=== PATIENT | male | born 1960 | race American Indian/Alaskan Native ===

== ENCOUNTER → 2016-05-17 | Outpatient (CLI) | payer MEDICARE, MEDICAID ==
[~2016-05-17] MED LIST: ACET1TAB43 PO; ACHD5005 PO; ACTOS15 MG PO; ALBU0.632 IH; ALBU1.25 IH; ALBU8.5H2 IH; AMLO10TA82 PO; ARFO15VI3 IH; ASP325TEC PO; ASP81TEC PO; ATEN100T88 PO; ATOR40TA PO; ATOR40TA70 PO; ATOR80TA PO; AZIT250T5 PO; AZTH250C PO; BUDE0.5A IH; BUDE10.2 IH; BUDE6HFA IH; BUSP10TA95 PO; CETI10TA17 PO; CETI10TA20 PO; CINA30TA2 PO; CLOP75TA28 PO; CLPD75T; CLPD75T PO; DILT240C; DOXY100C2 PO; ENOX150D; EZET10TA5; FAMO10TA43 PO; FAMO20TA5 PO; FENO145T2 PO; FENO145T20 PO; FESO4TAB PO; FLT11013 IH; FLUT16SP22 NSEACH; FLUT1AER IH; FRSM20T PO; FRSM40T PO; FURO-124 PO; FURO40TA4 PO; GABA-486 PO; GLIM2TAB PO; GLMP2T PO; IPRA3AMP IH; ISM30TCR; ISOS30TA3 PO; KCL20TCR; LEVO500T2 PO; LISI10TA2 PO; LRT10T; METO-274 PO; METO100T2 PO; METO100T5 PO; METR500T PO; MONT10TA21 PO; MONT10TA24 PO; MTP100TCR; MTP50T PO; NIA500ERT; NTR.4SL SL; OMEP-10 PO; ONDAN4ODT PO; OXYC-199 PO; PANT40SU PO; PANT40TA PO; PANT40TA3 PO; POTA10TA10 PO; POTA20TA7 PO; PRD20T PO; PRED10TA22 PO; RANO500T3 PO; RIVA15TA PO; RNT150T; RT-ALBUINH IH; SCR1T PO; SIMV40TA2; SIMV80TA3 PO; SMV20T PO; SULF1TAB38 PO; TAMO20TA2 PO; TAMS0.4C2 PO; TIZA2TAB3 PO; TRAM-21 PO; TRM50T PO; WRF10T PO; WRF5T PO; [UNRECOGNIZED DRUG - OTHER]
--- OUTSIDE RECORDS SUMMARY | 2016-05-17 08:34 | XMS REPORT | Continuity of Care Document ---
Author Author [facility] Organization [facility] Address Unknown Phone Unavailable Care Team Providers Care Coat Joiner Lockstitch Name Role Phone KIMANI GALINDO MD PCP Insurance Providers Payer Name Policy Number Subscriber Name Relationship [employer] [id number] Jagruti Garcia 18 Self / Same As Patient [facility] [id number] Jagruti Garcia Sr 18 Self / Same As Patient Advance Directives Directive Response Recorded Date/Time Advance Directives No 09/18/15 12:00pm Health Care Power of Manager Of Production No 09/18/15 12:00pm Organ Donor Yes 09/18/15 12:00pm Resuscitation Status Full Code 09/18/15 12:00pm Chief Complaint and Reason for Visit Chief Complaint Cardiac/General Problems Reason for Visit Hypertension Problems Active Problems Medical Problem Onset Date Status CAD (coronary artery disease) Unknown Acute CKD (chronic kidney disease) Unknown Acute Hypertension Unknown Acute Medications Current Home Medications Medication Dose Units Route Directions Days/Qty Instructions Start Date Nitroglycerin 0.4 Mg 0.4 Mg Sublingual As Directed as needed for Chest Pain TAKE 1 TABLET EVERY 5 MINUTES X 3 DOSES NEEDED FOR CHEST PAIN 03/16 Rivaroxaban 15 Mg 15 Mg Oral Bedtime 06/06/13 Fluticasone/Vilanterol 1 Each 1 Puff Inhalation Daily 06/29/15 Ipratropium/Albuterol Sulfate (Duoneb) 3 Ml 3 Ml Inhalation Every 4HRS as needed for Shortness Of Breath 06/29/15 Albuterol Sulfate 18 Gm 180 Mcg Inhalation Four Times Daily as needed for Shortness Of Breath 06/29/15 Metoprolol Tartrate 100 Mg 50 Mg Oral Twice A Day 06/29/15 Budesonide/Formoterol Fumarate 10.2 Gm 2 Puff Inhalation Twice A Day 06/30/15 Montelukast Sodium 10 Mg 10 Mg Oral Bedtime 06/30/15 Tamoxifen Citrate 20 Mg 20 Mg Oral Every Evening 06/30/15 Gabapentin 100 Mg 100 Mg Oral Three Times A Day 06/30/15 Pantoprazole Sodium 40 Mg 40 Mg Oral Twice A Day 06/30/15 Clopidogrel Bisulfate 75 Mg 75 Mg Oral Bedtime 06/30/15 Fenofibrate Nanocrystallized 145 Mg 145 Mg Oral Bedtime 06/30/15 Atorvastatin Calcium 40 Mg 40 Mg Oral Bedtime 06/30/15 Furosemide 40 Mg 40 Mg Oral Every Other Day 06/30/15 Isosorbide Mononitrate (Imdur) 30 Mg 30 Mg Oral Daily 90 07/03/15 Past Home Medications Medication Directions Ordered Status Clopidogrel Bisulfate 75 Mg Tablet, 12/30/06 Discontinued Furosemide 20 Mg Tablet, 40 Mg Oral Daily 12/30/06 Discontinued Potassium Chloride 20 Meq Tabsr, 12/30/06 Discontinued Ezetimibe 10 Mg Tablet, 12/30/06 Discontinued Simvastatin 40 Mg Tablet, 12/30/06 Discontinued Loratadine 10 Mg Box, 12/30/06 Discontinued Ranitidine Hcl 150 Mg Tablet, 12/30/06 Discontinued Isosorbide Mononitrate 30 Mg Tablet, 12/30/06 Discontinued [Niastan] , 12/30/06 Discontinued Metoprolol Succinate 100 Mg Tab.sr.24h, 03/13/08 Discontinued Simvastatin 40 Mg Tablet, 03/13/08 Discontinued Niacin 500 Mg Tablet.sa, 03/13/08 Discontinued Omeprazole 20 Mg Capsule.dr, 20 Mg Oral Twice A Day 03/13/08 Discontinued Tramadol Hcl 50 Mg Tablet, 50 Mg Oral Q4-6HRS Prn 10/20/08 Discontinued Trimethoprim/Sulfamethoxazole 1 Ea Tablet, 1 Ea Oral Twice A Day 10/20/08 Discontinued Warfarin Sodium 5 Mg Tablet, 5 Mg Oral Daily 05/25/09 Discontinued Diltiazem Hcl 240 Mg Cap.sr.24h, 05/25/09 Discontinued Enoxaparin Sodium 150 Mg/Ml Disp.syrin, 05/25/09 Discontinued Codeine Phos/Acetaminophen 1 Tab Tablet, 1 Tab Oral Q6h Prn 11/23/09 Discontinued Amlodipine Besylate (Norvasc 10 Mg) 10 Mg Tablet, 10 Mg Oral Daily 03/16/10 Discontinued Aspirin 81 Mg Tabec, 81 Mg Oral Daily 03/16/10 Discontinued Atenolol 100 Mg Tablet, 100 Mg Oral Daily 03/16/10 Discontinued Potassium Chloride 20 Meq Tab.prt.sr, 20 Meq Oral Daily 03/16/10 Discontinued Simvastatin 20 Mg Tab, 80 Mg Oral Bedtime 03/16/10 Discontinued Furosemide 40 Mg Tab, 40 Mg Oral Daily 03/17/10 Discontinued Sucralfate 1 Gm/10 Ml Susp, 2 Tsp Oral Before Meals And At Bedtime 03/31/10 Discontinued Acetaminophen/Hydrocodone Bitart 1 Each Tablet, 1 - 2 Each Oral Every 6 Hours as needed 06/22/10 Discontinued Azithromycin 250 Mg Tablet, 1 Tab Oral Daily 06/22/10 Discontinued Fenofibrate 145 Mg Tablet, 145 Mg Oral Bedtime 07/25/10 Discontinued Metoprolol Succinate (Toprol Xl) 100 Mg Tab.sr.24h, 50 Mg Oral Bedtime Discontinued Simvastatin 80 Mg Tablet, 80 Mg Oral Bedtime 07/26/10 Discontinued Aspirin 325 Mg Tabec, 325 Mg Oral Daily 08/26/10 Discontinued Clopidogrel Bisulfate 75 Mg Tablet, 75 Mg Oral Bedtime 08/26/10 Discontinued Famotidine (Pepcid) 20 Mg Tablet, 1 Each Oral Daily 08/26/10 Discontinued Ondansetron Hcl 4 Mg Tab, 4 Mg Oral Every 4HRS 09/14/10 Discontinued Atorvastatin Calcium 80 Mg Tablet, 80 Mg Oral Bedtime 02/11/11 Discontinued Tramadol Hcl 50 Mg Tab, 50 Mg Oral Every 8 Hours as needed 02/11/11 Discontinued Pioglitazone Hcl 15 Mg Tablet, 15 Mg Oral Daily 02/11/11 Discontinued Albuterol 8.5 Gm Hfa.aer.ad, 2 Puff Inhalation Every 6 Hours as needed Discontinued Pantoprazole Sodium 40 Mg Suspdr.pkt, 40 Mg Oral Daily 02/11/11 Discontinued Warfarin Sodium 10 Mg Tab, 10 Mg Oral Daily@1800 02/14/11 Discontinued Warfarin Sodium 5 Mg Tablet, 4 Mg Oral Daily 02/16/11 Discontinued Metoprolol Tartrate (Lopressor) 50 Mg Tablet, 50 Mg Oral Bedtime 07/20/11 Discontinued Famotidine (Pepcid) 20 Mg Tablet, 20 Mg Oral Daily 07/20/11 Discontinued Fluticasone Propionate 12 Gm Aer.w.adap, 1 Puff Inhalation As Needed Discontinued Atorvastatin Calcium 40 Mg Tablet, 40 Mg Oral Bedtime 06/06/13 Discontinued Tamoxifen Citrate 20 Mg Tablet, 20 Mg Oral Bedtime 06/06/13 Discontinued Famotidine 10 Mg Tablet, 10 Mg Oral 06/06/13 Discontinued Budesonide/Formoterol Fumarate 10.2 Gm Hfa.aer.ad, 2 Puff Inhalation Twice A Day as needed for Shortness Of Breath 06/06/13 Discontinued Montelukast Sodium 10 Mg Tablet, 10 Mg Oral Bedtime 06/06/13 Discontinued Albuterol Sulfate (Proventil Nebs) 0.63 Mg/3 Ml Vial.neb, 0.63 Mg Inhalation Q4hr Prn as needed for Wheezing 07/05/13 Discontinued Famotidine (Pepcid) 20 Mg Tablet, 20 Mg Oral Twice A Day 07/05/13 Discontinued Metoprolol Succinate 100 Mg Tab.sr.24h, 100 Mg Oral Bedtime 07/05/13 Discontinued Tizanidine Hcl 2 Mg Tablet, 2 Mg Oral Three Times A Day as needed for Muscle Spasms 07/05/13 Discontinued Oxycodone Hcl/Acetaminophen 1 Tab Tablet, 1-2 Tab Oral Every 4HRS for Pain Discontinued Doxycycline Hyclate (Vibramycin) 100 Mg Capsule, 1 Each Oral Twice A Day Discontinued Pantoprazole Sodium 40 Mg Tablet.dr, 40 Mg Oral Twice A Day 06/24/14 Discontinued Gabapentin 100 Mg Capsule, 100 Mg Oral Three Times A Day 06/24/14 Discontinued Lisinopril 10 Mg Tablet, 10 Mg Oral Daily 06/24/14 Discontinued Furosemide 40 Mg Tablet, 40 Mg Oral Every Other Day 06/29/15 Discontinued Fesoterodine Fumarate 4 Mg Tab.sr.24h, 4 Mg Oral Daily 06/29/15 Discontinued Famotidine 20 Mg Tablet, 20 Mg Oral Twice A Day 06/30/15 Discontinued Social History Social History Problem Response Recorded Date/Time Alcohol Use Denies Use 09/18/2015 12:00pm Recreational Drug Use No 09/18/2015 12:00pm Recent Foreign Travel No 09/18/2015 11:57am Recent Infectious Disease Exposure No 09/18/2015 11:57am Sexually Transmitted Disease No 09/18/2015 12:00pm Smoking Status Current Everyday Smoker 09/18/2015 12:00pm Do you dip or chew tobacco? No 09/18/2015 12:00pm Query Response Start Date Stop Date Smoking Status Current Everyday Smoker Hospital Discharge Instructions No hospital discharge instructions. Plan of Care Discharge Date 09/18/15 1:35pm Disposition 01 HOME, SELF-CARE Condition at Discharge Improved Instructions/Education Provided Associated Pulmonary Arterial Hypertension (DC ) Prescriptions See Medication Section Referrals CHELSEA MCNULTY MD FACP FAC CCDS - KIMANI GALINDO MD - Primary Care Physician KIMANI GALINDO MD - Primary Care Physician Additional Instructions/Education 1. You need to increase your Toprol XL dose to 100 mg daily. Follow-up with Dr. Mcnulty next week to further increase this if needed 2. Return to ER for any concerns All discharge instructions reviewed with patient and/or family. Voiced understanding. Functional Status No functional status results. Allergies, Adverse Reactions, Alerts Allergen Type Severity Reaction Status Last Updated Iodinated Contrast Media - IV Dye Allergy Mild Active 10/20/08 Penicillins ([id number]) Allergy Mild Active 10/20/08 Shellfish Allergy Unknown Active 02/18/06 iodine ([id number]) Allergy Unknown Active 08/21/05 amlodipine ([id number]) Allergy Unknown Active 11/29/06 Penicillin g Allergy Unknown Active 08/21/05 Immunizations Name Given Type Date of Pneumonia Vaccine 05/13/14 Historical Date of Influenza Vaccine 05/13/14 Historical Hepatitis A No Historical Hepatitis B No Historical Tetanus Booster (TDap) More than 5yrs Historical Vital Signs Acute Vital Signs Vital Response Date/Time Temperature (Fahrenheit) 98.0 degrees F (97.6 - 99.5) 09/18/2015 11:57am Temperature (Calculated Celsius) 36.30826 degrees C (36.4 - 37.5) 09/18/2015 11:57am Temperature Source Temporal 09/18/2015 11:57am Pulse Rate (adult) 96 bpm (60 - 90) 09/18/2015 11:57am Respiratory Rate 18 bpm (12 - 24) 09/18/2015 11:57am O2 Sat by Pulse Oximetry 95 % (88 - 100) 09/18/2015 11:57am Blood Pressure 175/109 mm Hg 09/18/2015 11:57am Blood Pressure Mean 131 mm Hg 09/18/2015 11:57am Pain Pain Intensity 3 09/18/2015 11:57am Height (Feet) 5 feet 09/18/2015 11:57am Height (Inches) 10 inches 09/18/2015 11:57am Height (Calculated Centimeters) 177.549789 cm 09/18/2015 11:57am Weight (Pounds) 252 pounds 09/18/2015 11:57am Weight (Calculated Kilograms) 114.907590 kilograms 09/18/2015 11:57am Height 5 ft 10 in Weight 252 lb Body Mass Index 36.2 kg/m^2 Results Laboratory Results Test Name Result Units Flags Reference Collection Date/Time Result Date/ Time Comments White Blood Count 7.7 10^3/uL 4.3-11.0 09/18/2015 12:00pm 09/18/2015 12 :12pm Red Blood Count 5.41 10^6/uL 4.35-5.85 09/18/2015 12:00pm 09/18/2015 12 :12pm Hemoglobin 15.3 G/DL 13.3-17.7 09/18/2015 12:00pm 09/18/2015 12:12pm Hematocrit 47 % 40-54 09/18/2015 12:00pm 09/18/2015 12:12pm Mean Corpuscular Volume 87 FL 80-99 09/18/2015 12:00pm 09/18/2015 12: 12pm Mean Corpuscular Hemoglobin 28 PG 25-34 09/18/2015 12:00pm 09/18/2015 12:12pm Mean Corpuscular Hemoglobin Concent 33 G/DL 32-36 09/18/2015 12:00pm 12:12pm Red Cell Distribution Width 15.5 % H 10.0-14.5 09/18/2015 12:00pm 2015 12:12pm Platelet Count 217 10^3/uL 130-400 09/18/2015 12:00pm 09/18/2015 12: 12pm Mean Platelet Volume 10.6 FL H 7.4-10.4 09/18/2015 12:00pm 09/18/2015 12: 12pm Neutrophils (%) (Auto) 54 % 42-75 09/18/2015 12:00pm 09/18/2015 12: 12pm Lymphocytes (%) (Auto) 32 % 12-44 09/18/2015 12:00pm 09/18/2015 12: 12pm Monocytes (%) (Auto) 10 % 0-12 09/18/2015 12:00pm 09/18/2015 12:12pm Eosinophils (%) (Auto) 3 % 0-10 09/18/2015 12:00pm 09/18/2015 12:12pm Basophils (%) (Auto) 1 % 0-10 09/18/2015 12:00pm 09/18/2015 12:12pm Neutrophils # (Auto) 4.2 X 10^3 1.8-7.8 09/18/2015 12:00pm 09/18/2015 12:12pm Lymphocytes # (Auto) 2.5 X 10^3 1.0-4.0 09/18/2015 12:00pm 09/18/2015 12:12pm Monocytes # (Auto) 0.8 X 10^3 0.0-1.0 09/18/2015 12:00pm 09/18/2015 12: 12pm Eosinophils # (Auto) 0.3 10^3/uL 0.0-0.3 09/18/2015 12:00pm 09/18/2015 12:12pm Basophils # (Auto) 0.1 10^3/uL 0.0-0.1 09/18/2015 12:00pm 09/18/2015 12 :12pm Prothrombin Time 15.5 SEC H 12.2-14.7 09/18/2015 12:00pm 09/18/2015 12: 26pm INR Comment 1.3 0.8-1.4 09/18/2015 12:00pm 09/18/2015 12:26pm INTERPRETIVE DATA SUGGESTED THERAPEUTIC RANGE FOR INR'S: VENOUS THROMBOSIS, PULMONARY EMBOLISM, OR PREVENTION OF SYSTEMIC EMBOLISM (EG. IN ATRIAL FIBRILLATION): 2.0 - 3.0 MECHANICAL PROSTHETIC HEART VALVES: 2.5 - 3.5* *NOTE: INR'S UP TO 4.5 MAY BE NECESSARY IN SELECTED GROUPS OF HIGH RISK PATIENTS. [employer] CONSENSUS CONFERENCE ON ANTITHROMBOTIC THERAPY (1999). Activated Partial Thromboplast Time 32 SEC 24-35 09/18/2015 12:00pm 04/2016 12:26pm Sodium Level 140 MMOL/L 135-145 09/18/2015 12:00pm 09/18/2015 12:31pm Potassium Level 4.3 MMOL/L 3.6-5.0 09/18/2015 12:00pm 09/18/2015 12: 31pm Chloride Level 105 MMOL/L 98-107 09/18/2015 12:00pm 09/18/2015 12:31pm Carbon Dioxide Level 27 MMOL/L 21-32 09/18/2015 12:00pm 09/18/2015 12: 31pm Anion Gap 8 MMOL/L 5-14 09/18/2015 12:00pm 09/18/2015 12:31pm Blood Urea Nitrogen 22 MG/DL H 7-18 09/18/2015 12:00pm 09/18/2015 12: 31pm Creatinine 2.05 MG/DL H 0.60-1.30 09/18/2015 12:00pm 09/18/2015 12:31pm BUN/Creatinine Ratio 11 09/18/2015 12:00pm 09/18/2015 12:31pm Estimat Glomerular Filtration Rate 34 09/18/2015 12:00pm 2015 12:31pm GFR INTERPRETIVE DATA UNITS FOR ESTIMATED GFR (eGFR): mL/min/1.73 M2 REFERENCE RANGE FOR ESTIMATED GFR (eGFR) eGFR NORMAL eGFR >60 MODERATELY DECREASED eGFR 30-59 SEVERLY DECREASED eGFR 15-29 KIDNEY FAILURE <15 (OR DIALYSIS) Glucose Level 109 MG/DL H 70-105 09/18/2015 12:00pm 09/18/2015 12:31pm Calcium Level 10.7 MG/DL H 8.5-10.1 09/18/2015 12:00pm 09/18/2015 12: 31pm Magnesium Level 2.5 MG/DL H 1.8-2.4 09/18/2015 12:00pm 09/18/2015 12: 31pm Total Bilirubin 0.5 MG/DL 0.1-1.0 09/18/2015 12:00pm 09/18/2015 12: 31pm Alkaline Phosphatase 62 U/L 40-136 09/18/2015 12:00pm 09/18/2015 12: 31pm Aspartate Amino Transf (AST/SGOT) 51 U/L H 5-34 09/18/2015 12:00pm 2015 12:31pm Alanine Aminotransferase (ALT/SGPT) 37 U/L 0-55 09/18/2015 12:00pm 04/2016 12:31pm Troponin I < 0.30 NG/ML <0.30 09/18/2015 12:00pm 09/18/2015 12:36pm Myoglobin 184.9 NG/ML H 10.0-92.0 09/18/2015 12:00pm 09/18/2015 12:36pm Total Protein 6.5 G/DL 6.4-8.2 09/18/2015 12:00pm 09/18/2015 12:31pm Albumin 4.0 G/DL 3.2-4.5 09/18/2015 12:00pm 09/18/2015 12:31pm Procedures Procedure Status Date Provider(s) Tracing only of electrocardiogram Active 09/18/15 SUZIE TOTH APRN Encounters Encounter Location Arrival/Admit Date Discharge/Depart Date Attending Provider Departed Emergency Room [facility] 09/18/15 11:54am 04/23 1:35pm SUZIE TOTH APRN Recent Diagnosis
--- NOTE | 2016-05-17 12:30 | Diagnostic Imaging Report ---
PROCEDURE: CT chest without contrast. TECHNIQUE: Multiple contiguous axial images were obtained through the chest without the use of intravenous contrast. INDICATION: COPD. Shortness of breath. History of breast cancer. COMPARISON: 11/19/2011 exam. FINDINGS: Lungs demonstrate scattered areas of scarring mostly in the periphery of the right upper lobe and in the lung bases. There is no significant consolidation or suspicious mass seen. The thoracic aorta is normal in caliber. No mediastinal mass or significantly enlarged lymph node is seen. There is a 1.2 cm right paratracheal and 1.1 cm aortopulmonary window minimally enlarged lymph nodes seen. No axillary lymphadenopathy is noted. There is evidence of prior sternotomy that appears healed with sternotomy wires seen. Extensive coronary artery calcifications and post-CABG changes are noted. The heart size is not enlarged. No significant pericardial or pleural effusion. Prominent mitral valve annular calcifications noted. Sections in the upper abdomen demonstrate no adrenal nodule. There is a mild degree of fatty infiltration in the liver in a diffuse fashion. The osseous structures demonstrate mild degenerative changes. IMPRESSION: Minimally enlarged aortopulmonary and right paratracheal mediastinal lymph nodes of uncertain etiology. Scattered areas of scarring in the lungs with no mass or significant consolidation. Dictated by: Dictated on workstation # [id number]
== END ==
LOC: RAD 08:30
PROVIDERS: ATTEND Nurse Practitioner Family
DX: J44.9 Chronic obstructive pulmonary disease, unspecified (principal); J45.909 Unspecified asthma, uncomplicated; R06.02 Shortness of breath; Z72.0 Tobacco use
CPT/HCPCS: 71250

== ENCOUNTER → 2016-06-15 | Outpatient (CLI) | payer MEDICARE, MEDICAID ==
--- OUTSIDE RECORDS SUMMARY | 2016-06-15 08:55 | XMS REPORT | Continuity of Care Document ---
Author Author [facility] Organization [facility] Address Unknown Phone Unavailable Care Team Providers Care Dairy Products Maker Name Role Phone KIMANI GALINDO MD PCP Insurance Providers Payer Name Policy Number Subscriber Name Relationship W[employer] Medicare [id number] Jagruti Garcia 18 Self / Same As Patient [facility] [id number] Jagruti Garcia Sr 18 Self / Same As Patient Advance Directives Directive Response Recorded Date/Time Advance Directives No 09/18/15 12:00pm Health Care Power of [employer] Reader No 09/18/15 12:00pm Organ Donor Yes 09/18/15 [...] IV Dye Allergy Mild Active 10/20/08 Penicillins ([id number]) Allergy Mild Active 10/20/08 Shellfish Allergy Unknown Active 02/18/06 iodine ([id number]) Allergy Unknown Active 08/21/05 amlodipine ([id number]) Allergy Unknown Active 11/29/06 Penicillin g Allergy Unknown Active 08/21/05 Immunizations Name Given Type Date of Pneumonia Vaccine 05/13/14 Historical Date of Influenza Vaccine 05/13/14 Historical Hepatitis A No Historical Hepatitis B No Historical Tetanus Booster (TDap) More than 5yrs Historical Vital Signs Acute Vital Signs Vital Response Date/Time Temperature (Fahrenheit) 98.0 degrees F (97.6 - 99.5) 09/18/2015 11:57am Temperature (Calculated Celsius) 36.65175 degrees C (36.4 - 37.5) 09/18/2015 11:57am [...] 10 inches 09/18/2015 11:57am Height (Calculated Centimeters) 177.426007 cm 09/18/2015 11:57am Weight (Pounds) 252 pounds 09/18/2015 11:57am Weight (Calculated Kilograms) 114.255919 kilograms 09/18/2015 11:57am Height 5 ft 10 [...] SELECTED GROUPS OF HIGH RISK PATIENTS. [employer] CONSENSUS CONFERENCE ON [...] Date Attending Provider Departed Emergency Room [facility] 09/18/15 11:54am 04/23 1:35pm SUZIE TOTH APRN Recent Diagnosis
--- NOTE | 2016-06-15 09:41 | Diagnostic Imaging Report ---
Bilateral mild diagnostic mammogram. INDICATION: History of left breast cancer status post mastectomy. The patient has bilateral axillary swelling. CAD is utilized. The current study was also evaluated with a Computer Aided Detection (CAD) system. COMPARISON: 07/08/2015 and other prior exams. FINDINGS: Postsurgical changes seen in the left breast area and axilla with multiple surgical clips seen. Well-defined nodules in the left axilla with suggestion of fatty hilum compatible with lymph nodes without significant enlargement. There are slightly larger lymph nodes seen in the right axilla however there is preserved fatty tata suggestive of benign etiology. No right breast mass or calcification seen. IMPRESSION: Benign-appearing lymph nodes slightly more prominent to the right axilla seen. Ultrasound evaluation pending. BI-RADS 0. ACR BI-RADS Category 0: Incomplete. (Needs additional imaging evaluation). Result letter will be mailed to the patient. Note: At least 10% of breast cancer is not imaged by mammography. Dictated by: Dictated on workstation # [id number]
--- NOTE | 2016-06-15 15:38 | Diagnostic Imaging Report ---
EXAMINATION: Bilateral breast and axilla ultrasound. INDICATION: Bilateral axillary pain. FINDINGS: RIGHT SIDE: The four-quadrants and retroareolar region demonstrate no significant abnormality. In the right axilla, there is a lymph node measuring 2.4 x 1.3 x 2.1 cm with a preserved fatty hilum. LEFT SIDE: The left mastectomy bed demonstrates no suspicious mass. The left axilla demonstrates lymph nodes with preserved fatty tata and thin cortices measuring up to 2.6 x 0.8 x 1 cm. IMPRESSION: Bilateral axillary lymph nodes with preserved fatty tata, suggestive of a benign etiology. Continued clinical followup is recommended. ACR BI-RADS Category 2: Benign findings. Dictated by: Dictated on workstation # [id number]
== END ==
LOC: RAD 08:51
PROVIDERS: ATTEND Internal Medicine Hematology & Oncology
DX: C50.922 Malignant neoplasm of unspecified site of left male breast (principal); I89.0 Lymphedema, not elsewhere classified; Z90.12 Acquired absence of left breast and nipple
CPT/HCPCS: 77066

== ENCOUNTER 2016-06-18 09:08 | Outpatient (RCR) | payer MEDICARE, MEDICAID ==
--- OUTSIDE RECORDS SUMMARY | 2016-06-11 08:47 | XMS REPORT | Continuity of Care Document ---
Author Author [facility] Organization [facility] Address Unknown Phone Unavailable Care Team Providers Care Elementary Supervisor Name Role Phone KIMANI GALINDO MD PCP Insurance Providers Payer Name Policy Number Subscriber Name Relationship Wps Medicare [id number] Jagruti Garcia 18 Self / Same As Patient [facility] [id number] Jagruti Garcia Sr 18 Self / Same As Patient Advance Directives Directive Response Recorded Date/Time Advance Directives No 09/18/15 12:00pm Health Care Power of Precipitator No 09/18/15 12:00pm Organ Donor Yes 09/18/15 [...] IV Dye Allergy Mild Active 10/20/08 Penicillins ([id number]) Allergy Mild Active 10/20/08 Shellfish Allergy Unknown Active 02/18/06 iodine ([id number]) Allergy Unknown Active 08/21/05 amlodipine ([id number]) Allergy Unknown Active 11/29/06 Penicillin g Allergy Unknown Active 08/21/05 Immunizations Name Given Type Date of Pneumonia Vaccine 05/13/14 Historical Date of Influenza Vaccine 05/13/14 Historical Hepatitis A No Historical Hepatitis B No Historical Tetanus Booster (TDap) More than 5yrs Historical Vital Signs Acute Vital Signs Vital Response Date/Time Temperature (Fahrenheit) 98.0 degrees F (97.6 - 99.5) 09/18/2015 11:57am Temperature (Calculated Celsius) 36.83794 degrees C (36.4 - 37.5) 09/18/2015 11:57am [...] 10 inches 09/18/2015 11:57am Height (Calculated Centimeters) 177.885031 cm 09/18/2015 11:57am Weight (Pounds) 252 pounds 09/18/2015 11:57am Weight (Calculated Kilograms) 114.602594 kilograms 09/18/2015 11:57am Height 5 ft 10 [...] SELECTED GROUPS OF HIGH RISK PATIENTS. [employer] CONSENSUS CONFERENCE ON [...] Date Attending Provider Departed Emergency Room [facility] 09/18/15 11:54am 04/23 1:35pm SUZIE TOTH APRN Recent Diagnosis
[2016-06-14 15:28] LABS: BASOPHILS % (AUTO) 1 % (0-10); EOSINOPHILS # (AUTO) 0.2 10^3/uL (0.0-0.3); EOSINOPHILS % (AUTO) 2 % (0-10); LYMPHOCYTES # (AUTO) 1.9 X 10^3 (1.0-4.0); LYMPHOCYTES % (AUTO) 30 % (12-44); MEAN CORPUSCULAR HEMOGLOBIN 27 PG (25-34); MEAN CORPUSCULAR HGB CONC 32 G/DL (32-36); MEAN CORPUSCULAR VOLUME 86 FL (80-99); MEAN PLATELET VOLUME 10.4 FL (7.4-10.4); MONOCYTES # (AUTO) 0.7 X 10^3 (0.0-1.0); MONOCYTES % (AUTO) 11 % (0-12); NEUTROPHILS # (AUTO) 3.6 X 10^3 (1.8-7.8); NEUTROPHILS % (AUTO) 57 % (42-75); PLATELET COUNT 206 10^3/uL (130-400); RED BLOOD COUNT 5.56 10^6/uL (4.35-5.85); RED CELL DISTRIBUTION WIDTH 16.8 % (10.0-14.5); WHITE BLOOD COUNT 6.3 10^3/uL (4.3-11.0)
[2016-06-14 16:07] LABS: BILIRUBIN,TOTAL 0.5 MG/DL (0.1-1.0); CALCIUM 11.1 MG/DL (8.5-10.1); CREATININE SERUM 1.8 MG/DL (0.60-1.30); POTASSIUM 4.6 MMOL/L (3.6-5.0)
[~2016-06-18 09:08] MED LIST changes: -ALBU1.25 IH; -ARFO15VI3 IH; -AZIT250T5 PO; -BUDE0.5A IH; -BUSP10TA95 PO; -CETI10TA17 PO; -CETI10TA20 PO; -CINA30TA2 PO; -FLUT16SP22 NSEACH; -GLIM2TAB PO; -GLMP2T PO; -LEVO500T2 PO; -METO-274 PO; -METR500T PO; -POTA10TA10 PO; -PRD20T PO; -PRED10TA22 PO; -RANO500T3 PO; -TAMS0.4C2 PO
[2016-06-20] MEDS ORDERED: PRD20T PO (22:30)
[2016-06-20] MEDS ORDERED: AZIT250T5 PO (22:30)
[2016-06-20] MEDS ORDERED: LEVO500T2 PO (22:40)
[2016-06-20] MEDS ORDERED: METR500T PO (22:54)
[2016-07-18] MEDS ORDERED: BUSP10TA95 PO (07:46)
[2016-07-18] MEDS ORDERED: CETI10TA20 PO (07:46)
[2016-07-18] MEDS ORDERED: CINA30TA2 PO (07:46)
[2016-07-18] MEDS ORDERED: ARFO15VI3 IH (07:46)
[2016-07-18] MEDS ORDERED: GLMP2T PO (07:46)
[2016-07-19] MEDS ORDERED: METO-274 PO (10:32)
[2016-07-19] MEDS ORDERED: BUDE0.5A IH (10:32)
[2016-07-19] MEDS ORDERED: CETI10TA17 PO (10:32)
[2016-07-19] MEDS ORDERED: GLIM2TAB PO (10:32)
[2016-07-19] MEDS ORDERED: POTA10TA10 PO (10:32)
[2016-07-19] MEDS ORDERED: ISOS30TA3 PO (10:32)
[2016-07-19] MEDS ORDERED: FLUT16SP22 NSEACH (10:32)
[2016-07-19] MEDS ORDERED: TAMS0.4C2 PO (10:32)
[2016-07-19] MEDS ORDERED: ALBU1.25 IH (10:34)
[2016-07-20] MEDS ORDERED: PRED10TA22 PO (09:25)
[2016-07-21] MEDS ORDERED: METO-274 PO (08:45)
[2016-07-21] MEDS ORDERED: RANO500T3 PO (08:45)
[2016-09-10] MEDS ORDERED: RANO500T3 PO (09:33)
[2016-09-10] MEDS ORDERED: METO-274 PO (09:33)
== END 2016-09-09 | disposition home or self-care (01) ==
LOC: ONC 09:08
PROVIDERS: ATTEND Internal Medicine Hematology & Oncology
DX: C50.122 Malignant neoplasm of central portion of left male breast (principal); Z17.0 Estrogen receptor positive status [ER+]; Z90.12 Acquired absence of left breast and nipple; Z85.858 Personal history of malignant neoplasm of other endocrine glands; I25.10 Atherosclerotic heart disease of native coronary artery without angina pectoris; I12.9 Hypertensive chronic kidney disease with stage 1 through stage 4 chronic kidney disease, or unspecified chronic kidney disease; N18.9 Chronic kidney disease, unspecified; E78.5 Hyperlipidemia, unspecified; Z86.718 Personal history of other venous thrombosis and embolism; Z95.1 Presence of aortocoronary bypass graft; Z79.810 Long term (current) use of selective estrogen receptor modulators (SERMs); Z79.01 Long term (current) use of anticoagulants
CPT/HCPCS: 36415; 80053; 85025; 86300; 99213

== ENCOUNTER 2016-06-20 21:17 | Emergency (ER) | payer MEDICARE, MEDICAID ==
[~2016-06-20] VITALS: Ht 170.2 cm; Wt 110.2 kg
--- OUTSIDE RECORDS SUMMARY | 2016-06-20 21:24 | XMS REPORT | Continuity of Care Document ---
Author Author [facility] Organization [facility] Address Unknown Phone Unavailable Care Team Providers Care Oxygen Equipment Aide Name Role Phone KIMANI GALINDO MD PCP Insurance Providers Payer Name Policy Number Subscriber Name Relationship Wps Medicare [id number] Jagruti Garcia 18 Self / Same As Patient [facility] [id number] Jagruti Garcia Sr 16 Self / Same As Patient Advance Directives Directive Response Recorded Date/Time Advance Directives No 09/18/15 12:00pm Health Care Power of Addiction Psychiatrist No 09/18/15 12:00pm Organ Donor Yes 09/18/15 [...] IV Dye Allergy Mild Active 10/20/08 Penicillins ([id number]) Allergy Mild Active 10/20/08 Shellfish Allergy Unknown Active 02/18/06 iodine ([id number]) Allergy Unknown Active 08/21/05 amlodipine ([id number]) Allergy Unknown Active 11/29/06 Penicillin g Allergy Unknown Active 08/21/05 Immunizations Name Given Type Date of Pneumonia Vaccine 05/13/14 Historical Date of Influenza Vaccine 05/13/14 Historical Hepatitis A No Historical Hepatitis B No Historical Tetanus Booster (TDap) More than 5yrs Historical Vital Signs Acute Vital Signs Vital Response Date/Time Temperature (Fahrenheit) 98.0 degrees F (97.6 - 99.5) 09/18/2015 11:57am Temperature (Calculated Celsius) 36.40517 degrees C (36.4 - 37.5) 09/18/2015 11:57am [...] 10 inches 09/18/2015 11:57am Height (Calculated Centimeters) 177.228672 cm 09/18/2015 11:57am Weight (Pounds) 252 pounds 09/18/2015 11:57am Weight (Calculated Kilograms) 114.900611 kilograms 09/18/2015 11:57am Height 5 ft 10 [...] SELECTED GROUPS OF HIGH RISK PATIENTS. [employer] CONSENSUS CONFERENCE ON [...] Date Attending Provider Departed Emergency Room [facility] 09/18/15 11:54am 04/23 1:35pm SUZIE TOTH APRN Recent Diagnosis
[2016-06-20] MEDS ORDERED: RT-ALBUTEROL/IPRATROPIUM 3 ML (DUONEB) VIAL INH ONE ×2 (21:45→22:00)
--- NOTE | 2016-06-20 21:46 | ED Cough/URI ---
General Stated Complaint: STOMACH PAIN, FEVER, COUGHING UP BLOOD Source: patient Exam Limitations: no limitations (SUZIE BAPTISTE APRN) History of Present Illness Time seen by provider: 21:43 Initial Comments To ER with reports of hemoptysis since last night, lower abdominal pain bilaterally and fever up to 102 last night. He does have COPD. States that he' s been coughing more than usual for the past 3 days. 3 days ago he started with a cough that was productive of yellow sputum but without blood. Starting last night and more persistently today he had a cough productive of blood. He is on xarelto for history of multiple DVT. He did have a CT of the chest done here in May which showed some nonspecific mediastinal lymphadenopathy but without mass otherwise. Timing/Duration: getting worse Severity/Quality: productive cough Associated Symptoms: cough (SUZIE BAPTISTE APRN) Allergies and Home Medications Allergies Coded Allergies: Iodinated Contrast Media - IV Dye (Unverified Allergy, Mild, 10/20/08) Penicillins (Unverified Allergy, Mild, 10/20/08) Shellfish (Verified Allergy, Unknown, 02/18/06) amlodipine (Verified Allergy, Unknown, 11/29/06) iodine (Verified Allergy, Unknown, 08/21/05) penicillin G (Verified Allergy, Unknown, 08/21/05) Home Medications Albuterol Sulfate 18 Gm Hfa.aer.ad 180 MCG IH QID PRN PRN SHORTNESS OF BREATH ( Reported) Atorvastatin Calcium 40 Mg Tablet 40 MG PO HS (Reported) Budesonide/Formoterol Fumarate 10.2 Gm Hfa.aer.ad 2 PUFF IH BID (Reported) Clopidogrel Bisulfate 75 Mg Tablet 75 MG PO HS (Reported) Fenofibrate Nanocrystallized 145 Mg Tablet 145 MG PO HS (Reported) Fluticasone/Vilanterol 1 Each Blst.w.dev 1 PUFF IH DAILY (Reported) Furosemide 40 Mg Tablet 40 MG PO EVERY OTHER DAY (Reported) Gabapentin 100 Mg Capsule 100 MG PO TID (Reported) Ipratropium/Albuterol Sulfate 3 Ml Ampul.neb 3 ML IH Q4H PRN PRN SHORTNESS OF BREATH (Reported) Isosorbide Mononitrate 30 Mg Tab.er.24h #90 30 MG PO DAILY Prescribed by: BLAYNE MORENO on 07/03/15 0914 Levofloxacin 500 Mg Tablet #4 500 MG PO Q48H Prescribed by: SUZIE BAPTISTE on 06/20/160 Metoprolol Tartrate 100 Mg Tablet 50 MG PO BID (Reported) Metronidazole 500 Mg Tablet #21 500 MG PO TID Prescribed by: SUZIE BAPTISTE on 06/20/162253 Montelukast Sodium 10 Mg Tablet 10 MG PO HS (Reported) Nitroglycerin 0.4 Mg Subl 0.4 MG SL UD PRN PRN CHEST PAIN (Reported) TAKE 1 TABLET EVERY 5 MINUTES X 3 DOSES NEEDED FOR CHEST PAIN Pantoprazole Sodium 40 Mg Tablet.dr 40 MG PO BID (Reported) Prednisone 20 Mg Tab #6 40 MG PO DAILY Prescribed by: SUZIE BAPTISTE on 06/20/162229 Rivaroxaban 15 Mg Tablet 15 MG PO HS (Reported) Tamoxifen Citrate 20 Mg Tablet 20 MG PO EVERY EVENING (Reported) Constitutional: see HPI chills fever EENTM: see HPI Respiratory: see HPI cough hemoptysis Cardiovascular: no symptoms reported Genitourinary: no symptoms reported Musculoskeletal: no symptoms reported Skin: no symptoms reported Psychiatric/Neurological: No Symptoms Reported Hematologic/Lymphatic: No Symptoms Reported Immunological/Allergic: no symptoms reported (SUZIE BAPTISTE APRN) Past Njqdcwb-Hmsjal-Nnzmsp Hx Patient Social History Recent Foreign Travel: No Contact w/Someone Who Travel: No (SUZIE BAPTISTE APRN) Immunizations Up To Date Tetanus Booster (TDap): More than 5yrs PED Vaccines UTD: No Date of Pneumonia Vaccine: May 13, 2014 Date of Influenza Vaccine: May 13, 2014 (SUZIE BAPTISTE APRN) Surgeries HX Surgeries: Yes (PARATHYROIDECTOMY, OPEN HEART SC, CARDIAC CATH X20, CARPEL TUNNEL LATA HAND) Surgeries: Appendectomy, Breast, Cardiac, Coronary Stent, Orthopedic (SUZIE BAPTISTE APRN) Respiratory Hx Respiratory Disorders: Yes Respiratory Disorders: Asthma, COPD, Emphysema (SUZIE BAPTISTE APRN) Cardiovascular Hx Cardiac Disorders: Yes (HAS STENTS X3, HX LBBB, CHF) Cardiac Disorders: Angina, Atrial Fibrillation, Cardiomyopathy, Coronary Artery Disease, Deep Vein Thrombosis, Heart Attack, Heart Murmur, High Cholesterol, Hypertension (SUZIE BAPTISTE APRN) Neurological Hx Neurological Disorders: Yes Neurological Disorders: TIA (SUZIE BAPTISTE APRN) Reproductive System Hx Reproductive Disorders: No Sexually Transmitted Disease: No (SUZIE BAPTISTE APRN) Genitourinary Hx Genitourinary Disorders: Yes (CHRONIC RENAL INSUFFICIENCY) Genitourinary Disorders: Renal Failure (SUZIE BAPTISTE APRN) Gastrointestinal Hx Gastrointestinal Disorders: Yes (LIVER ENZYME ELEVATION/ LIPITOR ADJUSTED) Gastrointestinal Disorders: Gastroesophageal Reflux, Liver Disease/Jaundice (SUZIE BAPTISTE APRN) Musculoskeletal Hx Musculoskeletal Disorders: Yes (LEFT SHOULDER TORN ROTATOR CUFF, bilat carpal tunnel repair) Musculoskeletal Disorders: Degenerate Disk Disease (SUZIE BAPTISTE APRN) Endocrine Hx Endocrine Disorders: Yes (PARATHYROIDECTOMY, "BORDERLINE DIABETIC") Endocrine Disorders: Diabetes, Non-Insulin dep (SUZIE BAPTISTE APRN) HEENT HX ENT Disorders: No HEENT Disorders: Cataract (SUZIE BAPTISTE APRN) Cancer Hx Cancer: Yes Cancer: Breast (SUZIE BAPTISTE APRN) Psychosocial Hx Psychiatric Problems: No (SUZIE BAPTISTE APRN) Integumentary HX Skin/Integumentary Disorder: No (SUZIE BAPTISTE APRN) Blood Transfusions Hx Blood Disorders: No (SUZIE BAPTISTE APRN) Family Medical History Family Medial History: Arthritis 19 FATHER Cardiovascular disease 19 FATHER FH: breast cancer 19 MOTHER Respiratory disorder 19 FATHER (SUZIE BAPTISTE APRN) Family Medial History: Arthritis 19 FATHER Cardiovascular disease 19 FATHER FH: breast cancer 19 MOTHER Respiratory disorder 19 FATHER (CHINO ELLIS MD) Physical Exam Vital Signs Vital Sign - Last 12Hours 06/20/16 21:20 Temp 101.8 Pulse 92 Resp 22 B/P 107/67 Pulse Ox 94 O2 Delivery Room Air (CHINO ELLIS MD) Vital Signs Capillary Refill : (SUZIE BAPTISTE APRN) General Appearance: WD/WN no apparent distress HEENT: PERRL/EOMI normal ENT inspection Neck: non-tender full range of motion Respiratory: no respiratory distress no accessory muscle use wheezing Cardiovascular: regular rate, rhythm no murmur Gastrointestinal: normal bowel sounds non tender softNo tenderness Extremities: normal range of motion non-tender Neurologic/Psychiatric: alert normal mood/affect oriented x 3 Skin: normal color warm/dry (SUZIE BAPTISTE APRN) Progress/Results/Core Measures Results/Orders Lab Results Laboratory Tests Test 06/20/16 21:42 06/20/16 22:08 Range/Units Alanine Aminotransferase (ALT/SGPT) 19 0-55 U/L Albumin 3.6 3.2-4.5 G/DL Alkaline Phosphatase 58 40-136 U/L Anion Gap 9 5-14 MMOL/L Aspartate Amino Transf (AST/SGOT) 40 H 5-34 U/L BUN/Creatinine Ratio 14 Basophils # (Auto) 0.0 0.0-0.1 10^3/uL Basophils (%) (Auto) 0 0-10 % Blood Urea Nitrogen 31 H 7-18 MG/DL Calcium Level 9.9 8.5-10.1 MG/DL Carbon Dioxide Level 18 L 21-32 MMOL/L Chloride Level 110 H 98-107 MMOL/L Creatinine 2.16 H 0.60-1.30 MG/DL Eosinophils # (Auto) 0.1 0.0-0.3 10^3/uL Eosinophils (%) (Auto) 1 0-10 % Estimat Glomerular Filtration Rate 32 Glucose Level 157 H 70-105 MG/DL Hematocrit 47 40-54 % Hemoglobin 15.0 13.3-17.7 G/DL Lymphocytes # (Auto) 1.8 1.0-4.0 X 10^3 Lymphocytes (%) (Auto) 15 12-44 % Mean Corpuscular Hemoglobin 27 25-34 PG Mean Corpuscular Hemoglobin Concent 32 32-36 G/DL Mean Corpuscular Volume 86 80-99 FL Mean Platelet Volume 10.9 H 7.4-10.4 FL Monocytes # (Auto) 1.1 H 0.0-1.0 X 10^3 Monocytes (%) (Auto) 9 0-12 % Neutrophils # (Auto) 8.8 H 1.8-7.8 X 10^3 Neutrophils (%) (Auto) 75 42-75 % Platelet Count 213 130-400 10^3/uL Potassium Level 5.2 H 3.6-5.0 MMOL/L Red Blood Count 5.51 4.35-5.85 10^6/uL Red Cell Distribution Width 16.6 H 10.0-14.5 % Sodium Level 137 135-145 MMOL/L Total Bilirubin 0.5 0.1-1.0 MG/DL Total Protein 7.0 6.4-8.2 G/DL White Blood Count 11.7 H 4.3-11.0 10^3/uL Urine Bacteria NEGATIVE /HPF Urine Bilirubin NEGATIVE NEGATIVE Urine Casts PRESENT /LPF Urine Clarity CLEAR Urine Color YELLOW Urine Crystals NONE /LPF Urine Culture Indicated NO Urine Glucose (UA) NEGATIVE NEGATIVE Urine Hyaline Casts 0-2 H /LPF Urine Ketones NEGATIVE NEGATIVE Urine Leukocyte Esterase NEGATIVE NEGATIVE Urine Mucus NEGATIVE /LPF Urine Nitrite NEGATIVE NEGATIVE Urine Protein NEGATIVE NEGATIVE Urine RBC NONE /HPF Urine RBC (Auto) 2+ H NEGATIVE Urine Renal Epithelial Cells NONE /HPF Urine Specific Thomson 1.020 1.016-1.022 Urine Squamous Epithelial Cells 0-2 /HPF Urine Urobilinogen 1 NORMAL MG/DL Urine WBC 0-2 /HPF Urine pH 6 5-9 (CHINO ELLIS MD) Micro Results Microbiology 06/20/16 Influenza Types A,B Antigen (EMILY) - Final, Complete (CHINO ELLIS MD) Medications Given in ED Current Medications Medications Dose Ordered Sig/Rebecca Route Start Time Stop Time Status Last Admin Dose Admin Acetaminophen 1,000 mg ONCE ONCE PO 06/20/16 22:45 06/20/16 22:46 DC 06/20/16 22:48 1,000 MG Albuterol/ Ipratropium 3 ml ONCE ONCE INH 06/20/16 21:45 06/20/16 21:46 DC 06/20/16 21:54 3 ML Albuterol/ Ipratropium 3 ml ONCE ONCE INH 06/20/16 22:00 06/20/16 22:01 DC 06/20/16 22:08 3 ML Methylprednisolone Sodium Succinate 125 mg ONCE ONCE IVP 06/20/16 22:00 06/20/16 22:01 DC 06/20/16 22:07 125 MG (CHINO ELLIS MD) Vital Signs/I&O Vital Sign - Last 12Hours 06/20/16 06/20/16 06/20/16 21:20 21:54 22:08 Temp 101.8 Pulse 92 Resp 22 B/P 107/67 Pulse Ox 94 95 96 O2 Delivery Room Air (CHINO ELLIS MD) Progress Note : Progress Note 2219-patient was given 2 DuoNeb treatments in the emergency room which did do precipitate a productive cough of yellow sputum but again no obvious blood. (SUZIE BAPTISTE APRN) Progress Note : Progress Note 2310: CT results reviewed. No indication of cystitis on UA. Discharged home with return precautions and prescription for Suzie Baptiste APRN. I agree with plan. (CHINO ELLIS MD) Diagnostic Imaging Diagonstic Imaging: CT Plain Films/CT/US/NM/MRI: abdomen, pelvis Comments CT abdomen and pelvis shows mild sigmoid diverticulitis with no abscess or free air. There is no small bowel obstruction. No hydronephrosis or ureteral calculus. Nonspecific mild perinephric stranding. Thickened bladder may be under distention versus cystitis. Reviewed: Reviewed [place] Study, Reviewed by Me (CHINO ELLIS MD) Departure Communication Progress Notes 2153-patient did expectorate sputum here that had no reyes blood and was not blood-tinged.. 2228-patient does have oxygen at home to wear as needed. He does have a nebulizer at home. (SUZIE BAPTISTE APRN) Impression Impression: Primary Impression: CKD (chronic kidney disease) Qualified Code: N18.9 - Chronic kidney disease, unspecified Additional Impressions: History of hemoptysis COPD exacerbation Diverticulitis Qualified Code: K57.32 - Diverticulitis of large intestine without perforation or abscess without bleeding Disposition: HOME, SELF-CARE Condition: Stable Departure-Patient Inst. Decision time for Depature: 22:27 (SUZIE BAPTISTE APRN) Referrals: KIMANI NOBLE MD (PCP) Primary Care Physician CHELSEA HAWTHORNE MD FACP FAC CCDS (Family) Primary Care Physician Patient Instructions: Diverticulitis, NO INSTRUCTIONS GIVEN Add. Discharge Instructions: 1. Your potassium was slightly elevated at 5.2. With this in mind we should hold your potassium dose tomorrow and notify your physician the need for repeat labs 2. Follow-up with Dr. Noble later this week for recheck 3. Medication as directed Scripts Metronidazole (Flagyl)500 Mg [id number] Mg PO TID #21 TAB Prov:SUZIE BAPTISTE APRN 06/20/16 Levofloxacin (Levaquin)500 Mg [id number] Mg PO Q48H #4 TAB Prov:SUZIE BAPTISTE APRN 06/20/16 Prednisone 20 Mg Tab40 Mg PO DAILY #6 TAB Prov:SUZIE BAPTISTE APRN 06/20/16 Copy Copies To 1: KIMANI NOBLE MD, PETER J APRN Jun 20, 2016 21:46 CHINO ELLIS MD Jun 20, 2016 23:19
[2016-06-20] MEDS ORDERED: methylPREDNISolone 125 MG (Solu-MEDROL) VIAL IVP ONE (22:00)
[2016-06-20 22:05] LABS: BASOPHILS % (AUTO) 0 % (0-10); EOSINOPHILS # (AUTO) 0.1 10^3/uL (0.0-0.3); EOSINOPHILS % (AUTO) 1 % (0-10); LYMPHOCYTES # (AUTO) 1.8 X 10^3 (1.0-4.0); LYMPHOCYTES % (AUTO) 15 % (12-44); MEAN CORPUSCULAR HEMOGLOBIN 27 PG (25-34); MEAN CORPUSCULAR HGB CONC 32 G/DL (32-36); MEAN CORPUSCULAR VOLUME 86 FL (80-99); MEAN PLATELET VOLUME 10.9 FL (7.4-10.4); MONOCYTES # (AUTO) 1.1 X 10^3 (0.0-1.0); MONOCYTES % (AUTO) 9 % (0-12); NEUTROPHILS # (AUTO) 8.8 X 10^3 (1.8-7.8); NEUTROPHILS % (AUTO) 75 % (42-75); PLATELET COUNT 213 10^3/uL (130-400); RED BLOOD COUNT 5.51 10^6/uL (4.35-5.85); RED CELL DISTRIBUTION WIDTH 16.6 % (10.0-14.5); WHITE BLOOD COUNT 11.7 10^3/uL (4.3-11.0)
[2016-06-20 22:13] LABS: ALBUMIN 3.6 G/DL (3.2-4.5); BILIRUBIN,TOTAL 0.5 MG/DL (0.1-1.0); CALCIUM 9.9 MG/DL (8.5-10.1); CREATININE SERUM 2.16 MG/DL (0.60-1.30); POTASSIUM 5.2 MMOL/L (3.6-5.0)
[2016-06-20 22:14] LABS: BILIRUBIN,URINE NEGATIVE (NEGATIVE); KETONES,URINE NEGATIVE (NEGATIVE); LEUKOCYTE ESTERASE ,URINE NEGATIVE (NEGATIVE); NITRITE,URINE NEGATIVE (NEGATIVE); PH,URINE 6 (5-9); PROTEIN,URINE NEGATIVE (NEGATIVE); UROBILINOGEN,URINE 1 MG/DL (NORMAL)
[2016-06-20] MEDS ORDERED: NS IV 500 ML 500 ML IV SCH (22:30)
[2016-06-20] MEDS ORDERED: AZIT250T5 PO (22:30)
[2016-06-20] MEDS ORDERED: PRD20T PO (22:30)
[2016-06-20 22:34] LABS: SQUAMOUS EPITHELIAL CELL,UR 0-2 /HPF; WBC,URINE 0-2 /HPF
[2016-06-20 22:35] LABS: HYALINE CASTS, URINE 0-2 /LPF
[2016-06-20] MEDS ORDERED: LEVO500T2 PO (22:40)
[2016-06-20] MEDS ORDERED: ACETAMINOPHEN 500 MG TAB (TYLENOL) PO ONE (22:45)
[2016-06-20] MEDS ORDERED: METR500T PO (22:54)
[2016-06-20] MEDS ORDERED: LEVOFLOXACIN 500 MG TAB (LEVAQUIN) PO ONE (23:00)
[2016-06-20] MEDS ORDERED: metroNIDAZOLE 500 MG (FLAGYL) TAB PO ONE (23:00)
[2016-06-20 23:30] VITALS: BP 106/61
--- NOTE | 2016-06-21 06:57 | Diagnostic Imaging Report ---
PROCEDURE: CT abdomen and pelvis without contrast. TECHNIQUE: Multiple contiguous axial images were obtained through the abdomen and pelvis without the use of intravenous contrast. INDICATION: Lower abdominal pain, back pain. Exam compared 01/27/2015. FINDINGS: There is mild edema and inflammatory changes adjacent to the sigmoid colon seen best on images 57 through 64 consistent with mild diverticulitis at the proximal third of the sigmoid colon. No abscess or findings of a transmural perforation. There is no obstruction present. No other focal inflammatory process. The urinary bladder wall appears thickened but this likely reflects its decompressed state. There is mild hepatic steatosis without biliary dilatation. Solitary stone near the gallbladder neck present without features of acute cholecystitis. The pancreas nonacute. Spleen normal in size. The adrenals are negative. The aorta is nonaneurysmal. There are no opaque kidney stones. There is no hydronephrosis. There is no ascites. IMPRESSION: Findings suggest mild sigmoid diverticulitis without abscess, obstruction or perforation. Hepatic steatosis and probable cholelithiasis. The urinary bladder wall thickening significance and etiology indeterminate. This may merely reflect its lack of distention, however, in the appropriate scenario cystitis could not be excluded. We note the bladder is well separable from the mildly inflamed segment of proximal sigmoid. Dictated by: Dictated on workstation # [id number]
--- NOTE | 2016-06-21 08:38 | Diagnostic Imaging Report ---
INDICATION: Productive cough with fever. Study compared 09/18/2015. Sternal wires midline. The heart size stable. No vascular congestion. No effusion or pneumothorax. No substantial airway thickening or bronchiectasis. IMPRESSION: No acute-appearing abnormality. Dictated by: Dictated on workstation # [id number]
== END 2016-06-20 23:30 | disposition home or self-care (01) ==
LOC: EDUNIT# 21:17 → ER 21:18
DX: J44.1 Chronic obstructive pulmonary disease with (acute) exacerbation (principal); K57.32 Diverticulitis of large intestine without perforation or abscess without bleeding; I12.9 Hypertensive chronic kidney disease with stage 1 through stage 4 chronic kidney disease, or unspecified chronic kidney disease; N18.9 Chronic kidney disease, unspecified; I48.2 Chronic atrial fibrillation; Z79.899 Other long term (current) drug therapy; Z79.02 Long term (current) use of antithrombotics/antiplatelets; Z86.718 Personal history of other venous thrombosis and embolism; Z95.5 Presence of coronary angioplasty implant and graft
CPT/HCPCS: 36415; 71020; 74176; 80053; 81000; 85025; 87070; 87205; 87804; 94640; 96361; 96374

== ENCOUNTER → 2016-06-28 | Outpatient (CLI) | payer MEDICARE, MEDICAID ==
[~2016-06-28] MED LIST changes: +ALBU1.25 IH; +ARFO15VI3 IH; +AZIT250T5 PO; +BUDE0.5A IH; +BUSP10TA95 PO; +CETI10TA17 PO; +CETI10TA20 PO; +CINA30TA2 PO; +FLUT16SP22 NSEACH; +GLIM2TAB PO; +GLMP2T PO; +LEVO500T2 PO; +METO-274 PO; +METR500T PO; +POTA10TA10 PO; +PRD20T PO; +PRED10TA22 PO; +RANO500T3 PO; +TAMS0.4C2 PO
--- OUTSIDE RECORDS SUMMARY | 2016-06-28 12:24 | XMS REPORT | Continuity of Care Document ---
Author Author [facility] Organization [facility] Address Unknown Phone Unavailable Care Team Providers Care Wood Patternmaker Apprentice Name Role Phone KIMANI GALINDO MD PCP Insurance Providers Payer Name Policy Number Subscriber Name Relationship Wps Medicare [id number] Jagruti Garcia 18 Self / Same As Patient [facility] [id number] Jagruti Garcia Sr 18 Self / Same As Patient Advance Directives Directive Response Recorded Date/Time Advance Directives No 09/18/15 12:00pm Health Care Power of Fruit Worker No 09/18/15 12:00pm Organ Donor Yes 09/18/15 [...] IV Dye Allergy Mild Active 10/20/08 Penicillins ([id number]) Allergy Mild Active 10/20/08 Shellfish Allergy Unknown Active 02/18/06 iodine ([id number]) Allergy Unknown Active 08/21/05 amlodipine ([id number]) Allergy Unknown Active 11/29/06 Penicillin g Allergy Unknown Active 08/21/05 Immunizations Name Given Type Date of Pneumonia Vaccine 05/13/14 Historical Date of Influenza Vaccine 05/13/14 Historical Hepatitis A No Historical Hepatitis B No Historical Tetanus Booster (TDap) More than 5yrs Historical Vital Signs Acute Vital Signs Vital Response Date/Time Temperature (Fahrenheit) 98.0 degrees F (97.6 - 99.5) 09/18/2015 11:57am Temperature (Calculated Celsius) 36.74564 degrees C (36.4 - 37.5) 09/18/2015 11:57am [...] 10 inches 09/18/2015 11:57am Height (Calculated Centimeters) 177.747166 cm 09/18/2015 11:57am Weight (Pounds) 252 pounds 09/18/2015 11:57am Weight (Calculated Kilograms) 114.579832 kilograms 09/18/2015 11:57am Height 5 ft 10 [...] SELECTED GROUPS OF HIGH RISK PATIENTS. [employer] CONSENSUS CONFERENCE ON [...] Date Attending Provider Departed Emergency Room [facility] 09/18/15 11:54am 04/23 1:35pm SUZIE TOTH APRN Recent Diagnosis
--- NOTE | 2016-06-30 09:56 | ECHOCARDIOGRAPHY REPORT ---
PROCEDURE PHYSICIAN: CHELSEA MCNULTY DATE OF PROCEDURE: 06/28/2016 TWO DIMENSIONAL ECHOCARDIOGRAM REPORT PRIMARY PHYSICIAN: Dr. Noble OTHER PHYSICIAN: Dr. Mcnulty REFERRING PHYSICIAN: ORDERING PHYSICIAN: Floar Montoya APRN INDICATION FOR THE PROCEDURE: 1. Shortness of breath. 2. Palpitations. MEASUREMENTS DERIVED VALUES LV DIAMETER (LAX) NORMALS NORMALS Diastolic 5.5 (3.6-5.2) Eject. Fract. (60%+/-6%) Systolic (2.3-3.9) Diastolic Vol. % Shortening (0.22-0.42) Systolic Vol. Aortic Root 3.5 IVS THICKNESS Diastolic 2 (0.6-1.1) LVPW THICKNESS Diastolic 1.3 (0.6-1.1) LA DIAMETER Systolic 5 (2.1-3.7) DESCRIPTION: This is a technically difficult study and the study is not ideal for wall motion analysis. On the views available, global left ventricular systolic function appears well preserved. The left ventricular ejection fraction is estimated to be 55%. There is moderate mitral annular calcification. There is mild aortic valve sclerosis. There is no significant pericardial effusion. Doppler imaging shows trivial, mitral and tricuspid regurgitation. There is no Doppler evidence of significant valvular stenosis. Pulmonary artery systolic pressure is estimated to be approximately 35 mmHg. Doppler imaging shows trivial tricuspid regurgitation. CONCLUSIONS: 1. Technically difficult study. 2. Well preserved global left ventricular systolic function with an ejection fraction of approximately 55%. 3. Mild asymmetric thickening of the interventricular septum without evidence of left ventricular outflow tract obstruction. 4. Mild to moderate aortic valve sclerosis and mitral annular calcification without evidence of significant valvular stenosis. 5. Mild mitral, tricuspid and aortic regurgitation. 6. Pulmonary artery systolic pressure is estimated to be approximately 35 mmHg. Job ID: [id number] Dictated Date: 06/29/2016 16:52:00 High School Coordinator Date: 06/30/2016 09:49:16 / guillermo
== END ==
LOC: CARD 12:20
PROVIDERS: ATTEND Nurse Practitioner Family
DX: I48.0 Paroxysmal atrial fibrillation (principal); R06.09 Other forms of dyspnea; I25.10 Atherosclerotic heart disease of native coronary artery without angina pectoris; R00.2 Palpitations; Z86.718 Personal history of other venous thrombosis and embolism
CPT/HCPCS: 93225; 93226; 93306

== ENCOUNTER → 2016-06-29 | Outpatient (CLI) | payer MEDICARE, MEDICAID ==
[~2016-06-29] MED LIST changes: +CATHETER FLUSH 10 ML SYR IV PRN; +REGADENOSON 0.4 MG/5 ML SYR (LEXISCAN) IV ONE
[2016-06-29 13:21] VITALS: BP 156/84
[2016-06-29 13:25] VITALS: BP 145/89
[2016-06-29 13:27] VITALS: BP 132/83
--- OUTSIDE RECORDS SUMMARY | 2016-06-29 13:35 | XMS REPORT | Continuity of Care Document ---
Author Author [facility] Organization [facility] Address Unknown Phone Unavailable Care Team Providers Care Panel Machine Tender Name Role Phone KIMANI GALINDO MD PCP Insurance Providers Payer Name Policy Number Subscriber Name Relationship [employer] Medicare [id number] Jagruti Garcia 18 Self / Same As Patient [facility] [id number] Jagruti Garcia Sr 18 Self / Same As Patient Advance Directives Directive Response Recorded Date/Time Advance Directives No 09/18/15 12:00pm Health Care Power of Artificial Glass Eye Maker No 09/18/15 12:00pm Organ Donor Yes 09/18/15 [...] IV Dye Allergy Mild Active 10/20/08 Penicillins ([id number]) Allergy Mild Active 10/20/08 Shellfish Allergy Unknown Active 02/18/06 iodine ([id number]) Allergy Unknown Active 08/21/05 amlodipine ([id number]) Allergy Unknown Active 11/29/06 Penicillin g Allergy Unknown Active 08/21/05 Immunizations Name Given Type Date of Pneumonia Vaccine 05/13/14 Historical Date of Influenza Vaccine 05/13/14 Historical Hepatitis A No Historical Hepatitis B No Historical Tetanus Booster (TDap) More than 5yrs Historical Vital Signs Acute Vital Signs Vital Response Date/Time Temperature (Fahrenheit) 98.0 degrees F (97.6 - 99.5) 09/18/2015 11:57am Temperature (Calculated Celsius) 36.34105 degrees C (36.4 - 37.5) 09/18/2015 11:57am [...] 10 inches 09/18/2015 11:57am Height (Calculated Centimeters) 177.029236 cm 09/18/2015 11:57am Weight (Pounds) 252 pounds 09/18/2015 11:57am Weight (Calculated Kilograms) 114.597668 kilograms 09/18/2015 11:57am Height 5 ft 10 [...] SELECTED GROUPS OF HIGH RISK PATIENTS. [employer] CONSENSUS CONFERENCE ON [...] Attending Provider Departed Emergency Room [facility] 09/18/15 11:54am 04/23 1:35pm SUZIE TOTH APRN Recent Diagnosis
--- NOTE | 2016-06-30 07:51 | STRESS TEST ---
PROCEDURE PHYSICIAN: CHELSEA MCNULTY DATE OF PROCEDURE: 06/29/2016 RESTING AND POST REGADENOSON OF TECHNETIUM 99M TETROFOSMIN SPECT CT IMAGING: ORDERING PHYSICIAN: Flora Montoya APRN. PRIMARY PHYSICIAN: Dr. Noble. OTHER PHYSICIAN: Dr. Mcnulty CLINICAL DIAGNOSES: 1. Coronary artery disease. 2. Shortness of breath. 3. Palpitations. Baseline images were carried out after injection of 9.67 mCi of technetium 99m tetrofosmin. This was followed by 0.4 mg of regadenoson and 30.4 mCi of technetium 99m tetrofosmin for stress imaging. The electrocardiogram showed sinus rhythm with left bundle branch block. It did not change significantly with the regadenoson infusion. He noted shortness of breath following Regadenoson infusion, which resolved in a few minutes. Review of images rest and following stress, indicates a basal inferolateral perfusion defect which is mostly fixed. Gated images show inferolateral hypokinesis. Left ventricular ejection fraction is 63%. Left ventricular end diastolic volume is 96 mL. TID is absent (1.06). CONCLUSIONS: 1. This study is indicative of a small basal inferolateral myocardial infarction with small amount of jess-infarct ischemia. 2. Basal inferolateral hypokinesis. 3. Well preserved global left ventricular systolic function with an ejection fraction of 63%. 4. Mild cardiomegaly. Job ID: [id number] Dictated Date: 06/29/2016 18:24:20 Vibrating Screen Operator Date: 06/30/2016 07:46:53 / guillermo
== END ==
LOC: CARD 11:51
PROVIDERS: ATTEND Nurse Practitioner Family
DX: I25.10 Atherosclerotic heart disease of native coronary artery without angina pectoris (principal); I48.0 Paroxysmal atrial fibrillation; R00.2 Palpitations; R06.09 Other forms of dyspnea; Z86.718 Personal history of other venous thrombosis and embolism
CPT/HCPCS: 78452; 93017

== ENCOUNTER 2016-07-17 13:39 | Inpatient (IN) | payer MEDICARE, MEDICAID ==
[~2016-07-17] VITALS: Ht 170.2 cm; Wt 114.8 kg
[~2016-07-17 13:39] MED LIST changes: -ALBU1.25 IH; -ARFO15VI3 IH; -BUDE0.5A IH; -BUSP10TA95 PO; -CATHETER FLUSH 10 ML SYR IV PRN; -CETI10TA17 PO; -CETI10TA20 PO; -CINA30TA2 PO; -FLUT16SP22 NSEACH; -GLIM2TAB PO; -GLMP2T PO; -METO-274 PO; -POTA10TA10 PO; -PRED10TA22 PO; -RANO500T3 PO; -REGADENOSON 0.4 MG/5 ML SYR (LEXISCAN) IV ONE; -TAMS0.4C2 PO
[2016-07-17] MEDS ORDERED: ASPIRIN 81 MG CHEW (CHILDREN'S ASA) PO ONE (13:45)
[2016-07-17] MEDS ORDERED: RX-NITROGLYCERIN 0.4 MG TAB BTL 25'S SL ONE (13:45)
--- OUTSIDE RECORDS SUMMARY | 2016-07-17 13:46 | XMS REPORT | Continuity of Care Document ---
Author Author [facility] Organization [facility] Address Unknown Phone Unavailable Care Team Providers Care Picker Machine Operator Name Role Phone KIMANI GALINDO MD PCP Insurance Providers Payer Name Policy Number Subscriber Name Relationship [employer] Medicare [id number] Jagruti Garcia 18 Self / Same As Patient [facility] [id number] Jagruti Garcia Sr 18 Self / Same As Patient Advance Directives Directive Response Recorded Date/Time Advance Directives No 09/18/15 12:00pm Health Care Power of Chain Splitter No 09/18/15 12:00pm Organ Donor Yes 09/18/15 [...] IV Dye Allergy Mild Active 10/20/08 Penicillins ([id number]) Allergy Mild Active 10/20/08 Shellfish Allergy Unknown Active 02/18/06 iodine ([id number]) Allergy Unknown Active 08/21/05 amlodipine ([id number]) Allergy Unknown Active 11/29/06 Penicillin g Allergy Unknown Active 08/21/05 Immunizations Name Given Type Date of Pneumonia Vaccine 05/13/14 Historical Date of Influenza Vaccine 05/13/14 Historical Hepatitis A No Historical Hepatitis B No Historical Tetanus Booster (TDap) More than 5yrs Historical Vital Signs Acute Vital Signs Vital Response Date/Time Temperature (Fahrenheit) 98.0 degrees F (97.6 - 99.5) 09/18/2015 11:57am Temperature (Calculated Celsius) 36.19602 degrees C (36.4 - 37.5) 09/18/2015 11:57am [...] 10 inches 09/18/2015 11:57am Height (Calculated Centimeters) 177.096527 cm 09/18/2015 11:57am Weight (Pounds) 252 pounds 09/18/2015 11:57am Weight (Calculated Kilograms) 114.153018 kilograms 09/18/2015 11:57am Height 5 ft 10 [...] SELECTED GROUPS OF HIGH RISK PATIENTS. [employer] CONSENSUS CONFERENCE ON [...] Date Attending Provider Departed Emergency Room [facility] 09/18/15 11:54am 04/23 1:35pm SUZIE TOTH APRN Recent Diagnosis
[2016-07-17 14:03] LABS: BASOPHILS % (AUTO) 0 % (0-10); EOSINOPHILS # (AUTO) 0.2 10^3/uL (0.0-0.3); EOSINOPHILS % (AUTO) 3 % (0-10); LYMPHOCYTES # (AUTO) 2.7 X 10^3 (1.0-4.0); LYMPHOCYTES % (AUTO) 34 % (12-44); MEAN CORPUSCULAR HEMOGLOBIN 27 PG (25-34); MEAN CORPUSCULAR HGB CONC 32 G/DL (32-36); MEAN CORPUSCULAR VOLUME 85 FL (80-99); MEAN PLATELET VOLUME 10.7 FL (7.4-10.4); MONOCYTES # (AUTO) 0.9 X 10^3 (0.0-1.0); MONOCYTES % (AUTO) 11 % (0-12); NEUTROPHILS # (AUTO) 4.1 X 10^3 (1.8-7.8); NEUTROPHILS % (AUTO) 52 % (42-75); PLATELET COUNT 199 10^3/uL (130-400); RED BLOOD COUNT 5.63 10^6/uL (4.35-5.85); RED CELL DISTRIBUTION WIDTH 16.3 % (10.0-14.5); WHITE BLOOD COUNT 7.9 10^3/uL (4.3-11.0)
[2016-07-17 14:06] LABS: INR 1.3 (0.8-1.4); PROTHROMBIN TIME PATIENT 15.6 SEC (12.2-14.7)
[2016-07-17 14:16] LABS: ALBUMIN 3.8 G/DL (3.2-4.5); BILIRUBIN,TOTAL 0.5 MG/DL (0.1-1.0); CALCIUM 10.6 MG/DL (8.5-10.1); CREATININE SERUM 1.98 MG/DL (0.60-1.30); MAGNESIUM 2.3 MG/DL (1.8-2.4); POTASSIUM 4.3 MMOL/L (3.6-5.0)
[2016-07-17 14:23] LABS: MYOGLOBIN SERUM 206.6 NG/ML (10.0-92.0)
--- NOTE | 2016-07-17 14:23 | Diagnostic Imaging Report ---
INDICATION: Chest pain Comparison: 06/20/2016 Findings: Upright portable view of the chest is obtained. Heart size is upper limits of normal but unchanged. There is no central venous congestion or evidence of edema. Postoperative changes are again seen in the mediastinum. There is no pneumothorax or pleural fluid suspected. There is some subtle patchy infiltrate or atelectasis in the left lung base along the heart border. The right lung is clear. Impression: Suspect some left lower lobe atelectasis or infiltrate. Borderline cardiomegaly without evidence of failure is unchanged. Dictated by: Dictated on workstation # [id number]
--- NOTE | 2016-07-17 14:27 | ED Chest Pain ---
General Stated Complaint: CP Source: patient Exam Limitations: no limitations History of Present Illness Time seen by provider: 13:47 Initial Comments Here with report of chest pain that has been fairly persistent to the center of the chest for the last 2 days. Does have some nausea and had vomiting yesterday. Feels a little short of breath. Does continue to smoke. Has known significant coronary artery disease and follows with Dr. Noble as well as Dr. Mcnulty. Apparently had an abnormal stress test recently but states that that is typical for him. Last heart catheter was a year ago. He does have multiple stents. Reports taking his medications as directed. He is wheezing currently. 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: Yes Associated Symptoms: No abdominal pain, No back pain, No diaphoresis, No fever/ chills, nausea/vomiting shortness of breath Allergies and Home Medications Allergies Coded Allergies: Iodinated Contrast Media - Oral and (Unverified Allergy, Mild, 10/20/08) Penicillins (Unverified Allergy, Mild, 10/20/08) Shellfish (Verified Allergy, Unknown, 02/18/06) amlodipine (Verified Allergy, Unknown, 11/29/06) iodine (Verified Allergy, Unknown, 08/21/05) penicillin G (Verified Allergy, Unknown, 08/21/05) Home Medications Albuterol Sulfate 18 Gm Hfa.aer.ad 180 MCG IH QID PRN PRN SHORTNESS OF BREATH ( Reported) Atorvastatin Calcium 40 Mg Tablet 40 MG PO HS (Reported) Budesonide/Formoterol Fumarate 10.2 Gm Hfa.aer.ad 2 PUFF IH BID (Reported) Clopidogrel Bisulfate 75 Mg Tablet 75 MG PO HS (Reported) Fenofibrate Nanocrystallized 145 Mg Tablet 145 MG PO HS (Reported) Fluticasone/Vilanterol 1 Each Blst.w.dev 1 PUFF IH DAILY (Reported) Furosemide 40 Mg Tablet 40 MG PO EVERY OTHER DAY (Reported) Gabapentin 100 Mg Capsule 100 MG PO TID (Reported) Ipratropium/Albuterol Sulfate 3 Ml Ampul.neb 3 ML IH Q4H PRN PRN SHORTNESS OF BREATH (Reported) Isosorbide Mononitrate 30 Mg Tab.er.24h #90 30 MG PO DAILY Prescribed by: BLAYNE MORENO on 07/03/15 0914 Levofloxacin 500 Mg Tablet #4 500 MG PO Q48H Prescribed by: SUZIE TOTH on 06/20/16 2240 Metoprolol Tartrate 100 Mg Tablet 50 MG PO BID (Reported) Metronidazole 500 Mg Tablet #21 500 MG PO TID Prescribed by: SUZIE TOTH on 06/20/16 2254 Montelukast Sodium 10 Mg Tablet 10 MG PO HS (Reported) Nitroglycerin 0.4 Mg Subl 0.4 MG SL UD PRN PRN CHEST PAIN (Reported) TAKE 1 TABLET EVERY 5 MINUTES X 3 DOSES NEEDED FOR CHEST PAIN Pantoprazole Sodium 40 Mg Tablet.dr 40 MG PO BID (Reported) Prednisone 20 Mg Tab #6 40 MG PO DAILY Prescribed by: SUZIE TOTH on 06/20/16 2230 Rivaroxaban 15 Mg Tablet 15 MG PO HS (Reported) Tamoxifen Citrate 20 Mg Tablet 20 MG PO EVERY EVENING (Reported) Review of Systems Constitutional: see HPINo chills, No fever EENTM: No Symptoms Reported Respiratory: See HPIDenies Shortness of Air, Wheezing Cardiovascular: See HPI Gastrointestinal: Denies Abdominal Pain, Denies Diarrhea, Nausea Vomiting Genitourinary: No Symptoms Reported Musculoskeletal: no symptoms reported Skin: no symptoms reported Psychiatric/Neurological: No Symptoms Reported Endocrine: No Symptoms Reported All Other Systems Reviewed Negative Unless Noted: Yes Past Mzksqjl-Mnmapz-Tejvzs Hx Patient Social History Alcohol Use: Denies Use Recreational Drug Use: No Smoking Status: Current Everyday Smoker Type Used: Cigarettes 2nd Hand Smoke Exposure: No Recent Foreign Travel: No Contact w/Someone Who Travel: No Recent Hopitalizations: Yes (08/25/10 HEART CATH WITH STENT TO RCA) Immunizations Up To Date Tetanus Booster (TDap): More than 5yrs PED Vaccines UTD: No Date of Pneumonia Vaccine: May 13, 2014 Date of Influenza Vaccine: May 13, 2014 Surgeries HX Surgeries: Yes (PARATHYROIDECTOMY, OPEN HEART SC, CARDIAC CATH X20, CARPEL TUNNEL LATA HAND) Surgeries: Appendectomy, Breast, Cardiac, Coronary Stent, Orthopedic Respiratory Hx Respiratory Disorders: Yes Respiratory Disorders: Asthma, COPD, Emphysema Cardiovascular Hx Cardiac Disorders: Yes (HAS STENTS X3, HX LBBB, CHF) Cardiac Disorders: Angina, Atrial Fibrillation, Cardiomyopathy, Coronary Artery Disease, Deep Vein Thrombosis, Heart Attack, Heart Murmur, High Cholesterol, Hypertension Neurological Hx Neurological Disorders: Yes Neurological Disorders: TIA Reproductive System Hx Reproductive Disorders: No Sexually Transmitted Disease: No Genitourinary Hx Genitourinary Disorders: Yes (CHRONIC RENAL INSUFFICIENCY) Genitourinary Disorders: Renal Failure Gastrointestinal Hx Gastrointestinal Disorders: Yes (LIVER ENZYME ELEVATION/ LIPITOR ADJUSTED) Gastrointestinal Disorders: Gastroesophageal Reflux, Liver Disease/Jaundice Musculoskeletal Hx Musculoskeletal Disorders: Yes (LEFT SHOULDER TORN ROTATOR CUFF, bilat carpal tunnel repair) Musculoskeletal Disorders: Degenerate Disk Disease Endocrine Hx Endocrine Disorders: Yes (PARATHYROIDECTOMY, "BORDERLINE DIABETIC") Endocrine Disorders: Diabetes, Non-Insulin dep HEENT HX ENT Disorders: No HEENT Disorders: Cataract Cancer Hx Cancer: Yes Cancer: Breast Psychosocial Hx Psychiatric Problems: No Integumentary HX Skin/Integumentary Disorder: No Blood Transfusions Hx Blood Disorders: No Reviewed Nursing Assessment Reviewed/Agree w Nursing PMH: Yes Family Medical History Family Medial History: Arthritis 19 FATHER Cardiovascular disease 19 FATHER FH: breast cancer 19 MOTHER Respiratory disorder 19 FATHER Physical Exam Vital Signs Vital Sign - Last 12Hours Capillary Refill : General Appearance: WD/WN Mild Distress HEENT: PERRL/EOMI Pharynx Normal Neck: Non Tender Supple Respiratory: No Decreased Breath Sounds, Expiration Wheezing Cardiovascular: Regular Rate, Rhythm No Murmur Gastrointestinal: Non Tender Soft Extremity: Non Tender No Calf Tenderness Neurologic/Psychiatric: Alert Oriented x3 Skin: Normal Color Warm/Dry Progress/Results/Core Measures Results/Orders Lab Results Laboratory Tests Test 07/17/16 13:45 Range/Units Activated Partial Thromboplast Time 31 24-35 SEC Alanine Aminotransferase (ALT/SGPT) 24 0-55 U/L Albumin 3.8 3.2-4.5 G/DL Alkaline Phosphatase 65 40-136 U/L Anion Gap 9 5-14 MMOL/L Aspartate Amino Transf (AST/SGOT) 41 H 5-34 U/L BUN/Creatinine Ratio 14 Basophils # (Auto) 0.0 0.0-0.1 10^3/uL Basophils (%) (Auto) 0 0-10 % Blood Urea Nitrogen 27 H 7-18 MG/DL Calcium Level 10.6 H 8.5-10.1 MG/DL Carbon Dioxide Level 24 21-32 MMOL/L Chloride Level 104 98-107 MMOL/L Creatinine 1.98 H 0.60-1.30 MG/DL D-Dimer 0.81 H 0.00-0.49 UG/ML Eosinophils # (Auto) 0.2 0.0-0.3 10^3/uL Eosinophils (%) (Auto) 3 0-10 % Estimat Glomerular Filtration Rate 35 Glucose Level 138 H 70-105 MG/DL Hematocrit 48 40-54 % Hemoglobin 15.3 13.3-17.7 G/DL INR Comment 1.3 0.8-1.4 Lipase 108 H 8-78 U/L Lymphocytes # (Auto) 2.7 1.0-4.0 X 10^3 Lymphocytes (%) (Auto) 34 12-44 % Magnesium Level 2.3 1.8-2.4 MG/DL Mean Corpuscular Hemoglobin 27 25-34 PG Mean Corpuscular Hemoglobin Concent 32 32-36 G/DL Mean Corpuscular Volume 85 80-99 FL Mean Platelet Volume 10.7 H 7.4-10.4 FL Monocytes # (Auto) 0.9 0.0-1.0 X 10^3 Monocytes (%) (Auto) 11 0-12 % Myoglobin 206.6 H 10.0-92.0 NG/ML Neutrophils # (Auto) 4.1 1.8-7.8 X 10^3 Neutrophils (%) (Auto) 52 42-75 % Platelet Count 199 130-400 10^3/uL Potassium Level 4.3 3.6-5.0 MMOL/L Prothrombin Time 15.6 H 12.2-14.7 SEC Red Blood Count 5.63 4.35-5.85 10^6/uL Red Cell Distribution Width 16.3 H 10.0-14.5 % Sodium Level 137 135-145 MMOL/L Total Bilirubin 0.5 0.1-1.0 MG/DL Total Protein 7.0 6.4-8.2 G/DL Troponin I 0.71 *H <0.30 NG/ML White Blood Count 7.9 4.3-11.0 10^3/uL My Orders Orders-CHINO ELLIS MD Cbc With Automated Diff (07/17/16 13:45) Magnesium (07/17/16 13:45) Chest 1 View, Ap/Pa Only (07/17/16 13:45) Ekg Tracing (3/11/17 13:45) Cardiac Profile 1 (07/17/16 13:45) Comprehensive Metabolic Panel (07/17/16 13:45) Myoglobin Serum (07/17/16 13:45) Protime With Inr (07/17/16 13:45) Partial Thromboplastin Time (07/17/16 13:45) O2 (07/17/16 13:45) Monitor-Rhythm Ecg Trace Only (07/17/16 13:45) Lipid Panel (07/18/16 06:00) Aspirin Chewable Tablet (Baby Aspirin Ch (07/17/16 13:45) Rx-Nitroglycerin Sl Tabs (Rx-Nitrostat S (07/17/16 13:45) Saline Lock/Iv-Start (07/17/16 13:45) Lipase (07/17/16 13:45) Fibrin Degradation Products (07/17/16 13:45) Us Venous Lower Ext Lata (07/17/16 14:32) Metoprolol Succinate (Xl) Tab (Toprol Xl (07/17/16 14:45) Morphine Injection (Morphine Injection (07/17/16 14:36) Rivaroxaban Tablet (Xarelto Tablet) (07/17/16 15:00) Medications Given in ED Current Medications Medications Dose Ordered Sig/Rebecca Route Start Time Stop Time Status Last Admin Dose Admin Aspirin 324 mg ONCE ONCE PO 07/17/16 13:45 07/17/16 13:47 DC 07/17/16 13:50 324 MG Metoprolol Succinate 50 mg ONCE ONCE PO 07/17/16 14:45 07/17/16 14:46 DC 07/17/16 14:45 50 MG Nitroglycerin 0.4 mg UD ONCE SL 07/17/16 13:45 07/17/16 13:47 DC 07/17/16 13:50 0.4 MG Vital Signs/I&O Vital Sign - Last 12Hours 07/17/16 07/17/16 07/17/16 13:40 13:40 13:40 Temp 98.9 Pulse 90 Resp 14 B/P 142/88 Pulse Ox 96 96 O2 Delivery Room Air Room Air Nasal Cannula O2 Flow Rate 2 2 Progress Note : Progress Note Seen and evaluated. IV, labs, EKG and chest x-ray. Aspirin and nitroglycerin ordered. 1425: Troponin noted to be elevated. Dr. Mcnulty paged. 1430: Discussed case with Dr. Mcnulty. We will get a ultrasound bilateral lower extremities. There is elevation in troponin and d-dimer. Patient is on Plavix and Xarelto and is unlikely that he has DVT with possible. We will dose Xarelto based on findings on ultrasound. If he has no DVT, we will continue 15 mg daily. If DVT is noted then we will increase to 20 mg daily. He does have chronic renal failure which complicates treatment. Patient had one nitroglycerin and his blood pressure dropped somewhat to 95/71. We will hold further nitroglycerin and I will give morphine 2 mg IV for his continued chest discomfort. We will give DuoNeb treatment. Patient to be admitted to medicine with cardiology consult. Patient in agreement with plan. Dr. Phillips paged. 1500: I discussed the case with Dr. Phillips. She accepts patient for admission, observation status. Xarelto 15 mg by mouth given. Dr. Mcnulty has seen the patient in the emergency department. Ultrasound pending. If positive then he will adjust therapy but otherwise will continue with Xarelto daily. ECG Initial ECG Impression Date: Jul 17, 2016 Initial ECG Impression Time: 13:49 Initial ECG Rate: 94 Initial ECG Rhythm: S.Tach Comment Sinus tachycardia with left bundle branch block. Normal axis. No evidence of ST elevation LA. Rate increased from previous although similar morphology. Occasional PVCs noted. Interpreted by me. Diagnostic Imaging Diagonstic Imaging: Xray Plain Films/CT/US/NM/MRI: chest Comments NAME: JAGRUTI GARCIA [facility] REC#: [id number] PT STATUS: REG ER : 1960 PHYSICIAN: CHINO ELLIS MD ADMIT DATE: 07/17/16/ER Signed Date of Exam: 07/17/16 CHEST 1 VIEW, AP/PA ONLY INDICATION: Chest pain Comparison: 06/20/2016 Findings: Upright portable view of the chest is obtained. Heart size is upper limits of normal but unchanged. There is no central venous congestion or evidence of edema. Postoperative changes are again seen in the mediastinum. There is no pneumothorax or pleural fluid suspected. There is some subtle patchy infiltrate or atelectasis in the left lung base along the heart border. The right lung is clear. Impression: Suspect some left lower lobe atelectasis or infiltrate. Borderline cardiomegaly without evidence of failure is unchanged. Dictated by: Dictated on workstation # [id number] Dict: 07/17/16 1414 Trans: 07/17/16 1428 [facility] [id number] Interpreted by: DIPIKA PRECIADO DO Electronically signed by:DIPIKA PRECIADO DO 07/17/16 1431 Departure Communication Time/Spoke to Admitting Phy: 15:00 Time/Spoke to Consulting Physi: 14:45 Impression Impression: Primary Impression: Non-ST elevation LA (NSTEMI) Additional Impression: CKD (chronic kidney disease) Qualified Code: N18.9 - Chronic kidney disease, unspecified Disposition: ADMITTED INPATIENT Condition: Stable Decision to Admit Reason: Admit from ER (General) Decision to Admit/Date: Jul 17, 2016 Time/Decision to Admit Time: 14:45 Departure-Patient Inst. Referrals: KIMANI NOBLE MD (PCP/Family) Primary Care Physician CHINO ELLIS MD Jul 17, 2016 14:27
[2016-07-17] MEDS ORDERED: morphine INJ 10 MG/ML 1ML (SYR OR VIAL) IVP STA (14:36)
[2016-07-17] MEDS ORDERED: RIVAROXABAN 15 MG TABLET (XARELTO) PO ONE (15:00)
[2016-07-17] MEDS ORDERED: RT-ALBUTEROL/IPRATROPIUM 3 ML (DUONEB) VIAL ONE (15:00)
[2016-07-17] MEDS ORDERED: RT-ALBUTEROL/IPRATROPIUM 3 ML (DUONEB) VIAL INH ONE (15:15)
--- NOTE | 2016-07-17 15:54 | Diagnostic Imaging Report ---
INDICATION: Leg pain. History of blood clots. TECHNIQUE: Grayscale with color-flow and Doppler waveform evaluation of the bilateral lower extremity deep venous systems. CORRELATION STUDY: None FINDINGS: Color and grayscale sonographic images demonstrate no intraluminal defect within the visualized portion of the common femoral, superficial femoral and/or popliteal veins to suggest thrombus formation. These vessels demonstrate normal response to compression and augmentation. No soft tissue fluid collection. IMPRESSION: 1. Negative for deep venous thrombosis of either leg. Dictated by: Dictated on workstation # [id number]
--- NOTE | 2016-07-17 15:58 | Consultation-Cardiology ---
HPI-Cardiology Cardiology Consultation: Date of Consultation 07/17/16 Date of Admission Attending Physician Sharon Phillips DO Admitting Physician Navya Noble MD Consulting Physician CHELSEA HAWTHORNE MD, FACP, FACC, FSCAI, CCDS HPI: Chief Complaint: Chest discomfort 55 yo man with chronic cp, now with 2 days of continuous cp that has waxed and waned but not resolved, presents to the ER with worsening of pain: L parasternal , nonradiating, associated with some intermittent nausea (one episode of vomiting last night), improved but not relieved with s/l NTG, without any aggravating factors, mild to mod in intensity, sometimes sharp and sometimes dull He has chronic slowly progressive exertional shortness of breath He denies recent palp or syncope or presyncope Has chronic mild intermittent leg swelling Review of Systems-Cardiology Review of Systems Constitutional: malaiseNo weight loss, No weight gain Eyes: No vision change Ears/Nose/Throat: No ear discharge, No nasal drainage, No recent hearing loss Respiratory: As described under HPI Cardiovascular: As described under HPI Gastrointestinal: As described under HPI Genitourinary: No dysuria, No hematuria, No urine frequency changes Musculoskeletal: back pain (chronic) Skin: No rash, No ulcerations Psychiatric/Neurological: No focal weakness, No seizure, No syncope Hematologic: No bleeding abnormalities All Other Systems Reviewed Negative Unless Noted: Yes GIM-Dkvvte-Ixuhuf Hx Patient Social History Alcohol Use: Denies Use Recreational Drug Use: No Smoking Status: Current Everyday Smoker Type Used: Cigarettes 2nd Hand Smoke Exposure: No Recent Foreign Travel: No Recent Infectious Disease Expo: No Hospitalization with Isolation: Denies Immunizations Up To Date Tetanus Booster (TDap): More than 5yrs Date of Pneumonia Vaccine: May 13, 2014 Date of Influenza Vaccine: May 13, 2014 Past Medical History PMH As described under Assessment. Family Medical History Family Medical History: He reports his father had CAD. One of his sons is known to have HCM. Family History: Arthritis 19 FATHER Cardiovascular disease 19 FATHER FH: breast cancer 19 MOTHER Respiratory disorder 19 FATHER Allergies and Home Medications Allergies Coded Allergies: Iodinated Contrast Media - Oral and (Unverified Allergy, Mild, 10/20/08) Penicillins (Unverified Allergy, Mild, 10/20/08) Shellfish (Verified Allergy, Unknown, 02/18/06) amlodipine (Verified Allergy, Unknown, 11/29/06) iodine (Verified Allergy, Unknown, 08/21/05) penicillin G (Verified Allergy, Unknown, 08/21/05) Home Medications Albuterol Sulfate 18 Gm Hfa.aer.ad 180 MCG IH QID PRN PRN SHORTNESS OF BREATH ( Reported) Atorvastatin Calcium 40 Mg Tablet 40 MG PO HS (Reported) Budesonide/Formoterol Fumarate 10.2 Gm Hfa.aer.ad 2 PUFF IH BID (Reported) Clopidogrel Bisulfate 75 Mg Tablet 75 MG PO HS (Reported) Fenofibrate Nanocrystallized 145 Mg Tablet 145 MG PO HS (Reported) Fluticasone/Vilanterol 1 Each Blst.w.dev 1 PUFF IH DAILY (Reported) Furosemide 40 Mg Tablet 40 MG PO EVERY OTHER DAY (Reported) Gabapentin 100 Mg Capsule 100 MG PO TID (Reported) Ipratropium/Albuterol Sulfate 3 Ml Ampul.neb 3 ML IH Q4H PRN PRN SHORTNESS OF BREATH (Reported) Isosorbide Mononitrate 30 Mg Tab.er.24h #90 30 MG PO DAILY Prescribed by: BLAYNE MORENO on 07/03/15 0914 Levofloxacin 500 Mg Tablet #4 500 MG PO Q48H Prescribed by: SUZIE TOTH on 06/20/16 2240 Metoprolol Tartrate 100 Mg Tablet 50 MG PO BID (Reported) Metronidazole 500 Mg Tablet #21 500 MG PO TID Prescribed by: SUZIE TOTH on 06/20/16 2254 Montelukast Sodium 10 Mg Tablet 10 MG PO HS (Reported) Nitroglycerin 0.4 Mg Subl 0.4 MG SL UD PRN PRN CHEST PAIN (Reported) TAKE 1 TABLET EVERY 5 MINUTES X 3 DOSES NEEDED FOR CHEST PAIN Pantoprazole Sodium 40 Mg Tablet.dr 40 MG PO BID (Reported) Prednisone 20 Mg Tab #6 40 MG PO DAILY Prescribed by: SUZIE TOTH on 06/20/16 2230 Rivaroxaban 15 Mg Tablet 15 MG PO HS (Reported) Tamoxifen Citrate 20 Mg Tablet 20 MG PO EVERY EVENING (Reported) Physical Exam-Cardiology Physical Exam Vital Signs/I&O Vital Sign - Last 12Hours 07/17/16 07/17/16 07/17/16 07/17/16 13:40 13:40 13:40 15:19 Temp 98.9 Pulse 90 Resp 14 B/P 142/88 Pulse Ox 96 96 95 O2 Delivery Room Air Room Air Nasal Cannula O2 Flow Rate 2 2 2 Capillary Refill : Less Than 3 Seconds Constitutional: AAO x 3 well-developed well-nourished HEENT: PERRL EOMI hearing is well preservedNo xanthelasmas are seen Neck: No carotid bruit, carotid pulses are 2 + bilaterally with good upstrokes Respiratory: No accessory muscle use, lungs clear to percussion other (fair bilateral air entry; prolonged exp phase) Cardiovascular: regular rate-rhythm S1 and S2 systolic murmur (soft RADHIKA at cardiac base) Gastrointestinal: No tender, softNo guarding, No rebound, audible bowel sounds Extremities: No clubbing, No cyanosis, No significant edema Neurologic/Psychiatric: oriented x 3 grossly intact power is 5/5 both on sides Skin: No rash on exposed areas, No ulcerations on exposed areas Data Review Labs Laboratory Tests 07/17/16 13:45: Activated Partial Thromboplast Time 31, Alanine Aminotransferase (ALT/SGPT) 24, Albumin 3.8, Alkaline Phosphatase 65, Anion Gap 9, Aspartate Amino Transf (AST/ SGOT) 41H, BUN/Creatinine Ratio 14, Basophils # (Auto) 0.0, Basophils (%) (Auto ) 0, Blood Urea Nitrogen 27H, Calcium Level 10.6H, Carbon Dioxide Level 24, Chloride Level 104, Creatinine 1.98H, D-Dimer 0.81H, Eosinophils # (Auto) 0.2, Eosinophils (%) (Auto) 3, Estimat Glomerular Filtration Rate 35, Glucose Level 138H, Hematocrit 48, Hemoglobin 15.3, INR Comment 1.3, Lipase 108H, Lymphocytes # (Auto) 2.7, Lymphocytes (%) (Auto) 34, Magnesium Level 2.3, Mean Corpuscular Hemoglobin 27, Mean Corpuscular Hemoglobin Concent 32, Mean Corpuscular Volume 85, Mean Platelet Volume 10.7H, Monocytes # (Auto) 0.9, Monocytes (%) (Auto) 11 , Myoglobin 206.6H, Neutrophils # (Auto) 4.1, Neutrophils (%) (Auto) 52, Platelet Count 199, Potassium Level 4.3, Prothrombin Time 15.6H, Red Blood Count 5.63, Red Cell Distribution Width 16.3H, Sodium Level 137, Total Bilirubin 0.5, Total Protein 7.0, Troponin I 0.71*H, White Blood Count 7.9 Laboratory Tests 07/17/16 13:45 A/P-Cardiology Assessment/Admission Diagnosis Acute NSTEMI, likely due to inoperable disease of the distal LCX coronary artery (see below) Coronary artery disease with a history of bare-metal stenting of the right coronary artery several years ago, which subsequently became occluded and he then underwent drug-eluting stenting of the right coronary artery with Atom 2.25 x 28-mm stent (August 2010). This is patent on last cardiac cath of 07/01/15 , but the distal LCX artery was found to be subtotally to totally occluded and balloon angioplasty to this lesion was unsuccessful; LVEF was approx 60%; LVEDP was approx 33 mmHg MPI of of 06/29/16 shows small basal inferolateral NV with a small amount of jess -infarct ischemia, basal inferolateral hypo, LVEF 63%, midl cardiomegaly Hypertrophic cardiomyopathy with h/o partial myomectomy at [facility] in November 2005 Echo of 06/28/16: LVEF 55%, mild asymmetric thickening of the interventricular septum without LVOT obstruction, mild to mod ao valve sclerosis and MAC w/o valvular stensosi, mild mitral & aortic & tricuspid regurg, PASP 35 mmHg Palpitations: 24 hr Holter of 06/28/16 showed NSR with relatively infrequent and isolated PVC & PAC, no significant lori Mild bilat carotid stenosis per u/s of December 2012 Chronic joint (including shoulders) and back discomfort Hypertension, labile H/O chronic chest discomfort Paroxysmal atrial fibrillation treated with pulmonary vein ablation at [facility] without subsequent recurrence. Chronic left bundle branch block following myectomy in November 2005. CKD stage 3-4 - for which he follow with nephrology in [place], [place] Chronic microscopic hematuria without any identifiable lesions. 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 Continuing tobaccoism from which cessation has been advised Degenerative joint disease. Bilateral carpal tunnel surgery. Intermittent noncompliance with medications. Bilateral leg swelling, likely related to venous insufficiency. Deep venous thrombosis treated with chronic anticoag with rivroxaban. No recent blood clots in the leg veins Sleep apnea and restless leg syndrome. 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 Mccartney at [facility] in [place] in November 2011. He is now following with Dr. Medrano oncology services at [facility] History of hypercalcemia which is being followed by Dr. Noble, his pcp, and by Dr Medrano, his oncologist. He has a prior h/o partial parathyroidectomy Mild AST elevation for which f/u is with his pcp Discussion and Recomendations * Complex management due to multiple comorbidities that are outlined above * We will continue conservative management, given that he has had relatively recent cath on which the culprit lesion was found to be inoperable and that he has advanced kidney disease * I have again advised him to quit smoking immediately and completely * Will continue Xarelto, adjusted for creatinine clearance * Of the two antiplatelet agents indicated for ACS, aspirin and clopidogrel, we can only use one because he is also on oral anticoag with Xarelto * I have discussed all of these issues with him in detail. He understands and agrees with the plan Clinical Quality Measures AMI/AHF: ASA po Prior to arrival: Yes CHELSEA HAWTHORNE MD FACP FAC CCDS Jul 17, 2016 15:57
[2016-07-17 16:00] VITALS: BP 143/89
[2016-07-17] MEDS ORDERED: ISOSORBIDE MONONITRATE 30 MG (IMDUR) TAB PO NR (16:15)
[2016-07-17] MEDS ORDERED: ACETAMINOPHEN 325 MG TABLET/CAPLET (TYLENOL) PO PRN (16:15)
[2016-07-17] MEDS ORDERED: meTOprolol SUCCINATE 100 MG (TOPROL XL) TAB PO NR (16:30)
[2016-07-17] MEDS ORDERED: RT-ALBUTEROL/IPRATROPIUM 3 ML (DUONEB) VIAL INH PRN (16:30)
[2016-07-17] MEDS: NS IV 1000 ML 1,000 ML IV SCH (16:42)
[2016-07-17] MEDS: ALFUZOSIN HCL 10 MG TAB (UROXATRAL) PO SCH (16:46)
[2016-07-17] MEDS ORDERED: TAMSULOSIN 0.4 MG (FLOMAX) CAP PO SCH (18:00)
[2016-07-17 20:25] VITALS: BP 80/60
[2016-07-17] MEDS ORDERED: NITROGLYCERIN SUBLINGUAL 0.4 MG TAB (NITROSTAT) SL ONE ×2 (20:25→20:39)
[2016-07-17] MEDS: ONDANSETRON 4 MG/2 ML (SDV) Z0FRAN IVP PRN (20:28)
[2016-07-17] MEDS: RT-ALBUTEROL/IPRATROPIUM 3 ML (DUONEB) VIAL INH SCH (20:32)
[2016-07-17] MEDS ORDERED: NS IV 1000 ML 1,000 ML IV SCH (20:45)
[2016-07-17] MEDS ORDERED: NITROGLYCERIN SUBLINGUAL 0.4 MG TAB (NITROSTAT) SL PRN (20:45)
[2016-07-17] MEDS: morphine INJ 4 MG/ML 1 ML (VIAL/SYRINGE) IV PRN (20:57)
[2016-07-17] MEDS: inSUlin (REGULAR) HUMAN 1 UNIT/0.01 ML (CHARGE PER UNIT) SC SCH (21:00)
[2016-07-17] MEDS ORDERED: NS (IVPB) 250 ML IV ONE (21:15)
[2016-07-17] MEDS: ATORVASTATIN 40 MG (LIPITOR) TABLET PO SCH (21:21)
[2016-07-17] MEDS: busPIRone 10 MG (BUSPAR) TAB PO SCH (21:24)
[2016-07-18] VITALS: BP 107/69
[2016-07-18] MEDS: morphine INJ 4 MG/ML 1 ML (VIAL/SYRINGE) IV PRN (01:46)
[2016-07-18 04:00] VITALS: BP 115/70
[2016-07-18 04:32] LABS: BASOPHILS % (AUTO) 1 % (0-10); EOSINOPHILS # (AUTO) 0.3 10^3/uL (0.0-0.3); EOSINOPHILS % (AUTO) 4 % (0-10); LYMPHOCYTES # (AUTO) 2.5 X 10^3 (1.0-4.0); LYMPHOCYTES % (AUTO) 40 % (12-44); MEAN CORPUSCULAR HEMOGLOBIN 28 PG (25-34); MEAN CORPUSCULAR HGB CONC 32 G/DL (32-36); MEAN CORPUSCULAR VOLUME 87 FL (80-99); MEAN PLATELET VOLUME 10.7 FL (7.4-10.4); MONOCYTES # (AUTO) 0.7 X 10^3 (0.0-1.0); MONOCYTES % (AUTO) 11 % (0-12); NEUTROPHILS # (AUTO) 2.8 X 10^3 (1.8-7.8); NEUTROPHILS % (AUTO) 44 % (42-75); PLATELET COUNT 184 10^3/uL (130-400); RED BLOOD COUNT 5.05 10^6/uL (4.35-5.85); RED CELL DISTRIBUTION WIDTH 16.5 % (10.0-14.5); WHITE BLOOD COUNT 6.4 10^3/uL (4.3-11.0)
[2016-07-18 05:01] LABS: ALBUMIN 3.2 G/DL (3.2-4.5); BILIRUBIN,TOTAL 0.5 MG/DL (0.1-1.0); CALCIUM 10.1 MG/DL (8.5-10.1); CHOLESTEROL 102 MG/DL (< 200); CREATININE SERUM 1.97 MG/DL (0.60-1.30); DIRECT LDL 63 MG/DL (1-129); MAGNESIUM 2.3 MG/DL (1.8-2.4); POTASSIUM 5.1 MMOL/L (3.6-5.0); TOTAL PROTEIN 5.8 G/DL (6.4-8.2); TRIGLYCERIDES 123 MG/DL (<150); VLDL CHOLESTEROL 25 MG/DL (5-40)
[2016-07-18] MEDS: NS IV 1000 ML 1,000 ML IV SCH ×2 (05:34→15:01)
[2016-07-18] MEDS: inSUlin (REGULAR) HUMAN 1 UNIT/0.01 ML (CHARGE PER UNIT) SC SCH ×4 (05:53→21:00)
[2016-07-18] MEDS: KCL 10 MEQ TAB (MICRO K) PO SCH (07:00)
[2016-07-18] MEDS ORDERED: ARFO15VI3 IH (07:46)
[2016-07-18] MEDS ORDERED: CETI10TA20 PO (07:46)
[2016-07-18] MEDS ORDERED: GLMP2T PO (07:46)
[2016-07-18] MEDS ORDERED: CINA30TA2 PO (07:46)
[2016-07-18] MEDS ORDERED: BUSP10TA95 PO (07:46)
[2016-07-18] MEDS: RT-ALBUTEROL/IPRATROPIUM 3 ML (DUONEB) VIAL INH SCH ×3 (07:49→19:46)
[2016-07-18 08:28] VITALS: BP 110/69
[2016-07-18] MEDS: CLOPIDOGREL 75 MG (PLAVIX) TABLET PO SCH (08:31)
[2016-07-18] MEDS: ASPIRIN 81 MG CHEW (CHILDREN'S ASA) PO SCH (08:31)
[2016-07-18] MEDS: ISOSORBIDE MONONITRATE 30 MG (IMDUR) TAB PO SCH (08:31)
[2016-07-18] MEDS: meTOprolol SUCCINATE 100 MG (TOPROL XL) TAB PO SCH (08:31)
[2016-07-18] MEDS: TAMOXIFEN 10 MG (NOLVADEX) TAB PO SCH (08:32)
[2016-07-18] MEDS: RIVAROXABAN 15 MG TABLET (XARELTO) PO SCH (08:32)
[2016-07-18] MEDS: oxyCODONE/APAP 5/325MG (PERCOCET 5) TABLET PO PRN ×2 (08:43→21:28)
[2016-07-18] MEDS ORDERED: FUROSEMIDE 40 MG (LASIX) TAB PO SCH (09:00)
[2016-07-18] MEDS ORDERED: meTOprolol SUCCINATE 100 MG (TOPROL XL) TAB PO SCH (09:00)
[2016-07-18] MEDS ORDERED: ASPIRIN E.C. 325 MG (ECOTRIN) TABLET PO SCH (09:00)
--- NOTE | 2016-07-18 10:08 | Cardiology Progress Note ---
Subjective Subjective/Events-last exam patient is sitting in a chair, still having chest pain on and off, had slightly blurred vision on the left eye. Denied any syncope, no shortness of breath. Review of Systems General: No Chills, No Night Sweats, No Fatigue, No Malaise, No Appetite, No Other HEENT: No Head Aches, No Visual Changes, No Eye Pain, No Ear Pain, No Dysphasia , No Sinus Congestion, No Post Nasal Drip, No Sore Throat, No Other Pulmonary: No Dyspnea, No Cough, No Pleuritic Chest Pain, No Other Cardiovascular: : Chest PainNo: Edema, Lt Headedness, Orthopnea, Other, Palpitations, Paroxysmal Noc. Dyspnea Objective-Cardiology Exam Last Set of Vital Signs Vital Signs 07/18/16 08:28 Temp 97.8 Pulse 86 Resp 20 B/P 110/69 Pulse Ox 93 O2 Delivery Nasal Cannula O2 Flow Rate 2.00 Capillary Refill : Less Than 3 Seconds I&O Bad tableGeneral: Alert, Oriented X3, Cooperative HEENT: Atraumatic, PERRLA Neck: Supple, No JVD, No Thyromegaly Lungs: Clear to Auscultation, Normal Air Movement Heart: Regular Rate, Normal S1, Normal S2, No Murmurs Abdomen: Normal Bowel Sounds, Soft, No Tenderness, No Hepatosplenomegaly, No Masses Extremities: No Clubbing, No Cyanosis, No Edema, Normal Pulses, No Tenderness/ Swelling Skin: No Rashes, No Breakdown, No Significant Lesion Neuro: Normal Gait, Normal Speech, Strength at 5/5 X4 Ext, Normal Tone, Sensation Intact Psych/Mental Status: Mental Status NL, Mood NL Results Lab Laboratory Tests 07/17/16 13:45 07/18/16 03:45 A/P-Cardiology Admission Diagnosis non-ST elevation myocardial infarction and coronary artery disease Hypertension Hyperlipidemia Assessment/Plan Acute NSTEMI, likely due to inoperable disease of the distal LCX coronary artery , failed intervention in June 2015, has been doing well. Still have mild elevation in troponin with renal insufficiency. I will add Ranexa and evaluate his tolerance and response, if patient continued to have persistent chest pain, consideration for repeat cardiac catheterization in attempting to intervene might be helpful. History of chronic chest discomfort, slightly worse at this time. Followed by Dr. Mcnulty. Coronary artery disease with a history of bare-metal stenting of the right coronary artery several years ago, which subsequently became occluded and he then underwent drug-eluting stenting of the right coronary artery with Atom 2.25 x 28-mm stent (August 2010). This is patent on last cardiac cath of 07/01/15 , but the distal LCX artery was found to be subtotally to totally occluded and balloon angioplasty to this lesion was unsuccessful; LVEF was approx 60%; LVEDP was approx 33 mmHg, continue to monitor at this time. MPI of of 06/29/16 shows small basal inferolateral DE with a small amount of jess -infarct ischemia, basal inferolateral hypo, LVEF 63%, midl cardiomegaly, followed and managed by Dr. Adam Mcnulty. Hypertrophic cardiomyopathy with h/o partial myomectomy at [facility] in November 2005 Echo of 06/28/16: LVEF 55%, mild asymmetric thickening of the interventricular septum without LVOT obstruction, mild to mod ao valve sclerosis and MAC w/o valvular stensosi, mild mitral & aortic & tricuspid regurg, PASP 35 mmHg Palpitations: 24 hr Holter of 06/28/16 showed NSR with relatively infrequent and isolated PVC & PAC, no significant lori Mild bilat carotid stenosis per u/s of December 2012, continue to monitor Chronic joint (including shoulders) and back discomfort Hypertension, labile, continue to monitor Paroxysmal atrial fibrillation treated with pulmonary vein ablation at [facility] without subsequent recurrence. Chronic left bundle branch block following myectomy in November 2005. CKD stage 3-4 - for which he follow with nephrology in [place], [place] Chronic microscopic hematuria without any identifiable lesions. 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 Continuing tobaccoism from which cessation has been advised Degenerative joint disease. Bilateral carpal tunnel surgery. Intermittent noncompliance with medications. Bilateral leg swelling, likely related to venous insufficiency. Deep venous thrombosis treated with chronic anticoag with rivroxaban. No recent blood clots in the leg veins Sleep apnea and restless leg syndrome. 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 Mccartney at [facility] in [place] in November 2011. He is now following with Dr. Medrano oncology services at [facility] History of hypercalcemia which is being followed by Dr. Noble, his pcp, and by Dr Medrano, his oncologist. He has a prior h/o partial parathyroidectomy Mild AST elevation for which f/u is with his pcp Clinical Quality Measures AMI/AHF: ASA po Prior to arrival: Yes DVT/VTE Risk/Contraindication: Risk Factor Score Per Nursin RFS Level Per Nursing on Admit: 3=High SANJAY CLIFFORD MD Jul 18, 2016 10:08
[2016-07-18] MEDS: RANOLAZINE ER 500 MG TAB (RANEXA) PO SCH ×2 (10:23→21:28)
--- NOTE | 2016-07-18 11:45 | History & Physical-Hospitalist ---
HPI History of Present Illness: HPI/Chief Complaint CC: Chest pain HPI: This is a 55-year-old white male with known history of coronary artery disease previous stents placed by Dr. Mcnulty that is a patient of Dr. Noble at the [facility] who continues to smoke the presents to the emergency room with complaints of chest pain for the past 2 days accompanied with nausea. He reports these also wheezing and coughing but chest x-ray only revealed atelectasis without fever or elevated white count. D-dimer was slightly elevated bilateral LE ultrasounds were negative considering CT and she' ll was not able to be performed due to elevated creatinine. his troponin was elevated on admission consistent with possible non-ST elevation ID and he was given medication for angina that helped. I did risk reduction counselor him on the need for smoking cessation and will address the active wheezing on exam today with breathing treatments, Pulmicort and IV steroids. Very difficult situation since he continues to smoke which is very high risk for progression of CAD. Source: patient Exam Limitations: no limitations Date Seen 07/18/16 Attending Physician Sharon Phillips DO PCP Navya Noble MD Referring Physician Date of Admission Jul 17, 2016 at 14:55 Home Medications & Allergies Home Medications Reviewed patient Home Medication Reconciliation Form Allergies Coded Allergies: Iodinated Contrast Media - Oral and (Unverified Allergy, Mild, 10/20/08) Penicillins (Unverified Allergy, Mild, 10/20/08) Shellfish (Verified Allergy, Unknown, 02/18/06) amlodipine (Verified Allergy, Unknown, 11/29/06) iodine (Verified Allergy, Unknown, 08/21/05) penicillin G (Verified Allergy, Unknown, 08/21/05) Past Eyajtlu-Xdhkrj-Wffznn Hx Patient Social History Alcohol Use: Denies Use Recreational Drug Use: No Smoking Status: Current Everyday Smoker Type Used: Cigarettes 2nd Hand Smoke Exposure: No Physical Abuse Screen: No Sexual Abuse: No Recent Foreign Travel: No Contact w/other who traveled: No Recent Hopitalizations: No Recent Infectious Disease Expo: No Immunizations Up To Date Tetanus Booster (TDap): More than 5yrs Date of Pneumonia Vaccine: May 13, 2014 Date of Influenza Vaccine: Feb 10, 2015 Seasonal Allergies Seasonal Allergies: No Surgeries HX Surgeries: Yes (PARATHYROIDECTOMY, OPEN HEART SC, CARDIAC CATH X20, CARPEL TUNNEL LATA HAND) Surgeries: Appendectomy, Breast, Cardiac, Coronary Stent, Orthopedic Respiratory Hx Respiratory Disorders: Yes Respiratory Disorders: COPD, Emphysema Cardiovascular Hx Cardiovascular Disorders: Yes (HAS STENTS X3, HX LBBB, CHF) Cardiac Disorders: Angina, Atrial Fibrillation, Cardiomyopathy, Coronary Artery Disease, Deep Vein Thrombosis, Heart Attack, Heart Murmur, High Cholesterol, Hypertension Neurological Hx Neurological Disorders: Yes Neurological Disorders: TIA Reproductive System Hx Reproductive Disorders: No Sexually Transmitted Disease: No Genitourinary Hx Genitourinary Disorders: Yes (CHRONIC RENAL INSUFFICIENCY) Genitourinary Disorders: Renal Failure Gastrointestinal Hx Gastrointestinal Disorders: Yes (LIVER ENZYME ELEVATION/ LIPITOR ADJUSTED) Gastrointestinal Disorders: Gastroesophageal Reflux, Liver Disease/Jaundice Musculoskeletal Hx Musculoskeletal Disorders: Yes (LEFT SHOULDER TORN ROTATOR CUFF, bilat carpal tunnel repair) Musculoskeletal Disorders: Degenerate Disk Disease Endocrine Hx Endocrine Disorders: Yes (PARATHYROIDECTOMY, "BORDERLINE DIABETIC") Endocrine Disorders: Diabetes, Non-Insulin dep HEENT HX ENT Disorders: No HEENT Disorders: Cataract Cancer Hx Cancer: Yes Cancer: Breast Psychosocial Hx Psychiatric Problems: No Integumentary HX Skin/Integumentary Disorder: No Blood Transfusions Hx Blood Disorders: No Reviewed Nursing Assessment Reviewed/Agree w Nursing PMH: Yes Family Medical History Family Hx: Arthritis 19 FATHER Cardiovascular disease 19 FATHER FH: breast cancer 19 MOTHER Respiratory disorder 19 FATHER Review of Systems Constitutional: see HPI EENTM: no symptoms reported Respiratory: short of breath Cardiovascular: chest pain Gastrointestinal: nausea Genitourinary: no symptoms reported Musculoskeletal: back pain Skin: no symptoms reported Psychiatric/Neurological: Anxiety All Other Systems Reviewed Negative Unless Noted: Yes Physical Exam Physical Exam Vital Signs Vital Sign - Last 12Hours Capillary Refill : Less Than 3 Seconds General Appearance: No Apparent Distress WD/WN Chronically ill Obese Eyes: Bilateral Eye Normal Inspection, Bilateral Eye PERRL HEENT: PERRL/EOMI Normal ENT Inspection Pharynx Normal Neck: Full Range of Motion Normal Inspection Non Tender Supple Carotid Bruit Respiratory: Chest Non Tender No Accessory Muscle Use No Respiratory Distress Crackles Decreased Breath Sounds Wheezing Cardiovascular: Regular Rate, Rhythm No Edema No Gallop No JVD No Murmur Normal Peripheral Pulses Gastrointestinal: Normal Bowel Sounds No Organomegaly No Pulsatile Mass Non Tender Soft Back: Normal Inspection No CVA Tenderness No Vertebral Tenderness Extremity: Normal Capillary Refill Normal Inspection Normal Range of Motion Non Tender No Calf Tenderness No Pedal Edema Neurologic/Psychiatric: Alert Oriented x3 No Motor/Sensory Deficits Normal Mood/Affect Skin: Normal Color Warm/Dry Lymphatic: No Adenopathy Results Results/Procedures Lab Laboratory Tests 07/17/16 13:45 07/18/16 03:45 Assessment/Plan Admission Diagnosis Assessment: Chest pain of 2 days' duration relief with nitroglycerin with elevated troponin consistent with non-ST elevation ID with elevated d-dimer but normal ultrasound of legs and high creatinine preclude CT angiogram Continue smoker with active wheezing with atelectasis on chest x-ray Chronic renal failure creatinine usually 1.9 Hypertension Hyperlipidemia Assessment and Plan Plan: Cardiology recommendations DuoNeb nebulizer treatments along with Pulmicort neb treatment twice a day IV Solu-Medrol Monitor creatinine Gentle IV fluids to improve creatinine prior to cardiac catheter Clinical Quality Measures AMI/AHF: ASA po Prior to arrival: Yes DVT/VTE Risk/Contraindication: Risk Factor Score Per Nursin RFS Level Per Nursing on Admit: 3=High SHARON PHILLIPS DO Jul 18, 2016 11:45
[2016-07-18] MEDS: methylPREDNISolone 40 MG/ML (Solu-MEDROL) VIAL IV SCH ×2 (12:16→18:05)
[2016-07-18 12:17] VITALS: BP 106/66
[2016-07-18] MEDS: RT-BUDESONIDE NEBS 0.5 MG/2ML (PULMICORT) AMP INH SCH ×2 (12:54→19:46)
[2016-07-18 15:09] VITALS: BP 119/69
[2016-07-18] MEDS ORDERED: RIVAROXABAN 15 MG TABLET (XARELTO) PO SCH (17:00)
[2016-07-18] MEDS: ALFUZOSIN HCL 10 MG TAB (UROXATRAL) PO SCH (18:02)
[2016-07-18 20:00] VITALS: BP 124/73
[2016-07-18] MEDS: ONDANSETRON 4 MG/2 ML (SDV) Z0FRAN IVP PRN (20:39)
[2016-07-18] MEDS: ATORVASTATIN 40 MG (LIPITOR) TABLET PO SCH (21:28)
[2016-07-18] MEDS: busPIRone 10 MG (BUSPAR) TAB PO SCH (21:28)
[2016-07-18] MEDS: NICOTINE 7 MG (NICODERM) PATCH TD SCH (21:59)
[2016-07-19] VITALS: BP 113/62
[2016-07-19] MEDS: methylPREDNISolone 40 MG/ML (Solu-MEDROL) VIAL IV SCH ×3 (00:42→19:03)
[2016-07-19] MEDS: NS IV 1000 ML 1,000 ML IV SCH ×3 (00:42→21:20)
[2016-07-19 04:00] VITALS: BP 124/71
[2016-07-19 04:21] LABS: MEAN PLATELET VOLUME 10.9 FL (7.4-10.4); RED BLOOD COUNT 5.12 10^6/uL (4.35-5.85); RED CELL DISTRIBUTION WIDTH 16.2 % (10.0-14.5); WHITE BLOOD COUNT 6.8 10^3/uL (4.3-11.0)
[2016-07-19 04:43] LABS: ALANINE AMINOTRANSFERASE 20 U/L (0-55); ALBUMIN 3.4 G/DL (3.2-4.5); ANION GAP 9 MMOL/L (5-14); ASPARTATE AMINO TRANSFERASE 32 U/L (5-34); BILIRUBIN,TOTAL 0.3 MG/DL (0.1-1.0); BLOOD UREA NITROGEN 21 MG/DL (7-18); BUN/CREATININE RATIO 13; CALCIUM 10.4 MG/DL (8.5-10.1); CARBON DIOXIDE 24 MMOL/L (21-32); CHLORIDE 105 MMOL/L (98-107); CREATININE SERUM 1.65 MG/DL (0.60-1.30); GFR ESTIMATED 43; GLUCOSE 175 MG/DL (70-105); POTASSIUM 4.8 MMOL/L (3.6-5.0); SODIUM 138 MMOL/L (135-145); TOTAL PROTEIN 6.3 G/DL (6.4-8.2)
[2016-07-19 04:52] LABS: TROPONIN I < 0.30 NG/ML (<0.30)
[2016-07-19] MEDS: inSUlin (REGULAR) HUMAN 1 UNIT/0.01 ML (CHARGE PER UNIT) SC SCH ×4 (06:00→21:00)
[2016-07-19] MEDS: RT-ALBUTEROL/IPRATROPIUM 3 ML (DUONEB) VIAL INH SCH ×3 (06:34→21:47)
[2016-07-19] MEDS: RT-BUDESONIDE NEBS 0.5 MG/2ML (PULMICORT) AMP INH SCH ×2 (06:34→21:47)
--- NOTE | 2016-07-19 07:06 | Diagnostic Imaging Report ---
INDICATION: Crackles. COMPARISON: 07/17/2016. FINDINGS: Linear atelectasis within the lingula. Otherwise, lungs are clear. Numerous surgical clips overlying the left hemithorax are similar. No pleural effusion or pneumothorax. Stable cardiomediastinal silhouette. Stable configuration of the sternal wires. IMPRESSION: 1. No acute cardiopulmonary process. Dictated by: Dictated on workstation # [id number]
[2016-07-19] MEDS: KCL 10 MEQ TAB (MICRO K) PO SCH (07:09)
[2016-07-19 08:00] VITALS: BP 134/79
--- NOTE | 2016-07-19 08:50 | Progress Note-Cardiology ---
Cardiology SOAP Progress Note Subjective: Feels better, but still has some intermittent chest discomfort Denies palp or syncope or shortness of breath Objective: I&O/Vital Signs Vital Sign - Last 12Hours 07/18/16 07/19/16 07/19/16 07/19/16 21:00 00:00 00:00 00:57 Temp 97.7 Pulse 92 93 Resp 16 B/P 113/62 Pulse Ox 92 O2 Delivery Nasal Cannula Nasal Cannula O2 Flow Rate 2.00 2.00 2.00 07/19/16 07/19/16 07/19/16 07/19/16 04:00 04:00 06:34 06:37 Temp 97.4 Pulse 93 Resp 18 B/P 124/71 Pulse Ox 94 O2 Delivery Nasal Cannula O2 Flow Rate 2.00 2.00 1.50 1.50 07/19/16 08:00 Temp 98.0 Pulse 103 Resp 20 B/P 134/79 Pulse Ox 90 O2 Delivery Nasal Cannula O2 Flow Rate 2.50 Intake and Output 07/19/16 00:00 Intake Total 2260 ml Output Total 2525 ml Balance -265 ml Weight (Pounds): 246 Weight (Ounces): 4.8 Weight (Calculated Kilograms): [id number] Constitutional: AAO x 3 well-developed well-nourished Respiratory: No accessory muscle use, lungs clear to percussion other (fair bilateral air entry; prolonged exp phase) Cardiovascular: regular rate-rhythm S1 and S2 systolic murmur (soft RADHIKA at cardiac base) Gastrointestional: No tender, softNo guarding, No rebound, audible bowel sounds Extremities: No clubbing, No cyanosis, No significant edema Neurologic/Psychiatric: oriented x 3 grossly intact power is 5/5 both on sides Skin: No rash on exposed areas, No ulcerations on exposed areas Results/Procedures: Labs Laboratory Tests 07/18/16 11:08: Glucometer 139H 07/18/16 15:07: Glucometer 130H 07/18/16 21:26: Glucometer 172H 07/19/16 03:35: Alanine Aminotransferase (ALT/SGPT) 20, Albumin 3.4, Alkaline Phosphatase 56, Anion Gap 9, Aspartate Amino Transf (AST/SGOT) 32, BUN/Creatinine Ratio 13, Blood Urea Nitrogen 21H, Calcium Level 10.4H, Carbon Dioxide Level 24, Chloride Level 105, Creatinine 1.65H, Estimat Glomerular Filtration Rate 43, Glucose Level 175H, Hematocrit 44, Hemoglobin 13.9, Mean Corpuscular Hemoglobin 27, Mean Corpuscular Hemoglobin Concent 31L, Mean Corpuscular Volume 86, Mean Platelet Volume 10.9H, Platelet Count 187, Potassium Level 4.8, Red Blood Count 5.12, Red Cell Distribution Width 16.2H, Sodium Level 138, Total Bilirubin 0.3, Total Protein 6.3L, Troponin I < 0.30, White Blood Count 6.8 Laboratory Tests 07/17/16 13:45 07/18/16 03:45 07/19/16 03:35 A/P: Assessment: Acute NSTEMI, likely due to inoperable disease of the distal LCX coronary artery (see below) Coronary artery disease with a history of bare-metal stenting of the right coronary artery several years ago, which subsequently became occluded and he then underwent drug-eluting stenting of the right coronary artery with Atom 2.25 x 28-mm stent (August 2010). This is patent on last cardiac cath of 07/01/15 , but the distal LCX artery was found to be subtotally to totally occluded and balloon angioplasty to this lesion was unsuccessful; LVEF was approx 60%; LVEDP was approx 33 mmHg MPI of of 06/29/16 shows small basal inferolateral DE with a small amount of jess -infarct ischemia, basal inferolateral hypo, LVEF 63%, midl cardiomegaly Hypertrophic cardiomyopathy with h/o partial myomectomy at [facility] in November 2005 Echo of 06/28/16: LVEF 55%, mild asymmetric thickening of the interventricular septum without LVOT obstruction, mild to mod ao valve sclerosis and MAC w/o valvular stensosi, mild mitral & aortic & tricuspid regurg, PASP 35 mmHg Palpitations: 24 hr Holter of 06/28/16 showed NSR with relatively infrequent and isolated PVC & PAC, no significant lori Mild bilat carotid stenosis per u/s of December 2012 Chronic joint (including shoulders) and back discomfort Hypertension, labile H/O chronic chest discomfort Paroxysmal atrial fibrillation treated with pulmonary vein ablation at [facility] without subsequent recurrence. Chronic left bundle branch block following myectomy in November 2005. CKD stage 3-4 - for which he follow with nephrology in [place], [place] Chronic microscopic hematuria without any identifiable lesions. 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 Continuing tobaccoism from which cessation has been advised Degenerative joint disease. Bilateral carpal tunnel surgery. Intermittent noncompliance with medications. Bilateral leg swelling, likely related to venous insufficiency. Deep venous thrombosis treated with chronic anticoag with rivroxaban. No evidence of DVT on leg venous Doppler of 07/17/16 Sleep apnea and restless leg syndrome. 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 Mccartney at [facility] in [place] in November 2011. He is now following with Dr. Medrano oncology services at [facility] History of hypercalcemia which is being followed by Dr. Noble, his pcp, and by Dr Medrano, his oncologist. He has a prior h/o partial parathyroidectomy Plan: * Complex management due to multiple comorbidities that are outlined above * Given continuing symptoms, we are considering repeat card cath. I discussed with him in detail the pros and cons of cath, including renal failure for which he is at considerable risk, given his baseline CKD 3. He understands and wishes to proceed, but needs a little more time to think about it. Meanwhile, we are stopping diuretics and continuing iv hydration to reduce chances of contrast nephropathy, if we proceed with card cath * Reduce steroids * I have again advised him to quit smoking immediately and completely Clinical Quality Measures AMI/AHF: ASA po Prior to arrival: Yes CHELSEA HAWTHORNE MD [facility] Jul 19, 2016 08:50 CHELSEA HAWTHORNE MD [facility] Jul 19, 2016 08:50
[2016-07-19] MEDS: RANOLAZINE ER 500 MG TAB (RANEXA) PO SCH ×2 (09:29→21:20)
[2016-07-19] MEDS: meTOprolol SUCCINATE 100 MG (TOPROL XL) TAB PO SCH (09:29)
[2016-07-19] MEDS: CLOPIDOGREL 75 MG (PLAVIX) TABLET PO SCH (09:29)
[2016-07-19] MEDS: TAMOXIFEN 10 MG (NOLVADEX) TAB PO SCH (09:29)
[2016-07-19] MEDS: ASPIRIN 81 MG CHEW (CHILDREN'S ASA) PO SCH (09:29)
[2016-07-19] MEDS: ISOSORBIDE MONONITRATE 30 MG (IMDUR) TAB PO SCH (09:29)
[2016-07-19] MEDS: RIVAROXABAN 15 MG TABLET (XARELTO) PO SCH (09:39)
--- NOTE | 2016-07-19 09:46 | Progress Note-Hospitalist ---
Progress Note HPI/CC on Admission CC: Chest pain HPI: This is a 55-year-old white male with known history of coronary artery disease previous stents placed by Dr. Mcnulty that is a patient of Dr. Noble at the [facility] who continues to smoke the presents to the emergency room with complaints of chest pain for the past 2 days accompanied with nausea. He reports these also wheezing and coughing but chest x-ray only revealed atelectasis without fever or elevated white count. D-dimer was slightly elevated bilateral LE ultrasounds were negative considering CT and she' ll was not able to be performed due to elevated creatinine. his troponin was elevated on admission consistent with possible non-ST elevation VA and he was given medication for angina that helped. I did summer camp counselor him on the need for smoking cessation and will address the active wheezing on exam today with breathing treatments, Pulmicort and IV steroids. Very difficult situation since he continues to smoke which is very high risk for progression of CAD. Progress Notes/Assess & Plan Date Seen 07/19/16 Admission Dx/Process Assessment: Chest pain of 2 days' duration relief with nitroglycerin with elevated troponin consistent with non-ST elevation VA with elevated d-dimer but normal ultrasound of legs and high creatinine preclude CT angiogram Continue smoker with active wheezing with atelectasis on chest x-ray Chronic renal failure creatinine usually 1.9 Hypertension Hyperlipidemia Diagonsis/Assessment & Plan Patient doing well overall and breathing better No further chest pain Checked meds and labs Creatinine 1.65 Have oxygen at home but not continuous No fever, vitals stable, pleasant, improved Regular rate and rhythm, wheezing noted but much improved no tachypnea No edema Laboratory Tests 07/19/16 03:35 Assessment: Chest pain of 2 days' duration relief with nitroglycerin with elevated troponin consistent with non-ST elevation VA with elevated d-dimer but normal ultrasound of legs and high creatinine preclude CT angiogram Continue smoker with active wheezing with atelectasis on chest x-ray Chronic renal failure creatinine usually 1.9 now 1.65 Hypertension Hyperlipidemia Plan: Cardiology recommendations appreciated DuoNeb nebulizer treatments along with Pulmicort neb treatment twice a day IV Solu-Medrol Monitor creatinine Gentle IV fluids to improve creatinine prior to cardiac catheter Home O2 assessment DANIEL Menendez DO Jul 19, 2016 09:46
[2016-07-19] MEDS: NICOTINE 7 MG (NICODERM) PATCH TD SCH (10:31)
[2016-07-19] MEDS ORDERED: ISOS30TA3 PO (10:32)
[2016-07-19] MEDS ORDERED: METO-274 PO (10:32)
[2016-07-19] MEDS ORDERED: FLUT16SP22 NSEACH (10:32)
[2016-07-19] MEDS ORDERED: GLIM2TAB PO (10:32)
[2016-07-19] MEDS ORDERED: POTA10TA10 PO (10:32)
[2016-07-19] MEDS ORDERED: BUDE0.5A IH (10:32)
[2016-07-19] MEDS ORDERED: TAMS0.4C2 PO (10:32)
[2016-07-19] MEDS ORDERED: CETI10TA17 PO (10:32)
[2016-07-19] MEDS ORDERED: ALBU1.25 IH (10:34)
[2016-07-19 12:00] VITALS: BP 154/89
[2016-07-19 16:00] VITALS: BP 125/74
[2016-07-19] MEDS: ALFUZOSIN HCL 10 MG TAB (UROXATRAL) PO SCH (19:02)
[2016-07-19] MEDS: SALINE NASAL SPRAY (OCEAN) 45 ML BTL PRN (19:05)
[2016-07-19 20:00] VITALS: BP 134/72
[2016-07-19] MEDS: ATORVASTATIN 40 MG (LIPITOR) TABLET PO SCH (21:20)
[2016-07-19] MEDS: busPIRone 10 MG (BUSPAR) TAB PO SCH (21:20)
[2016-07-20] VITALS (12 sets, daily range): BP systolic 121–162; BP diastolic 71–100
[2016-07-20] MEDS: SALINE NASAL SPRAY (OCEAN) 45 ML BTL PRN (00:05)
[2016-07-20 04:41] LABS: BASOPHILS % (AUTO) 0 % (0-10); EOSINOPHILS % (AUTO) 0 % (0-10); LYMPHOCYTES # (AUTO) 0.9 X 10^3 (1.0-4.0); LYMPHOCYTES % (AUTO) 9 % (12-44); MEAN CORPUSCULAR HEMOGLOBIN 27 PG (25-34); MEAN CORPUSCULAR HGB CONC 31 G/DL (32-36); MEAN CORPUSCULAR VOLUME 87 FL (80-99); MEAN PLATELET VOLUME 11.1 FL (7.4-10.4); MONOCYTES # (AUTO) 0.4 X 10^3 (0.0-1.0); MONOCYTES % (AUTO) 4 % (0-12); NEUTROPHILS # (AUTO) 8.6 X 10^3 (1.8-7.8); NEUTROPHILS % (AUTO) 87 % (42-75); PLATELET COUNT 186 10^3/uL (130-400); RED BLOOD COUNT 4.86 10^6/uL (4.35-5.85); RED CELL DISTRIBUTION WIDTH 16.6 % (10.0-14.5); WHITE BLOOD COUNT 9.9 10^3/uL (4.3-11.0)
[2016-07-20 05:07] LABS: CALCIUM 10.5 MG/DL (8.5-10.1); CREATININE SERUM 1.53 MG/DL (0.60-1.30); MAGNESIUM 2.2 MG/DL (1.8-2.4); POTASSIUM 4.6 MMOL/L (3.6-5.0)
[2016-07-20 05:19] LABS: BAND NEUTROPHILS 2 %; BASOPHILS % (MANUAL) 0 %; EOSINOPHILS % (MANUAL) 0 %; LYMPHOCYTES % (MANUAL) 6 %; NEUTROPHILS % (MANUAL) 79 %
[2016-07-20 05:20] LABS: ANISOCYTOSIS SLIGHT; METAMYELOCYTES % 1 %; REACTIVE LYMPHOCYTES 12 %
[2016-07-20] MEDS: inSUlin (REGULAR) HUMAN 1 UNIT/0.01 ML (CHARGE PER UNIT) SC SCH ×4 (05:37→21:38)
[2016-07-20] MEDS: methylPREDNISolone 40 MG/ML (Solu-MEDROL) VIAL IV SCH ×2 (05:59→18:19)
[2016-07-20] MEDS: NS IV 1000 ML 1,000 ML IV SCH ×4 (06:56→22:38)
[2016-07-20] MEDS: RT-ALBUTEROL/IPRATROPIUM 3 ML (DUONEB) VIAL INH SCH ×3 (07:40→21:28)
[2016-07-20] MEDS: RT-BUDESONIDE NEBS 0.5 MG/2ML (PULMICORT) AMP INH SCH ×2 (07:43→21:28)
[2016-07-20] MEDS ORDERED: FAMOTIDINE 20 MG (PEPCID) TABLET PO NR (09:00)
[2016-07-20] MEDS ORDERED: diphenhydrAMINE 25 MG TAB (BENADRYL) PO NR (09:00)
[2016-07-20] MEDS: ISOSORBIDE MONONITRATE 30 MG (IMDUR) TAB PO SCH (09:00)
[2016-07-20] MEDS ORDERED: methylPREDNISolone 125 MG (Solu-MEDROL) VIAL IVP NR (09:00)
[2016-07-20] MEDS: CLOPIDOGREL 75 MG (PLAVIX) TABLET PO SCH (09:01)
[2016-07-20] MEDS: ASPIRIN 81 MG CHEW (CHILDREN'S ASA) PO SCH (09:01)
[2016-07-20] MEDS: meTOprolol SUCCINATE 100 MG (TOPROL XL) TAB PO SCH ×2 (09:01→21:28)
[2016-07-20] MEDS: RIVAROXABAN 15 MG TABLET (XARELTO) PO SCH (09:01)
[2016-07-20] MEDS: RANOLAZINE ER 500 MG TAB (RANEXA) PO SCH ×2 (09:01→21:28)
[2016-07-20] MEDS: NICOTINE 7 MG (NICODERM) PATCH TD SCH (09:02)
[2016-07-20] MEDS: TAMOXIFEN 10 MG (NOLVADEX) TAB PO SCH (09:02)
[2016-07-20] MEDS ORDERED: PRED10TA22 PO (09:25)
--- NOTE | 2016-07-20 09:27 | Progress Note-Hospitalist ---
Progress Note HPI/CC on Admission CC: Chest pain HPI: This is a 55-year-old white male with known history of coronary artery disease previous stents placed by Dr. Mcnulty that is a patient of Dr. Noble at the [facility] who continues to smoke the presents to the emergency room with complaints of chest pain for the past 2 days accompanied with nausea. He reports these also wheezing and coughing but chest x-ray only revealed atelectasis without fever or elevated white count. D-dimer was slightly elevated bilateral LE ultrasounds were negative considering CT and she' ll was not able to be performed due to elevated creatinine. his troponin was elevated on admission consistent with possible non-ST elevation NC and he was given medication for angina that helped. I did baby counselor him on the need for smoking cessation and will address the active wheezing on exam today with breathing treatments, Pulmicort and IV steroids. Very difficult situation since he continues to smoke which is very high risk for progression of CAD. Progress Notes/Assess & Plan Date Seen 07/20/16 Admission Dx/Process Assessment: Chest pain of 2 days' duration relief with nitroglycerin with elevated troponin consistent with non-ST elevation NC with elevated d-dimer but normal ultrasound of legs and high creatinine preclude CT angiogram Continue smoker with active wheezing with atelectasis on chest x-ray Chronic renal failure creatinine usually 1.9 Hypertension Hyperlipidemia Diagonsis/Assessment & Plan Patient doing well overall and breathing better No further chest pain Checked meds and labs Creatinine 1.65 yesterday and now 1.5 Have oxygen at home but not continuous Getting cath today No fever, vitals stable, pleasant, improved Regular rate and rhythm, wheezing noted No edema Assessment: Chest pain of 2 days' duration relief with nitroglycerin with elevated troponin consistent with non-ST elevation NC with elevated d-dimer but normal ultrasound of legs and high creatinine preclude CT angiogram Continue smoker with active wheezing with atelectasis on chest x-ray Chronic renal failure creatinine usually 1.9 now 1.65 Hypertension Hyperlipidemia Plan: Cardiology recommendations appreciated DuoNeb nebulizer treatments along with Pulmicort neb treatment twice a day IV Solu-Medrol changed to PO for prep of DC Monitor creatinine Gentle IV fluids to improve creatinine prior to cardiac catheter Home O2 at home already DC if OK w/Cardiology DANIEL WALSH DO Jul 20, 2016 09:27
[2016-07-20] MEDS ORDERED: HEParin (CATH LAB) 2,000 ML IV ONE (09:55)
[2016-07-20] MEDS ORDERED: NS IV 1000 ML 1,000 ML ONE (09:55)
[2016-07-20] MEDS ORDERED: LIDOCAINE 1% INJ 20 ML (XYLOCAINE) VIAL ONE (09:55)
[2016-07-20] MEDS ORDERED: fentaNYL INJECTION 100 MCG/2 ML AMP ONE (11:10)
[2016-07-20] MEDS ORDERED: diphenhydrAMINE 50 MG/ML INJ (BENADRYL) ONE (11:10)
[2016-07-20] MEDS ORDERED: MIDAZOLAM 5 MG/5 ML (VERSED) VIAL ONE (11:10)
[2016-07-20] MEDS ORDERED: CATHETER FLUSH 10 ML SYR IV PRN (11:30)
--- NOTE | 2016-07-20 12:37 | Progress Note-Cardiology ---
Cardiology SOAP Progress Note Subjective: Chest pain is improved Somewhat more short of breath Denies palp or syncope Objective: I&O/Vital Signs Vital Sign - Last 12Hours 07/20/16 07/20/16 07/20/16 07/20/16 00:58 04:00 04:00 07:00 Temp 97.5 Pulse 98 96 99 Resp 20 B/P 129/81 Pulse Ox 94 94 O2 Delivery Nasal Cannula O2 Flow Rate 1.50 1.50 07/20/16 07/20/16 07/20/16 07:40 07:45 08:14 Temp 98.6 Pulse 104 Resp 20 B/P 150/86 Pulse Ox 94 97 94 O2 Delivery Room Air O2 Flow Rate 1.00 Intake and Output 07/19/16 23:59 Intake Total 1890 ml Output Total 900 ml Balance 990 ml Weight (Pounds): 254 Weight (Ounces): 9.0 Weight (Calculated Kilograms): 115.680025 Constitutional: AAO x 3 well-developed well-nourished Respiratory: No accessory muscle use, lungs clear to percussion other (fair bilateral air entry; prolonged exp phase) Cardiovascular: regular rate-rhythm S1 and S2 systolic murmur (soft RADHIKA at cardiac base) Gastrointestional: No tender, softNo guarding, No rebound, audible bowel sounds Extremities: No clubbing, No cyanosis, No significant edema Neurologic/Psychiatric: oriented x 3 grossly intact power is 5/5 both on sides Skin: No rash on exposed areas, No ulcerations on exposed areas Results/Procedures: Labs Laboratory Tests 07/19/16 15:49: Glucometer 146H 07/19/16 21:19: Glucometer 150H 07/20/16 03:35: Anion Gap 8, Anisocytosis SLIGHT, BUN/Creatinine Ratio 16, Band Neutrophils 2, Basophils # (Auto) 0.0, Basophils % (Manual) 0, Basophils (%) (Auto) 0, Blood Urea Nitrogen 25H, Calcium Level 10.5H, Carbon Dioxide Level 23, Chloride Level 106, Creatinine 1.53H, Eosinophils # (Auto) 0.0, Eosinophils % (Manual) 0, Eosinophils (%) (Auto) 0, Estimat Glomerular Filtration Rate 47, Glucose Level 165H, Hematocrit 42, Hemoglobin 13.3, Lymphocytes # (Auto) 0.9L, Lymphocytes % ( Manual) 6, Lymphocytes (%) (Auto) 9L, Magnesium Level 2.2, Mean Corpuscular Hemoglobin 27, Mean Corpuscular Hemoglobin Concent 31L, Mean Corpuscular Volume 87, Mean Platelet Volume 11.1H, Metamyelocytes % 1, Monocytes # (Auto) 0.4, Monocytes % (Manual) 0, Monocytes (%) (Auto) 4, Neutrophils # (Auto) 8.6H, Neutrophils % (Manual) 79, Neutrophils (%) (Auto) 87H, Platelet Count 186, Potassium Level 4.6, Reactive Lymphocytes 12, Red Blood Count 4.86, Red Cell Distribution Width 16.6H, Sodium Level 137, White Blood Count 9.9 07/20/16 11:21: Glucometer 161H Laboratory Tests 07/19/16 03:35 07/20/16 03:35 A/P: Assessment: Acute NSTEMI with postinfarction angina Card cath of 07/20/16 shows LMCA without significant disease, mod diffuse disease of LAD (including 50-60% ostial D1), chronic total distal occlusion of the LCX (unchanged compared to cath of 07/01/15) with distal collateralization, patent stent in the prox and mid RCA (known to be Atom 2.25 x 28, placed in August 2010), elevated LVEDP MPI of of 06/29/16 shows small basal inferolateral IA with a small amount of jess -infarct ischemia, basal inferolateral hypo, LVEF 63%, mild cardiomegaly Hypertrophic cardiomyopathy with h/o partial myomectomy at [facility] in November 2005 Echo of 06/28/16: LVEF 55%, mild asymmetric thickening of the interventricular septum without LVOT obstruction, mild to mod ao valve sclerosis and MAC w/o valvular stensosi, mild mitral & aortic & tricuspid regurg, PASP 35 mmHg Palpitations: 24 hr Holter of 06/28/16 showed NSR with relatively infrequent and isolated PVC & PAC, no significant lori Mild bilat carotid stenosis per u/s of December 2012 Chronic joint (including shoulders) and back discomfort Hypertension, labile H/O chronic chest discomfort Paroxysmal atrial fibrillation treated with pulmonary vein ablation at [facility] without subsequent recurrence. Chronic left bundle branch block following myectomy in November 2005. CKD stage 3-4 - for which he follow with nephrology in [place], [place] Chronic microscopic hematuria without any identifiable lesions. 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 Continuing tobaccoism from which cessation has been advised Degenerative joint disease. Bilateral carpal tunnel surgery. Intermittent noncompliance with medications. Bilateral leg swelling, likely related to venous insufficiency. Deep venous thrombosis treated with chronic anticoag with rivroxaban. No evidence of DVT on leg venous Doppler of 07/17/16 Sleep apnea and restless leg syndrome. 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 Mccartney at [facility] in [place] in November 2011. He is now following with Dr. Medrano oncology services at [facility] History of hypercalcemia which is being followed by Dr. Noble, his pcp, and by Dr Medrano, his oncologist. He has a prior h/o partial parathyroidectomy Plan: * Complex management due to multiple comorbidities that are outlined above * Based on today's card cath, continuing med therapy appears to be the best option * I have again advised him to quit smoking immediately and completely * Vigorous hydration for the last 36 hours has improved creatinine, but LVEDP is now markedly elevated. We will give iv diuretics today while continue iv NS * Follow labs * Increase beta-ceci, if tolerated Clinical Quality Measures AMI/AHF: ASA po Prior to arrival: Yes CHELSEA HAWTHORNE MD FACP FAC CCDS Jul 20, 2016 12:37
[2016-07-20] MEDS ORDERED: PATIENT MAY USE OWN MEDS, ALL PO SCH (12:45)
[2016-07-20] MEDS ORDERED: FUROSEMIDE 40 MG/4 ML INJ (LASIX) IVP NR (13:32)
[2016-07-20] MEDS: ALFUZOSIN HCL 10 MG TAB (UROXATRAL) PO SCH (18:15)
[2016-07-20] MEDS: ATORVASTATIN 40 MG (LIPITOR) TABLET PO SCH (21:29)
[2016-07-20] MEDS: busPIRone 10 MG (BUSPAR) TAB PO SCH (21:29)
[2016-07-21] VITALS: BP 135/83
[2016-07-21 04:00] VITALS: BP 128/75
[2016-07-21 04:30] LABS: MEAN PLATELET VOLUME 10.8 FL (7.4-10.4); RED BLOOD COUNT 5.2 10^6/uL (4.35-5.85); RED CELL DISTRIBUTION WIDTH 16.5 % (10.0-14.5); WHITE BLOOD COUNT 9.4 10^3/uL (4.3-11.0)
[2016-07-21 05:04] LABS: CALCIUM 10.7 MG/DL (8.5-10.1); CREATININE SERUM 1.51 MG/DL (0.60-1.30); POTASSIUM 4.1 MMOL/L (3.6-5.0)
[2016-07-21] MEDS: inSUlin (REGULAR) HUMAN 1 UNIT/0.01 ML (CHARGE PER UNIT) SC SCH ×2 (06:00→11:00)
[2016-07-21] MEDS: methylPREDNISolone 40 MG/ML (Solu-MEDROL) VIAL IV SCH (06:42)
--- NOTE | 2016-07-21 06:57 | Discharge Summary-Hospitalist ---
Diagnosis/Chief Complaint Date of Admission Jul 19, 2016 at 08:45 Date of Discharge Discharge Date: Admission Diagnosis Assessment: Chest pain of 2 days' duration relief with nitroglycerin with elevated troponin consistent with non-ST elevation IL with elevated d-dimer but normal ultrasound of legs and high creatinine preclude CT angiogram Continue smoker with active wheezing with atelectasis on chest x-ray Chronic renal failure creatinine usually 1.9 Hypertension Hyperlipidemia Discharge Diagnosis Assessment: Chest pain of 2 days' duration relief with nitroglycerin with elevated troponin consistent with non-ST elevation IL with elevated d-dimer but normal ultrasound of legs and high creatinine preclude CT angiogram but had cardiac cath without intervention Continue smoker with active wheezing with atelectasis on chest x-ray c/w AECOPD Chronic renal failure creatinine usually 1.9 now 1.65 Hypertension Hyperlipidemia SERA Patient doing well overall and breathing better No further chest pain Checked meds and labs Creatinine 1.65 yesterday and now 1.5 Have oxygen at home but not continuous Getting cath today No fever, vitals stable, pleasant, improved Regular rate and rhythm, wheezing noted No edema Assessment: Chest pain of 2 days' duration relief with nitroglycerin with elevated troponin consistent with non-ST elevation IL with elevated d-dimer but normal ultrasound of legs and high creatinine preclude CT angiogram Continue smoker with active wheezing with atelectasis on chest x-ray Chronic renal failure creatinine usually 1.9 now 1.65 Hypertension Hyperlipidemia Plan: Cardiology recommendations appreciated DuoNeb nebulizer treatments along with Pulmicort neb treatment twice a day IV Solu-Medrol changed to PO for prep of DC Monitor creatinine Gentle IV fluids to improve creatinine prior to cardiac catheter Home O2 at home already DC if OK w/Cardiology Reason Hospital Visit/Course CC: Chest pain HPI: This is a 55-year-old white male with known history of coronary artery disease previous stents placed by Dr. Mcnulty that is a patient of Dr. Noble at the [facility] who continues to smoke the presents to the emergency room with complaints of chest pain for the past 2 days accompanied with nausea. He reports these also wheezing and coughing but chest x-ray only revealed atelectasis without fever or elevated white count. D-dimer was slightly elevated bilateral LE ultrasounds were negative considering CT and she' ll was not able to be performed due to elevated creatinine. his troponin was elevated on admission consistent with possible non-ST elevation IL and he was given medication for angina that helped. I did general counsel him on the need for smoking cessation and will address the active wheezing on exam today with breathing treatments, Pulmicort and IV steroids. Very difficult situation since he continues to smoke which is very high risk for progression of CAD. Note from 07/21/16: Patient doing well and had cardiac catheter without intervention yesterday Smoking cessation counseling aggressively Meets criteria for continuous O2 so I did write those orders Wheezing is resolved today No fever, vital stable, pleasant, improved Regular rate and rhythm, clear to auscultation bilaterally but diminished breath sounds due to COPD but no wheezing is noted today No edema Hospital course: Patient had a standard hospital course he was placed on IV fluids to optimize his creatinine in order to undergo cardiac catheterization that was completed by Dr. Mcnulty in an uncomplicated manner that resulted in no intervention. Smoking cessation counseling was aggressively initiated and home oxygen evaluation mat criteria for home O2 continuous at 2 L and he will of a close follow-up with Dr. Noble and he will fill prescriptions of taper dose steroids and resume all breathing treatments in addition to funneling and oxygen in to see Pap machine if possible. Discharge Summary Discharge Physical Examination Allergies: Coded Allergies: Iodinated Contrast Media - Oral and (Unverified Allergy, Mild, 10/20/08) Penicillins (Unverified Allergy, Mild, 10/20/08) Shellfish (Verified Allergy, Unknown, 02/18/06) amlodipine (Verified Allergy, Unknown, 11/29/06) iodine (Verified Allergy, Unknown, 08/21/05) penicillin G (Verified Allergy, Unknown, 08/21/05) Vitals & I&Os Vital Signs Date Time Temp Pulse Resp B/P Pulse Ox O2 Delivery O2 Flow Rate FiO2 07/21/16 04:00 2.00 07/21/16 04:00 97.6 86 18 128/75 93 Nasal Cannula 07/18/16 19:47 Hospital Course Labs (last 24 hrs) Laboratory Tests 07/20/16 11:21: Glucometer 161H 07/20/16 16:26: Glucometer 180H 07/20/16 20:50: Glucometer 216H 07/21/16 03:40: Anion Gap 10, BUN/Creatinine Ratio 15, Blood Urea Nitrogen 23H, Calcium Level 10.7H, Carbon Dioxide Level 25, Chloride Level 102, Creatinine 1.51H, Estimat Glomerular Filtration Rate 48, Glucose Level 147H, Hematocrit 45, Hemoglobin 14.4, Mean Corpuscular Hemoglobin 28, Mean Corpuscular Hemoglobin Concent 32, Mean Corpuscular Volume 86, Mean Platelet Volume 10.8H, Platelet Count 184, Potassium Level 4.1, Red Blood Count 5.20, Red Cell Distribution Width 16.5H, Sodium Level 137, White Blood Count 9.4 Pending Labs Laboratory Tests 07/21/16 03:40: Anion Gap 10, BUN/Creatinine Ratio 15, Blood Urea Nitrogen 23, Calcium Level 10.7, Carbon Dioxide Level 25, Chloride Level 102, Creatinine 1.51, Estimat Glomerular Filtration Rate 48, Glucose Level 147, Hematocrit 45, Hemoglobin 14.4 , Mean Corpuscular Hemoglobin 28, Mean Corpuscular Hemoglobin Concent 32, Mean Corpuscular Volume 86, Mean Platelet Volume 10.8, Platelet Count 184, Potassium Level 4.1, Red Blood Count 5.20, Red Cell Distribution Width 16.5, Sodium Level 137, White Blood Count 9.4 Discharge Home Medications: Active Scripts Active Prednisone 10 Mg Tab.ds.pk 10 Mg PO DAILY Take 6 tabs(60mg)daily,decrease by 1 tab(10MG)daily. Reported Albuterol Sulfate 1.25 Mg/3 Ml Vial.neb 1.25 Mg IH TID PRN Glimepiride 2 Mg Tablet 2 Mg PO DAILY Tamsulosin HCl 0.4 Mg Cap.er.24h 0.4 Mg PO HS Budesonide 0.5 Mg/2 Ml Ampul.neb 0.5 Mg IH BID Metoprolol Succinate 100 Mg Tab.er.24h 100 Mg PO DAILY Potassium Chloride 10 Meq Tablet.er 10 Meq PO DAILY Cetirizine HCl 10 Mg Tablet 10 Mg PO DAILY Fluticasone Propionate 16 Gm [place].susp 1 [place] NSEACH DAILY PRN Isosorbide Mononitrate ER (Isosorbide Mononitrate) 30 Mg Tab.er.24h 30 Mg PO DAILY Sensipar (Cinacalcet HCl) 30 Mg Tablet 30 Mg PO DAILY Buspirone HCl 10 Mg Tablet 10 Mg PO HS Brovana (Arformoterol Tartrate) 15 Mcg/2 Ml Vial.neb 15 Mcg IH BID Furosemide 40 Mg Tablet 40 Mg PO DAILY Atorvastatin Calcium 40 Mg Tablet 40 Mg PO HS Fenofibrate (Fenofibrate Nanocrystallized) 145 Mg Tablet 145 Mg PO HS Clopidogrel (Clopidogrel Bisulfate) 75 Mg Tablet 75 Mg PO HS Pantoprazole Sodium 40 Mg Tablet.dr 40 Mg PO BID Gabapentin 100 Mg Capsule 100 Mg PO TID Tamoxifen Citrate 20 Mg Tablet 20 Mg PO HS Montelukast Sodium 10 Mg Tablet 10 Mg PO HS Ventolin Hfa (Albuterol Sulfate) 18 Gm Hfa.aer.ad 2 Puff IH QID PRN Xarelto (Rivaroxaban) 15 Mg Tablet 15 Mg PO HS Nitrostat (Nitroglycerin) 0.4 Mg Subl 0.4 Mg SL UD PRN TAKE 1 TABLET EVERY 5 MINUTES X 3 DOSES NEEDED FOR CHEST PAIN Instructions to patient/family Please see electonic discharge instructions given to patient. Clinical Quality Measures AMI/AHF: ASA po Prior to arrival: Yes DVT/VTE Risk/Contraindication: Risk Factor Score Per Nursin RFS Level Per Nursing on Admit: 3=High DANIEL WALSH DO Jul 21, 2016 06:57
[2016-07-21] MEDS: RT-BUDESONIDE NEBS 0.5 MG/2ML (PULMICORT) AMP INH SCH (07:06)
[2016-07-21] MEDS: RT-ALBUTEROL/IPRATROPIUM 3 ML (DUONEB) VIAL INH SCH (07:07)
[2016-07-21 08:00] VITALS: BP 126/76
[2016-07-21] MEDS: RANOLAZINE ER 500 MG TAB (RANEXA) PO SCH (08:24)
[2016-07-21] MEDS: meTOprolol SUCCINATE 100 MG (TOPROL XL) TAB PO SCH (08:24)
[2016-07-21] MEDS: RIVAROXABAN 15 MG TABLET (XARELTO) PO SCH (08:24)
[2016-07-21] MEDS: ISOSORBIDE MONONITRATE 30 MG (IMDUR) TAB PO SCH (08:24)
[2016-07-21] MEDS: CLOPIDOGREL 75 MG (PLAVIX) TABLET PO SCH (08:24)
[2016-07-21] MEDS: TAMOXIFEN 10 MG (NOLVADEX) TAB PO SCH (08:24)
[2016-07-21] MEDS: NICOTINE 7 MG (NICODERM) PATCH TD SCH (08:24)
[2016-07-21] MEDS: ASPIRIN 81 MG CHEW (CHILDREN'S ASA) PO SCH (08:24)
--- NOTE | 2016-07-21 08:32 | Progress Note-Cardiology ---
Cardiology SOAP Progress Note Subjective: Sitting up in a chair at the bedside. States breathing is unchanged. No c/o CP or right groin discomfort. Objective: I&O/Vital Signs Vital Sign - Last 12Hours 07/21/16 07/21/16 07/21/16 07/21/16 00:00 00:00 01:47 04:00 Temp 98.2 97.6 Pulse 90 88 86 Resp 20 18 B/P 135/83 128/75 Pulse Ox 91 93 O2 Delivery Nasal Cannula Nasal Cannula O2 Flow Rate 2.00 2.00 2.00 07/21/16 07/21/16 07/21/16 07/21/16 04:00 07:00 07:09 08:00 Pulse 96 O2 Flow Rate 2.00 3.00 2.00 07/21/16 07/21/16 08:00 09:00 Temp 97.4 Pulse 88 Resp 18 B/P 126/76 Pulse Ox 94 94 O2 Delivery Room Air Nasal Cannula O2 Flow Rate 2.50 2.50 Intake and Output 07/21/16 00:00 Intake Total 1760 ml Output Total 2775 ml Balance -1015 ml Weight (Pounds): 253 Weight (Ounces): 3.2 Weight (Calculated Kilograms): 114.269635 Side: right Groin site without hematoma: Yes Condition: DP/PT pulses palpable, extremity w/d/p Bruising: mild bruising Constitutional: AAO x 3 well-developed well-nourished Respiratory: No accessory muscle use, lungs clear to percussion wheezing (exp ) other (fair bilateral air entry; prolonged exp phase) Cardiovascular: regular rate-rhythm S1 and S2 systolic murmur (soft RADHIKA at cardiac base) Gastrointestional: No tender, softNo guarding, No rebound, audible bowel sounds Extremities: No clubbing, No cyanosis, No significant edema Neurologic/Psychiatric: oriented x 3 grossly intact power is 5/5 both on sides Skin: No rash on exposed areas, No ulcerations on exposed areas Results/Procedures: Labs Laboratory Tests 07/20/16 11:21: Glucometer 161H 07/20/16 16:26: Glucometer 180H 07/20/16 20:50: Glucometer 216H 07/21/16 03:40: Anion Gap 10, BUN/Creatinine Ratio 15, Blood Urea Nitrogen 23H, Calcium Level 10.7H, Carbon Dioxide Level 25, Chloride Level 102, Creatinine 1.51H, Estimat Glomerular Filtration Rate 48, Glucose Level 147H, Hematocrit 45, Hemoglobin 14.4, Mean Corpuscular Hemoglobin 28, Mean Corpuscular Hemoglobin Concent 32, Mean Corpuscular Volume 86, Mean Platelet Volume 10.8H, Platelet Count 184, Potassium Level 4.1, Red Blood Count 5.20, Red Cell Distribution Width 16.5H, Sodium Level 137, White Blood Count 9.4 Procedures S/P cardiac cath on 07-20-16. Please refer to Dr. Mcnulty's cardiac cath report for details. A/P: Assessment: Acute NSTEMI with postinfarction angina Card cath of 07/20/16 shows LMCA without significant disease, mod diffuse disease of LAD (including 50-60% ostial D1), chronic total distal occlusion of the LCX (unchanged compared to cath of 07/01/15) with distal collateralization, patent stent in the prox and mid RCA (known to be Atom 2.25 x 28, placed in August 2010), elevated LVEDP MPI of of 06/29/16 shows small basal inferolateral TX with a small amount of jess -infarct ischemia, basal inferolateral hypo, LVEF 63%, mild cardiomegaly Hypertrophic cardiomyopathy with h/o partial myomectomy at [facility] in November 2005 Echo of 06/28/16: LVEF 55%, mild asymmetric thickening of the interventricular septum without LVOT obstruction, mild to mod ao valve sclerosis and MAC w/o valvular stensosi, mild mitral & aortic & tricuspid regurg, PASP 35 mmHg Palpitations: 24 hr Holter of 06/28/16 showed NSR with relatively infrequent and isolated PVC & PAC, no significant lori Mild bilat carotid stenosis per u/s of December 2012 Chronic joint (including shoulders) and back discomfort Hypertension, labile H/O chronic chest discomfort Paroxysmal atrial fibrillation treated with pulmonary vein ablation at [facility] without subsequent recurrence. Chronic left bundle branch block following myectomy in November 2005. CKD stage 3-4 - for which he follow with nephrology in [place], [place] Chronic microscopic hematuria without any identifiable lesions. 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 Continuing tobaccoism from which cessation has been advised Degenerative joint disease. Bilateral carpal tunnel surgery. Intermittent noncompliance with medications. Bilateral leg swelling, likely related to venous insufficiency. Deep venous thrombosis treated with chronic anticoag with rivroxaban. No evidence of DVT on leg venous Doppler of 07/17/16 Sleep apnea and restless leg syndrome. 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 Mccartney at [facility] in [place] in November 2011. He is now following with Dr. Medrano oncology services at [facility] History of hypercalcemia which is being followed by Dr. Noble, his pcp, and by Dr Medrano, his oncologist. He has a prior h/o partial parathyroidectomy Plan: * Complex management due to multiple comorbidities that are outlined above * Based on card cath, continuing med therapy appears to be the best option * We have again advised him to quit smoking immediately and completely * Vigorous hydration prior to and post cardiac cath - Cr stable * Follow labs * Tolerating increased BB dose * OK to discharge home today with outpt f/u in 2 weeks Physician Assessment Physician Assessment Lungs: fair to good air entry Cor: reg A&R * As documented in our note above * I spoke with him in detail, explained med changed, advised compliance, advised smoking cessation out patient f/u Clinical Quality Measures AMI/AHF: ASA po Prior to arrival: Yes BLAYNE MORENO Jul 21, 2016 08:31 CHELSEA MCNULTY MD FACP [facility] CCDS Jul 21, 2016 10:08
[2016-07-21] MEDS ORDERED: METO-274 PO (08:45)
[2016-07-21] MEDS ORDERED: RANO500T3 PO (08:45)
--- NOTE | 2016-07-21 08:47 | Discharge Inst-Cardiology ---
Discharge Inst-Cardiac Discharge Medications New Medications: Prednisone (Prednisone) 10 Mg Tab.ds.pk 10 MG PO DAILY Take 6 tabs(60mg)daily,decrease by 1 tab(10MG)daily. #21 PKG Metoprolol Succinate (Metoprolol Succinate) 100 Mg Tab.er.24h 100 MG PO BID #60 Ref 5 TAB Ranolazine (Ranexa) 500 Mg Tab.er.12h 500 MG PO BID #60 Ref 5 TAB Continued Medications: Albuterol Sulfate (Ventolin Hfa) 18 Gm Hfa.aer.ad 2 PUFF IH QID PRN SHORTNESS OF BREATH Albuterol Sulfate (Albuterol Sulfate) 1.25 Mg/3 Ml Vial.neb 1.25 MG IH TID PRN SHORTNESS OF BREATH EACH Arformoterol Tartrate (Brovana) 15 Mcg/2 Ml Vial.neb 15 MCG IH BID INHALER Atorvastatin Calcium (Atorvastatin Calcium) 40 Mg Tablet 40 MG PO HS Budesonide (Budesonide) 0.5 Mg/2 Ml Ampul.neb 0.5 MG IH BID INHALER Buspirone HCl (Buspirone HCl) 10 Mg Tablet 10 MG PO HS TAB Cetirizine HCl (Cetirizine HCl) 10 Mg Tablet 10 MG PO DAILY Cinacalcet HCl (Sensipar) 30 Mg Tablet 30 MG PO DAILY TAB Clopidogrel Bisulfate (Clopidogrel) 75 Mg Tablet 75 MG PO HS Fenofibrate Nanocrystallized (Fenofibrate) 145 Mg Tablet 145 MG PO HS Fluticasone Propionate (Fluticasone Propionate) 16 Gm [place].susp 1 [place]AY NSEACH DAILY PRN ALLERGIES Furosemide (Furosemide) 40 Mg Tablet 40 MG PO DAILY Gabapentin (Gabapentin) 100 Mg Capsule 100 MG PO TID Glimepiride (Glimepiride) 2 Mg Tablet 2 MG PO DAILY Isosorbide Mononitrate (Isosorbide Mononitrate ER) 30 Mg Tab.er.24h 30 MG PO DAILY TAB Montelukast Sodium (Montelukast Sodium) 10 Mg Tablet 10 MG PO HS Nitroglycerin (Nitrostat) 0.4 Mg Subl 0.4 MG SL UD TAKE 1 TABLET EVERY 5 MINUTES X 3 DOSES NEEDED FOR CHEST PAIN PRN CHEST PAIN Pantoprazole Sodium (Pantoprazole Sodium) 40 Mg Tablet.dr 40 MG PO BID Potassium Chloride (Potassium Chloride) 10 Meq Tablet.er 10 MEQ PO DAILY Rivaroxaban (Xarelto) 15 Mg Tablet 15 MG PO HS Tamoxifen Citrate (Tamoxifen Citrate) 20 Mg Tablet 20 MG PO HS Tamsulosin HCl (Tamsulosin HCl) 0.4 Mg Cap.er.24h 0.4 MG PO HS Discontinued Medications: Metoprolol Succinate (Metoprolol Succinate) 100 Mg Tab.er.24h 100 MG PO DAILY New, Converted or Re-Newed RX: RX on Chart Patient Instructions Patient Instructions: Follow up appt in [address] Mcnulty Lab: BMP on 2016 BLAYNE MORENO Jul 21, 2016 08:47
--- NOTE | 2016-08-04 13:05 | CARDIAC CATHETERIZATION ---
PROCEDURE PHYSICIAN: CHELSEA HAWTHORNE DATE OF PROCEDURE: 07/20/2016 Sudeep Whitaker is a 55-year-old gentleman who was admitted with acute non-ST elevation myocardial infarction with post infarction angina and cardiac catheterization was carried out after having obtained an informed consent. PROCEDURE: He was brought to the cardiac catheterization laboratory. The right groin was prepared and draped in the usual sterile fashion. 1% lidocaine was used for local anesthesia. Modified Seldinger technique was used to advance a 5-Norwegian sheath in the right femoral artery. A 5-Norwegian JL4 catheter was used left coronary angiography. A 5-Norwegian JR4 was used for right coronary angiography. A 5-Norwegian pigtail catheter was used for left heart catheterization. Left ventricular angiography was not performed to conserve contrast, given the patient's chronic renal failure. The catheter was pulled back and removed. Angiography of the right femoral artery was carried through a sheath and Mynx was used to achieve asystole. He tolerated the procedure well. HEMODYNAMICS: Left ventricular end diastolic pressure following coronary angiography was 31 mmHg. There was no significant pressure gradient on pullback across the aortic valve. Ascending aortic pressure 145/86 with a mean of 111 mmHg. CORONARY ANGIOGRAPHY: The left main coronary artery is free of significant disease. Left anterior descending artery has moderate diffuse disease, including 50 to 60% ostial stenosis of the first diagonal branch. The left circumflex artery has chronic distal occlusion with collateralization. This is unchanged compared to study of 07/01/2015. There is a patent stent in the proximal and mid right coronary artery that is known to be Atom 2.25 x 28 mm stent placed in 2010. CONCLUSIONS: 1. Coronary artery disease consisting of moderate diffuse diseaseof the left anterior descending, including 50 to 60% ostial first diagonal, chronic total occlusion of the left circumflex (unchanged compared to study of 07/01/2015) with distal collateralization, patent stent in the proximal and mid right coronary artery (known to be Atom 2.25 x 28 mm, placed in August 2010). Job ID: [id number] Dictated Date: 08/03/2016 18:00:46 Manager Mission Date: 08/04/2016 12:56:45 / simran PUGA
[2016-09-15] MEDS ORDERED: PRED10TA22 PO (10:39)
== END 2016-07-21 12:00 | disposition home or self-care (01) | DRG 281 ==
LOC: EDUNIT# 13:39 → ER 13:41 → UNDOADMOB 14:55 → ICU 14:55 → INTOOBSV 07-19 08:45 → OBSVTOIN 07-19 08:45 → ICU 07-20 09:45 → UNDODISIN 07-21 12:00
PROVIDERS: ADMIT Internal Medicine; ATTEND Internal Medicine
PROC: 4A023N7 Measurement of Cardiac Sampling and Pressure, Left Heart, Percutaneous Approach (ICD-10-PCS; principal; 2016-07-20)
PROC: B2111ZZ Fluoroscopy of Multiple Coronary Arteries using Low Osmolar Contrast (ICD-10-PCS; 2016-07-20)
DX: I21.4 Non-ST elevation (NSTEMI) myocardial infarction (principal); I23.7 Postinfarction angina; I25.118 Atherosclerotic heart disease of native coronary artery with other forms of angina pectoris; I25.82 Chronic total occlusion of coronary artery; I42.2 Other hypertrophic cardiomyopathy; J98.11 Atelectasis; I48.0 Paroxysmal atrial fibrillation; I44.7 Left bundle-branch block, unspecified; I12.9 Hypertensive chronic kidney disease with stage 1 through stage 4 chronic kidney disease, or unspecified chronic kidney disease; N18.3 Chronic kidney disease, stage 3 (moderate); J44.9 Chronic obstructive pulmonary disease, unspecified; E11.9 Type 2 diabetes mellitus without complications; F17.210 Nicotine dependence, cigarettes, uncomplicated; I87.2 Venous insufficiency (chronic) (peripheral); G47.33 Obstructive sleep apnea (adult) (pediatric); G25.81 Restless legs syndrome; K21.9 Gastro-esophageal reflux disease without esophagitis; E78.5 Hyperlipidemia, unspecified; Z85.3 Personal history of malignant neoplasm of breast; Z90.12 Acquired absence of left breast and nipple; Z95.5 Presence of coronary angioplasty implant and graft
CPT/HCPCS: 36415; 71010; 71020; 80048; 80053; 80061; 82962; 83690; 83735; 83874; 84484; 85007; 85025; 85027; 85379; 85610; 85730; 93005; 93041; 93458; 93970; 94640; 94760; G0378

== ENCOUNTER → 2016-07-26 | Outpatient (CLI) | payer MEDICARE, MEDICAID ==
[~2016-07-26] MED LIST changes: +ALBU1.25 IH; +ARFO15VI3 IH; +BUDE0.5A IH; +BUSP10TA95 PO; +CETI10TA17 PO; +CETI10TA20 PO; +CINA30TA2 PO; +FLUT16SP22 NSEACH; +GLIM2TAB PO; +GLMP2T PO; +METO-274 PO; +POTA10TA10 PO; +PRED10TA22 PO; +RANO500T3 PO; +TAMS0.4C2 PO
--- OUTSIDE RECORDS SUMMARY | 2016-07-26 10:53 | XMS REPORT | Continuity of Care Document ---
Author Author [facility] Organization [facility] Address Unknown Phone Unavailable Care Team Providers Care Project Manager/Team Coach Name Role Phone KIMANI GALINDO MD PCP Insurance Providers Payer Name Policy Number Subscriber Name Relationship [employer] [id number] Jagruti Garcia 18 Self / Same As Patient [facility] [id number] Jagruti Garcia Sr 18 Self / Same As Patient Advance Directives Directive Response Recorded Date/Time Advance Directives No 09/18/15 12:00pm Health Care Power of Certified Flight Instructor No 09/18/15 12:00pm Organ Donor Yes 09/18/15 [...] IV Dye Allergy Mild Active 10/20/08 Penicillins ([id number]) Allergy Mild Active 10/20/08 Shellfish Allergy Unknown Active 02/18/06 iodine ([id number]) Allergy Unknown Active 08/21/05 amlodipine ([id number]) Allergy Unknown Active 11/29/06 Penicillin g Allergy Unknown Active 08/21/05 Immunizations Name Given Type Date of Pneumonia Vaccine 05/13/14 Historical Date of Influenza Vaccine 05/13/14 Historical Hepatitis A No Historical Hepatitis B No Historical Tetanus Booster (TDap) More than 5yrs Historical Vital Signs Acute Vital Signs Vital Response Date/Time Temperature (Fahrenheit) 98.0 degrees F (97.6 - 99.5) 09/18/2015 11:57am Temperature (Calculated Celsius) 36.70646 degrees C (36.4 - 37.5) 09/18/2015 11:57am [...] 10 inches 09/18/2015 11:57am Height (Calculated Centimeters) 177.895332 cm 09/18/2015 11:57am Weight (Pounds) 252 pounds 09/18/2015 11:57am Weight (Calculated Kilograms) 114.196619 kilograms 09/18/2015 11:57am Height 5 ft 10 [...] SELECTED GROUPS OF HIGH RISK PATIENTS. [employer] CONSENSUS CONFERENCE ON [...] Date Attending Provider Departed Emergency Room [facility] 09/18/15 11:54am 04/23 1:35pm SUZIE TOTH APRN Recent Diagnosis
[2016-07-26 11:31] LABS: CALCIUM 9.5 MG/DL (8.5-10.1); CREATININE SERUM 2.03 MG/DL (0.60-1.30); POTASSIUM 4.4 MMOL/L (3.6-5.0)
== END ==
LOC: LAB 10:48
PROVIDERS: ATTEND Nurse Practitioner Family
DX: N18.9 Chronic kidney disease, unspecified (principal)
CPT/HCPCS: 36415; 80048

== ENCOUNTER 2016-09-09 22:20 | Inpatient (IN) | payer MEDICARE, MEDICAID ==
[~2016-09-09] VITALS: Ht 170.2 cm; Wt 119.5 kg
[2016-09-09 22:41] LABS: BASOPHILS # (AUTO) 0.1 10^3/uL (0.0-0.1); BASOPHILS % (AUTO) 1 % (0-10); EOSINOPHILS # (AUTO) 0.4 10^3/uL (0.0-0.3); EOSINOPHILS % (AUTO) 4 % (0-10); LYMPHOCYTES % (AUTO) 24 % (12-44); MEAN CORPUSCULAR HEMOGLOBIN 27 PG (25-34); MEAN CORPUSCULAR HGB CONC 32 G/DL (32-36); MEAN CORPUSCULAR VOLUME 87 FL (80-99); MEAN PLATELET VOLUME 11.1 FL (7.4-10.4); MONOCYTES # (AUTO) 0.9 X 10^3 (0.0-1.0); MONOCYTES % (AUTO) 8 % (0-12); NEUTROPHILS # (AUTO) 7.9 X 10^3 (1.8-7.8); NEUTROPHILS % (AUTO) 64 % (42-75); PLATELET COUNT 214 10^3/uL (130-400); RED BLOOD COUNT 5.34 10^6/uL (4.35-5.85); RED CELL DISTRIBUTION WIDTH 18.1 % (10.0-14.5); WHITE BLOOD COUNT 12.3 10^3/uL (4.3-11.0)
[2016-09-09] MEDS ORDERED: RX-NITROGLYCERIN 0.4 MG TAB BTL 25'S SL PRN (22:45)
[2016-09-09] MEDS ORDERED: ASPIRIN 81 MG CHEW (CHILDREN'S ASA) PO ONE (22:45)
[2016-09-09] MEDS ORDERED: DEXAMETHASONE 4 MG/ML SDV (DECADRON) IH ONE (22:45)
[2016-09-09] MEDS ORDERED: RT-ALBUTEROL/IPRATROPIUM 3 ML (DUONEB) VIAL INH ONE ×2 (22:45→23:15)
[2016-09-09] MEDS ORDERED: methylPREDNISolone 125 MG (Solu-MEDROL) VIAL IVP ONE (22:45)
[2016-09-09 22:50] LABS: INR 1.6 (0.8-1.4); PROTHROMBIN TIME PATIENT 18.4 SEC (12.2-14.7)
[2016-09-09 23:04] LABS: ALANINE AMINOTRANSFERASE 15 U/L (0-55); ALBUMIN 3.6 G/DL (3.2-4.5); AMYLASE 105 U/L (25-125); ANION GAP 9 MMOL/L (5-14); ASPARTATE AMINO TRANSFERASE 32 U/L (5-34); BILIRUBIN,TOTAL 0.5 MG/DL (0.1-1.0); BLOOD UREA NITROGEN 30 MG/DL (7-18); BUN/CREATININE RATIO 16; CALCIUM 9.6 MG/DL (8.5-10.1); CARBON DIOXIDE 27 MMOL/L (21-32); CHLORIDE 107 MMOL/L (98-107); CREATINE KINASE 197 U/L (30-200); CREATININE SERUM 1.88 MG/DL (0.60-1.30); GFR ESTIMATED 37; GLUCOSE 146 MG/DL (70-105); LIPASE 82 U/L (8-78); MAGNESIUM 2.3 MG/DL (1.8-2.4); POTASSIUM 4.6 MMOL/L (3.6-5.0); SODIUM 143 MMOL/L (135-145); TOTAL PROTEIN 6.5 G/DL (6.4-8.2)
[2016-09-09 23:10] LABS: TROPONIN I < 0.30 NG/ML (<0.30)
[2016-09-09] MEDS ORDERED: FUROSEMIDE 40 MG/4 ML INJ (LASIX) IVP ONE (23:45)
[2016-09-09] MEDS ORDERED: cefTRIAXone INJECTION 1,000 MG in NS (IVPB) 50 ML IV ONE (23:45)
[2016-09-09] MEDS ORDERED: cefTRIAXone 1 GM (ROCEPHIN) VIAL ONE (23:52)
[2016-09-10] VITALS (18 sets, daily range): BP systolic 92–154; BP diastolic 57–88
--- NOTE | 2016-09-10 00:35 | ED Chest Pain ---
General Chief Complaint: Chest Pain Stated Complaint: CHEST PAIN, PAIN IN BACK Nursing Triage Note: patient reports chest pain starting yesterday that goes to his back and both shoulders Nursing Sepsis Screen: No Definite Risk Source: patient History of Present Illness Time seen by provider: 22:24 Initial Comments PT ARRIVES VIA POV C/O CHEST PAIN SINCE YESTERDAY AFTERNOON PAIN IS IN MID CHEST AND RADIATES TO BOTH SHOULDERS --RIGHT > LEFT-- AND UPPER BACK RATES PAIN 4/10 NOW, BUT WAS 10/10 AT WORST NOTHING WORSENS OR IMPROVES PAIN NO INCREASED SHORTNESS OF BREATH, BUT HURTS TO TAKE A DEEP BREATH HAS HAD A COUGH WITH YELLOW SPUTUM, IS CHRONIC INTERMITTENT PROBLEM, BUT HAS BEEN WORSE THE LAST FEW DAYS NO FEVER HAS HAD INCREASED SWELLING IN LEGS/ FEET PT NORMALLY WEARS HOME O2 AT HS PT HAS HISTORY OF CAD WITH MD AND 3 STENTS, COPD AND CHRONIC RENAL FAILURE--NOT ON DIALYSIS YET HAD NON-STEMI 07/19/16--CARDIAC CATH WITHOUT INTERVENTION, LAST STENT WAS 2010 PCP: DR. GALINDO DESIGNER ARCHITECT: DR. HAWTHORNE FRONT DESK MONITOR IN [place] Allergies and Home Medications Allergies Coded Allergies: Iodinated Contrast Media - Oral and (Unverified Allergy, Mild, 10/20/08) Penicillins (Unverified Allergy, Mild, 10/20/08) Shellfish (Verified Allergy, Unknown, 02/18/06) amlodipine (Verified Allergy, Unknown, 11/29/06) iodine (Verified Allergy, Unknown, 08/21/05) penicillin G (Verified Allergy, Unknown, 08/21/05) Home Medications Albuterol Sulfate 18 Gm Hfa.aer.ad, 2 PUFF IH QID PRN for SHORTNESS OF BREATH, ( Reported) Albuterol Sulfate 1.25 Mg/3 Ml Vial.neb, 1.25 MG IH TID PRN for SHORTNESS OF BREATH, (Reported) Arformoterol Tartrate 15 Mcg/2 Ml Vial.neb, 15 MCG IH BID, (Reported) Atorvastatin Calcium 40 Mg Tablet, 40 MG PO HS, (Reported) Budesonide 0.5 Mg/2 Ml Ampul.neb, 0.5 MG IH BID, (Reported) Buspirone HCl 10 Mg Tablet, 10 MG PO HS, (Reported) Cetirizine HCl 10 Mg Tablet, 10 MG PO DAILY, (Reported) Cinacalcet HCl 30 Mg Tablet, 30 MG PO DAILY, (Reported) Clopidogrel Bisulfate 75 Mg Tablet, 75 MG PO HS, (Reported) Fenofibrate Nanocrystallized 145 Mg Tablet, 145 MG PO HS, (Reported) Fluticasone Propionate 16 Gm Quimby.susp, 1 SPRAY NSEACH DAILY PRN for ALLERGIES, (Reported) Furosemide 40 Mg Tablet, 40 MG PO DAILY, (Reported) Gabapentin 100 Mg Capsule, 100 MG PO TID, (Reported) Glimepiride 2 Mg Tablet, 2 MG PO DAILY, (Reported) Isosorbide Mononitrate 30 Mg Tab.er.24h, 30 MG PO DAILY, (Reported) Metoprolol Succinate 100 Mg Tab.er.24h, 100 MG PO BID, #60 Ref 5 Prescribed by: BLAYNE MORENO on 07/21/16 0845 Montelukast Sodium 10 Mg Tablet, 10 MG PO HS, (Reported) Nitroglycerin 0.4 Mg Subl, 0.4 MG SL UD PRN for CHEST PAIN, (Reported) TAKE 1 TABLET EVERY 5 MINUTES X 3 DOSES NEEDED FOR CHEST PAIN Pantoprazole Sodium 40 Mg Tablet.dr, 40 MG PO BID, (Reported) Potassium Chloride 10 Meq Tablet.er, 10 MEQ PO DAILY, (Reported) Prednisone 10 Mg Tab.ds.pk, 10 MG PO DAILY, #21 Take 6 tabs(60mg)daily,decrease by 1 tab(10MG)daily. Prescribed by: DANIEL WALSH on 07/20/16 0925 Ranolazine 500 Mg Tab.er.12h, 500 MG PO BID, #60 Ref 5 Prescribed by: BLAYNE MORENO on 07/21/16 0845 Rivaroxaban 15 Mg Tablet, 15 MG PO HS, (Reported) Tamoxifen Citrate 20 Mg Tablet, 20 MG PO HS, (Reported) Tamsulosin HCl 0.4 Mg Cap.er.24h, 0.4 MG PO HS, (Reported) Review of Systems Constitutional: no symptoms reported, No chills, No diaphoresis, No fever EENTM: No Symptoms Reported Respiratory: See HPI, Cough, Shortness of Air Cardiovascular: See HPI, Chest Pain, Edema, Denies Lightheadedness, Denies Palpitations Gastrointestinal: No Symptoms Reported, Denies Abdominal Pain, Denies Nausea, Denies Vomiting Genitourinary: No Symptoms Reported Musculoskeletal: see HPI, back pain Skin: no symptoms reported Psychiatric/Neurological: No Symptoms Reported Endocrine: No Symptoms Reported Hematologic/Lymphatic: No Symptoms Reported Past Jwmwruf-Sidkvv-Kymuvi Hx Patient Social History Alcohol Use: Denies Use Recreational Drug Use: No Smoking Status: Former Smoker (QUIT 07/2016) Type Used: Cigarettes 2nd Hand Smoke Exposure: No Recent Foreign Travel: No Contact w/Someone Who Travel: No Recent Infectious Disease Expo: No Recent Hopitalizations: No Immunizations Up To Date Tetanus Booster (TDap): More than 5yrs PED Vaccines UTD: No Date of Pneumonia Vaccine: May 13, 2014 Date of Influenza Vaccine: Feb 11, 2016 Seasonal Allergies Seasonal Allergies: No Surgeries HX Surgeries: Yes (PARATHYROIDECTOMY, OPEN HEART SC--STATES PART OF HEART MUSCLE REMOVED FOR CARDIOMYOPATHY; , CARDIAC CATH X20, WITH STENTS X 3--LAST CATH WAS 07/20/16-NO INTERVENTION AT THAT TIME, LAST STENT IN 2010; BILATERAL CARPEL TUNNEL ; LEFT MASTECTOMY/TUMOR REMOVAL) Surgeries: Appendectomy, Breast, Cardiac, Coronary Stent, Orthopedic Respiratory Hx Respiratory Disorders: Yes (O2 AT HS) Respiratory Disorders: Asthma, COPD, Emphysema Cardiovascular Hx Cardiac Disorders: Yes (HAS STENTS X3, HX LBBB, CHF; LAST CARDIAC CATH 07/20-NO INTERVENTION AT THAT TIME, LAST STENT 2010) Cardiac Disorders: Angina, Atrial Fibrillation, Cardiomyopathy, Chronic Edema/ Swelling, Coronary Artery Disease, Deep Vein Thrombosis, Heart Attack, Heart Murmur, High Cholesterol, Hypertension Neurological Hx Neurological Disorders: Yes Neurological Disorders: TIA Reproductive System Hx Reproductive Disorders: No Sexually Transmitted Disease: No Genitourinary Hx Genitourinary Disorders: Yes (CHRONIC RENAL INSUFFICIENCY-PT STATES KIDNEY FUNCTION IS 35 %) Genitourinary Disorders: Renal Failure Gastrointestinal Hx Gastrointestinal Disorders: Yes (LIVER ENZYME ELEVATION/ LIPITOR ADJUSTED) Gastrointestinal Disorders: Gastroesophageal Reflux, Liver Disease/Jaundice Musculoskeletal Hx Musculoskeletal Disorders: Yes (LEFT SHOULDER TORN ROTATOR CUFF, bilat carpal tunnel repair) Musculoskeletal Disorders: Degenerate Disk Disease, Chronic Back Pain Endocrine Hx Endocrine Disorders: Yes (PARATHYROIDECTOMY, "BORDERLINE DIABETIC"; OBESITY) Endocrine Disorders: Diabetes, Non-Insulin dep HEENT HX ENT Disorders: Yes (TEETH REMOVED) HEENT Disorders: Cataract Cancer Hx Cancer: Yes Cancer: Breast Psychosocial Hx Psychiatric Problems: No Integumentary HX Skin/Integumentary Disorder: No Blood Transfusions Hx Blood Disorders: No Family Medical History Family Medial History: Arthritis 19 FATHER Cardiovascular disease 19 FATHER FH: breast cancer 19 MOTHER Respiratory disorder 19 FATHER Physical Exam Vital Signs Vital Sign - Last 12Hours 09/09/16 22:29 Temp 98.9 Pulse 79 Resp 18 B/P (MAP) 146/83 Pulse Ox 93 Capillary Refill : Less Than 3 Seconds General Appearance: Obese, Other (MILDLY DYSPNEIC ON ARRIVAL) HEENT: Other (EDENTULOUS) Neck: Full Range of Motion, Normal Inspection, Non Tender, Supple Respiratory: Rales, Rhonci, Wheezing, Other (DIFFUSE BILATERAL WHEEZING, RALES RHONCHI) Cardiovascular: Regular Rate, Rhythm, No JVD, No Murmur, Extra Beats ( OCCASIONAL ECTOPY) Gastrointestinal: Normal Bowel Sounds, No Organomegaly, No Pulsatile Mass, Non Tender, Soft Extremity: Normal Capillary Refill, Normal Range of Motion, Non Tender, No Calf Tenderness, No Pedal Edema (1+ BILATERALLY) Neurologic/Psychiatric: Alert, Oriented x3, No Motor/Sensory Deficits, Normal Mood/Affect, wireless engineer II-XII Norm as Tested Skin: Normal Color, Warm/Dry Progress/Results/Core Measures Results/Orders Lab Results Laboratory Tests Test 09/09/16 22:31 Range/Units White Blood Count 12.3 H 4.3-11.0 10^3/uL Red Blood Count 5.34 4.35-5.85 10^6/uL Hemoglobin 14.6 13.3-17.7 G/DL Hematocrit 46 40-54 % Mean Corpuscular Volume 87 80-99 FL Mean Corpuscular Hemoglobin 27 25-34 PG Mean Corpuscular Hemoglobin Concent 32 32-36 G/DL Red Cell Distribution Width 18.1 H 10.0-14.5 % Platelet Count 214 130-400 10^3/uL Mean Platelet Volume 11.1 H 7.4-10.4 FL Neutrophils (%) (Auto) 64 42-75 % Lymphocytes (%) (Auto) 24 12-44 % Monocytes (%) (Auto) 8 0-12 % Eosinophils (%) (Auto) 4 0-10 % Basophils (%) (Auto) 1 0-10 % Neutrophils # (Auto) 7.9 H 1.8-7.8 X 10^3 Lymphocytes # (Auto) 3.0 1.0-4.0 X 10^3 Monocytes # (Auto) 0.9 0.0-1.0 X 10^3 Eosinophils # (Auto) 0.4 H 0.0-0.3 10^3/uL Basophils # (Auto) 0.1 0.0-0.1 10^3/uL Prothrombin Time 18.4 H 12.2-14.7 SEC INR Comment 1.6 H 0.8-1.4 Activated Partial Thromboplast Time 28 24-35 SEC Sodium Level 143 135-145 MMOL/L Potassium Level 4.6 3.6-5.0 MMOL/L Chloride Level 107 98-107 MMOL/L Carbon Dioxide Level 27 21-32 MMOL/L Anion Gap 9 5-14 MMOL/L Blood Urea Nitrogen 30 H 7-18 MG/DL Creatinine 1.88 H 0.60-1.30 MG/DL Estimat Glomerular Filtration Rate 37 BUN/Creatinine Ratio 16 Glucose Level 146 H 70-105 MG/DL Calcium Level 9.6 8.5-10.1 MG/DL Magnesium Level 2.3 1.8-2.4 MG/DL Total Bilirubin 0.5 0.1-1.0 MG/DL Aspartate Amino Transf (AST/SGOT) 32 5-34 U/L Alanine Aminotransferase (ALT/SGPT) 15 0-55 U/L Alkaline Phosphatase 76 40-136 U/L Total Creatine Kinase 197 30-200 U/L Creatine Kinase MB 9.9 *H <6.6 NG/ML Troponin I < 0.30 <0.30 NG/ML B-Type Natriuretic Peptide 491.1 H <100.0 PG/ML Total Protein 6.5 6.4-8.2 G/DL Albumin 3.6 3.2-4.5 G/DL Amylase Level 105 25-125 U/L Lipase 82 H 8-78 U/L My Orders Orders - MAYRA HOLMAN DO Amylase (09/09/16 22:31) Cbc With Automated Diff (09/09/16 22:31) Comprehensive Metabolic Panel (09/09/16 22:31) Creatine Kinase (09/09/16 22:31) Creatine Kinase Mb (09/09/16 22:31) Lipase (09/09/16 22:31) Partial Thromboplastin Time (09/09/16 22:31) Protime With Inr (09/09/16 22:31) Troponin I (09/09/16 22:31) Chest 1 View, Ap/Pa Only (09/09/16 22:31) O2 (09/09/16 22:31) Ekg Tracing (09/09/16 22:31) Aspirin Chewable Tablet (Baby Aspirin Ch (09/09/16 22:45) Rx-Nitroglycerin Sl Tabs (Rx-Nitrostat S (09/09/16 22:45) BNP (09/09/16 22:31) Monitor-Rhythm Ecg Trace Only (09/09/16 22:31) Magnesium (09/09/16 22:31) Albuterol/Ipra Inhalation Soln (Duoneb I (09/09/16 22:45) Dexamethasone Injection (Decadron Inject (09/09/16 22:45) Rt Request For Service (09/09/16 22:37) Svn Sm Volume Nebulizer Rt-Rfs (09/09/16 22:37) Methylprednisolone Sod Succ (Solu-Medrol (09/09/16 22:45) Albuterol/Ipra Inhalation Soln (Duoneb I (09/09/16 23:15) Rt Request For Service (09/09/16 23:08) Svn Sm Volume Nebulizer Rt-Rfs (09/09/16 23:08) Medications Given in ED Current Medications Medications Dose Ordered Sig/Rebecca Route Start Time Stop Time Status Last Admin Dose Admin Albuterol/ Ipratropium 3 ml ONCE ONCE INH 09/09/16 22:45 09/09/16 22:46 DC 09/09/16 22:52 3 ML Albuterol/ Ipratropium 3 ml ONCE ONCE INH 09/09/16 23:15 09/09/16 23:16 DC 09/09/16 23:10 3 ML Aspirin 324 mg ONCE ONCE PO 09/09/16 22:45 09/09/16 22:46 DC 09/09/16 23:30 324 MG Dexamethasone Sodium Phosphate 20 mg ONCE ONCE IH 09/09/16 22:45 09/09/16 22:46 DC 09/09/16 22:52 20 MG Methylprednisolone Sodium Succinate 125 mg ONCE ONCE IVP 09/09/16 22:45 09/09/16 22:46 DC 09/09/16 23:30 125 MG Nitroglycerin 0.4 mg UD PRN SL 09/09/16 22:45 09/10/16 02:42 DC 09/09/16 23:32 0.4 MG Vital Signs/I&O Vital Sign - Last 12Hours 09/09/16 09/09/16 09/09/16 22:29 22:53 23:11 Temp 98.9 Pulse 79 Resp 18 B/P (MAP) 146/83 Pulse Ox 93 94 94 Blood Pressure Mean: 104 Progress Note : Progress Note PAIN EASED WITH NTG LUNG SOUNDS IMPROVED WITH INCREASED AERATION AND DECREASED WHEEZING/RALES/ RHONCHI AFTER 2 NEB TREATMENTS O2 SATS DID DROP TO 88% ON ROOM AIR, PRIOR TO BEING TRANSPORTED TO THE FLOOR-- PLACED ON O2 AT 2L/NC WITH O2 SATS IN MID 90'S FOR REMAINDER OF ER STAY PT IS SYMPTOM-FREE AT TIME OF ADMIT. ECG Initial ECG Impression Time: 22:26 Initial ECG Rate: 100 Initial ECG Rhythm: Normal Sinus (LBBB, PVC'S --UNCHANGED FROM PREVIOUS) Initial ECG Comparisson: Unchanged Diagnostic Imaging Comments CXR--MILD CHF, PENDING RADIOLOGIST REVIEW Reviewed: Reviewed by Me Departure Communication Progress Notes 2316--SPOKE WITH DR. WALSH, ACCEPTS PT FOR ADMIT. 2334--SPOKE WITH DR. CLIFFORD FOR CARDIOLOGY CONSULT--WILL NOTIFY DR. HAWTHORNE IN AM OF PT'S ADMIT. Impression Impression: Primary Impression: Chest pain Additional Impressions: COPD exacerbation CHF (congestive heart failure) Chronic renal insufficiency Diabetes mellitus CAD (coronary artery disease) Disposition: ADMITTED INPATIENT Condition: Improved Decision to Admit Reason: Admit from ER (General) Decision to Admit/Date: September 09, 2016 Time/Decision to Admit Time: 23:20 Departure-Patient Inst. Referrals: KIMANI GALINDO MD (PCP/Family) Primary Care Physician MAYRA HOLMAN DO September 10, 2016 00:35
[2016-09-10] MEDS ORDERED: AZITHROMYCIN 500 MG (ZITHROMAX) VIAL ONE (01:13)
[2016-09-10] MEDS ORDERED: NS (IVPB) 250 ML ONE (01:13)
[2016-09-10] MEDS ORDERED: RT-ALBUTEROL SULF 2.5 MG/3 ML PRE-MIX VIAL IH PRN (02:30)
[2016-09-10] MEDS ORDERED: NITROGLYCERIN SUBLINGUAL 0.4 MG TAB (NITROSTAT) SL PRN ×2 (02:45→12:15)
[2016-09-10 04:52] LABS: BASOPHILS % (AUTO) 0 % (0-10); EOSINOPHILS % (AUTO) 0 % (0-10); LYMPHOCYTES # (AUTO) 0.9 X 10^3 (1.0-4.0); LYMPHOCYTES % (AUTO) 8 % (12-44); MEAN CORPUSCULAR HEMOGLOBIN 28 PG (25-34); MEAN CORPUSCULAR HGB CONC 32 G/DL (32-36); MEAN CORPUSCULAR VOLUME 86 FL (80-99); MEAN PLATELET VOLUME 10.9 FL (7.4-10.4); MONOCYTES # (AUTO) 0.2 X 10^3 (0.0-1.0); MONOCYTES % (AUTO) 2 % (0-12); NEUTROPHILS # (AUTO) 9.9 X 10^3 (1.8-7.8); NEUTROPHILS % (AUTO) 89 % (42-75); PLATELET COUNT 211 10^3/uL (130-400); RED BLOOD COUNT 5.61 10^6/uL (4.35-5.85); RED CELL DISTRIBUTION WIDTH 18.2 % (10.0-14.5); WHITE BLOOD COUNT 11.1 10^3/uL (4.3-11.0)
[2016-09-10] MEDS ORDERED: FUROSEMIDE 40 MG/4 ML INJ (LASIX) IV ONE (06:00)
[2016-09-10] MEDS: RT-BUDESONIDE NEBS 0.5 MG/2ML (PULMICORT) AMP INH SCH ×2 (06:20→18:37)
[2016-09-10] MEDS: RT-ALBUTEROL SULF 2.5 MG/3 ML PRE-MIX VIAL IH SCH ×4 (06:21→18:35)
[2016-09-10 06:26] LABS: BILIRUBIN,URINE NEGATIVE (NEGATIVE); KETONES,URINE NEGATIVE (NEGATIVE); LEUKOCYTE ESTERASE ,URINE NEGATIVE (NEGATIVE); NITRITE,URINE NEGATIVE (NEGATIVE); PH,URINE 7 (5-9); PROTEIN,URINE NEGATIVE (NEGATIVE); UROBILINOGEN,URINE NORMAL (NORMAL)
[2016-09-10 06:45] LABS: SQUAMOUS EPITHELIAL CELL,UR RARE /HPF
--- NOTE | 2016-09-10 08:05 | Diagnostic Imaging Report ---
EXAMINATION: Portable AP chest at 11:30 PM INDICATION: Chest pain The heart size is within normal limits and stable when compared to 07/19/16. The sternotomy wires and surgical clips noted previously are again evident and no different. The prominent epicardial fat pad in the right cardiophrenic angle seen previously is also again visualized and unchanged. There is a vague area of slightly increased density near the left heart border. This was present on the prior study as well and has not changed. The lungs are otherwise clear. The mediastinum is not widened. The surgical clips overlying the lower thorax on the left seen previously are again visualized and no different. The orthopedic fixation screw overlying the left humeral head is also stable. The osseous structures are intact. IMPRESSION: There is no evidence for active disease. When compared to the prior study, there has been no significant change. Dictated by: Dictated on workstation # [id number]
[2016-09-10] MEDS ORDERED: FUROSEMIDE 40 MG/4 ML INJ (LASIX) ONE ×2 (08:23→08:24)
[2016-09-10] MEDS: methylPREDNISolone 125 MG (Solu-MEDROL) VIAL IVP SCH ×4 (08:29→22:01)
--- NOTE | 2016-09-10 08:32 | Consultation-Cardiology ---
HPI-Cardiology Cardiology Consultation: Date of Consultation 09/10/16 Date of Admission 09-09-16 Attending Physician Sharon Phillips DO Admitting Physician Navya Noble MD Consulting Physician Forrest Mcnulty MD HPI: Chief Complaint: Chest pain Mr. Garcia is a 56 year old male admitted to ICU 4 from the ED. He reports a sudden onset of chest pain starting Tuesday afternoon. He states the discomfort radiates across his chest and into his back. He states it feels like "a knife" through his chest and into his back. He reports the discomfort has been constant since Tuesday. He reports the discomfort is worse with deep inspiration and movement. He reports states the discomfort is better this morning, but when he sat up in bed for examination and deep breathing he reports the pain increased. It improves with lying still. He does report an occ cough, non-productive. He has chronic mild to mod dyspnea which is unchanged. He reports an episode of chills the other night at home. He does not report any n/v. He reports he has been having episodes of diarrhea for "quite some time". No LE edema. No c/o palpitations, syncope or near syncope. Review of Systems-Cardiology Review of Systems Constitutional: As described under HPI Eyes: No blurred vision, No drainage, No pain, No vision change Ears/Nose/Throat: No ear discharge, No ear pain, No nasal drainage, No ulcerations Respiratory: As described under HPI Cardiovascular: As described under HPI Gastrointestinal: No constipation, diarrhea, No nausea, No vomiting, No stool coloration changes Genitourinary: No dysuria, No discharge, No frequency, No hematuria, No urgency Skin: No rash, No skin related problems, No ulcerations Psychiatric/Neurological: No anxiety, No depression, No focal weakness, No seizure, No syncope Hematologic: No bleeding abnormalities [id number] Hx Patient Social History Alcohol Use: Denies Use Recreational Drug Use: No Smoking Status: Former Smoker Type Used: Cigarettes 2nd Hand Smoke Exposure: No Recent Foreign Travel: No Recent Infectious Disease Expo: No Hospitalization with Isolation: Denies Physical Abuse Screen: No Sexual Abuse: No Immunizations Up To Date Tetanus Booster (TDap): More than 5yrs Date of Pneumonia Vaccine: May 13, 2014 Date of Influenza Vaccine: Feb 11, 2016 Past Medical History PMH As described under Assessment. Family Medical History Family Medical History: He reports his father had CAD. One of his sons is known to have HCM. Family History: Arthritis 19 FATHER Cardiovascular disease 19 FATHER FH: breast cancer 19 MOTHER Respiratory disorder 19 FATHER Allergies and Home Medications Allergies Coded Allergies: Iodinated Contrast Media - Oral and (Unverified Allergy, Mild, 10/20/08) Penicillins (Unverified Allergy, Mild, 10/20/08) Shellfish (Verified Allergy, Unknown, 02/18/06) amlodipine (Verified Allergy, Unknown, 11/29/06) iodine (Verified Allergy, Unknown, 08/21/05) penicillin G (Verified Allergy, Unknown, 08/21/05) Home Medications Albuterol Sulfate 18 Gm Hfa.aer.ad, 2 PUFF IH QID PRN for SHORTNESS OF BREATH, ( Reported) Albuterol Sulfate 1.25 Mg/3 Ml Vial.neb, 1.25 MG IH TID PRN for SHORTNESS OF BREATH, (Reported) Arformoterol Tartrate 15 Mcg/2 Ml Vial.neb, 15 MCG IH BID, (Reported) Atorvastatin Calcium 40 Mg Tablet, 40 MG PO HS, (Reported) Budesonide 0.5 Mg/2 Ml Ampul.neb, 0.5 MG IH BID, (Reported) Buspirone HCl 10 Mg Tablet, 10 MG PO HS, (Reported) Cetirizine HCl 10 Mg Tablet, 10 MG PO DAILY, (Reported) Cinacalcet HCl 30 Mg Tablet, 30 MG PO DAILY, (Reported) Clopidogrel Bisulfate 75 Mg Tablet, 75 MG PO HS, (Reported) Fenofibrate Nanocrystallized 145 Mg Tablet, 145 MG PO HS, (Reported) Fluticasone Propionate 16 Gm [place].susp, 1 SPRAY NSEACH DAILY PRN for ALLERGIES, (Reported) Furosemide 40 Mg Tablet, 40 MG PO DAILY, (Reported) Gabapentin 100 Mg Capsule, 100 MG PO TID, (Reported) Glimepiride 2 Mg Tablet, 2 MG PO DAILY, (Reported) Isosorbide Mononitrate 30 Mg Tab.er.24h, 30 MG PO DAILY, (Reported) Metoprolol Succinate 100 Mg Tab.er.24h, 100 MG PO BID, (Reported) Montelukast Sodium 10 Mg Tablet, 10 MG PO HS, (Reported) Nitroglycerin 0.4 Mg Subl, 0.4 MG SL UD PRN for CHEST PAIN, (Reported) TAKE 1 TABLET EVERY 5 MINUTES X 3 DOSES NEEDED FOR CHEST PAIN Pantoprazole Sodium 40 Mg Tablet.dr, 40 MG PO BID, (Reported) Potassium Chloride 10 Meq Tablet.er, 10 MEQ PO DAILY, (Reported) Ranolazine 500 Mg Tab.er.12h, 500 MG PO BID, (Reported) Rivaroxaban 15 Mg Tablet, 15 MG PO HS, (Reported) Tamoxifen Citrate 20 Mg Tablet, 20 MG PO HS, (Reported) Tamsulosin HCl 0.4 Mg Cap.er.24h, 0.4 MG PO HS, (Reported) Physical Exam-Cardiology Physical Exam Vital Signs/I&O Vital Sign - Last 12Hours 09/10/16 09/10/16 09/10/16 09/10/16 02:15 02:30 03:00 04:00 Pulse 100 97 B/P (MAP) 127/76 99/62 116/63 104/57 O2 Delivery Nasal Cannula Nasal Cannula Nasal Cannula Nasal Cannula O2 Flow Rate 2.00 2.00 2.00 2.00 09/10/16 09/10/16 09/10/16 09/10/16 04:00 04:00 04:30 05:00 Pulse 93 99 103 B/P (MAP) 154/86 154/86 112/58 O2 Delivery Nasal Cannula Nasal Cannula O2 Flow Rate 2.00 2.00 2.00 09/10/16 09/10/16 09/10/16 09/10/16 05:30 06:00 06:21 06:25 Pulse 99 100 B/P (MAP) 124/74 130/88 Pulse Ox 96 O2 Flow Rate 2.00 2.00 09/10/16 09/10/16 09/10/16 09/10/16 07:00 09:02 10:23 11:24 Temp 98.4 98.6 Pulse 110 108 120 Resp 20 20 B/P (MAP) 130/73 129/63 Pulse Ox 93 92 O2 Delivery Nasal Cannula Nasal Cannula O2 Flow Rate 2.00 2.00 2.00 09/10/16 09/10/16 11:51 14:03 Pulse 116 B/P (MAP) 92/77 Pulse Ox 95 O2 Delivery Nasal Cannula O2 Flow Rate 2.00 2.00 Capillary Refill : Less Than 3 Seconds Constitutional: appears stated age, No apparent distress, well-developed, well- nourished HEENT: PERRL, No discharge, hearing is well preserved, oral hygience is good, No ulceration, No xanthelasmas are seen Neck: No carotid bruit, carotid pulses are 2 + bilaterally Respiratory: No accessory muscle use, No respiratory distress, chest expansion is symmetric, chest is bilaterally symmetric, wheezing (scattered exp), other ( diminished breath sounds; prolonged expiratory phase) Cardiovascular: regular rate-rhythm, S1 and S2 Gastrointestinal: No tender, soft, round, audible bowel sounds, No spleenomegaly Rectal: deferred Extremities: No clubbing, No cyanosis, No significant edema Neurologic/Psychiatric: alert, oriented x 3, power is 5/5 both on sides Skin: No rash, No ulcerations Data Review Labs Laboratory Tests 09/09/16 22:31: White Blood Count 12.3H, Red Blood Count 5.34, Hemoglobin 14.6, Hematocrit 46, Mean Corpuscular Volume 87, Mean Corpuscular Hemoglobin 27, Mean Corpuscular Hemoglobin Concent 32, Red Cell Distribution Width 18.1H, Platelet Count 214, Mean Platelet Volume 11.1H, Neutrophils (%) (Auto) 64, Lymphocytes (%) (Auto) 24 , Monocytes (%) (Auto) 8, Eosinophils (%) (Auto) 4, Basophils (%) (Auto) 1, Neutrophils # (Auto) 7.9H, Lymphocytes # (Auto) 3.0, Monocytes # (Auto) 0.9, Eosinophils # (Auto) 0.4H, Basophils # (Auto) 0.1, Prothrombin Time 18.4H, INR Comment 1.6H, Activated Partial Thromboplast Time 28, Sodium Level 143, Potassium Level 4.6, Chloride Level 107, Carbon Dioxide Level 27, Anion Gap 9, Blood Urea Nitrogen 30H, Creatinine 1.88H, Estimat Glomerular Filtration Rate 37 , BUN/Creatinine Ratio 16, Glucose Level 146H, Calcium Level 9.6, Magnesium Level 2.3, Total Bilirubin 0.5, Aspartate Amino Transf (AST/SGOT) 32, Alanine Aminotransferase (ALT/SGPT) 15, Alkaline Phosphatase 76, Total Creatine Kinase 197, Creatine Kinase MB 9.9*H, Troponin I < 0.30, B-Type Natriuretic Peptide 491.1H, Total Protein 6.5, Albumin 3.6, Amylase Level 105, Lipase 82H 09/10/16 00:38: Urine Color YELLOW, Urine Clarity CLEAR, Urine pH 7, Urine Specific [place] 1.010L, Urine Protein NEGATIVE, Urine Glucose (UA) NEGATIVE, Urine Ketones NEGATIVE, Urine Nitrite NEGATIVE, Urine Bilirubin NEGATIVE, Urine Urobilinogen NORMAL, Urine Leukocyte Esterase NEGATIVE, Urine RBC (Auto) NEGATIVE, Urine RBC NONE, Urine WBC NONE, Urine Squamous Epithelial Cells RARE, Urine Crystals NONE , Urine Bacteria NEGATIVE, Urine Casts NONE, Urine Mucus NEGATIVE, Urine Culture Indicated NO 09/10/16 04:37: White Blood Count 11.1H, Red Blood Count 5.61, Hemoglobin 15.5, Hematocrit 48, Mean Corpuscular Volume 86, Mean Corpuscular Hemoglobin 28, Mean Corpuscular Hemoglobin Concent 32, Red Cell Distribution Width 18.2H, Platelet Count 211, Mean Platelet Volume 10.9H, Neutrophils (%) (Auto) 89H, Lymphocytes (%) (Auto) 8L, Monocytes (%) (Auto) 2, Eosinophils (%) (Auto) 0, Basophils (%) (Auto) 0, Neutrophils # (Auto) 9.9H, Lymphocytes # (Auto) 0.9L, Monocytes # (Auto) 0.2, Eosinophils # (Auto) 0.0, Basophils # (Auto) 0.0, Troponin I < 0.30 09/10/16 09:51: Troponin I < 0.30 Radiology NAME: JAGRUTI GARCIA [facility] REC#: [id number] PT STATUS: ADM Morales : 1960 PHYSICIAN: MAYRA HOLMAN DO ADMIT DATE: 09/09/16/ICU Draft Date of Exam:09/09/16 CHEST 1 VIEW, AP/PA ONLY EXAMINATION: Portable AP chest at 11:30 PM INDICATION: Chest pain The heart size is within normal limits and stable when compared to 07/19/16. The sternotomy wires and surgical clips noted previously are again evident and no different. The prominent epicardial fat pad in the right cardiophrenic angle seen previously is also again visualized and unchanged. There is a vague area of slightly increased density near the left heart border. This was present on the prior study as well and has not changed. The lungs are otherwise clear. The mediastinum is not widened. The surgical clips overlying the lower thorax on the left seen previously are again visualized and no different. The orthopedic fixation screw overlying the left humeral head is also stable. The osseous structures are intact. IMPRESSION: There is no evidence for active disease. When compared to the prior study, there has been no significant change. Dictated on workstation # [id number] Dict: 09/10/16 0756 Trans: 09/10/16 0805 JONATHAN [id number] Interpreted by: THUAN UMANA MD Electronically signed by: ECG Impression ECG Comment NS with LBBB - unchanged A/P-Cardiology Assessment/Admission Diagnosis Acute exacerbation of COPD Chest discomfort worse with movement and deep breathing; pleuritic in nature Chronic chest pain syndrome Coronary artery disease with a history of bare-metal stenting of the right coronary artery several years ago, which subsequently became occluded and he then underwent drug-eluting stenting of the right coronary artery with Atom 2.25 x 28-mm stent (August 2010). 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 Branch retinal artery occlusion - following with his carry out clerk and shelf stocker Dr. Encarnacion and Dr. Fan (carry out clerk and shelf stocker in [place]) MPI of of 06/29/16 shows small basal inferolateral DC with a small amount of jess -infarct ischemia, basal inferolateral hypo, LVEF 63%, mild cardiomegaly. Subsequent to this he had the card cath described above Echo of 06/28/16: LVEF 55%, mild asymmetric thickening of the interventricular septum without LVOT obstruction, mild to mod ao valve sclerosis and MAC w/o valvular stenosis, mild mitral & aortic & tricuspid regurg, PASP 35 mmHg Palpitations: 24 hr Holter of 06/28/16 showed NSR with relatively infrequent and isolated PVC & PAC, no significant lori Mild bilat carotid stenosis per u/s of July 2016 Chronic joint (including shoulders) and back discomfort Hypertension, labile H/O chronic chest discomfort Paroxysmal atrial fibrillation treated with pulmonary vein ablation at [facility] without subsequent recurrence. Chronic left bundle branch block following myectomy in November 2005. CKD stage 4 - for which he follow with nephrology in [place], [place] Chronic microscopic hematuria without any identifiable lesions. 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 Continuing tobaccoism from which cessation has been advised Degenerative joint disease. Bilateral carpal tunnel surgery. Intermittent noncompliance with medications. Bilateral leg swelling, likely related to venous insufficiency. Deep venous thrombosis treated with anticoag with rivroxaban. No recent blood clots in the leg veins Sleep apnea and restless leg syndrome. 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 Mccartney at [facility] in [place] in November 2011. He is now following with Dr. Medrano oncology services at [facility] History of hypercalcemia which is being followed by Dr. Noble, his pcp, and by Dr Medrano, his oncologist. He has a prior h/o partial parathyroidectomy Mild AST elevation for which f/u is with his pcp Discussion and Recomendations Chest discomfort, pleuritic in nature with no evidence of ACS. Acute exacerbation of COPD which is being managed by medical services. Ac on chronic diastolic CHF being treated with diuretics. Monitor lab closely d/t CKD. Continue home medications including Imdur, Toprol XL, Ranexa and Xarelto. Further recommendations will be based on his hospital course. We would like to thank the Hospitalist services for this consult. This consult is being scribed by Christina Montoya APRN on behalf of Dr. Mcnulty after discussion regarding plan of care. Clinical Quality Measures DVT/VTE Risk/Contraindication: Risk Factor Score Per Nursin RFS Level Per Nursing on Admit: 4+=Very High Physician Assessment Physician Assessment Lungs: fair to good bilat air entry Cor: reg A&R * As documented in our note above * I spoke with him in detail and answered his questions BLAYNE MONTOYA September 10, 2016 08:32 FORREST MCNULTY MD FACP [facility] September 10, 2016 14:09
[2016-09-10] MEDS ORDERED: ASPIRIN E.C. 325 MG (ECOTRIN) TABLET PO SCH (09:00)
[2016-09-10] MEDS ORDERED: RANO500T3 PO (09:33)
[2016-09-10] MEDS ORDERED: METO-274 PO (09:33)
--- NOTE | 2016-09-10 11:05 | Diagnostic Imaging Report ---
Portable erect AP chest at 357h. INDICATION: COPD When compared to the prior exam of 09/09/16 there has been no significant change. The heart is stable in size. The sternotomy wires and surgical clips noted previously again evident and no different. There is still no sign of failure, pneumonia or pleural effusion to suggest an acute abnormality. The mediastinum is not widened. The osseous structures are intact. IMPRESSION: Stable chest. There has been no adverse change since the prior exam. Dictated by: Dictated on workstation # [id number]
--- NOTE | 2016-09-10 11:45 | History & Physical-Hospitalist ---
HPI History of Present Illness: HPI/Chief Complaint CC: Shortness of breath HPI: This is a 56yoWM pt of Dr. Rai that presented to ER with SOB. CXR was negative for pneumonia but dx with severe AECOPD. Chart Review: WBC 11, CMP normal except creat 1.8, BNP 491 teacher specialist: Dr. Carlin has not seen pt. Pt has COPD. Pt is on Solumedrol and ABX. Pt was given Lasix. Pt had 2100 out. Patient Interview: Pt states he was at the hospital last month and remembers Dr. Walsh. Pt states he is feeling better now that fluid is out. Pt states he was doing well and out of nowhere he felt like he pulled a muscle. Pt states the pain felt like someone hit him in the chest and the pain progressed to his back. Pt states he quit smoking within the last month. Scribed by Nishant Adkins under the direct supervision of Dr. Walsh. Source: patient Date Seen 09/10/16 Attending Physician Sharon Walsh Rachel L MD Referring Physician Date of Admission September 09, 2016 at 23:20 Home Medications & Allergies Home Medications Reviewed patient Home Medication Reconciliation Form Allergies Allergies Coded Allergies Iodinated Contrast Media - Oral and (Unverified Allergy, Mild, 10/20/08) Penicillins (Unverified Allergy, Mild, 10/20/08) Shellfish (Verified Allergy, Unknown, 02/18/06) amlodipine (Verified Allergy, Unknown, 11/29/06) iodine (Verified Allergy, Unknown, 08/21/05) penicillin G (Verified Allergy, Unknown, 08/21/05) Past Axotmmi-Ifcjui-Qqcrts Hx Patient Social History Marrital Status: single Employed/Student: unemployed Alcohol Use: Denies Use Recreational Drug Use: No Smoking Status: Former Smoker Type Used: Cigarettes 2nd Hand Smoke Exposure: No Physical Abuse Screen: No Sexual Abuse: No Recent Foreign Travel: No Contact w/other who traveled: No Recent Hopitalizations: No Recent Infectious Disease Expo: No Immunizations Up To Date Tetanus Booster (TDap): More than 5yrs Date of Pneumonia Vaccine: May 13, 2014 Date of Influenza Vaccine: Feb 11, 2016 Seasonal Allergies Seasonal Allergies: No Surgeries HX Surgeries: Yes (PARATHYROIDECTOMY, OPEN HEART SC--STATES PART OF HEART MUSCLE REMOVED FOR CARDIOMYOPATHY; , CARDIAC CATH X20, WITH STENTS X 3--LAST CATH WAS 07/20/16-NO INTERVENTION AT THAT TIME, LAST STENT IN 2010; BILATERAL CARPEL TUNNEL ; LEFT MASTECTOMY/TUMOR REMOVAL) Surgeries: Appendectomy, Breast, Cardiac, Coronary Stent, Orthopedic Respiratory Hx Respiratory Disorders: Yes (O2 AT HS) Respiratory Disorders: COPD, Emphysema Cardiovascular Hx Cardiovascular Disorders: Yes (HAS STENTS X3, HX LBBB, CHF; LAST CARDIAC CATH 07/20/16-NO INTERVENTION AT THAT TIME, LAST STENT 2010) Cardiac Disorders: Angina, Atrial Fibrillation, Cardiomyopathy, Chronic Edema/ Swelling, Coronary Artery Disease, Deep Vein Thrombosis, Heart Attack, Heart Murmur, High Cholesterol, Hypertension Neurological Hx Neurological Disorders: Yes Neurological Disorders: TIA Reproductive System Hx Reproductive Disorders: No Sexually Transmitted Disease: No Genitourinary Hx Genitourinary Disorders: Yes (CHRONIC RENAL INSUFFICIENCY-PT STATES KIDNEY FUNCTION IS 35 %) Genitourinary Disorders: Renal Failure Gastrointestinal Hx Gastrointestinal Disorders: Yes (LIVER ENZYME ELEVATION/ LIPITOR ADJUSTED) Gastrointestinal Disorders: Gastroesophageal Reflux, Liver Disease/Jaundice Musculoskeletal Hx Musculoskeletal Disorders: Yes (LEFT SHOULDER TORN ROTATOR CUFF, bilat carpal tunnel repair) Musculoskeletal Disorders: Degenerate Disk Disease, Chronic Back Pain Endocrine Hx Endocrine Disorders: Yes (PARATHYROIDECTOMY, "BORDERLINE DIABETIC"; OBESITY) Endocrine Disorders: Diabetes, Non-Insulin dep HEENT HX ENT Disorders: Yes (TEETH REMOVED) HEENT Disorders: Cataract Cancer Hx Cancer: Yes Cancer: Breast Psychosocial Hx Psychiatric Problems: No Integumentary HX Skin/Integumentary Disorder: No Blood Transfusions Hx Blood Disorders: No Family Medical History Family Hx: Arthritis 19 FATHER Cardiovascular disease 19 FATHER FH: breast cancer 19 MOTHER Respiratory disorder 19 FATHER Review of Systems Constitutional: see HPI, weakness EENTM: no symptoms reported Respiratory: dyspnea on exertion, short of breath, wheezing Gastrointestinal: no symptoms reported Genitourinary: no symptoms reported Musculoskeletal: no symptoms reported Skin: no symptoms reported Psychiatric/Neurological: Anxiety All Other Systems Reviewed Negative Unless Noted: Yes Physical Exam Physical Exam Vital Signs Vital Sign - Last 12Hours 09/09/16 09/10/16 22:29 00:00 Temp 98.9 Pulse 79 Resp 18 B/P (MAP) 146/83 Pulse Ox 93 O2 Delivery Nasal Cannula O2 Flow Rate 2.00 Capillary Refill : Less Than 3 Seconds General Appearance: No Apparent Distress, WD/WN, Chronically ill, Obese Eyes: Bilateral Eye Normal Inspection, Bilateral Eye PERRL HEENT: PERRL/EOMI, Normal ENT Inspection, Pharynx Normal Neck: Full Range of Motion, Normal Inspection, Non Tender, Supple, Carotid Bruit Respiratory: Chest Non Tender, No Accessory Muscle Use, No Respiratory Distress , Crackles, Decreased Breath Sounds Cardiovascular: Regular Rate, Rhythm, No Edema, No Gallop, No JVD, No Murmur, Normal Peripheral Pulses Gastrointestinal: Normal Bowel Sounds, No Organomegaly, No Pulsatile Mass, Non Tender, Soft Back: Normal Inspection, No CVA Tenderness, No Vertebral Tenderness Extremity: Normal Capillary Refill, Normal Inspection, Normal Range of Motion, Non Tender, No Calf Tenderness, No Pedal Edema Neurologic/Psychiatric: Alert, Oriented x3, No Motor/Sensory Deficits, Normal Mood/Affect Skin: Normal Color, Warm/Dry Lymphatic: No Adenopathy Results Results/Procedures Lab Laboratory Tests 09/09/16 22:31 09/10/16 04:37 Assessment/Plan Admission Diagnosis Assessment: Acute exacerbation of severe chronic obstructive pulmonary disease Recent smoking cessation Morbid obesity Heart disease Hypertension Elevated BNP consistent with volume overload Assessment and Plan Plan: IV diuretics Oxygen Nebulizer treatments IV steroids Monitor closely Appreciate cardiology and pulmonology input Poor prognosis long-term Clinical Quality Measures DVT/VTE Risk/Contraindication: Risk Factor Score Per Nursin RFS Level Per Nursing on Admit: 4+=Very High SHARON WALSH DO September 10, 2016 11:45
[2016-09-10] MEDS ORDERED: ACETAMINOPHEN 500 MG TAB (TYLENOL) PO PRN (12:30)
[2016-09-10] MEDS ORDERED: ISOSORBIDE MONONITRATE 30 MG (IMDUR) TAB PO SCH (12:30)
[2016-09-10] MEDS ORDERED: PATIENT MAY USE OWN MEDS, ALL MC SCH (14:00)
[2016-09-10] MEDS ORDERED: NS IV 1000 ML 1,000 ML IV ONE (16:30)
[2016-09-10] MEDS: SALINE NASAL SPRAY (OCEAN) 45 ML BTL SCH ×2 (17:49→21:59)
[2016-09-10] MEDS: meTOprolol SUCCINATE 100 MG (TOPROL XL) TAB PO SCH (19:28)
[2016-09-10] MEDS ORDERED: RIVAROXABAN 15 MG TABLET (XARELTO) PO SCH (21:00)
[2016-09-10] MEDS ORDERED: meTOprolol SUCCINATE 100 MG (TOPROL XL) TAB PO SCH (21:00)
[2016-09-10] MEDS ORDERED: RANOLAZINE ER 500 MG TAB (RANEXA) PO SCH (21:00)
[2016-09-10] MEDS: ATORVASTATIN 40 MG (LIPITOR) TABLET PO SCH (21:57)
[2016-09-10] MEDS: CLOPIDOGREL 75 MG (PLAVIX) TABLET PO SCH (21:57)
[2016-09-10] MEDS: RIVAROXABAN 15 MG TABLET (XARELTO) PO SCH (21:57)
[2016-09-10] MEDS: RANOLAZINE ER 500 MG TAB (RANEXA) PO SCH (21:58)
[2016-09-10] MEDS: cefTRIAXone INJECTION 1,000 MG in NS (IVPB) 50 ML IV SCH (22:02)
[2016-09-11] VITALS: BP 128/82
[2016-09-11] MEDS: AZITHROMYCIN 500 MG/NS 250 ML IVPB IV SCH ×2 (02:30)
[2016-09-11 03:59] LABS: BASOPHILS % (AUTO) 0 % (0-10); EOSINOPHILS % (AUTO) 0 % (0-10); LYMPHOCYTES % (AUTO) 6 % (12-44); MEAN CORPUSCULAR HEMOGLOBIN 28 PG (25-34); MEAN CORPUSCULAR HGB CONC 32 G/DL (32-36); MEAN CORPUSCULAR VOLUME 86 FL (80-99); MONOCYTES # (AUTO) 0.4 X 10^3 (0.0-1.0); MONOCYTES % (AUTO) 2 % (0-12); NEUTROPHILS # (AUTO) 16.1 X 10^3 (1.8-7.8); NEUTROPHILS % (AUTO) 92 % (42-75); PLATELET COUNT 208 10^3/uL (130-400); RED BLOOD COUNT 5.02 10^6/uL (4.35-5.85); RED CELL DISTRIBUTION WIDTH 17.7 % (10.0-14.5); WHITE BLOOD COUNT 17.4 10^3/uL (4.3-11.0)
[2016-09-11 04:00] VITALS: BP 130/70
[2016-09-11 04:23] LABS: CALCIUM 10.2 MG/DL (8.5-10.1); CREATININE SERUM 1.95 MG/DL (0.60-1.30); MAGNESIUM 2.4 MG/DL (1.8-2.4); PHOSPHORUS 3.5 MG/DL (2.3-4.7); POTASSIUM 4.2 MMOL/L (3.6-5.0)
[2016-09-11] MEDS: methylPREDNISolone 125 MG (Solu-MEDROL) VIAL IVP SCH ×3 (05:02→18:46)
[2016-09-11] MEDS: RT-BUDESONIDE NEBS 0.5 MG/2ML (PULMICORT) AMP INH SCH ×2 (07:38→18:55)
[2016-09-11] MEDS: RT-ALBUTEROL SULF 2.5 MG/3 ML PRE-MIX VIAL IH SCH ×4 (07:38→18:55)
[2016-09-11 08:00] VITALS: BP 125/81
--- NOTE | 2016-09-11 08:31 | Cardiology Progress Note ---
Subjective Subjective/Events-last exam patient is laying down in bed, feeling better, breathing better, still having cough, chest pain is improving Review of Systems General: No Chills, No Night Sweats, No Fatigue, No Malaise, No Appetite, No Other HEENT: No Head Aches, No Visual Changes, No Eye Pain, No Ear Pain, No Dysphasia , No Sinus Congestion, No Post Nasal Drip, No Sore Throat, No Other Pulmonary: Dyspnea, Cough, No Pleuritic Chest Pain, No Other Cardiovascular: Chest Pain, Edema, No: Lt Headedness, Orthopnea, Other, Palpitations, Paroxysmal Noc. Dyspnea Objective-Cardiology Exam Last Set of Vital Signs Vital Signs 09/11/16 09/11/16 09/11/16 04:00 07:10 07:40 Temp 98.9 Pulse 92 Resp 18 B/P (MAP) 130/70 Pulse Ox 93 O2 Delivery Nasal Cannula O2 Flow Rate 2.00 Capillary Refill : Less Than 3 Seconds I&O Bad tableGeneral: Alert, Oriented X3, Cooperative HEENT: Atraumatic, PERRLA Neck: Supple, No JVD, No Thyromegaly Lungs: Normal Air Movement, Other Heart: Regular Rate, Normal S1, Normal S2, No Murmurs Abdomen: Normal Bowel Sounds, Soft, No Tenderness, No Hepatosplenomegaly, No Masses Extremities: No Clubbing, No Cyanosis, No Edema, Normal Pulses, No Tenderness/ Swelling Skin: No Rashes, No Breakdown, No Significant Lesion Neuro: Normal Gait, Normal Speech, Strength at 5/5 X4 Ext, Normal Tone, Sensation Intact Psych/Mental Status: Mental Status NL, Mood NL Results Lab Laboratory Tests 09/11/16 03:45 A/P-Cardiology Admission Diagnosis chest pain nonspecific etiology Acute exacerbation of COPD Shortness of breath Coronary artery disease Assessment/Plan Acute exacerbation of COPD, improving today. Continue to monitor Chest discomfort worse with movement and deep breathing; pleuritic in nature, unlikely to be cardiac in nature Chronic chest pain syndrome, continue to monitor Coronary artery disease with a history of bare-metal stenting of the right coronary artery several years ago, which subsequently became occluded and he then underwent drug-eluting stenting of the right coronary artery with Atom 2.25 x 28-mm stent (August 2010). Card cath of 07/20/16 shows LMCA without significant disease, mod diffuse disease of LAD (including 50-60% ostial D1), chronic total distal occlusion of the LCX (unchanged compared to cath of 07/01/15 ) with distal collateralization, patent stent in the prox and mid RCA (known to be Atom 2.25 x 28, placed in August 2010), elevated LVEDP, continue to monitor Hypertrophic cardiomyopathy with h/o partial myomectomy at [facility] in November 2005 Partial vision loss of the left eye only. Branch retinal artery occlusion - following with his administrative fellow Dr. Encarnacion and Dr. Fan (administrative fellow in [place]) Echo of 06/28/16: LVEF 55%, mild asymmetric thickening of the interventricular septum without LVOT obstruction, mild to mod ao valve sclerosis and MAC w/o valvular stenosis, mild mitral & aortic & tricuspid regurg, PASP 35 mmHg Palpitations: 24 hr Holter of 06/28/16 showed NSR with relatively infrequent and isolated PVC & PAC, no significant lori Mild bilat carotid stenosis per u/s of July 2016, followed and monitored by Dr. Mcnulty Labile hypertension, borderline hypotensive at this time, continue on current medications and monitor blood pressure Paroxysmal atrial fibrillation treated with pulmonary vein ablation at [facility] without subsequent recurrence, has been having episodes of tachycardia, improved after receiving beta blockers yesterday. Maintained on Xarelto. Continue to monitor Chronic left bundle branch block following myectomy in November 2005. CKD stage 4 - for which he follow with nephrology in [place], [place] Chronic microscopic hematuria without any identifiable lesions. 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 Continuing tobaccoism from which cessation has been advised Degenerative joint disease. Bilateral carpal tunnel surgery. Intermittent noncompliance with medications. Bilateral leg swelling, likely related to venous insufficiency. Deep venous thrombosis treated with anticoag with rivroxaban. No recent blood clots in the leg veins Sleep apnea and restless leg syndrome. 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 Mccartney at [facility] in [place] in November 2011. He is now following with Dr. Medrano oncology services at [facility] History of hypercalcemia which is being followed by Dr. Noble, his pcp, and by Dr Medrano, his oncologist. He has a prior h/o partial parathyroidectomy Mild AST elevation for which f/u is with his pcp Clinical Quality Measures DVT/VTE Risk/Contraindication: Risk Factor Score Per Nursin RFS Level Per Nursing on Admit: 4+=Very High SANJAY CLIFFORD MD September 11, 2016 08:31
[2016-09-11] MEDS ORDERED: ISOSORBIDE MONONITRATE 30 MG (IMDUR) TAB PO SCH (09:00)
[2016-09-11] MEDS: SALINE NASAL SPRAY (OCEAN) 45 ML BTL SCH ×4 (09:00→20:24)
[2016-09-11] MEDS ORDERED: KCL 10 MEQ TAB (MICRO K) PO SCH (09:00)
[2016-09-11] MEDS: meTOprolol SUCCINATE 100 MG (TOPROL XL) TAB PO SCH ×2 (09:13→20:26)
[2016-09-11] MEDS: ISOSORBIDE MONONITRATE 30 MG (IMDUR) TAB PO SCH (09:13)
[2016-09-11] MEDS: RANOLAZINE ER 500 MG TAB (RANEXA) PO SCH ×2 (09:13→20:25)
[2016-09-11] MEDS: KCL 10 MEQ TAB (MICRO K) PO SCH (09:14)
--- NOTE | 2016-09-11 10:18 | Progress Note-Hospitalist ---
Subjective HPI/CC On Admission CC: Shortness of breath HPI: This is a 56yoWM pt of Dr. Rai that presented to ER with SOB. CXR was negative for pneumonia but dx with severe AECOPD. Chart Review: WBC 11, CMP normal except creat 1.8, BNP 491 clinical research technician: Dr. Carlin has not seen pt. Pt has COPD. Pt is on Solumedrol and ABX. Pt was given Lasix. Pt had 2100 out. Patient Interview: Pt states he was at the hospital last month and remembers Dr. Phillips. Pt states he is feeling better now that fluid is out. Pt states he was doing well and out of nowhere he felt like he pulled a muscle. Pt states the pain felt like someone hit him in the chest and the pain progressed to his back. Pt states he quit smoking within the last month. Scribed by Nishant Adkins under the direct supervision of Dr. Phillips. Date Seen 09/11/16 Subjective/Events-last exam patient complains of wheezing. He also relates back to the pain that he had when this first started which occurred when he was picking up his 1-year-old grandson. It was pain went down his right arm and up in his neck and across his chest. His had a radiculopathy in the past. His pain is been much better since admission. Review of Systems Pulmonary: Dyspnea Neurological: Weakness Objective Exam Vital Signs Vital Sign - Last 12Hours 09/09/16 09/10/16 22:29 00:00 Temp 98.9 Pulse 79 Resp 18 B/P (MAP) 146/83 Pulse Ox 93 O2 Delivery Nasal Cannula O2 Flow Rate 2.00 Capillary Refill : Less Than 3 Seconds General Appearance: No Apparent Distress, WD/WN HEENT: Normal ENT Inspection Respiratory: Wheezing Cardiovascular: Regular Rate, Rhythm Gastrointestinal: Soft Results/Procedures Lab Laboratory Tests 09/11/16 03:45 Assessment/Plan Assessment and Plan Assess & Plan/Chief Complaint Acute exacerbation of severe chronic obstructive pulmonary disease-transfer to the floor and decrease the steroids. Recent smoking cessation Morbid obesity Heart disease Hypertension Elevated BNP consistent with volume overload A. fib, appears to be in a regular rhythm today.good rate control type II Diabetes Pl. on sliding scale insulin as the blood sugars are up. Leukocytosis most likely secondary to steroids. Plan: continue IV antibiotics and transfer to the floor. CECILIO WILLIAMSON MD September 11, 2016 10:18
[2016-09-11] MEDS: inSUlin ASPART (NovoLOG) 1 UNIT/0.01 ML (CHARGE PER UNIT) SC SCH ×3 (12:50→21:24)
[2016-09-11] MEDS: GABAPENTIN 100 MG (NEURONTIN) CAP PO SCH ×2 (13:07→20:24)
[2016-09-11 16:00] VITALS: BP 133/65
[2016-09-11 20:20] VITALS: BP 148/79
[2016-09-11] MEDS: CLOPIDOGREL 75 MG (PLAVIX) TABLET PO SCH (20:24)
[2016-09-11] MEDS: ATORVASTATIN 40 MG (LIPITOR) TABLET PO SCH (20:24)
[2016-09-11] MEDS: RIVAROXABAN 15 MG TABLET (XARELTO) PO SCH (20:25)
[2016-09-11] MEDS: morphine INJ 4 MG/ML 1 ML (VIAL/SYRINGE) IV PRN (20:27)
[2016-09-11] MEDS: cefTRIAXone INJECTION 1,000 MG in NS (IVPB) 50 ML IV SCH (22:59)
[2016-09-12] VITALS: BP 139/80
[2016-09-12] MEDS: methylPREDNISolone 125 MG (Solu-MEDROL) VIAL IVP SCH ×5 (00:44→23:07)
[2016-09-12] MEDS: AZITHROMYCIN 500 MG/NS 250 ML IVPB IV SCH ×2 (01:58)
[2016-09-12 04:00] VITALS: BP 133/80
[2016-09-12 05:25] LABS: BASOPHILS % (AUTO) 0 % (0-10); EOSINOPHILS % (AUTO) 0 % (0-10); LYMPHOCYTES % (AUTO) 6 % (12-44); MEAN CORPUSCULAR HEMOGLOBIN 28 PG (25-34); MEAN CORPUSCULAR HGB CONC 32 G/DL (32-36); MEAN CORPUSCULAR VOLUME 87 FL (80-99); MEAN PLATELET VOLUME 11.2 FL (7.4-10.4); MONOCYTES # (AUTO) 0.5 X 10^3 (0.0-1.0); MONOCYTES % (AUTO) 3 % (0-12); NEUTROPHILS # (AUTO) 15.8 X 10^3 (1.8-7.8); NEUTROPHILS % (AUTO) 91 % (42-75); PLATELET COUNT 221 10^3/uL (130-400); RED BLOOD COUNT 5.09 10^6/uL (4.35-5.85); RED CELL DISTRIBUTION WIDTH 18.3 % (10.0-14.5); WHITE BLOOD COUNT 17.3 10^3/uL (4.3-11.0)
[2016-09-12 06:41] LABS: ALBUMIN 3.2 G/DL (3.2-4.5); BILIRUBIN,TOTAL 0.5 MG/DL (0.1-1.0); CALCIUM 9.9 MG/DL (8.5-10.1); CREATININE SERUM 1.66 MG/DL (0.60-1.30); POTASSIUM 4.8 MMOL/L (3.6-5.0); TOTAL PROTEIN 5.8 G/DL (6.4-8.2)
[2016-09-12] MEDS: inSUlin ASPART (NovoLOG) 1 UNIT/0.01 ML (CHARGE PER UNIT) SC SCH ×4 (06:54→21:43)
[2016-09-12] MEDS: morphine INJ 4 MG/ML 1 ML (VIAL/SYRINGE) IV PRN ×2 (06:59→13:43)
[2016-09-12] MEDS: RT-ALBUTEROL SULF 2.5 MG/3 ML PRE-MIX VIAL IH SCH ×4 (07:09→18:33)
[2016-09-12] MEDS: RT-BUDESONIDE NEBS 0.5 MG/2ML (PULMICORT) AMP INH SCH ×2 (07:09→18:33)
[2016-09-12] MEDS: SALINE NASAL SPRAY (OCEAN) 45 ML BTL SCH ×4 (08:42→20:24)
[2016-09-12] MEDS: GABAPENTIN 100 MG (NEURONTIN) CAP PO SCH ×3 (08:44→20:24)
[2016-09-12] MEDS: ISOSORBIDE MONONITRATE 30 MG (IMDUR) TAB PO SCH (08:44)
[2016-09-12] MEDS: KCL 10 MEQ TAB (MICRO K) PO SCH (08:44)
[2016-09-12] MEDS: meTOprolol SUCCINATE 100 MG (TOPROL XL) TAB PO SCH ×2 (08:45→20:24)
[2016-09-12] MEDS: RANOLAZINE ER 500 MG TAB (RANEXA) PO SCH ×2 (08:45→20:25)
--- NOTE | 2016-09-12 10:56 | Cardiology Progress Note ---
Subjective Subjective/Events-last exam patient is laying down in bed, still having some shortness of breath, still having chest tightness. Review of Systems General: No Chills, No Night Sweats, No Fatigue, No Malaise, No Appetite, No Other HEENT: No Head Aches, No Visual Changes, No Eye Pain, No Ear Pain, No Dysphasia , No Sinus Congestion, No Post Nasal Drip, No Sore Throat, No Other Pulmonary: Dyspnea, Cough, No Pleuritic Chest Pain, No Other Cardiovascular: Chest Pain, No: Edema, Lt Headedness, Orthopnea, Other, Palpitations, Paroxysmal Noc. Dyspnea Objective-Cardiology Exam Last Set of Vital Signs Vital Signs 09/12/16 09/12/16 09/12/16 04:00 07:16 10:28 Temp 99.0 Pulse 74 Resp 20 B/P (MAP) 133/80 Pulse Ox 94 O2 Delivery Nasal Cannula O2 Flow Rate 2.00 Capillary Refill : Less Than 3 Seconds I&O Intake and Output 09/12/16 00:00 Intake Total 1710 ml Output Total 2520 ml Balance -810 ml Intake Oral 1660 ml IV Total 50 ml Output Urine Total 2520 ml # Voids 2 General: Alert, Oriented X3, Cooperative HEENT: Atraumatic, PERRLA Neck: Supple, No JVD, No Thyromegaly Lungs: Normal Air Movement, Other Heart: Regular Rate, Normal S1, Normal S2, Other (Systolic murmur) Abdomen: Normal Bowel Sounds, Soft, No Tenderness, No Hepatosplenomegaly, No Masses Extremities: No Clubbing, No Cyanosis, No Edema, Normal Pulses, No Tenderness/ Swelling Skin: No Rashes, No Breakdown, No Significant Lesion Neuro: Normal Gait, Normal Speech, Strength at 5/5 X4 Ext, Normal Tone, Sensation Intact Psych/Mental Status: Mental Status NL, Mood NL Results Lab Laboratory Tests 09/12/16 04:35 A/P-Cardiology Admission Diagnosis chest pain nonspecific etiology Acute exacerbation of COPD Shortness of breath Coronary artery disease Assessment/Plan Acute exacerbation of COPD, still having wheezing today, bilateral rhonchi, managed by primary care physician Chest discomfort worse with movement and deep breathing; pleuritic in nature, unlikely to be cardiac in nature Chronic chest pain syndrome, continue to monitor Coronary artery disease with a history of bare-metal stenting of the right coronary artery several years ago, which subsequently became occluded and he then underwent drug-eluting stenting of the right coronary artery with Atom 2.25 x 28-mm stent (August 2010). Card cath of 07/20/16 shows LMCA without significant disease, mod diffuse disease of LAD (including 50-60% ostial D1), chronic total distal occlusion of the LCX (unchanged compared to cath of 07/01/15 ) with distal collateralization, patent stent in the prox and mid RCA (known to be Atom 2.25 x 28, placed in August 2010), elevated LVEDP, continue to monitor Hypertrophic cardiomyopathy with h/o partial myomectomy at [facility] in November 2005 Partial vision loss of the left eye only. Branch retinal artery occlusion - following with his belly dump driver Dr. Encarnacion and Dr. Fan (belly dump driver in [place]) Echo of 06/28/16: LVEF 55%, mild asymmetric thickening of the interventricular septum without LVOT obstruction, mild to mod ao valve sclerosis and MAC w/o valvular stenosis, mild mitral & aortic & tricuspid regurg, PASP 35 mmHg Palpitations: 24 hr Holter of 06/28/16 showed NSR with relatively infrequent and isolated PVC & PAC, no significant lori Mild bilat carotid stenosis per u/s of July 2016, followed and monitored by Dr. Mcnulty Labile hypertension, the pressure is better controlled, continue on current medication monitor. Paroxysmal atrial fibrillation treated with pulmonary vein ablation at [facility] without subsequent recurrence, has been having episodes of tachycardia, improved after receiving beta blockers yesterday. Maintained on Xarelto. Continue to monitor Chronic left bundle branch block following myectomy in November 2005. CKD stage 4 - for which he follow with nephrology in [place], [place] Chronic microscopic hematuria without any identifiable lesions. 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 Continuing tobaccoism from which cessation has been advised Degenerative joint disease. Bilateral carpal tunnel surgery. Intermittent noncompliance with medications. Bilateral leg swelling, likely related to venous insufficiency. Deep venous thrombosis treated with anticoag with rivroxaban. No recent blood clots in the leg veins Sleep apnea and restless leg syndrome. 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 Mccartney at [facility] in [place] in November 2011. He is now following with Dr. Medrano oncology services at [facility] History of hypercalcemia which is being followed by Dr. Noble, his pcp, and by Dr Medrano, his oncologist. He has a prior h/o partial parathyroidectomy Mild AST elevation for which f/u is with his pcp Clinical Quality Measures DVT/VTE Risk/Contraindication: Risk Factor Score Per Nursin RFS Level Per Nursing on Admit: 4+=Very High SANJAY CLIFFORD MD September 12, 2016 10:56
--- NOTE | 2016-09-12 11:22 | Progress Note-Hospitalist ---
Subjective HPI/CC On Admission CC: Shortness of breath HPI: This is a 56yoWM pt of Dr. Rai that presented to ER with SOB. CXR was negative for pneumonia but dx with severe AECOPD. Chart Review: WBC 11, CMP normal except creat 1.8, BNP 491 spring maker: Dr. Carlin has not seen pt. Pt has COPD. Pt is on Solumedrol and ABX. Pt was given Lasix. Pt had 2100 out. Patient Interview: Pt states he was at the hospital last month and remembers Dr. Phillips. Pt states he is feeling better now that fluid is out. Pt states he was doing well and out of nowhere he felt like he pulled a muscle. Pt states the pain felt like someone hit him in the chest and the pain progressed to his back. Pt states he quit smoking within the last month. Scribed by Nishant Adkins under the direct supervision of Dr. Phillips. Date Seen 09/12/16 Subjective/Events-last exam patient continues to complain of back discomfort that is in the middle of his back. It started before he came here when he bent over to roller picker his grandson. He still says that this is the pain that brought him in. He has not been getting up and walking her been very active. He continues to worry about the back pain. Review of Systems Pulmonary: Dyspnea, Cough Cardiovascular: Chest Pain Musculoskeletal: back pain Neurological: Weakness Objective Exam Vital Signs Vital Sign - Last 12Hours 09/09/16 09/10/16 22:29 00:00 Temp 98.9 Pulse 79 Resp 18 B/P (MAP) 146/83 Pulse Ox 93 O2 Delivery Nasal Cannula O2 Flow Rate 2.00 Capillary Refill : Less Than 3 Seconds General Appearance: No Apparent Distress, WD/WN, Other (very talkative does not appear to be short of breath) HEENT: Other (exophthalmus) Neck: Limited Range of Motion, Other (short and thick) Respiratory: Decreased Breath Sounds, Wheezing Cardiovascular: Regular Rate, Rhythm, No Gallop Gastrointestinal: Other (obese) Back: Normal Inspection, No Vertebral Tenderness Extremity: Normal Capillary Refill, No Calf Tenderness, No Pedal Edema Neurologic/Psychiatric: Alert, Oriented x3, No Motor/Sensory Deficits, Normal Mood/Affect Results/Procedures Lab Laboratory Tests 09/12/16 04:35 Assessment/Plan Assessment and Plan Assess & Plan/Chief Complaint Acute exacerbation of severe chronic obstructive pulmonary disease-transfer to the floor and decrease the steroids. Recent smoking cessation Morbid obesity Heart disease Hypertension Elevated BNP consistent with volume overload A. fib, appears to be in a regular rhythm today.good rate control type II Diabetes Pl. on sliding scale insulin as the blood sugars are up. Leukocytosis most likely secondary to steroids. history of abnormal CT with lymphadenopathy, because of his complaints we'll repeat the CT. Plan: continue IV antibiotics and transfer to the floor. CECILIO WILLIAMSON MD September 12, 2016 11:22
--- NOTE | 2016-09-12 12:11 | Diagnostic Imaging Report ---
PROCEDURE: CT chest without contrast. TECHNIQUE: Multiple contiguous axial images were obtained through the chest without the use of intravenous contrast. INDICATION: Left upper chest pain for 3 days There is discoid atelectasis. No mass or infiltrate is seen. There is no effusion or pneumothorax. There is no mediastinal mass or adenopathy. There are coronary artery calcifications present. There are changes of prior median sternotomy. There is no acute bony abnormality. IMPRESSION: No acute abnormality is seen. There is bilateral discoid atelectasis. Dictated by: Dictated on workstation # [id number]
[2016-09-12 16:50] VITALS: BP 174/90
[2016-09-12 19:45] VITALS: BP 148/71
[2016-09-12] MEDS: ATORVASTATIN 40 MG (LIPITOR) TABLET PO SCH (20:24)
[2016-09-12] MEDS: CLOPIDOGREL 75 MG (PLAVIX) TABLET PO SCH (20:24)
[2016-09-12] MEDS: RIVAROXABAN 15 MG TABLET (XARELTO) PO SCH (20:25)
[2016-09-12] MEDS: cefTRIAXone INJECTION 1,000 MG in NS (IVPB) 50 ML IV SCH (22:34)
[2016-09-13 00:01] VITALS: BP 143/77
[2016-09-13] MEDS: AZITHROMYCIN 500 MG/NS 250 ML IVPB IV SCH ×2 (01:20)
[2016-09-13 04:04] VITALS: BP 123/79
[2016-09-13] MEDS: methylPREDNISolone 125 MG (Solu-MEDROL) VIAL IVP SCH (05:26)
[2016-09-13] MEDS: inSUlin ASPART (NovoLOG) 1 UNIT/0.01 ML (CHARGE PER UNIT) SC SCH ×4 (05:26→21:19)
--- NOTE | 2016-09-13 07:04 | Pulmonary Consultation ---
History of Present Illness History of Present Illness Date of Consultation 09/13/16 06:59 Date of Admission History of Present Illness 56yo with hx of COPD presented to ED secondary to pleuritic CP radiating across chest and into back that had been present for 3-4 days prior to admision. CT scan shows only discoid atelectasis. Nonproductive cough. I am consulted for pulmonary management. Allergies and Home Medications Allergies Coded Allergies: Iodinated Contrast Media - Oral and (Unverified Allergy, Mild, 10/20/08) Penicillins (Unverified Allergy, Mild, 10/20/08) Shellfish (Verified Allergy, Unknown, 02/18/06) amlodipine (Verified Allergy, Unknown, 11/29/06) iodine (Verified Allergy, Unknown, 08/21/05) penicillin G (Verified Allergy, Unknown, 08/21/05) Home Medications Albuterol Sulfate 18 Gm Hfa.aer.ad, 2 PUFF IH QID PRN for SHORTNESS OF BREATH, ( Reported) Albuterol Sulfate 1.25 Mg/3 Ml Vial.neb, 1.25 MG IH TID PRN for SHORTNESS OF BREATH, (Reported) Arformoterol Tartrate 15 Mcg/2 Ml Vial.neb, 15 MCG IH BID, (Reported) Atorvastatin Calcium 40 Mg Tablet, 40 MG PO HS, (Reported) Budesonide 0.5 Mg/2 Ml Ampul.neb, 0.5 MG IH BID, (Reported) Buspirone HCl 10 Mg Tablet, 10 MG PO HS, (Reported) Cetirizine HCl 10 Mg Tablet, 10 MG PO DAILY, (Reported) Cinacalcet HCl 30 Mg Tablet, 30 MG PO DAILY, (Reported) Clopidogrel Bisulfate 75 Mg Tablet, 75 MG PO HS, (Reported) Fenofibrate Nanocrystallized 145 Mg Tablet, 145 MG PO HS, (Reported) Fluticasone Propionate 16 Gm [place].susp, 1 SPRAY NSEACH DAILY PRN for ALLERGIES, (Reported) Furosemide 40 Mg Tablet, 40 MG PO DAILY, (Reported) Gabapentin 100 Mg Capsule, 100 MG PO TID, (Reported) Glimepiride 2 Mg Tablet, 2 MG PO DAILY, (Reported) Isosorbide Mononitrate 30 Mg Tab.er.24h, 30 MG PO DAILY, (Reported) Metoprolol Succinate 100 Mg Tab.er.24h, 100 MG PO BID, (Reported) Montelukast Sodium 10 Mg Tablet, 10 MG PO HS, (Reported) Nitroglycerin 0.4 Mg Subl, 0.4 MG SL UD PRN for CHEST PAIN, (Reported) TAKE 1 TABLET EVERY 5 MINUTES X 3 DOSES NEEDED FOR CHEST PAIN Pantoprazole Sodium 40 Mg Tablet.dr, 40 MG PO BID, (Reported) Potassium Chloride 10 Meq Tablet.er, 10 MEQ PO DAILY, (Reported) Ranolazine 500 Mg Tab.er.12h, 500 MG PO BID, (Reported) Rivaroxaban 15 Mg Tablet, 15 MG PO HS, (Reported) Tamoxifen Citrate 20 Mg Tablet, 20 MG PO HS, (Reported) Tamsulosin HCl 0.4 Mg Cap.er.24h, 0.4 MG PO HS, (Reported) Past Mwzsfxn-Wfjloj-Cnmwii Hx Patient Social History Alcohol Use: Denies Use Recreational Drug Use: No Smoking Status: Former Smoker Type Used: Cigarettes 2nd Hand Smoke Exposure: No Recent Foreign Travel: No Contact w/Someone Who Travel: No Recent Infectious Disease Expo: No Recent Hopitalizations: No Physical Abuse Screen: No Sexual Abuse: No Immunizations Up To Date Tetanus Booster (TDap): More than 5yrs PED Vaccines UTD: No Date of Pneumonia Vaccine: May 13, 2014 Date of Influenza Vaccine: Feb 11, 2016 Seasonal Allergies Seasonal Allergies: No Surgeries HX Surgeries: Yes (PARATHYROIDECTOMY, OPEN HEART SC--STATES PART OF HEART MUSCLE REMOVED FOR CARDIOMYOPATHY; , CARDIAC CATH X20, WITH STENTS X 3--LAST CATH WAS 07/20/16-NO INTERVENTION AT THAT TIME, LAST STENT IN 2010; BILATERAL CARPEL TUNNEL ; LEFT MASTECTOMY/TUMOR REMOVAL) Surgeries: Appendectomy, Breast, Cardiac, Coronary Stent, Orthopedic Respiratory Hx Respiratory Disorders: Yes (O2 AT HS) Respiratory Disorders: Asthma, COPD, Emphysema Cardiovascular Hx Cardiac Disorders: Yes (HAS STENTS X3, HX LBBB, CHF; LAST CARDIAC CATH 07/20-NO INTERVENTION AT THAT TIME, LAST STENT 2010) Cardiac Disorders: Angina, Atrial Fibrillation, Cardiomyopathy, Chronic Edema/ Swelling, Coronary Artery Disease, Deep Vein Thrombosis, Heart Attack, Heart Murmur, High Cholesterol, Hypertension Neurological Hx Neurological Disorders: Yes Neurological Disorders: TIA Reproductive System Hx Reproductive Disorders: No Sexually Transmitted Disease: No Genitourinary Hx Genitourinary Disorders: Yes (CHRONIC RENAL INSUFFICIENCY-PT STATES KIDNEY FUNCTION IS 35 %) Genitourinary Disorders: Renal Failure Gastrointestinal Hx Gastrointestinal Disorders: Yes (LIVER ENZYME ELEVATION/ LIPITOR ADJUSTED) Gastrointestinal Disorders: Gastroesophageal Reflux, Liver Disease/Jaundice Musculoskeletal Hx Musculoskeletal Disorders: Yes (LEFT SHOULDER TORN ROTATOR CUFF, bilat carpal tunnel repair) Musculoskeletal Disorders: Degenerate Disk Disease, Chronic Back Pain Endocrine Hx Endocrine Disorders: Yes (PARATHYROIDECTOMY, "BORDERLINE DIABETIC"; OBESITY) Endocrine Disorders: Diabetes, Non-Insulin dep HEENT HX ENT Disorders: Yes (TEETH REMOVED) HEENT Disorders: Cataract Cancer Hx Cancer: Yes Cancer: Breast Psychosocial Hx Psychiatric Problems: No Integumentary HX Skin/Integumentary Disorder: No Blood Transfusions Hx Blood Disorders: No Family Medical History Family Medial History: Arthritis 19 FATHER Cardiovascular disease 19 FATHER FH: breast cancer 19 MOTHER Respiratory disorder 19 FATHER Exam Exam Vital Signs Date Time Temp Pulse Resp B/P (MAP) Pulse Ox O2 Delivery O2 Flow Rate FiO2 09/13/16 04:04 98.4 71 18 123/79 94 Nasal Cannula 2.00 09/13/16 01:00 75 09/13/16 00:01 96.8 80 16 143/77 97 Nasal Cannula 2.00 09/12/16 19:45 98.0 85 20 148/71 92 Nasal Cannula 2.00 09/12/16 19:35 2.00 09/12/16 19:04 85 09/12/16 18:33 95 09/12/16 16:50 97.0 83 24 174/90 93 Nasal Cannula 2.00 09/12/16 14:31 95 2.00 09/12/16 13:44 80 09/12/16 10:28 94 2.00 09/12/16 08:00 2.00 09/12/16 07:16 74 09/12/16 07:09 95 2.00 I & O 09/13/16 07:00 Intake Total 2857 ml Output Total 1850 ml Balance 1007 ml General Appearance: No Apparent Distress, WD/WN, Other (very talkative does not appear to be short of breath) HEENT: Other (exophthalmus) Neck: Limited Range of Motion, Other (short and thick) Respiratory: Decreased Breath Sounds, Wheezing Cardiovascular: Regular Rate, Rhythm, No Gallop Capillary Refill: Less Than 3 Seconds Extremity: Normal Capillary Refill, No Calf Tenderness, No Pedal Edema Neurologic/Psychiatric: Alert, Oriented x3, No Motor/Sensory Deficits, Normal Mood/Affect Skin: Normal Color, Warm/Dry Lymphatic: No Adenopathy Results Lab Laboratory Tests 09/12/16 04:35 Assessment/Plan Assessment/Plan COPDAE -steroids- change to prednisone -SVNs -CT scan reviewed recently stopped smoking morbid obesity CAD Pt is ok from pulmonary standpoint for discharge on prednisone slow taper. No Abx needed from pulmonary standpoint. Clinical Quality Measures DVT/VTE Risk/Contraindication: Risk Factor Score Per Nursin RFS Level Per Nursing on Admit: 4+=Very High GABE MAYBERRY DO September 13, 2016 07:04
[2016-09-13] MEDS: RT-ALBUTEROL SULF 2.5 MG/3 ML PRE-MIX VIAL IH SCH ×4 (07:47→19:44)
[2016-09-13] MEDS: RT-BUDESONIDE NEBS 0.5 MG/2ML (PULMICORT) AMP INH SCH ×2 (07:49→19:44)
[2016-09-13 08:00] VITALS: BP 139/80
[2016-09-13] MEDS: GABAPENTIN 100 MG (NEURONTIN) CAP PO SCH ×3 (08:36→20:10)
[2016-09-13] MEDS: KCL 10 MEQ TAB (MICRO K) PO SCH (08:36)
[2016-09-13] MEDS: RANOLAZINE ER 500 MG TAB (RANEXA) PO SCH ×2 (08:37→20:12)
[2016-09-13] MEDS: meTOprolol SUCCINATE 100 MG (TOPROL XL) TAB PO SCH ×2 (08:38→20:11)
[2016-09-13] MEDS: ISOSORBIDE MONONITRATE 30 MG (IMDUR) TAB PO SCH (08:40)
[2016-09-13] MEDS: SALINE NASAL SPRAY (OCEAN) 45 ML BTL SCH ×4 (08:41→20:12)
[2016-09-13] MEDS ORDERED: FUROSEMIDE 40 MG (LASIX) TAB PO NR (09:15)
--- NOTE | 2016-09-13 09:19 | Progress Note-Cardiology ---
Cardiology SOAP Progress Note Subjective: Sitting up on the side of the bed. States the back and shoulder discomfort is better, but still present especially with movement. No c/o palpitations, syncope or near syncope. Feels SOB is somewhat better. Objective: I&O/Vital Signs Vital Sign - Last 12Hours 09/13/16 09/13/16 09/13/16 09/13/16 07:00 07:47 07:52 08:00 Temp 97.6 Pulse 79 81 Resp 16 B/P (MAP) 139/80 Pulse Ox 92 92 92 O2 Delivery Nasal Cannula O2 Flow Rate 2.00 09/13/16 09/13/16 09/13/16 09/13/16 08:20 12:00 13:00 15:24 Temp 97.3 Pulse 79 76 Resp 16 B/P (MAP) 144/84 Pulse Ox 93 91 92 O2 Delivery Nasal Cannula O2 Flow Rate 2.00 2.00 09/13/16 15:45 Temp 98.6 Pulse 79 Resp 20 B/P (MAP) 162/87 Pulse Ox 97 O2 Delivery Nasal Cannula O2 Flow Rate 2.00 Intake and Output 09/13/16 00:00 Intake Total 1757 ml Output Total 1350 ml Balance 407 ml Weight (Pounds): 260 Weight (Ounces): 5.0 Weight (Calculated Kilograms): 118.300680 Constitutional: appears stated age, No apparent distress, well-developed, well- nourished Respiratory: No accessory muscle use, No respiratory distress, chest expansion is symmetric, chest is bilaterally symmetric, wheezing (scattered exp), other ( diminished breath sounds; prolonged expiratory phase) Cardiovascular: regular rate-rhythm, S1 and S2 Gastrointestional: No tender, soft, round, audible bowel sounds, No spleenomegaly Extremities: No clubbing, No cyanosis, No significant edema Neurologic/Psychiatric: alert, oriented x 3, power is 5/5 both on sides Skin: No rash, No ulcerations Results/Procedures: Labs Laboratory Tests 09/12/16 21:29: Glucometer 245H 09/13/16 05:23: Glucometer 123H 09/13/16 11:11: Glucometer 153H 09/13/16 15:55: Glucometer 169H A/P: Assessment: Acute exacerbation of COPD - medical and pulmonary services managing Chest discomfort worse with movement and deep breathing; pleuritic in nature Chronic chest pain syndrome Coronary artery disease with a history of bare-metal stenting of the right coronary artery several years ago, which subsequently became occluded and he then underwent drug-eluting stenting of the right coronary artery with Atom 2.25 x 28-mm stent (August 2010). 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 Branch retinal artery occlusion - following with his martial arts instructor Dr. Encarnacion and Dr. Fan (martial arts instructor in [place]) MPI of of 06/29/16 shows small basal inferolateral IA with a small amount of jess -infarct ischemia, basal inferolateral hypo, LVEF 63%, mild cardiomegaly. Subsequent to this he had the card cath described above Echo of 06/28/16: LVEF 55%, mild asymmetric thickening of the interventricular septum without LVOT obstruction, mild to mod ao valve sclerosis and MAC w/o valvular stenosis, mild mitral & aortic & tricuspid regurg, PASP 35 mmHg Palpitations: 24 hr Holter of 06/28/16 showed NSR with relatively infrequent and isolated PVC & PAC, no significant lori Mild bilat carotid stenosis per u/s of July 2016 Chronic joint (including shoulders) and back discomfort Hypertension, labile H/O chronic chest discomfort Paroxysmal atrial fibrillation treated with pulmonary vein ablation at [facility] without subsequent recurrence. Chronic left bundle branch block following myectomy in November 2005. CKD stage 4 - for which he follow with nephrology in [place], [place] Chronic microscopic hematuria without any identifiable lesions. 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 Continuing tobaccoism from which cessation has been advised Degenerative joint disease. Bilateral carpal tunnel surgery. Intermittent noncompliance with medications. Bilateral leg swelling, likely related to venous insufficiency. Deep venous thrombosis treated with anticoag with rivroxaban. No recent blood clots in the leg veins Sleep apnea and restless leg syndrome. 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 Mccartney at [facility] in [place] in November 2011. He is now following with Dr. Medrano oncology services at [facility] [place] History of hypercalcemia which is being followed by Dr. Noble, his pcp, and by Dr Medrano, his oncologist. He has a prior h/o partial parathyroidectomy Mild AST elevation for which f/u is with his pcp Plan: No new c/o Will resume his home dose of Lasix Monitor lab Leucocytosis likely d/t steroid tx - management per Dr. Carlin and medical services Cardiac status clinically stable OK to discharge home from cardiac stand point with outpt f/u Physician Assessment Physician Assessment Lungs: scattered wheezes, prolonged exp phase Cor: reg A&R * As documented in our note above * Complex management due to multiple comorbidities * Chest pain likely noncardiac. No evidence of ACS * I spoke with Dr Galarza of the [facility] regarding Mr Whitaker's medical issues in detail today BLAYNE MORENO REPULPING SUPERVISOR September 13, 2016 09:19 CHELSEA HAWTHORNE MD FACP FACC CCDS September 13, 2016 17:51
[2016-09-13] MEDS: predniSONE 10 MG TAB PO SCH (11:29)
[2016-09-13 12:00] VITALS: BP 144/84
--- NOTE | 2016-09-13 12:21 | Progress Note-Hospitalist ---
Standard Progress Note Progress Notes/Assess & Plan Date Seen 09/13/16 Diagnosis Assessment: Acute exacerbation of severe chronic obstructive pulmonary disease Recent smoking cessation Morbid obesity Heart disease Hypertension Elevated BNP consistent with volume overload Assess & Plan/Chief Complaint The patient is a 56-year-old white male previously known to me. He was admitted after he presented to the emergency room with complaints of chest pain and somewhat increased shortness of breath. He is disabled because of severe chronic obstructive pulmonary disease and coronary artery disease. He uses O2 per nasal cannula [id number]. A CT scan of the chest was performed yesterday. I reviewed it and found that there was an area of concern in the thoracic spine not discussed in the radiology report. This involved a hyperdense area in the left posterior aspect of a vertebrae visualized at films 48 through 50 and a similar hypodense area in 51 and 52. There was an area of cortical density noted on the abdomen, normal aspect of a vertebra at films number 55. Dr. Chaves was then consulted by phone and agreed that these existed and in fact might be metastatic despite their nicely rounded character. The patient did have a left breast cancer removed and subsequently treated with tamoxifen in 2011. He also has coronary stents which would need to be researched before proceeding with an MRI. He reports that his dyspnea is at its usual home level at this point. Physical exam: We have an elderly white male who appears older than his stated age. Lungs show increased AP diameter. Breath sounds are distant. CV is regular. Abdomen is obese. Extremities show no pedal edema. Impression: 1.COPD/increased dyspnea now at baseline. 2.arteriosclerotic heart disease with previous intervention. 3.history of male breast cancer, 2011. 4.apparent new lesion thoracic vertebra. Plan: Explore his ability to have an MRI. 2.bone scan. Cosleep Labs Laboratory Tests 09/12/16 04:35 JIMMY COPE MD September 13, 2016 12:21
[2016-09-13 15:45] VITALS: BP 162/87
[2016-09-13 19:45] VITALS: BP 147/80
[2016-09-13] MEDS: CLOPIDOGREL 75 MG (PLAVIX) TABLET PO SCH (20:10)
[2016-09-13] MEDS: ATORVASTATIN 40 MG (LIPITOR) TABLET PO SCH (20:10)
[2016-09-13] MEDS: RIVAROXABAN 15 MG TABLET (XARELTO) PO SCH (20:11)
[2016-09-13] MEDS: cefTRIAXone INJECTION 1,000 MG in NS (IVPB) 50 ML IV SCH (22:40)
[2016-09-14 00:26] VITALS: BP 141/75
[2016-09-14] MEDS: AZITHROMYCIN 500 MG/NS 250 ML IVPB IV SCH ×2 (01:13)
[2016-09-14 04:00] VITALS: BP 144/80
[2016-09-14] MEDS: inSUlin ASPART (NovoLOG) 1 UNIT/0.01 ML (CHARGE PER UNIT) SC SCH ×4 (05:53→21:44)
--- NOTE | 2016-09-14 06:58 | Pulmonary Progress Note ---
Exam Exam Vital Signs Date Time Temp Pulse Resp B/P (MAP) Pulse Ox O2 Delivery O2 Flow Rate FiO2 09/14/16 04:00 97.3 72 18 144/80 95 Nasal Cannula 2.00 09/14/16 00:26 97.2 78 20 141/75 95 Nasal Cannula 2.00 09/13/16 19:50 2.00 09/13/16 19:45 97.8 81 20 147/80 93 Nasal Cannula 2.00 09/13/16 19:45 95 2.00 09/13/16 15:45 98.6 79 20 162/87 97 Nasal Cannula 2.00 09/13/16 15:24 92 2.00 09/13/16 13:00 76 09/13/16 12:00 97.3 79 16 144/84 91 Nasal Cannula 2.00 09/13/16 08:20 93 09/13/16 08:00 97.6 81 16 139/80 92 Nasal Cannula 2.00 09/13/16 07:52 92 09/13/16 07:47 92 09/13/16 07:00 79 I & O 09/14/16 07:00 Intake Total 2990 ml Output Total 2800 ml Balance 190 ml General Appearance: No Apparent Distress, WD/WN, Other (very talkative does not appear to be short of breath) HEENT: Other (exophthalmus) Neck: Limited Range of Motion, Other (short and thick) Respiratory: Decreased Breath Sounds, Wheezing Cardiovascular: Regular Rate, Rhythm, No Gallop Capillary Refill: Less Than 3 Seconds Extremity: Normal Capillary Refill, No Calf Tenderness, No Pedal Edema Neurologic/Psychiatric: Alert, Oriented x3, No Motor/Sensory Deficits, Normal Mood/Affect Skin: Normal Color, Warm/Dry Lymphatic: No Adenopathy Assessment/Plan Assessment/Plan COPDAE -prednisone taper -SVNs -CT scan reviewed recently stopped smoking morbid obesity CAD Pt is ok from pulmonary standpoint for discharge on prednisone slow taper. No Abx needed from pulmonary standpoint. Clinical Quality Measures DVT/VTE Risk/Contraindication: Risk Factor Score Per Nursin RFS Level Per Nursing on Admit: 4+=Very High GABE MAYBERRY DO September 14, 2016 06:58
[2016-09-14] MEDS: RT-ALBUTEROL SULF 2.5 MG/3 ML PRE-MIX VIAL IH SCH ×4 (07:26→18:51)
[2016-09-14] MEDS: RT-BUDESONIDE NEBS 0.5 MG/2ML (PULMICORT) AMP INH SCH ×2 (07:26→18:51)
[2016-09-14 08:00] VITALS: BP 167/81
[2016-09-14] MEDS: FUROSEMIDE 40 MG (LASIX) TAB PO SCH (09:34)
[2016-09-14] MEDS: GABAPENTIN 100 MG (NEURONTIN) CAP PO SCH ×3 (09:34→20:18)
[2016-09-14] MEDS: ISOSORBIDE MONONITRATE 30 MG (IMDUR) TAB PO SCH (09:34)
[2016-09-14] MEDS: KCL 10 MEQ TAB (MICRO K) PO SCH (09:34)
[2016-09-14] MEDS: meTOprolol SUCCINATE 100 MG (TOPROL XL) TAB PO SCH ×2 (09:34→20:18)
[2016-09-14] MEDS: RANOLAZINE ER 500 MG TAB (RANEXA) PO SCH ×2 (09:34→20:18)
[2016-09-14] MEDS: SALINE NASAL SPRAY (OCEAN) 45 ML BTL SCH ×4 (09:34→20:19)
--- NOTE | 2016-09-14 09:45 | Progress Note-Cardiology ---
Cardiology SOAP Progress Note Subjective: Feels chest pain is better today. Feels wheezing and shortness of breath is better today. No c/o palpitations, syncope or near syncope. Objective: I&O/Vital Signs Vital Sign - Last 12Hours 09/14/16 09/14/16 09/14/16 09/14/16 07:29 07:32 08:00 08:35 Temp 96.5 Pulse 78 Resp 16 B/P (MAP) 167/81 Pulse Ox 94 94 92 93 O2 Delivery Nasal Cannula O2 Flow Rate 2.00 2.00 09/14/16 09/14/16 10:46 12:00 Temp 97.2 Pulse 78 Resp 20 B/P (MAP) 141/77 Pulse Ox 94 94 O2 Delivery Room Air Intake and Output 09/14/16 00:00 Intake Total 2140 ml Output Total 1750 ml Balance 390 ml Weight (Pounds): 263 Weight (Ounces): 6.0 Weight (Calculated Kilograms): 119.091173 Constitutional: appears stated age, No apparent distress, well-developed, well- nourished Respiratory: No accessory muscle use, No respiratory distress, chest expansion is symmetric, chest is bilaterally symmetric, wheezing (scattered exp, improving ), other (diminished breath sounds; prolonged expiratory phase) Cardiovascular: regular rate-rhythm, S1 and S2 Gastrointestional: No tender, soft, round, audible bowel sounds, No spleenomegaly Extremities: No clubbing, No cyanosis, No significant edema Neurologic/Psychiatric: alert, oriented x 3, power is 5/5 both on sides Skin: No rash, No ulcerations Results/Procedures: Labs Laboratory Tests 09/13/16 21:13: Glucometer 232H 09/14/16 05:32: Glucometer 174H 09/14/16 11:07: Glucometer 118H Procedures NAME: JAGRUTI GARCIA [facility] REC#: [id number] PT STATUS: ADM IN : 1960 PHYSICIAN: CECILIO WILLIAMSON MD ADMIT DATE: 09/11/16 Signed Date of Exam: 09/12/16 CT CHEST WO PROCEDURE: CT chest without contrast. TECHNIQUE: Multiple contiguous axial images were obtained through the chest without the use of intravenous contrast. INDICATION: Left upper chest pain for 3 days There is discoid atelectasis. No mass or infiltrate is seen. There is no effusion or pneumothorax. There is no mediastinal mass or adenopathy. There are coronary artery calcifications present. There are changes of prior median sternotomy. There is no acute bony abnormality. IMPRESSION: No acute abnormality is seen. There is bilateral discoid atelectasis. Dictated by: Dictated on workstation # [id number] Dict: 09/12/16 1207 Trans: 09/12/16 1211 Interpreted by: CONNIE LANGE MD Electronically signed by: CONNIE LANGE MD 09/12/16 1211 A/P: Assessment: Acute exacerbation of COPD - medical and pulmonary services managing Chest discomfort worse with movement and deep breathing; pleuritic in nature Chronic chest pain syndrome Coronary artery disease with a history of bare-metal stenting of the right coronary artery several years ago, which subsequently became occluded and he then underwent drug-eluting stenting of the right coronary artery with Atom 2.25 x 28-mm stent (August 2010). 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 Branch retinal artery occlusion - following with his statistical reporting analyst Dr. Encarnacion and Dr. Fan (statistical reporting analyst in [place]) MPI of of 06/29/16 shows small basal inferolateral FL with a small amount of jess -infarct ischemia, basal inferolateral hypo, LVEF 63%, mild cardiomegaly. Subsequent to this he had the card cath described above Echo of 06/28/16: LVEF 55%, mild asymmetric thickening of the interventricular septum without LVOT obstruction, mild to mod ao valve sclerosis and MAC w/o valvular stenosis, mild mitral & aortic & tricuspid regurg, PASP 35 mmHg Palpitations: 24 hr Holter of 06/28/16 showed NSR with relatively infrequent and isolated PVC & PAC, no significant lori Mild bilat carotid stenosis per u/s of July 2016 Chronic joint (including shoulders) and back discomfort Hypertension, labile H/O chronic chest discomfort Paroxysmal atrial fibrillation treated with pulmonary vein ablation at [facility] without subsequent recurrence. Chronic left bundle branch block following myectomy in November 2005. CKD stage 4 - for which he follow with nephrology in [place], [place] Chronic microscopic hematuria without any identifiable lesions. 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 Continuing tobaccoism from which cessation has been advised Degenerative joint disease. Bilateral carpal tunnel surgery. Intermittent noncompliance with medications. Bilateral leg swelling, likely related to venous insufficiency. Deep venous thrombosis treated with anticoag with rivroxaban. No recent blood clots in the leg veins Sleep apnea and restless leg syndrome. 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 Mccartney at [facility] in [place] in November 2011. He is now following with Dr. Medrano oncology services at [facility] History of hypercalcemia which is being followed by Dr. Noble, his pcp, and by Dr Medrano, his oncologist. He has a prior h/o partial parathyroidectomy Mild AST elevation for which f/u is with his pcp Plan: Monitor lab Leucocytosis likely d/t steroid tx - management per Dr. Carlin and medical services Cardiac status clinically stable OK to discharge home from cardiac stand point with outpt f/u Physician Assessment Physician Assessment Lungs: improved air entry, less wheezing Cor: reg A&R * As documented in our note above * I spoke with him and answered questions * I also spoke with Dr Galarza of the Medical Service yesterday and requested w/ u for noncardiac causes of cp BLAYNE MORENO September 14, 2016 09:45 CHELSEA HAWTHORNE MD [facility] CCDS September 14, 2016 16:10
[2016-09-14 12:00] VITALS: BP 141/77
[2016-09-14] MEDS: predniSONE 10 MG TAB PO SCH (12:24)
--- NOTE | 2016-09-14 12:46 | Progress Note-Hospitalist ---
Standard Progress Note Progress Notes/Assess & Plan Date Seen 09/14/16 Diagnosis Assessment: Acute exacerbation of severe chronic obstructive pulmonary disease Recent smoking cessation Morbid obesity Heart disease Hypertension Elevated BNP consistent with volume overload Assess & Plan/Chief Complaint The patient was unable to lie down for his MRI yesterday. He began to have back and chest pain immediately following lying down prior to entering the gantry. This would not appear to be myocardial. Accordingly he is to have a bone scan and has been dosed. This will help us evaluate the apparent lesion noted on the CT of the chest. He has no other new complaints. Physical exam: He is alert and oriented. His cheeks are pink. Lungs show distant breath sounds without wheezing or rhonchi. CV is distant but regular. Abdomen is obese without tenderness. Extremities show no pedal edema. Impression: Severe COPD/O2 dependent, improving after exacerbation. 2.previous coronary artery disease with both bypass grafting and subsequent stenting. 3.hypertension. 4.diabetes type II. 5.male breast cancer Plan: Await results of bone scan today. From a pulmonary standpoint he is ready to discharge. JIMMY COPE MD September 14, 2016 12:46
--- NOTE | 2016-09-14 14:25 | Diagnostic Imaging Report ---
EXAMINATION: Whole body bone scan. TECHNIQUE: After the intravenous administration of 26 mCi of Technetium 99m MDP, whole body delayed phase bone scan images were obtained with lateral views of the head and neck and the chest regions. INDICATION: Sclerotic and lytic lesions seen on the CT scan of the chest at the T12 level. FINDINGS: There is corresponding moderate intensity foci of increased activity within the T11 vertebral body seen matching the level of the sclerotic and lytic lesions seen on the CT scan from 09/12/2016, concerning for metastatic disease. There is also focal moderate increased activity seen involving the right aspect of the sacral ala or the adjacent portion of the posterior right ilium around the SI joint. Subtle areas of increased uptake in the rest of the spine and the ribs are nonspecific. Renal and urinary bladder excretion is noted. IMPRESSION: Moderate intensity foci of increased activity at the T11 vertebral body corresponding to lytic and sclerotic lesions seen on the CT scan of 09/12/2016 are concerning for metastatic disease. Minimally increased areas of uptake in the rest of the spine and ribs with a suggested focal lesion around the right SI joint could also be related to early bone metastasis. Dictated by: Dictated on workstation # [id number]
[2016-09-14 16:00] VITALS: BP 162/88
[2016-09-14] MEDS: CLOPIDOGREL 75 MG (PLAVIX) TABLET PO SCH (20:18)
[2016-09-14] MEDS: RIVAROXABAN 15 MG TABLET (XARELTO) PO SCH (20:18)
[2016-09-14] MEDS: ATORVASTATIN 40 MG (LIPITOR) TABLET PO SCH (20:18)
[2016-09-14] MEDS: cefTRIAXone INJECTION 1,000 MG in NS (IVPB) 50 ML IV SCH (22:45)
[2016-09-15] VITALS: BP 155/82
[2016-09-15] MEDS: AZITHROMYCIN 500 MG/NS 250 ML IVPB IV SCH ×2 (01:39)
[2016-09-15] MEDS: inSUlin ASPART (NovoLOG) 1 UNIT/0.01 ML (CHARGE PER UNIT) SC SCH (06:10)
[2016-09-15] MEDS: RT-BUDESONIDE NEBS 0.5 MG/2ML (PULMICORT) AMP INH SCH (06:58)
[2016-09-15] MEDS: RT-ALBUTEROL SULF 2.5 MG/3 ML PRE-MIX VIAL IH SCH ×2 (06:58→10:50)
--- NOTE | 2016-09-15 07:32 | Pulmonary Progress Note ---
Exam Exam Vital Signs Date Time Temp Pulse Resp B/P (MAP) Pulse Ox O2 Delivery O2 Flow Rate FiO2 09/15/16 07:00 92 09/15/16 00:00 96.6 70 20 155/82 94 Nasal Cannula 2.00 09/14/16 20:10 Room Air 2.00 09/14/16 18:51 92 09/14/16 16:00 98.1 75 18 162/88 93 Room Air 09/14/16 12:00 97.2 78 20 141/77 94 Room Air 09/14/16 10:46 94 09/14/16 08:35 93 09/14/16 08:00 96.5 78 16 167/81 92 Nasal Cannula 2.00 09/14/16 07:32 94 09/14/16 07:29 94 2.00 I & O 09/15/16 07:00 Intake Total 2612 ml Output Total 2950 ml Balance -338 ml General Appearance: No Apparent Distress, WD/WN, Other (very talkative does not appear to be short of breath) HEENT: Other (exophthalmus) Neck: Limited Range of Motion, Other (short and thick) Respiratory: Decreased Breath Sounds, Wheezing Cardiovascular: Regular Rate, Rhythm, No Gallop Capillary Refill: Less Than 3 Seconds Extremity: Normal Capillary Refill, No Calf Tenderness, No Pedal Edema Neurologic/Psychiatric: Alert, Oriented x3, No Motor/Sensory Deficits, Normal Mood/Affect Skin: Normal Color, Warm/Dry Lymphatic: No Adenopathy Assessment/Plan Assessment/Plan COPDAE -continue prednisone taper -SVNs -CT scan reviewed recently stopped smoking morbid obesity CAD Clinical Quality Measures DVT/VTE Risk/Contraindication: Risk Factor Score Per Nursin RFS Level Per Nursing on Admit: 4+=Very High GABE MAYBERRY DO September 15, 2016 07:32
[2016-09-15 08:00] VITALS: BP 158/88
[2016-09-15] MEDS: FUROSEMIDE 40 MG (LASIX) TAB PO SCH (08:47)
[2016-09-15] MEDS: SALINE NASAL SPRAY (OCEAN) 45 ML BTL SCH (08:47)
[2016-09-15] MEDS: GABAPENTIN 100 MG (NEURONTIN) CAP PO SCH (08:47)
[2016-09-15] MEDS: ISOSORBIDE MONONITRATE 30 MG (IMDUR) TAB PO SCH (08:47)
[2016-09-15] MEDS: KCL 10 MEQ TAB (MICRO K) PO SCH (08:48)
[2016-09-15] MEDS: RANOLAZINE ER 500 MG TAB (RANEXA) PO SCH (08:48)
[2016-09-15] MEDS: meTOprolol SUCCINATE 100 MG (TOPROL XL) TAB PO SCH (08:48)
[2016-09-15] MEDS ORDERED: PRED10TA22 PO (10:39)
--- NOTE | 2016-09-15 10:44 | Discharge Summary-Hospitalist ---
Diagnosis/Chief Complaint Date of Admission September 11, 2016 at 13:45 Date of Discharge Discharge Date: September 15, 2016 Admission Diagnosis Assessment: Acute exacerbation of severe chronic obstructive pulmonary disease Recent smoking cessation Morbid obesity Heart disease Hypertension Elevated BNP consistent with volume overload Discharge Diagnosis Assessment: Acute exacerbation of severe chronic obstructive pulmonary disease Recent smoking cessation Morbid obesity Heart disease Hypertension Elevated BNP consistent with volume overload Male breast cancer with abnormal bone scan concerning for mets to spine Dr Medrano will manage Plan: IV diuretics Oxygen Nebulizer treatments IV steroids Monitor closely Appreciate cardiology and pulmonology input Poor prognosis long-term Reason Hospital Visit/Course CC: Shortness of breath HPI: This is a 56yoWM pt of Dr. Rai that presented to ER with SOB. CXR was negative for pneumonia but dx with severe AECOPD. Chart Review: WBC 11, CMP normal except creat 1.8, BNP 491 doughnut icer machine: Dr. Carlin has not seen pt. Pt has COPD. Pt is on Solumedrol and ABX. Pt was given Lasix. Pt had 2100 out. Patient Interview: Pt states he was at the hospital last month and remembers Dr. Walsh. Pt states he is feeling better now that fluid is out. Pt states he was doing well and out of nowhere he felt like he pulled a muscle. Pt states the pain felt like someone hit him in the chest and the pain progressed to his back. Pt states he quit smoking within the last month. Scribed by Nishant Adkins under the direct supervision of Dr. Walsh. note from 09/15/16: Patient doing well and having less short of breath and ready for discharge Asking about bone scan results and I had talked to Dr. Dobbs and she suggest close follow-up with her office to discuss those results because they were abnormal but she wanted to discuss that with the patient [id number]. 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 He required high dose of steroids and nebulized treatments along with oxygen supplementation along with cardiology follow-up. Bone scan was actually ordered and it appeared to have bony metastasis likely due to spread of male breast cancer but those results will be managed by Dr. Dobbs at her request and I did tell the patient that the results were pending and will be discussed at her follow-up appointment with him in one week. Overall he improved enough from a pulmonary standpoint but obviously guarded prognosis long-term if this is indeed spread of breast cancer to the spine. Discharge Summary Discharge Physical Examination Allergies: Coded Allergies: Iodinated Contrast Media - Oral and (Unverified Allergy, Mild, 10/20/08) Penicillins (Unverified Allergy, Mild, 10/20/08) Shellfish (Verified Allergy, Unknown, 02/18/06) amlodipine (Verified Allergy, Unknown, 11/29/06) iodine (Verified Allergy, Unknown, 08/21/05) penicillin G (Verified Allergy, Unknown, 08/21/05) Vitals & I&Os Vital Signs Date Time Temp Pulse Resp B/P (MAP) Pulse Ox O2 Delivery O2 Flow Rate FiO2 09/15/16 08:35 94 09/15/16 08:00 97.2 75 20 158/88 Nasal Cannula 2.00 Hospital Course Labs (last 24 hrs) Laboratory Tests 09/14/16 11:07: Glucometer 118H 09/14/16 16:16: Glucometer 115H 09/14/16 21:03: Glucometer 212H 09/15/16 05:48: Glucometer 92 Pending Labs Laboratory Tests 09/15/16 05:48: Glucometer 92 Discharge Home Medications: Active Scripts Active Prednisone 10 Mg Tab.ds.pk 10 Mg PO DAILY Take 6 tabs(60mg)daily,decrease by 1 tab(10MG)daily. Reported Metoprolol Succinate 100 Mg Tab.er.24h 100 Mg PO BID Ranexa (Ranolazine) 500 Mg Tab.er.12h 500 Mg PO BID Albuterol Sulfate 1.25 Mg/3 Ml Vial.neb 1.25 Mg IH TID PRN Glimepiride 2 Mg Tablet 2 Mg PO DAILY Tamsulosin HCl 0.4 Mg Cap.er.24h 0.4 Mg PO HS Budesonide 0.5 Mg/2 Ml Ampul.neb 0.5 Mg IH BID Potassium Chloride 10 Meq Tablet.er 10 Meq PO DAILY Cetirizine HCl 10 Mg Tablet 10 Mg PO DAILY Fluticasone Propionate 16 Gm [place].susp 1 [place] NSEACH DAILY PRN Isosorbide Mononitrate ER (Isosorbide Mononitrate) 30 Mg Tab.er.24h 30 Mg PO DAILY Sensipar (Cinacalcet HCl) 30 Mg Tablet 30 Mg PO DAILY Buspirone HCl 10 Mg Tablet 10 Mg PO HS Brovana (Arformoterol Tartrate) 15 Mcg/2 Ml Vial.neb 15 Mcg IH BID Furosemide 40 Mg Tablet 40 Mg PO DAILY Atorvastatin Calcium 40 Mg Tablet 40 Mg PO HS Fenofibrate (Fenofibrate Nanocrystallized) 145 Mg Tablet 145 Mg PO HS Clopidogrel (Clopidogrel Bisulfate) 75 Mg Tablet 75 Mg PO HS Pantoprazole Sodium 40 Mg Tablet.dr 40 Mg PO BID Gabapentin 100 Mg Capsule 100 Mg PO TID Tamoxifen Citrate 20 Mg Tablet 20 Mg PO HS Montelukast Sodium 10 Mg Tablet 10 Mg PO HS Ventolin Hfa (Albuterol Sulfate) 18 Gm Hfa.aer.ad 2 Puff IH QID PRN Xarelto (Rivaroxaban) 15 Mg Tablet 15 Mg PO HS Nitrostat (Nitroglycerin) 0.4 Mg Subl 0.4 Mg SL UD PRN TAKE 1 TABLET EVERY 5 MINUTES X 3 DOSES NEEDED FOR CHEST PAIN Instructions to patient/family Please see electonic discharge instructions given to patient. Clinical Quality Measures DVT/VTE Risk/Contraindication: Risk Factor Score Per Nursin RFS Level Per Nursing on Admit: 4+=Very High DANIEL WALSH DO September 15, 2016 10:44
[2016-09-15 12:29] VITALS: BP 158/88
== END 2016-09-15 11:18 | disposition home or self-care (01) | DRG 190 ==
LOC: EDUNIT# 22:20 → ER 22:23 → ICU 23:20 → UNDOADMOB 23:20 → ICU 09-10 01:15 → 4TH 09-11 12:33 → ICU 09-11 12:33 → INTOOBSV 09-11 13:45 → OBSVTOIN 09-11 13:45
PROVIDERS: ADMIT Internal Medicine; ATTEND Internal Medicine
DX: J44.1 Chronic obstructive pulmonary disease with (acute) exacerbation (principal); I13.0 Hypertensive heart and chronic kidney disease with heart failure and stage 1 through stage 4 chronic kidney disease, or unspecified chronic kidney disease; I50.33 Acute on chronic diastolic (congestive) heart failure; N18.4 Chronic kidney disease, stage 4 (severe); I42.9 Cardiomyopathy, unspecified; E66.01 Morbid (severe) obesity due to excess calories; Z68.41 Body mass index [BMI] 40.0-44.9, adult; I25.118 Atherosclerotic heart disease of native coronary artery with other forms of angina pectoris; I25.2 Old myocardial infarction; J45.909 Unspecified asthma, uncomplicated; I48.0 Paroxysmal atrial fibrillation; E78.00 Pure hypercholesterolemia, unspecified; E11.9 Type 2 diabetes mellitus without complications; E89.2 Postprocedural hypoparathyroidism; K21.9 Gastro-esophageal reflux disease without esophagitis; K76.9 Liver disease, unspecified; M54.9 Dorsalgia, unspecified; R01.1 Cardiac murmur, unspecified; Z87.891 Personal history of nicotine dependence; Z95.5 Presence of coronary angioplasty implant and graft; Z90.12 Acquired absence of left breast and nipple; Z99.81 Dependence on supplemental oxygen; Z85.3 Personal history of malignant neoplasm of breast; Z86.718 Personal history of other venous thrombosis and embolism; I08.3 Combined rheumatic disorders of mitral, aortic and tricuspid valves; I65.23 Occlusion and stenosis of bilateral carotid arteries; Z91.19 Patient's noncompliance with other medical treatment and regimen; G47.30 Sleep apnea, unspecified; G25.81 Restless legs syndrome
CPT/HCPCS: 36415; 71010; 71250; 78306; 80048; 80053; 80061; 81000; 82150; 82550; 82553; 82962; 83690; 83735; 83880; 84100; 84484; 85025; 85610; 85730; 93005; 93041; 94640; 94664; 94760; 96365; 96367; 96375; G0378

== ENCOUNTER → 2016-09-28 | Outpatient (CLI) | payer MEDICARE, MEDICAID ==
--- NOTE | 2016-09-28 16:05 | Diagnostic Imaging Report ---
EXAMINATION: PET-CT TECHNIQUE: Serum glucose level at the time of the study is: 120 mg/dL. 12.7 mCi of FDG was administered intravenously followed by obtaining PET images with corresponding noncontrast CT scan images. The CT scan was performed for anatomic correlation and attenuation correction and was not performed according to the diagnostic protocol of the areas covered. The scan was performed from the head to mid thighs. INDICATION: History of breast cancer. FINDINGS: The brain demonstrates symmetric FDG activity. There is a minimally enlarged right supraclavicular lymph node measuring 1 cm in short axis associated with increased FDG uptake with maximum SUV of 5. There are multiple hypermetabolic lymph nodes seen in the chest with SUV values in the range of 5 to 8. These lymph nodes are borderline enlarged, at around 1 cm in size measured in short axis. Also mildly hypermetabolic lymph nodes in the right hilum are seen. An infrahilar hypermetabolic node in the left side is also suggested. In the abdomen and pelvis there is urinary tract excretion noted. Mild nonspecific activity in bowel loops is seen. The osseous structures demonstrate multiple lesions in the spine, and the posterior right acetabulum and in the right SI joint iliac side posteriorly. Posterior superior aspect of the right iliac bone and minimal FDG uptake in areas within the ribs and the scapula. Some of these lesions demonstrate only minimal FDG uptake and are not associated with significant CT scan changes. Some lesions are associated with subtle sclerotic or lytic changes on the associated CT scan. The FDG uptake however is concerning for metastatic disease. IMPRESSION: Hypermetabolic minimally enlarged thoracic and right supraclavicular lymph nodes, and multiple small mildly hypermetabolic osseous lesions are suggestive of metastatic disease. Dictated by: Dictated on workstation # [id number]
== END ==
LOC: RAD 09:08
PROVIDERS: ATTEND Internal Medicine Hematology & Oncology
DX: C50.022 Malignant neoplasm of nipple and areola, left male breast (principal)

== ENCOUNTER → 2016-11-16 | Outpatient (CLI) | payer MEDICARE, MEDICAID ==
[2016-11-16 14:26] LABS: ALBUMIN 3.6 GM/DL (3.2-4.5); CALCIUM 11.1 MG/DL (8.5-10.1); CREATININE SERUM 2.49 MG/DL (0.60-1.30); PHOSPHORUS 2.4 MG/DL (2.3-4.7); POTASSIUM 4.6 MMOL/L (3.6-5.0)
== END ==
LOC: LAB 13:50
PROVIDERS: ATTEND Internal Medicine Nephrology
DX: I12.9 Hypertensive chronic kidney disease with stage 1 through stage 4 chronic kidney disease, or unspecified chronic kidney disease (principal); N18.3 Chronic kidney disease, stage 3 (moderate); I51.7 Cardiomegaly; E11.9 Type 2 diabetes mellitus without complications; E83.52 Hypercalcemia; E87.5 Hyperkalemia; R60.9 Edema, unspecified; J44.9 Chronic obstructive pulmonary disease, unspecified; Z72.0 Tobacco use; Z95.5 Presence of coronary angioplasty implant and graft
CPT/HCPCS: 36415; 80069; 84100

== ENCOUNTER → 2016-11-25 | Outpatient (CLI) | payer MEDICARE, MEDICAID ==
[~2016-11-25] MED LIST changes: -ARFO15VI3 IH; +ARFO15VI3 NEB; -BUDE0.5A IH; +BUDE0.5A NEB; +BUDE10.2 INH; +FENT1PAT58 TD; +FENT1PAT9 TD; +HYDR-3812 PO; +HYDR2TAB6 PO; +LEVO500T80 PO; +LEVO750T9 PO; -METO-274 PO; +METO-395 PO; +SODI30SP2 NS
--- NOTE | 2016-11-25 13:34 | Diagnostic Imaging Report ---
PROCEDURE: MRI lumbar spine. TECHNIQUE: Multiplanar, multisequence MRI of the lumbar spine was performed without contrast. INDICATION: Breast cancer. FINDINGS: The alignment of the lumbar spine is satisfactory. The vertebral body heights are preserved. There is mild disc desiccation at lower lumbar spine levels without disc height loss. There is no disc herniation at any level. There is straightening of the lordotic curvature probably related to muscle spasm. The cauda equina and conus medullaris appear grossly unremarkable. The bone marrow demonstrates diffuse low T1 mixed T2 signal abnormality suggestive of metastatic disease involving every vertebral body with variable size of lesions seen. The largest is probably the lesion in the left side of the L4 vertebral body measuring 2.8 x 2.7 cm. There is no evidence of mass extension into the spinal canal. There is mild disc herniation at the L5-S1 with no significant spinal canal stenosis. There is facet arthropathy most prominent in the lower lumbar spine. At the L4-L5: There is a moderate bilateral lateral recess stenosis. No central canal stenosis. The foramina demonstrate moderate stenosis on the right and mild stenosis on the left. L5-S1: There is bilateral lateral recess stenosis of [id number] degree bilaterally. The foramina demonstrate severe stenosis bilaterally. IMPRESSION: 1. Diffuse bone metastasis with no extraosseous soft tissue extension seen. 2. Degenerative changes in the lower lumbar spine. There is bilateral severe foramina stenosis at L5-S1. Other findings as above. Dictated by: Dictated on workstation # [id number]
--- NOTE | 2016-11-25 14:11 | Diagnostic Imaging Report ---
Multiplanar multisequence MRI of the thoracic spine performed without contrast. INDICATION: History of breast cancer. FINDINGS: There are diffuse abnormal marrow lesions seen in the thoracic spine involving nearly every level compatible with metastatic disease. T5 and the lower thoracic vertebrae have large lesions replacing significant portion of the marrow within the vertebral bodies. There is no associated compression fracture. The metastases appear to be confined to the bone and do not have soft tissue extension into the spinal canal. The spinal cord has normal caliber, contour, and signal. There is mild disc herniation in the T6-T7 and T7-T8 levels with no significant spinal canal stenosis. The lower thoracic levels demonstrate mild foraminal stenosis secondary to facet hypertrophy. IMPRESSION: Diffuse thoracic spine metastasis with no extraosseous soft tissue extension into the spinal canal or other paravertebral soft tissues noted. Dictated by: Dictated on workstation # [id number]
== END ==
LOC: RAD 11:02
PROVIDERS: ATTEND Internal Medicine Hematology & Oncology
DX: C79.51 Secondary malignant neoplasm of bone (principal); M47.816 Spondylosis without myelopathy or radiculopathy, lumbar region; M48.06 Spinal stenosis, lumbar region; C50.929 Malignant neoplasm of unspecified site of unspecified male breast
CPT/HCPCS: 72146; 72148

== ENCOUNTER 2016-11-27 17:20 | Inpatient (IN) | payer MEDICARE, MEDICAID ==
[~2016-11-27] VITALS: Ht 177.8 cm; Wt 114.8 kg
[~2016-11-27 17:20] MED LIST changes: -BUDE10.2 INH; -FENT1PAT58 TD; -FENT1PAT9 TD; -HYDR-3812 PO; -HYDR2TAB6 PO; -LEVO500T80 PO; -LEVO750T9 PO; -SODI30SP2 NS
[2016-11-27] MEDS ORDERED: fentaNYL INJECTION 100 MCG/2 ML AMP IVP STA (18:42)
[2016-11-27] MEDS ORDERED: ACETAMINOPHEN 500 MG TAB (TYLENOL) PO PRN (18:45)
--- NOTE | 2016-11-27 18:53 | ED General ---
General Chief Complaint: General Problems/Pain Stated Complaint: BACK PAIN/NAUSEA, (CONGESTIVE HEART FAILURE) Nursing Triage Note: pt ambulated to room. pt complains of back and right shoulder pain. pt states he had a MRI done tuesday to see if there is a tumor on his spine that is spreading. Nursing Sepsis Screen: No Definite Risk Source of Information: Patient Exam Limitations: No Limitations History of Present Illness Time Seen by Provider: 18:35 Initial Comments Here with report of back pain, right shoulder and arm pain that has been going on for a while but worsened since yesterday. He apparently was with her grandkids yesterday at the swimming pool. Today he reports chills and was noted to have a fever. Does have history of breast cancer with concerns of metastasis. He had MRI done earlier this week for concerns of a thoracic spine lesion. He does not know the results of that test yet. States that some of this feels like when he had heart failure in the last time but he is vague in description. His pain medicines are not helping control his back and arm pain. Timing/Duration: 1-2 Days Severity: Moderate Associated Systoms: No Chest Pain, No Cough, Fever/Chills, Nausea/Vomiting, No Shortness of Air, Weakness Allergies and Home Medications Allergies Coded Allergies: Iodinated Contrast Media - Oral and (Unverified Allergy, Mild, 10/20/08) Penicillins (Unverified Allergy, Mild, 10/20/08) Shellfish (Verified Allergy, Unknown, 02/18/06) amlodipine (Verified Allergy, Unknown, 11/29/06) iodine (Verified Allergy, Unknown, 08/21/05) penicillin G (Verified Allergy, Unknown, 08/21/05) Home Medications Albuterol Sulfate 18 Gm Hfa.aer.ad, 2 PUFF IH QID PRN for SHORTNESS OF BREATH, ( Reported) Albuterol Sulfate 1.25 Mg/3 Ml Vial.neb, 1.25 MG IH TID PRN for SHORTNESS OF BREATH, (Reported) Arformoterol Tartrate 15 Mcg/2 Ml Vial.neb, 15 MCG IH BID, (Reported) Atorvastatin Calcium 40 Mg Tablet, 40 MG PO HS, (Reported) Budesonide 0.5 Mg/2 Ml Ampul.neb, 0.5 MG IH BID, (Reported) Buspirone HCl 10 Mg Tablet, 10 MG PO HS, (Reported) Cetirizine HCl 10 Mg Tablet, 10 MG PO DAILY, (Reported) Cinacalcet HCl 30 Mg Tablet, 30 MG PO DAILY, (Reported) Clopidogrel Bisulfate 75 Mg Tablet, 75 MG PO HS, (Reported) Fenofibrate Nanocrystallized 145 Mg Tablet, 145 MG PO HS, (Reported) Fluticasone Propionate 16 Gm Clymer.susp, 1 SPRAY NSEACH DAILY PRN for ALLERGIES, (Reported) Furosemide 40 Mg Tablet, 40 MG PO DAILY, (Reported) Gabapentin 100 Mg Capsule, 100 MG PO TID, (Reported) Glimepiride 2 Mg Tablet, 2 MG PO DAILY, (Reported) Isosorbide Mononitrate 30 Mg Tab.er.24h, 30 MG PO DAILY, (Reported) Metoprolol Succinate 100 Mg Tab.er.24h, 100 MG PO BID, (Reported) Montelukast Sodium 10 Mg Tablet, 10 MG PO HS, (Reported) Nitroglycerin 0.4 Mg Subl, 0.4 MG SL UD PRN for CHEST PAIN, (Reported) TAKE 1 TABLET EVERY 5 MINUTES X 3 DOSES NEEDED FOR CHEST PAIN Pantoprazole Sodium 40 Mg Tablet.dr, 40 MG PO BID, (Reported) Potassium Chloride 10 Meq Tablet.er, 10 MEQ PO DAILY, (Reported) Prednisone 10 Mg Tab.ds.pk, 10 MG PO DAILY, #21 Take 6 tabs(60mg)daily,decrease by 1 tab(10MG)daily. Prescribed by: DANIEL WALSH on 09/15/16 1039 Ranolazine 500 Mg Tab.er.12h, 500 MG PO BID, (Reported) Rivaroxaban 15 Mg Tablet, 15 MG PO HS, (Reported) Tamoxifen Citrate 20 Mg Tablet, 20 MG PO HS, (Reported) Tamsulosin HCl 0.4 Mg Cap.er.24h, 0.4 MG PO HS, (Reported) Constitutional: see HPI, chills, fever EENTM: no symptoms reported Respiratory: no symptoms reported Cardiovascular: no symptoms reported Gastrointestinal: no symptoms reported Genitourinary: no symptoms reported Musculoskeletal: no symptoms reported Skin: no symptoms reported Psychiatric/Neurological: No Symptoms Reported All Other Systems Reviewed Negative Unless Noted: Yes Past Pcyvezz-Cyfsex-Kdgrnk Hx Patient Social History Alcohol Use: Denies Use Recreational Drug Use: No Smoking Status: Current Everyday Smoker Type Used: Cigarettes 2nd Hand Smoke Exposure: No Recent Foreign Travel: No Contact w/Someone Who Travel: No Recent Infectious Disease Expo: No Recent Hopitalizations: No Immunizations Up To Date Tetanus Booster (TDap): More than 5yrs PED Vaccines UTD: No Date of Pneumonia Vaccine: May 13, 2014 Date of Influenza Vaccine: Feb 11, 2016 Seasonal Allergies Seasonal Allergies: No Surgeries HX Surgeries: Yes (PARATHYROIDECTOMY, OPEN HEART SC, CARDIAC CATH X20, CARPEL TUNNEL LATA HAND) Surgeries: Appendectomy, Breast, Cardiac, Coronary Stent, Orthopedic Respiratory Hx Respiratory Disorders: Yes Respiratory Disorders: Asthma, COPD, Emphysema Cardiovascular Hx Cardiac Disorders: Yes (HAS STENTS X3, HX LBBB, CHF) Cardiac Disorders: Angina, Atrial Fibrillation, Cardiomyopathy, Chronic Edema/ Swelling, Coronary Artery Disease, Deep Vein Thrombosis, Heart Attack, Heart Murmur, High Cholesterol, Hypertension Neurological Hx Neurological Disorders: Yes Neurological Disorders: TIA Reproductive System Hx Reproductive Disorders: No Sexually Transmitted Disease: No Genitourinary Hx Genitourinary Disorders: Yes (CHRONIC RENAL INSUFFICIENCY) Genitourinary Disorders: Renal Failure Gastrointestinal Hx Gastrointestinal Disorders: Yes (LIVER ENZYME ELEVATION/ LIPITOR ADJUSTED) Gastrointestinal Disorders: Gastroesophageal Reflux, Liver Disease/Jaundice Musculoskeletal Hx Musculoskeletal Disorders: Yes (LEFT SHOULDER TORN ROTATOR CUFF, bilat carpal tunnel repair) Musculoskeletal Disorders: Degenerate Disk Disease, Chronic Back Pain Endocrine Hx Endocrine Disorders: Yes (PARATHYROIDECTOMY, "BORDERLINE DIABETIC") Endocrine Disorders: Diabetes, Non-Insulin dep HEENT HX ENT Disorders: No HEENT Disorders: Cataract Cancer Hx Cancer: Yes Cancer: Breast Psychosocial Hx Psychiatric Problems: No Integumentary HX Skin/Integumentary Disorder: No Blood Transfusions Hx Blood Disorders: No Reviewed Nursing Assessment Reviewed/Agree w Nursing PMH: Yes Family Medical History Family Medial History: Arthritis 19 FATHER Cardiovascular disease 19 FATHER FH: breast cancer 19 MOTHER Respiratory disorder 19 FATHER Physical Exam-Suspected Sepsis Physical Exam Vital Signs Vital Sign - Last 12Hours 11/27/16 18:29 Temp 100.7 Pulse 90 Resp 20 B/P (MAP) 111/74 Pulse Ox 95 O2 Delivery Room Air Capillary Refill : Less Than 3 Seconds Blood Pressure Mean: 86 General Appearance: No Apparent Distress, WD/WN HEENT: PERRL/EOMI, Pharynx Normal Neck: Normal Inspection, Non Tender, Supple Respiratory: Lungs Clear, Normal Breath Sounds Cardiovascular: Regular Rate, Rhythm, No Murmur Gastrointestinal: Non Tender, Soft Back: Normal Inspection, No CVA Tenderness, Other (tender along the back) Extremity: Normal Range of Motion, Non Tender, No Calf Tenderness Neurologic/Psychiatric: Alert, Oriented x3 Skin: normal color, warm/dry Focused Exam Lactic Acid Level Laboratory Tests Test 11/27/16 19:08 Lactic Acid Level 1.04 MMOL/L (0.50-2.00) Progress/Results/Core Measures Suspected Sepsis Recent Fever Within 48 Hours: Yes Infection Criteria Present: None New/Unexplained Altered Menta: No Sepsis Screen: No Definite Risk Sepsis Diagnosis: SIRS Temperature:100.7 Pulse: 90 Respiratory Rate: 20 Laboratory Tests 11/27/16 18:42: White Blood Count 14.2H Blood Pressure 111 /74 Mean: 86 Laboratory Tests 11/27/16 18:42: Creatinine 2.35H, INR Comment 2.0H, Platelet Count 223, Total Bilirubin 0.7 Results/Orders Lab Results Laboratory Tests Test 11/27/16 18:42 11/27/16 19:08 Range/Units White Blood Count 14.2 H 4.3-11.0 10^3/uL Red Blood Count 5.05 4.35-5.85 10^6/uL Hemoglobin 14.0 13.3-17.7 G/DL Hematocrit 45 40-54 % Mean Corpuscular Volume 89 80-99 FL Mean Corpuscular Hemoglobin 28 25-34 PG Mean Corpuscular Hemoglobin Concent 31 L 32-36 G/DL Red Cell Distribution Width 16.8 H 10.0-14.5 % Platelet Count 223 130-400 10^3/uL Mean Platelet Volume 10.7 H 7.4-10.4 FL Neutrophils (%) (Auto) 67 42-75 % Lymphocytes (%) (Auto) 18 12-44 % Monocytes (%) (Auto) 11 0-12 % Eosinophils (%) (Auto) 5 0-10 % Basophils (%) (Auto) 0 0-10 % Neutrophils # (Auto) 9.5 H 1.8-7.8 X 10^3 Lymphocytes # (Auto) 2.5 1.0-4.0 X 10^3 Monocytes # (Auto) 1.5 H 0.0-1.0 X 10^3 Eosinophils # (Auto) 0.6 H 0.0-0.3 10^3/uL Basophils # (Auto) 0.0 0.0-0.1 10^3/uL Neutrophils % (Manual) 69 % Lymphocytes % (Manual) 17 % Monocytes % (Manual) 6 % Eosinophils % (Manual) 6 % Basophils % (Manual) 1 % Band Neutrophils 1 % Blood Morphology Comment NORMAL Prothrombin Time 22.0 H 12.2-14.7 SEC INR Comment 2.0 H 0.8-1.4 Activated Partial Thromboplast Time 32 24-35 SEC Urine Color YELLOW Urine Clarity CLEAR Urine pH 6 5-9 Urine Specific Otis 1.010 L 1.016-1.022 Urine Protein NEGATIVE NEGATIVE Urine Glucose (UA) NEGATIVE NEGATIVE Urine Ketones NEGATIVE NEGATIVE Urine Nitrite NEGATIVE NEGATIVE Urine Bilirubin NEGATIVE NEGATIVE Urine Urobilinogen NORMAL NORMAL MG/DL Urine Leukocyte Esterase 1+ H NEGATIVE Urine RBC (Auto) 4+ H NEGATIVE Urine RBC 5-10 H /HPF Urine WBC 0-2 /HPF Urine Crystals NONE /LPF Urine Bacteria NONE /HPF Urine Casts NONE /LPF Urine Mucus NEGATIVE /LPF Urine Culture Indicated NO Sodium Level 138 135-145 MMOL/L Potassium Level 4.8 3.6-5.0 MMOL/L Chloride Level 101 98-107 MMOL/L Carbon Dioxide Level 29 21-32 MMOL/L Anion Gap 8 5-14 MMOL/L Blood Urea Nitrogen 32 H 7-18 MG/DL Creatinine 2.35 H 0.60-1.30 MG/DL Estimat Glomerular Filtration Rate 29 BUN/Creatinine Ratio 14 Glucose Level 77 70-105 MG/DL Calcium Level 10.8 H 8.5-10.1 MG/DL Magnesium Level 2.1 1.8-2.4 MG/DL Total Bilirubin 0.7 0.1-1.0 MG/DL Aspartate Amino Transf (AST/SGOT) 48 H 5-34 U/L Alanine Aminotransferase (ALT/SGPT) 17 0-55 U/L Alkaline Phosphatase 262 H 40-136 U/L Troponin I < 0.30 <0.30 NG/ML B-Type Natriuretic Peptide 414.0 H <100.0 PG/ML Total Protein 6.8 6.4-8.2 GM/DL Albumin 3.5 3.2-4.5 GM/DL Lactic Acid Level 1.04 0.50-2.00 MMOL/L My Orders Orders - CHINO ELLIS MD Cbc With Automated Diff (11/27/16 18:38) Comprehensive Metabolic Panel (11/27/16 18:38) Lactic Acid Analyzer (11/27/16 18:38) Blood Culture (11/27/16 18:38) Sputum Culture (11/27/16 18:38) Ua Culture If Indicated (11/27/16 18:38) Protime With Inr (11/27/16 18:38) Partial Thromboplastin Time (11/27/16 18:38) Chest 1 View, Ap/Pa Only (11/27/16 18:38) O2 (11/27/16 18:38) Acetaminophen Tablet (Tylenol Tablet) (11/27/16 18:45) Saline Lock/Iv-Start (11/27/16 18:38) Ekg Tracing (11/27/16 18:38) Troponin I (11/27/16 18:38) Vital Signs Adult Sepsis Patie Q1HR (11/27/16 18:38) Remove Rings In Anticipation O (11/27/16 18:38) BNP (11/27/16 18:38) Magnesium (11/27/16 18:38) Fentanyl Injection (Sublimaze Injection (11/27/16 18:42) Manual Differential (11/27/16 18:42) Hydromorphone Injection (Dilaudid Inject (11/27/16 20:37) Meropenem (Merrem 1000 Mg) (11/27/16 20:45) Medications Given in ED Current Medications Medications Dose Ordered Sig/Rebecca Route Start Time Stop Time Status Last Admin Dose Admin Acetaminophen 1,000 mg ONCE PRN PO 11/27/16 18:45 11/27/16 18:52 DC 11/27/16 18:52 1,000 MG Vital Signs/I&O Vital Sign - Last 12Hours 11/27/16 11/27/16 18:29 18:52 Temp 100.7 100.7 Pulse 90 Resp 20 B/P (MAP) 111/74 Pulse Ox 95 O2 Delivery Room Air Capillary Refill : Less Than 3 Seconds Blood Pressure Mean: 86 Progress Note : Progress Note Seen and evaluated. IV, labs, EKG and chest x-ray ordered. UA ordered. Blood cultures and lactic acid ordered due to fever. MRI reviewed and noted multilevel (essentially every vertebrae) involved with metastatic cancer. Patient was informed. Fentanyl 75 g IV ordered. Tylenol 1 g by mouth ordered. Monitor patient. Concerns for pneumonia noted. I did discuss the case with Dr. Walsh at 2026. She accepts patient for admission, inpatient status. I did consult Dr. Martines on-call for Dr. Medrano. He has recommended Pamidronate 60 mg IV over 4 hours due to elevated calcium level. Also we will continue higher fluid rate at 100 mL per hour normal saline also related to calcium elevation. I did discuss pain control with both physicians. Dr. Martines will assist in managing and is recommending Dilaudid 0.5 mg IV every hour when necessary pain and he will adjust and establish oral pain med dosing afterwards. Patient is penicillin allergic and we will use meropenem 1000 mg IV and adjust her creatinine. Pharmacy to adjust dose. Single agent coverage per Dr. Walsh and I agree. Patient has no history of MRSA infection so we will hold vancomycin at this point. Findings and concerns discussed with patient and family who agree with plan. Admit, inpatient status. ECG Initial ECG Impression Date: Nov 27, 2016 Initial ECG Impression Time: 18:49 Initial ECG Rate: 91 Initial ECG Rhythm: Normal Sinus Comment Sinus rhythm with left bundle branch block. PVC noted. Similar to previous of 09/15/16. No evidence of ST elevation MA. Interpreted by me. Diagnostic Imaging Diagonstic Imaging: Xray Plain Films/CT/US/NM/MRI: chest Comments NAME: JAGRUTI [facility]ARC[facility] REC#: [id number] PT STATUS: REG ER : 1960 PHYSICIAN: CHINO ELLIS MD ADMIT DATE: 11/27/16/ER Draft Date of Exam:11/27/16 CHEST 1 VIEW, AP/PA ONLY INDICATION: Back and shoulder pain FINDINGS: Sternal wires midline. Heart size and vascularity within normal limits. There is no effusion or pneumothorax. A new focal opacity projects just lateral to the left heart border which could be a developing infiltrate or small nodule. Infiltrate or atelectasis favored as this is a new finding from the recent study. IMPRESSION: New subtle opacity may be in the lingular segment of the left upper lobe adjacent to the left heart border likely a small focus of nonspecific infiltrate or atelectasis. Even so, followup radiograph in one to 2 weeks would be appropriate to confirm its resolution. No other interval change. Dictated on workstation # [id number] Dict: 11/27/161952 Trans: 11/27/162002 JONATHAN [id number] Interpreted by: JAYMIE PAYNE Electronically signed by: Reviewed: Reviewed by Me Departure Communication Time/Spoke to Admitting Phy: 20:27 Time/Spoke to Consulting Physi: 20:32 Impression Impression: Primary Impression: Pneumonia involving left lung Qualified Codes: J18.1 - Lobar pneumonia, unspecified organism Additional Impression: Metastatic breast cancer Disposition: ADMITTED INPATIENT Condition: Stable Decision to Admit Reason: Admit from ER (General) Decision to Admit/Date: Nov 27, 2016 Time/Decision to Admit Time: 20:27 Departure-Patient Inst. Referrals: KIMANI GALINDO MD (PCP/Family) Primary Care Physician CHINO ELLIS MD Nov 27, 2016 18:53
[2016-11-27 19:01] LABS: BASOPHILS % (AUTO) 0 % (0-10); BILIRUBIN,URINE NEGATIVE (NEGATIVE); EOSINOPHILS # (AUTO) 0.6 10^3/uL (0.0-0.3); EOSINOPHILS % (AUTO) 5 % (0-10); KETONES,URINE NEGATIVE (NEGATIVE); LEUKOCYTE ESTERASE ,URINE 1+ (NEGATIVE); LYMPHOCYTES # (AUTO) 2.5 X 10^3 (1.0-4.0); LYMPHOCYTES % (AUTO) 18 % (12-44); MEAN CORPUSCULAR HEMOGLOBIN 28 PG (25-34); MEAN CORPUSCULAR HGB CONC 31 G/DL (32-36); MEAN CORPUSCULAR VOLUME 89 FL (80-99); MEAN PLATELET VOLUME 10.7 FL (7.4-10.4); MONOCYTES # (AUTO) 1.5 X 10^3 (0.0-1.0); MONOCYTES % (AUTO) 11 % (0-12); NEUTROPHILS # (AUTO) 9.5 X 10^3 (1.8-7.8); NEUTROPHILS % (AUTO) 67 % (42-75); NITRITE,URINE NEGATIVE (NEGATIVE); PH,URINE 6 (5-9); PLATELET COUNT 223 10^3/uL (130-400); PROTEIN,URINE NEGATIVE (NEGATIVE); RED BLOOD COUNT 5.05 10^6/uL (4.35-5.85); RED CELL DISTRIBUTION WIDTH 16.8 % (10.0-14.5); UROBILINOGEN,URINE NORMAL (NORMAL); WHITE BLOOD COUNT 14.2 10^3/uL (4.3-11.0)
[2016-11-27 19:09] LABS: WBC,URINE 0-2 /HPF
[2016-11-27 19:18] LABS: BAND NEUTROPHILS 1 %; BASOPHILS % (MANUAL) 1 %; EOSINOPHILS % (MANUAL) 6 %; LYMPHOCYTES % (MANUAL) 17 %; NEUTROPHILS % (MANUAL) 69 %
[2016-11-27 19:21] LABS: ALANINE AMINOTRANSFERASE 17 U/L (0-55); ALBUMIN 3.5 GM/DL (3.2-4.5); ANION GAP 8 MMOL/L (5-14); ASPARTATE AMINO TRANSFERASE 48 U/L (5-34); BILIRUBIN,TOTAL 0.7 MG/DL (0.1-1.0); BLOOD UREA NITROGEN 32 MG/DL (7-18); BUN/CREATININE RATIO 14; CALCIUM 10.8 MG/DL (8.5-10.1); CARBON DIOXIDE 29 MMOL/L (21-32); CHLORIDE 101 MMOL/L (98-107); CREATININE SERUM 2.35 MG/DL (0.60-1.30); GFR ESTIMATED 29; GLUCOSE 77 MG/DL (70-105); MAGNESIUM 2.1 MG/DL (1.8-2.4); POTASSIUM 4.8 MMOL/L (3.6-5.0); SODIUM 138 MMOL/L (135-145); TOTAL PROTEIN 6.8 GM/DL (6.4-8.2)
[2016-11-27 19:27] LABS: TROPONIN I < 0.30 NG/ML (<0.30)
--- NOTE | 2016-11-27 20:03 | Diagnostic Imaging Report ---
INDICATION: Back and shoulder pain FINDINGS: Sternal wires midline. Heart size and vascularity within normal limits. There is no effusion or pneumothorax. A new focal opacity projects just lateral to the left heart border which could be a developing infiltrate or small nodule. Infiltrate or atelectasis favored as this is a new finding from the recent study. IMPRESSION: New subtle opacity may be in the lingular segment of the left upper lobe adjacent to the left heart border likely a small focus of nonspecific infiltrate or atelectasis. Even so, followup radiograph in one to 2 weeks would be appropriate to confirm its resolution. No other interval change. Dictated by: Dictated on workstation # [id number]
[2016-11-27] MEDS ORDERED: HYDROmorphone (DILAUDID) 2 MG/ML VIAL IVP STA (20:37)
[2016-11-27] MEDS ORDERED: MEROPENEM 1,000 MG in NS (IVPB) 100 ML IV ONE (20:45)
[2016-11-27] MEDS ORDERED: MEROPENEM 500 MG VIAL (MERREM) IV ONE ×2 (20:54→20:59)
[2016-11-27] MEDS ORDERED: NS (IVPB) 0 ML ONE (20:59)
[2016-11-27] MEDS ORDERED: CATHETER FLUSH 10 ML SYR IV PRN (22:30)
[2016-11-27] MEDS ORDERED: PAMIDRONATE IV ONE ×2 (22:30)
[2016-11-27] MEDS ORDERED: ONDANSETRON 4 MG/2 ML (SDV) Z0FRAN IV PRN (22:30)
[2016-11-27] MEDS ORDERED: NS IV ONE ×2 (22:30)
[2016-11-27] MEDS ORDERED: RT-ALBUTEROL SULF 2.5 MG/3 ML PRE-MIX VIAL IH PRN (23:00)
[2016-11-27] MEDS: HYDROmorphone (DILAUDID) 2 MG/ML VIAL IV PRN (23:30)
[2016-11-27] MEDS: NS IV 1000 ML 1,000 ML IV SCH (23:30)
[2016-11-28] VITALS: BP 112/59
[2016-11-28] MEDS: HYDROmorphone (DILAUDID) 2 MG/ML VIAL IV PRN ×4 (03:28→14:12)
[2016-11-28 04:00] VITALS: BP 127/73
[2016-11-28] MEDS: MEROPENEM 500 MG/NS 100 ML IVPB IV SCH ×8 (06:04→23:35)
[2016-11-28] MEDS: CATHETER FLUSH 10 ML SYR IV SCH ×3 (06:04→20:40)
[2016-11-28 07:17] LABS: BASOPHILS % (AUTO) 0 % (0-10); EOSINOPHILS # (AUTO) 0.3 10^3/uL (0.0-0.3); EOSINOPHILS % (AUTO) 3 % (0-10); LYMPHOCYTES # (AUTO) 2.1 X 10^3 (1.0-4.0); LYMPHOCYTES % (AUTO) 18 % (12-44); MEAN CORPUSCULAR HEMOGLOBIN 28 PG (25-34); MEAN CORPUSCULAR HGB CONC 32 G/DL (32-36); MEAN CORPUSCULAR VOLUME 89 FL (80-99); MEAN PLATELET VOLUME 10.9 FL (7.4-10.4); MONOCYTES # (AUTO) 1.3 X 10^3 (0.0-1.0); MONOCYTES % (AUTO) 11 % (0-12); NEUTROPHILS # (AUTO) 7.8 X 10^3 (1.8-7.8); NEUTROPHILS % (AUTO) 68 % (42-75); PLATELET COUNT 190 10^3/uL (130-400); RED BLOOD COUNT 4.77 10^6/uL (4.35-5.85); RED CELL DISTRIBUTION WIDTH 16.7 % (10.0-14.5); WHITE BLOOD COUNT 11.5 10^3/uL (4.3-11.0)
[2016-11-28 07:40] LABS: ALBUMIN 3.2 GM/DL (3.2-4.5); BILIRUBIN,TOTAL 0.5 MG/DL (0.1-1.0); CALCIUM 10.1 MG/DL (8.5-10.1); CREATININE SERUM 2.02 MG/DL (0.60-1.30); POTASSIUM 4.1 MMOL/L (3.6-5.0); TOTAL PROTEIN 6.1 GM/DL (6.4-8.2)
[2016-11-28 08:00] VITALS: BP 111/72
[2016-11-28] MEDS ORDERED: RT-ALBUTEROL SULF 2.5 MG/3 ML PRE-MIX VIAL IH PRN ×2 (08:00→12:00)
[2016-11-28] MEDS ORDERED: RT-ALBUTEROL SULF 2.5 MG/3 ML PRE-MIX VIAL IH SCH (08:00)
[2016-11-28] MEDS: RT-ALBUTEROL SULF 2.5 MG/3 ML PRE-MIX VIAL IH SCH ×4 (11:02→21:51)
[2016-11-28] MEDS ORDERED: fentaNYL PATCH 50 MCG (DURAGESIC) TD SCH (11:45)
[2016-11-28 12:00] VITALS: BP 141/72
[2016-11-28] MEDS ORDERED: FLUTICASONE NASAL SPRAY (FLONASE) 16 GM BTL NS PRN (12:00)
[2016-11-28] MEDS ORDERED: busPIRone 10 MG (BUSPAR) TAB PO PRN (12:00)
[2016-11-28] MEDS ORDERED: RT-ALBUTEROL HFA (VENTOLIN) PER PUFF IH PRN (12:00)
[2016-11-28] MEDS ORDERED: NITROGLYCERIN SUBLINGUAL 0.4 MG TAB (NITROSTAT) SL PRN (12:00)
--- NOTE | 2016-11-28 12:25 | History & Physical-Hospitalist ---
HPI History of Present Illness: HPI/Chief Complaint CC: Left sided pneumonia w/breast cancer mets to spine HPI: This is a 56-year-old white male known to me from hospitalizations in the past and clinic patient of Dr. Noble the presents to the ER with shortness of breath and back pain found to have left-sided pneumonia but MRI that was obtained last week showed widespread metastasis to spinal column. I did confer with Dr. Rea who will have the plan of possibly biopsy of a right supraclavicular lymph node to be able to stage him appropriately but at this current time I will place on a fentanyl patch initiate Dilaudid for breakthrough pain maintain on bowel regimen and reconcile his home medication. I will hold off on anticoagulation because a procedure likely will be planned for biopsy. Source: patient Exam Limitations: no limitations Date Seen 11/28/16 Time Seen by Provider: 10:00 Attending Physician Sharon Phillips DO PCP Navya Noble MD Referring Physician Date of Admission Nov 27, 2016 at 20:40 Home Medications & Allergies Home Medications Reviewed patient Home Medication Reconciliation Form Allergies Allergies Coded Allergies Iodinated Contrast- Oral and IV Dye (Unverified Allergy, Mild, 10/20/08) Penicillins (Unverified Allergy, Mild, 10/20/08) Shellfish (Verified Allergy, Unknown, 02/18/06) amlodipine (Verified Allergy, Unknown, 11/29/06) iodine (Verified Allergy, Unknown, 08/21/05) penicillin G (Verified Allergy, Unknown, 08/21/05) Past Vkspxtp-Wmckwm-Zrhohp Hx Patient Social History Marrital Status: single Employed/Student: unemployed Alcohol Use: Denies Use Recreational Drug Use: No Smoking Status: Current Everyday Smoker Type Used: Cigarettes 2nd Hand Smoke Exposure: No Physical Abuse Screen: No Sexual Abuse: No Recent Foreign Travel: No Contact w/other who traveled: No Recent Hopitalizations: No Recent Infectious Disease Expo: No Immunizations Up To Date Tetanus Booster (TDap): More than 5yrs Date of Pneumonia Vaccine: May 13, 2014 Date of Influenza Vaccine: Feb 11, 2016 Seasonal Allergies Seasonal Allergies: No Surgeries HX Surgeries: Yes (PARATHYROIDECTOMY, OPEN HEART SC, CARDIAC CATH X20, CARPEL TUNNEL LATA HAND) Surgeries: Appendectomy, Breast, Cardiac, Coronary Stent, Orthopedic Respiratory Hx Respiratory Disorders: Yes Respiratory Disorders: COPD, Emphysema Cardiovascular Hx Cardiovascular Disorders: Yes (HAS STENTS X3, HX LBBB, CHF) Cardiac Disorders: Angina, Atrial Fibrillation, Cardiomyopathy, Chronic Edema/ Swelling, Coronary Artery Disease, Deep Vein Thrombosis, Heart Attack, Heart Murmur, High Cholesterol, Hypertension Neurological Hx Neurological Disorders: Yes Neurological Disorders: TIA Reproductive System Hx Reproductive Disorders: No Sexually Transmitted Disease: No Genitourinary Hx Genitourinary Disorders: Yes (CHRONIC RENAL INSUFFICIENCY) Genitourinary Disorders: Renal Failure Gastrointestinal Hx Gastrointestinal Disorders: Yes (LIVER ENZYME ELEVATION/ LIPITOR ADJUSTED) Gastrointestinal Disorders: Gastroesophageal Reflux Musculoskeletal Hx Musculoskeletal Disorders: Yes (LEFT SHOULDER TORN ROTATOR CUFF, bilat carpal tunnel repair) Musculoskeletal Disorders: Degenerate Disk Disease, Chronic Back Pain Endocrine Hx Endocrine Disorders: Yes (PARATHYROIDECTOMY, "BORDERLINE DIABETIC") Endocrine Disorders: Diabetes, Non-Insulin dep HEENT HX ENT Disorders: No HEENT Disorders: Cataract Cancer Hx Cancer: Yes Cancer: Breast Psychosocial Hx Psychiatric Problems: No Integumentary HX Skin/Integumentary Disorder: No Blood Transfusions Hx Blood Disorders: No Reviewed Nursing Assessment Reviewed/Agree w Nursing PMH: Yes Family Medical History Family Hx: Arthritis 19 FATHER Cardiovascular disease 19 FATHER FH: breast cancer 19 MOTHER Respiratory disorder 19 FATHER Review of Systems Constitutional: see HPI, weakness EENTM: no symptoms reported Respiratory: cough, short of breath, wheezing Cardiovascular: no symptoms reported Gastrointestinal: loss of appetite, nausea, vomiting Genitourinary: no symptoms reported Musculoskeletal: back pain Skin: no symptoms reported Psychiatric/Neurological: Anxiety, Depressed All Other Systems Reviewed Negative Unless Noted: Yes Physical Exam Physical Exam Vital Signs Vital Sign - Last 12Hours 11/27/16 11/27/16 18:29 21:55 Temp 100.7 Pulse 90 Resp 20 B/P (MAP) 111/74 Pulse Ox 95 O2 Delivery Room Air O2 Flow Rate 2.50 Capillary Refill : Less Than 3 Seconds General Appearance: WD/WN, Chronically ill, Mild Distress (due to back pain) Eyes: Bilateral Eye Normal Inspection, Bilateral Eye PERRL HEENT: PERRL/EOMI, Normal ENT Inspection, Pharynx Normal Neck: Full Range of Motion, Normal Inspection, Non Tender, Supple, Carotid Bruit Respiratory: Chest Non Tender, No Accessory Muscle Use, No Respiratory Distress , Crackles, Decreased Breath Sounds, Wheezing Cardiovascular: No Edema, No Gallop, No JVD, No Murmur, Normal Peripheral Pulses, Irregularly Irregular Gastrointestinal: Normal Bowel Sounds, No Organomegaly, No Pulsatile Mass, Non Tender, Soft Back: Normal Inspection, No CVA Tenderness, No Vertebral Tenderness Extremity: Normal Capillary Refill, Normal Inspection, Normal Range of Motion, Non Tender, No Calf Tenderness, No Pedal Edema Neurologic/Psychiatric: Alert, Oriented x3, No Motor/Sensory Deficits, Normal Mood/Affect Skin: Normal Color, Warm/Dry Lymphatic: No Adenopathy Results Results/Procedures Lab Laboratory Tests 11/27/16 18:42 11/28/16 06:25 Assessment/Plan Admission Diagnosis Assessment: Left-sided pneumonia and severe COPD and current smoking patient Widespread breast cancer metastasis to the spine on tamoxifen Right supraclavicular lymph node likely will be biopsy location Hypertension Obesity Sleep apnea Assessment and Plan Plan: Pneumonia protocol with Zosyn Nebulizer treatments Oxygen Fentanyl patch Dilaudid IV for breakthrough pain Bowel regimen Needs biopsy Clinical Quality Measures DVT/VTE Risk/Contraindication: Risk Factor Score Per Nursin RFS Level Per Nursing on Admit: 4+=Very High SHARON PHILLIPS DO Nov 28, 2016 12:25
[2016-11-28] MEDS: LACTULOSE SYRUP 10GM/15ML (ENULOSE) 30ML UDC PO SCH ×2 (12:46→20:39)
[2016-11-28] MEDS: GABAPENTIN 100 MG (NEURONTIN) CAP PO SCH ×2 (12:46→20:40)
[2016-11-28] MEDS: NS IV 1000 ML 1,000 ML IV SCH ×3 (13:02→22:51)
[2016-11-28 16:59] VITALS: BP 156/81
[2016-11-28] MEDS: ALFUZOSIN HCL 10 MG TAB (UROXATRAL) PO SCH (18:05)
[2016-11-28 20:31] VITALS: BP 137/72
[2016-11-28] MEDS: ATORVASTATIN 40 MG (LIPITOR) TABLET PO SCH (20:39)
[2016-11-28] MEDS: PANTOPRAZOLE 40 MG (PROTONIX) TAB PO SCH (20:39)
[2016-11-28] MEDS: RANOLAZINE ER 500 MG TAB (RANEXA) PO SCH (20:39)
[2016-11-28] MEDS: meTOprolol SUCCINATE 100 MG (TOPROL XL) TAB PO SCH (20:40)
[2016-11-28] MEDS: MONTELUKAST 10 MG (SINGULAIR) TAB PO SCH (20:40)
[2016-11-28] MEDS: FENOFIBRATE 134 MG (LOFIBRA) CAPSULE PO SCH (20:40)
[2016-11-28] MEDS: SENNA W/DOCUSATE (SENOKOT S) TABLET PO SCH (20:40)
[2016-11-28] MEDS ORDERED: HYDR-3812 PO (20:50)
[2016-11-28] MEDS ORDERED: ACETAMINOPHEN 325 MG TABLET/CAPLET (TYLENOL) PO PRN (21:15)
[2016-11-28] MEDS: ARFORMOTEROL 15 MCG/2 ML (BROVANA) INH SOLUTIION IH SCH (21:51)
[2016-11-28] MEDS: RT-BUDESONIDE NEBS 0.5 MG/2ML (PULMICORT) AMP IH SCH (21:51)
[2016-11-28] MEDS: IBUPROFEN TABLET 200 MG TAB PO PRN (22:02)
[2016-11-29] VITALS: BP 108/51
[2016-11-29] MEDS: RT-ALBUTEROL SULF 2.5 MG/3 ML PRE-MIX VIAL IH SCH ×6 (02:19→22:49)
[2016-11-29] MEDS: CATHETER FLUSH 10 ML SYR IV SCH ×3 (05:19→22:58)
[2016-11-29] MEDS: MEROPENEM 500 MG/NS 100 ML IVPB IV SCH ×4 (05:19→12:39)
[2016-11-29] MEDS: RT-BUDESONIDE NEBS 0.5 MG/2ML (PULMICORT) AMP IH SCH ×2 (07:23→18:56)
[2016-11-29] MEDS: ARFORMOTEROL 15 MCG/2 ML (BROVANA) INH SOLUTIION IH SCH ×2 (07:23→19:03)
[2016-11-29 08:00] VITALS: BP 104/57
[2016-11-29] MEDS: LORATADINE (CLARITIN) 10 MG TAB PO SCH (08:42)
[2016-11-29] MEDS: GLIMEPIRIDE 2 MG (AMARYL) TAB PO SCH (08:42)
[2016-11-29] MEDS: RANOLAZINE ER 500 MG TAB (RANEXA) PO SCH ×2 (08:42→20:11)
[2016-11-29] MEDS: meTOprolol SUCCINATE 100 MG (TOPROL XL) TAB PO SCH ×3 (08:42→21:21)
[2016-11-29] MEDS: GABAPENTIN 100 MG (NEURONTIN) CAP PO SCH ×3 (08:43→20:11)
[2016-11-29] MEDS: ISOSORBIDE MONONITRATE 30 MG (IMDUR) TAB PO SCH (08:43)
[2016-11-29] MEDS: KCL 10 MEQ TAB (MICRO K) PO SCH (08:43)
[2016-11-29] MEDS: PANTOPRAZOLE 40 MG (PROTONIX) TAB PO SCH ×2 (08:43→21:22)
[2016-11-29] MEDS: SENNA W/DOCUSATE (SENOKOT S) TABLET PO SCH ×2 (08:43→20:15)
[2016-11-29] MEDS: LACTULOSE SYRUP 10GM/15ML (ENULOSE) 30ML UDC PO SCH ×2 (08:43→20:14)
[2016-11-29] MEDS: FUROSEMIDE 40 MG (LASIX) TAB PO SCH (08:43)
[2016-11-29] MEDS ORDERED: CINACALCET HCL 30 MG PO SCH (09:00)
--- NOTE | 2016-11-29 10:51 | CONSULTATION REPORT ---
DATE OF CONSULTATION: 11/28/2016 The patient is admitted to room 413 REFERRING PHYSICIAN: Sharon Phillips D.O. PRIMARY PHYSICIAN: Navya Noble IMPRESSION: 1. 57-year-old male with history of right breast cancer, status post modified radical mastectomy in 2011 and on treatment with Tamoxifen. 2. Increasing back pain with MRI findings consistent with extensive metastatic disease along the spine. 3. Hypercalcemia, most likely of malignancy. 4. BRCA mutations positive. 5. History of recurrent DVT and on chronic anticoagulation. 6. Coronary artery disease with CABG and multiple stents in the past. 7. Also has a history of congestive heart failure and history of atrial fibrillation. RECOMMENDATIONS: 1. Pain control with long-acting Fentanyl transdermal patch with short-acting medication for breakthrough pain. Titrate the dose as needed to control his symptoms. 2. Pamidronate 60 mg IV over 4 hours for hypercalcemia and IV fluids cautiously. 3. The patient will need systemic chemotherapy for the metastatic breast cancer and will need to start this fairly soon. 4. Continue to monitor renal function serially. 5. His overall prognosis is guarded. BRIEF HISTORY: Mr. Gonzales is a 57-year-old male who is a carrier of BRCA gene mutation and was diagnosed with right breast cancer in 2011. He underwent right mastectomy and has been on treatment with Tamoxifen since then. Recently he has been complaining of increasing back pain with some of the scans showing some abnormality. He presented to the emergency room yesterday with worsening pain and was admitted for pain control. MRI of the thoracic and lumbar spine done at the emergency room showed extensive metastatic disease in almost every vertebrae but with no extra osseous spread or spinal cord involvement. His most recent CA-27-29 level done as an outpatient was also elevated indicating metastatic breast cancer. Medical oncology consultation was requested for concurrent management. PAST MEDICAL HISTORY: 1. Significant for right breast cancer diagnosed in 2011, status post modified radical mastectomy. Tumor was strongly estrogen and progesterone receptor positive and HER-2/marii negative and he has been on treatment with Tamoxifen since then. 2. He has significant coronary artery disease requiring CABG in early 1999. Since then he has had multiple heart caths and a few stent placements. 3. He has history of congestive heart failure and atrial fibrillation. 4. He has history of recurrent DVTs and has been on chronic anticoagulation. 5. He has extensive history of tobacco use. 6. COPD. 7. History of parathyroid adenoma requiring parathyroidectomy in 1998. SURGERIES INCLUDE: 1. CABG with multiple cardiac cats and stent placements in the past. 2. History of bilateral carpal tunnel release. 3. Torn rotator cuff the left shoulder. SOCIAL HISTORY: The patient is and lives with the daughter in [place], [place]. He has 4 daughters and 2 sons and most of his children live close by, except for one daughter who lives in [place]. 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 He has some exposure to asbestos during this work. 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 He has extensive history of smoking which started at 10 years of age. He is still smoking up to 7 cigarettes a day. Social alcohol use and denied any recreational drug use. FAMILY HISTORY: Significant for mother who was diagnosed with breast cancer at the age of 47 years. Maternal grandfather and grandmother had breast cancers. The patient was diagnosed with BRCA1 mutation and breast cancer. One of his sisters may have had an abdominal malignancy, but he is unsure about this. Some of his children have been screened and found to have BRCA1 mutation. PHYSICAL EXAMINATION: Physical examination today showed an elderly male, obese, awake, and oriented and in mild distress due to the pain. VITAL SIGNS: Temperature was 98, pulse rate 91, respirations 18, blood pressure 127/73, oxygen saturation 92% on 2 liters of oxygen by nasal cannula. HEENT: Normocephalic, extraocular muscles intact. Conjunctiva pink. Oral mucosa moist. NECK: Supple with no JVD. No cervical, supraclavicular, or axillary lymphadenopathy palpable. EXAMINATION OF THE CHEST: Showed right mastectomy. No chest wall lesions palpable. LUNGS: With diminished breath sounds bilaterally without wheezes or rales. CARDIOVASCULAR EXAM: Regular in rate and rhythm. No murmurs or gallops heard. ABDOMEN: Obese, soft, nontender, with no hepatosplenomegaly or other masses palpable. EXTREMITIES: Showed trace edema about the ankles. NEUROLOGICAL EXAM: Showed no focal motor deficits. CBC done today showed WBC 11.5, hemoglobin 13.4, platelet count 190,000 with neutrophil count of 7.8. Chemistry panel showed relatively normal electrolytes. BUN was 31 and creatinine 2.02 with GFR of 34 per minute. Nonfasting glucose was 127. Liver function studies showed AST slightly elevated at 35 and alkaline phosphatase at 247 with the rest of the studies normal. Measured calcium at the time of admission was elevated at 10.8 but measured 10.1 today morning. MRI of the thoracic spine done at the time of admission showed diffuse thoracic spine metastasis with no extra osseous soft tissue extension into the spinal canal or other vertebral soft tissues. Lumbar spine MRI showed diffuse bone metastasis, with no extra osseous soft tissue extension. Degenerative changes in the lower lumbar spine. Last PET CT scan done on 09/28/2016 showed hypermetabolic minimally enlarged thoracic and right supraclavicular lymph nodes and multiple small mildly hypermetabolic osseus lesions along the spine suggestive of metastatic disease. Most recent CA-27-29 level done on 11/16/2016 was elevated at 74.4 compared to the previous reading of 31.8 from 09/22/2016. CEA level done on 11/16/2016 was minimally elevated at 17.2, compared with previous reading of 12.6 from 09/22/2016. PSA level done on 11/16/2016 was normal at 1.59. Thank you for allowing me to participate in this patient's care. Dr. Medrano will be taking over the case starting tomorrow. Job ID: [id number] Dictated Date: 11/28/2016 12:02:38 Electric Distribution Checker Date: 11/29/2016 10:22:08/simran PUGA
[2016-11-29] MEDS ORDERED: SODI30SP2 NS (11:16)
[2016-11-29] MEDS ORDERED: BUDE10.2 INH (11:16)
[2016-11-29] MEDS ORDERED: PATIENT MAY USE OWN MED,SINGLE MED PO SCH (11:45)
--- NOTE | 2016-11-29 13:24 | Progress Note-Hospitalist ---
Standard Progress Note Progress Notes/Assess & Plan Date Seen 11/29/16 Time Seen by Provider: 13:12 Diagnosis Assessment: Left-sided pneumonia and severe COPD and current smoking patient Widespread breast cancer metastasis to the spine on tamoxifen Right supraclavicular lymph node likely will be biopsy location Hypertension Obesity Sleep apnea Assess & Plan/Chief Complaint The patient is a 56-year-old white male known to me. In his previous admission he was discovered to have back pain secondary to likely metastatic breast cancer. He had had a mastectomy procedure performed in 2011 for male breast cancer. There is a family history of breast cancer which has been BRCA positive. He had taken tamoxifen until some time last fall. He has more recently moved back to this area to be near family. Recent studies also revealed a marked progression in activity in the spine since his previous evaluation. He presented to the ER and was admitted. Chest x-ray suggested atelectasis. He had a temperature of 100.7. The white count was 14,000. He reports he feels much better today. He feels that the fentanyl patch was nearly miraculous in his comfort. He has had increase in size and a previously palpable supra scapular mass on the right. His regular oncologist Dr. Fay returns today. Physical exam: The patient is a good mood and the room is full of family. Lungs show scattered rhonchi. CV is regular. There is a tubular firm tender mass palpated above the right scapula. Impression: Metastatic male breast cancer. Multiple examples of vertebral involvement. 3.COPD 4.arteriosclerotic heart disease with previous intervention. 5.tobaccoism Plan: DC meropenem. Continue pain management. Await Dr. FAY plan for malignancy management. Note: The family has a previously booked trip to [place] which he desperately wishes to make. Labs Laboratory Tests 11/27/16 18:42 11/28/16 06:25 JIMMY COPE MD Nov 29, 2016 13:24
[2016-11-29] MEDS: NS IV 1000 ML 1,000 ML IV SCH ×2 (14:00→21:20)
[2016-11-29 16:00] VITALS: BP 105/65
[2016-11-29] MEDS: HYDROmorphone (DILAUDID) 2 MG/ML VIAL IV PRN (16:33)
[2016-11-29] MEDS: ALFUZOSIN HCL 10 MG TAB (UROXATRAL) PO SCH (17:48)
--- NOTE | 2016-11-29 17:51 | Oncology Progress Note ---
Subjective Time Seen by Provider: 17:30 Subjective/Events-last exam I had a long discussion with patient and family. His pain is under good control with Fentanyl patch. His SOB is better. He still have low grade fever 99.7. Leukocytosis is better since the antibiotics He planned a trip to [place] and leaving this Tuesday. Data Review Labs Laboratory Tests 11/27/16 18:42: White Blood Count 14.2H, Mean Corpuscular Hemoglobin Concent 31L, Red Cell Distribution Width 16.8H, Mean Platelet Volume 10.7H, Neutrophils # (Auto) 9.5H , Monocytes # (Auto) 1.5H, Eosinophils # (Auto) 0.6H, Prothrombin Time 22.0H, INR Comment 2.0H, Urine Specific [place] 1.010L, Urine Leukocyte Esterase 1+H, Urine RBC (Auto) 4+H, Urine RBC 5-10H, Blood Urea Nitrogen 32H, Creatinine 2.35H , Calcium Level 10.8H, Aspartate Amino Transf (AST/SGOT) 48H, Alkaline Phosphatase 262H, B-Type Natriuretic Peptide 414.0H 11/27/16 19:08: 11/28/16 06:25: White Blood Count 11.5H, Red Cell Distribution Width 16.7H, Mean Platelet Volume 10.9H, Monocytes # (Auto) 1.3H, Blood Urea Nitrogen 31H, Creatinine 2.02H , Aspartate Amino Transf (AST/SGOT) 35H, Alkaline Phosphatase 247H, Carbon Dioxide Level 20L, Glucose Level 127H, Total Protein 6.1L Physical Exam Vital Signs Vital Sign - Last 12Hours 11/27/16 11/27/16 18:29 21:55 Temp 100.7 Pulse 90 Resp 20 B/P (MAP) 111/74 Pulse Ox 95 O2 Delivery Room Air O2 Flow Rate 2.50 Capillary Refill : Less Than 3 Seconds General Appearance: No Apparent Distress HEENT: PERRL/EOMI Neck: Non Tender, Supple Respiratory: No Accessory Muscle Use, No Respiratory Distress, Wheezing Cardiovascular: Regular Rate, Rhythm, No Edema, No JVD Extremity: Non Tender, No Calf Tenderness, No Pedal Edema Neurologic/Psychiatric: Alert, Oriented x3 Impression & Plan Impression & Plan IMPRESSION: 1. 57-year-old male with history of right breast cancer, status post modified radical mastectomy in 2011 and on treatment with Tamoxifen. 2. Increasing back pain with MRI findings consistent with extensive metastatic disease along the spine. 3. Hypercalcemia, most likely of malignancy. 4. BRCA mutations positive. 5. History of recurrent DVT and on chronic anticoagulation. 6. Coronary artery disease with CABG and multiple stents in the past. 7. Also has a history of congestive heart failure and history of atrial fibrillation. 8. Left pneumonia with low grade fever and leukocytosis on IV antibiotics day 2. SOB better and elevated WBC down 9. Pain control issues. 10. Hypercalcemia, resolved after Pamidronate by Dr Rea. Ca 10.1 today 11. Chronic renal failure Cr. 2.1-2.8 range. RECOMMENDATIONS: 1. Pain control with long-acting Fentanyl transdermal patch with short-acting medication for breakthrough pain. Titrate the dose as needed to control his symptoms. 2. Patient can go home tomorrow from Med/Oncology point of view. 3. Keep his regular follow up appointment with me at cancer center on 12/01/16 to discuss biopsy and systemic chemotherapy for the metastatic breast cancer. 4. Continue to monitor renal function serially. 5. His overall prognosis is guarded. 6. Hold off anticoagulation for 72 hrs before the biopsy. 7. Pt planned a trip to [place] this Tuesday and he wants to go. Clinical Quality Measures DVT/VTE Risk/Contraindication: Risk Factor Score Per Nursin RFS Level Per Nursing on Admit: 4+=Very High LATESHA FAY MD Nov 29, 2016 17:51
[2016-11-29] MEDS ORDERED: RT-ADVAIR HFA 115/21 MCG PER PUFF IH SCH (20:00)
[2016-11-29] MEDS: ATORVASTATIN 40 MG (LIPITOR) TABLET PO SCH (20:11)
[2016-11-29] MEDS: MONTELUKAST 10 MG (SINGULAIR) TAB PO SCH (20:11)
[2016-11-29] MEDS: FENOFIBRATE 134 MG (LOFIBRA) CAPSULE PO SCH (20:11)
[2016-11-29] MEDS ORDERED: TAMOXIFEN CITRATE 20 MG PO SCH (21:00)
[2016-11-30] MEDS: HYDROmorphone (DILAUDID) 2 MG/ML VIAL IV PRN (00:16)
[2016-11-30 00:20] VITALS: BP 109/72
[2016-11-30] MEDS: RT-ALBUTEROL SULF 2.5 MG/3 ML PRE-MIX VIAL IH SCH ×4 (02:17→14:00)
[2016-11-30] MEDS: CATHETER FLUSH 10 ML SYR IV SCH (06:19)
[2016-11-30] MEDS: RT-BUDESONIDE NEBS 0.5 MG/2ML (PULMICORT) AMP IH SCH (06:31)
[2016-11-30] MEDS: NS IV 1000 ML 1,000 ML IV SCH (07:16)
[2016-11-30 08:00] VITALS: BP 120/71
[2016-11-30] MEDS: PANTOPRAZOLE 40 MG (PROTONIX) TAB PO SCH (09:15)
[2016-11-30] MEDS: LORATADINE (CLARITIN) 10 MG TAB PO SCH (09:16)
[2016-11-30] MEDS: GABAPENTIN 100 MG (NEURONTIN) CAP PO SCH ×2 (09:16→13:22)
[2016-11-30] MEDS: ISOSORBIDE MONONITRATE 30 MG (IMDUR) TAB PO SCH (09:16)
[2016-11-30] MEDS: IBUPROFEN TABLET 200 MG TAB PO PRN (09:16)
[2016-11-30] MEDS: FUROSEMIDE 40 MG (LASIX) TAB PO SCH (09:16)
[2016-11-30] MEDS: meTOprolol SUCCINATE 100 MG (TOPROL XL) TAB PO SCH (09:16)
[2016-11-30] MEDS: GLIMEPIRIDE 2 MG (AMARYL) TAB PO SCH (09:16)
[2016-11-30] MEDS: LACTULOSE SYRUP 10GM/15ML (ENULOSE) 30ML UDC PO SCH (09:16)
[2016-11-30] MEDS: KCL 10 MEQ TAB (MICRO K) PO SCH (09:16)
[2016-11-30] MEDS: RANOLAZINE ER 500 MG TAB (RANEXA) PO SCH (09:16)
[2016-11-30] MEDS: SENNA W/DOCUSATE (SENOKOT S) TABLET PO SCH (09:17)
[2016-11-30] MEDS: ARFORMOTEROL 15 MCG/2 ML (BROVANA) INH SOLUTIION IH SCH (10:10)
--- NOTE | 2016-11-30 11:45 | Oncology Progress Note ---
Subjective Time Seen by Provider: 11:00 Subjective/Events-last exam Pt is ready to go home. Pain is under good control with Fentanyl patch and Dilaudid PRN He wants to go for the [place] trip with his family, 12/03/16-12/12/16 Dr Galarza (primary) will discharge patient today. Data Review Labs Laboratory Tests 11/27/16 18:42: White Blood Count 14.2H, Mean Corpuscular Hemoglobin Concent 31L, Red Cell Distribution Width 16.8H, Mean Platelet Volume 10.7H, Neutrophils # (Auto) 9.5H , Monocytes # (Auto) 1.5H, Eosinophils # (Auto) 0.6H, Prothrombin Time 22.0H, INR Comment 2.0H, Urine Specific [place] 1.010L, Urine Leukocyte Esterase 1+H, Urine RBC (Auto) 4+H, Urine RBC 5-10H, Blood Urea Nitrogen 32H, Creatinine 2.35H , Calcium Level 10.8H, Aspartate Amino Transf (AST/SGOT) 48H, Alkaline Phosphatase 262H, B-Type Natriuretic Peptide 414.0H 11/27/16 19:08: 11/28/16 06:25: White Blood Count 11.5H, Red Cell Distribution Width 16.7H, Mean Platelet Volume 10.9H, Monocytes # (Auto) 1.3H, Blood Urea Nitrogen 31H, Creatinine 2.02H , Aspartate Amino Transf (AST/SGOT) 35H, Alkaline Phosphatase 247H, Carbon Dioxide Level 20L, Glucose Level 127H, Total Protein 6.1L Physical Exam Vital Signs Vital Sign - Last 12Hours 11/27/16 11/27/16 18:29 21:55 Temp 100.7 Pulse 90 Resp 20 B/P (MAP) 111/74 Pulse Ox 95 O2 Delivery Room Air O2 Flow Rate 2.50 Capillary Refill : Less Than 3 Seconds General Appearance: No Apparent Distress HEENT: PERRL/EOMI Neck: Non Tender, Supple Respiratory: No Accessory Muscle Use, No Respiratory Distress Impression & Plan Impression & Plan IMPRESSION: 1. 57-year-old male with history of right breast cancer, status post modified radical mastectomy in 2011 and on treatment with Tamoxifen. 2. Increasing back pain with MRI findings consistent with extensive metastatic disease along the spine. 3. Hypercalcemia, most likely of malignancy. 4. BRCA mutations positive. 5. History of recurrent DVT and on chronic anticoagulation. 6. Coronary artery disease with CABG and multiple stents in the past. 7. Also has a history of congestive heart failure and history of atrial fibrillation. 8. Left pneumonia with low grade fever and leukocytosis on IV antibiotics day 2. SOB better and elevated WBC down 9. Pain control issues. 10. Hypercalcemia, resolved after Pamidronate by Dr Rea. Ca 10.1 today 11. Chronic renal failure Cr. 2.1-2.8 range. RECOMMENDATIONS: 1. I contacted Radiologist Dr Chaves's office today for possible biopsy today or tomorrow. Please call his office to confirm the time. Continue to hold of anticoagulation for now. Keep Pt NPO from now on until we know the biopsy time. 2. Pt can go home after biopsy or go home today and return to Radiology Dept tomorrow for biopsy. 3. Pain control with long-acting Fentanyl transdermal patch. Please give 1 month supply. Oxycodone 5-10mg q 4-5hrs PRN break through, [address] Galarza to decided his oral antibiotics when going home. 6. Hold off anticoagulation for 72 hrs before the biopsy. 7. Pt planned a trip to [place] this Tuesday and will be back 12/12/2016. 8. I will see him 12/14/16 1:15pm at cancer center to go over the biopsy result. I have given patient appointment cards for Port Placement with Dr Riojas (was initially set up for 12/06/16. Pt needs to call to change the date since he will be in [place]) and chemo teaching card for 12/22/16. Clinical Quality Measures DVT/VTE Risk/Contraindication: Risk Factor Score Per Nursin RFS Level Per Nursing on Admit: 4+=Very High LATESHA FAY MD Nov 30, 2016 11:45
--- NOTE | 2016-11-30 14:08 | Progress Note-Hospitalist ---
Standard Progress Note Progress Notes/Assess & Plan Date Seen 11/30/16 Time Seen by Provider: 14:04 Diagnosis Assessment: Left-sided pneumonia and severe COPD and current smoking patient Widespread breast cancer metastasis to the spine on tamoxifen Right supraclavicular lymph node likely will be biopsy location Hypertension Obesity Sleep apnea Assess & Plan/Chief Complaint The patient was out of his room for a radiology procedure when I arrived. Dr. Dobbs has seen him this morning and has outlined her plan which is to say biopsy of a node for confirmation of tumor type. He will then be ready for discharge with pending pathology evaluation. He has been okayed to take his [employer] trip. After his return he will begin a treatment program at the cancer center. His pain relief has been excellent by his account with the fentanyl patch and dilated for breakthrough pain and this will be continued. Impression: Widely metastatic malignant process, likely breast. 2.previous mastectomy for male BRCA breast cancer IJMMY COPE MD Nov 30, 2016 14:07
[2016-11-30 14:11] LABS: INR 1.2 (0.8-1.4); PROTHROMBIN TIME PATIENT 14.4 SEC (12.2-14.7)
[2016-11-30] MEDS ORDERED: LIDOCAINE 1% INJ 20 ML (XYLOCAINE) VIAL ONE (14:12)
--- NOTE | 2016-11-30 14:16 | Diagnostic Imaging Report ---
EXAMINATION: Ultrasound of the right side of the neck. INDICATION: Evaluate lymphadenopathy. History of breast cancer. FINDINGS: There is an enlarged lymph node measuring 1.7 x 1 x 1 cm with a thickened cortex and a small remaining fatty hilum which may relate to metastasis. IMPRESSION: A 1.7 cm mildly enlarged right supraclavicular lymph node is seen which could relate to metastasis. Dictated by: Dictated on workstation # [id number]
[2016-11-30] MEDS ORDERED: HYDR2TAB6 PO (14:53)
[2016-11-30] MEDS ORDERED: FENT1PAT9 TD (14:53)
[2016-11-30] MEDS ORDERED: LIDOCAINE 1% INJ 20 ML (XYLOCAINE) VIAL INJ ONE (15:00)
[2016-11-30 15:15] VITALS: BP 116/64
[2016-11-30 16:35] VITALS: BP 116/64
--- NOTE | 2016-11-30 17:27 | Diagnostic Imaging Report ---
EXAMINATION: US-guided core biopsy-neck. INDICATION: Right supraclavicular enlarged lymph node. Current history and physical and other medical records are reviewed prior to the procedure. CONSENT: Informed consent was obtained from the patient. The risks, benefits, potential complications and alternatives were reviewed and all questions answered to the patient's satisfaction. The patient's vital signs, cardiac rhythm, and pulse oximetry with observed throughout the procedure by qualified nursing personnel. Sedation/medications: none. FINDINGS: Right supraclavicular enlarged lymph nodes. PROCEDURE: After maximal sterile barrier technique preparation and draping, 1% lidocaine was utilized for local anesthesia. With the patient in supine position, and via anterior approach, a 17-gauge guide needle is introduced into the right supraclavicular enlarged lymph node under live ultrasound guidance. After confirming adequate positioning with saved ultrasound images, multiple 18 gauge core biopsy specimens were obtained. The patient tolerated the procedure well with no immediate complications. IMPRESSION: Successful US-guided core biopsy of enlarged right supraclavicular lymph node. Dictated by: Dictated on workstation # [id number]
--- NOTE | 2016-12-01 09:19 | Pre-Procedure Progress Note ---
Pre-Procedure Progress Note H&P Reviewed The H&P was reviewed, patient examined and no changes noted. Date H&P Reviewed: Nov 30, 2016 Time H&P Reviewed: 14:30 Pre-Procedure Diagnosis: neck LN SHONNA RYAN MD Dec 01, 2016 09:19
--- NOTE | 2016-12-22 14:13 | Discharge Summary-Hospitalist ---
Diagnosis/Chief Complaint Date of Admission Nov 27, 2016 at 20:40 Date of Discharge Nov 30, 2016 at 16:35 Discharge Date: Nov 30, 2016 Admission Diagnosis Assessment: Left-sided pneumonia and severe COPD and current smoking patient Widespread breast cancer metastasis to the spine on tamoxifen Right supraclavicular lymph node likely will be biopsy location Hypertension Obesity Sleep apnea Discharge Diagnosis 1.left-sided pneumonia. 2.severe COPD. 3.male breast cancer 2011 with subsequent tamoxifen therapy. 4.recently discovered evidence of bony metastases principally spine. Discharge Summary Discharge Physical Examination Allergies: Coded Allergies: Iodinated Contrast- Oral and IV Dye (Unverified Allergy, Mild, 10/20/08) Penicillins (Unverified Allergy, Mild, 10/20/08) Shellfish (Verified Allergy, Unknown, 02/18/06) amlodipine (Verified Allergy, Unknown, 11/29/06) iodine (Verified Allergy, Unknown, 08/21/05) penicillin G (Verified Allergy, Unknown, 08/21/05) Hospital Course The patient was admitted after he presented with complaints of increasing shortness of breath and fever. He was determined to have evidence of a pneumonia on the left side. He responded well to IV fluids and antibiotics. This was an interruption to his previously planned bone biopsy and placement of a port for access and chemotherapy. He was responded well to antibiotics. He was deemed ready for discharge on oral antibiotics. He and his family had scheduled a family vacation to [place] and after discussion with Dr. Medrano it was okayed for him to leave as planned on the Tuesday following discharge. He was to complete his oral antibiotics. Plans were revised for his program at the cancer center with a an appointment on 12/14 for chemotherapy training session. Subsequently he was to have an transdermal biopsy in the radiology department and the placement of a port for chemotherapy. His medications and activities are to be described in the discharge sequence. Labs (last 24 hrs) Microbiology 11/27/16 Blood Culture - Final, Complete No growth Discharge Home Medications: Active Scripts Active Reported Hydromorphone HCl 2 Mg Tablet 2 Mg PO BID PRN Prednisone 20 Mg Tab PO UD 9 Days 20MG 3X DAILY X3 DAYS THEN 20MG 2X DAILY X3 DAYS THEN 20MG 1X DAILY X3 DAYS Levofloxacin 500 Mg Tablet 250 Mg PO DAILY 10 Days TAKES 1/2 (500MG) TABLET FILLED #10 500MG TABS 8-7-17 FOR 1 DAILY - STATES THE DOSE WAS DECREASED TO 1/2 TAB DAILY X 10 DAYS DUE TO KIDNEY FUNCTION Duragesic Patch 50MCG (Fentanyl) 1 Each Patch.td72 50 Mcg TD Q72H Symbicort 160-4.5 Mcg Inhaler (Budesonide/Formoterol Fumarate) 10.2 Gm Hfa.aer.ad 2 Puff INH BID PRN Saline Nasal [place] (Sodium Chloride) 30 Ml [place] 1-2 Sprays NS BID PRN Metoprolol Succinate 100 Mg Tab.er.24h 100 Mg PO BID Ranexa (Ranolazine) 500 Mg Tab.er.12h 500 Mg PO BID Glimepiride 2 Mg Tablet 2 Mg PO DAILY Tamsulosin HCl 0.4 Mg Cap.er.24h 0.4 Mg PO HS Budesonide 0.5 Mg/2 Ml Ampul.neb 0.5 Mg NEB BID MIXED WITH BROVANA Potassium Chloride 10 Meq Tablet.er 10 Meq PO DAILY Cetirizine HCl 10 Mg Tablet 10 Mg PO DAILY Isosorbide Mononitrate ER (Isosorbide Mononitrate) 30 Mg Tab.er.24h 30 Mg PO DAILY Sensipar (Cinacalcet HCl) 30 Mg Tablet 30 Mg PO DAILY Buspirone HCl 10 Mg Tablet 10 Mg PO HS PRN Brovana (Arformoterol Tartrate) 15 Mcg/2 Ml Vial.neb 15 Mcg NEB BID MIXES WITH BUDESONIDE Furosemide 40 Mg Tablet 40 Mg PO DAILY Atorvastatin Calcium 40 Mg Tablet 40 Mg PO HS Fenofibrate (Fenofibrate Nanocrystallized) 145 Mg Tablet 145 Mg PO HS Clopidogrel (Clopidogrel Bisulfate) 75 Mg Tablet 75 Mg PO HS Pantoprazole Sodium 40 Mg Tablet.dr 40 Mg PO BID Gabapentin 100 Mg Capsule 100 Mg PO TID Tamoxifen Citrate 20 Mg Tablet 20 Mg PO HS Montelukast Sodium 10 Mg Tablet 10 Mg PO HS Ventolin Hfa (Albuterol Sulfate) 18 Gm Hfa.aer.ad 2 Puff IH QID PRN Xarelto (Rivaroxaban) 15 Mg Tablet 15 Mg PO HS Nitrostat (Nitroglycerin) 0.4 Mg Subl 0.4 Mg SL UD PRN TAKE 1 TABLET EVERY 5 MINUTES X 3 DOSES NEEDED FOR CHEST PAIN Instructions to patient/family Please see electonic discharge instructions given to patient. Clinical Quality Measures DVT/VTE Risk/Contraindication: Risk Factor Score Per Nursin RFS Level Per Nursing on Admit: 4+=Very High JIMMY COPE MD Dec 22, 2016 14:13
== END 2016-11-30 16:35 | disposition home or self-care (01) | DRG 515 ==
LOC: EDUNIT# 17:20 → ER 17:22 → 4TH 20:40
PROVIDERS: ADMIT Internal Medicine; ATTEND Internal Medicine
PROC: 07B13ZX Excision of Right Neck Lymphatic, Percutaneous Approach, Diagnostic (ICD-10-PCS; principal; 2016-11-30)
DX: C79.51 Secondary malignant neoplasm of bone (principal); J44.0 Chronic obstructive pulmonary disease with (acute) lower respiratory infection; J18.9 Pneumonia, unspecified organism; G89.3 Neoplasm related pain (acute) (chronic); I13.0 Hypertensive heart and chronic kidney disease with heart failure and stage 1 through stage 4 chronic kidney disease, or unspecified chronic kidney disease; I50.9 Heart failure, unspecified; N18.9 Chronic kidney disease, unspecified; I42.9 Cardiomyopathy, unspecified; R59.0 Localized enlarged lymph nodes; G47.30 Sleep apnea, unspecified; F17.210 Nicotine dependence, cigarettes, uncomplicated; E66.9 Obesity, unspecified; E83.52 Hypercalcemia; I25.119 Atherosclerotic heart disease of native coronary artery with unspecified angina pectoris; J45.909 Unspecified asthma, uncomplicated; I48.91 Unspecified atrial fibrillation; E78.00 Pure hypercholesterolemia, unspecified; E11.9 Type 2 diabetes mellitus without complications; K21.9 Gastro-esophageal reflux disease without esophagitis; E89.2 Postprocedural hypoparathyroidism; I25.2 Old myocardial infarction; Z95.1 Presence of aortocoronary bypass graft; Z95.5 Presence of coronary angioplasty implant and graft; Z79.899 Other long term (current) drug therapy; Z68.36 Body mass index [BMI] 36.0-36.9, adult; Z90.11 Acquired absence of right breast and nipple; Z86.718 Personal history of other venous thrombosis and embolism; Z79.01 Long term (current) use of anticoagulants; Z79.84 Long term (current) use of oral hypoglycemic drugs; Z86.73 Personal history of transient ischemic attack (TIA), and cerebral infarction without residual deficits
CPT/HCPCS: 36415; 71010; 76536; 76942; 80053; 81000; 83605; 83735; 83880; 84484; 85007; 85025; 85027; 85610; 85730; 87040; 88305; 88341; 88342; 88360; 93005; 94640; 94760; 96365; 96375

== ENCOUNTER 2016-12-14 12:59 | Outpatient (RCR) | payer MEDICARE, MEDICAID ==
[2016-09-22 14:07] LABS: BASOPHILS % (AUTO) 0 % (0-10); EOSINOPHILS # (AUTO) 0.2 10^3/uL (0.0-0.3); EOSINOPHILS % (AUTO) 2 % (0-10); LYMPHOCYTES # (AUTO) 1.6 X 10^3 (1.0-4.0); LYMPHOCYTES % (AUTO) 16 % (12-44); MEAN CORPUSCULAR HEMOGLOBIN 27 PG (25-34); MEAN CORPUSCULAR HGB CONC 31 G/DL (32-36); MEAN CORPUSCULAR VOLUME 87 FL (80-99); MEAN PLATELET VOLUME 10.3 FL (7.4-10.4); MONOCYTES # (AUTO) 0.7 X 10^3 (0.0-1.0); MONOCYTES % (AUTO) 7 % (0-12); NEUTROPHILS # (AUTO) 7.4 X 10^3 (1.8-7.8); NEUTROPHILS % (AUTO) 75 % (42-75); PLATELET COUNT 187 10^3/uL (130-400); RED BLOOD COUNT 4.98 10^6/uL (4.35-5.85); RED CELL DISTRIBUTION WIDTH 18.2 % (10.0-14.5); WHITE BLOOD COUNT 9.9 10^3/uL (4.3-11.0)
[2016-09-22 14:32] LABS: ALBUMIN 3.4 G/DL (3.2-4.5); BILIRUBIN,TOTAL 0.6 MG/DL (0.1-1.0); CALCIUM 9.2 MG/DL (8.5-10.1); CREATININE SERUM 2.25 MG/DL (0.60-1.30); POTASSIUM 4.7 MMOL/L (3.6-5.0); TOTAL PROTEIN 5.6 G/DL (6.4-8.2)
[2016-11-16 14:18] LABS: BASOPHILS % (AUTO) 1 % (0-10); EOSINOPHILS # (AUTO) 0.7 10^3/uL (0.0-0.3); EOSINOPHILS % (AUTO) 8 % (0-10); LYMPHOCYTES # (AUTO) 2.3 X 10^3 (1.0-4.0); LYMPHOCYTES % (AUTO) 26 % (12-44); MEAN CORPUSCULAR HEMOGLOBIN 28 PG (25-34); MEAN CORPUSCULAR HGB CONC 31 G/DL (32-36); MEAN CORPUSCULAR VOLUME 90 FL (80-99); MEAN PLATELET VOLUME 11.1 FL (7.4-10.4); MONOCYTES # (AUTO) 0.8 X 10^3 (0.0-1.0); MONOCYTES % (AUTO) 10 % (0-12); NEUTROPHILS # (AUTO) 4.9 X 10^3 (1.8-7.8); NEUTROPHILS % (AUTO) 56 % (42-75); PLATELET COUNT 181 10^3/uL (130-400); RED BLOOD COUNT 5.13 10^6/uL (4.35-5.85); RED CELL DISTRIBUTION WIDTH 17.1 % (10.0-14.5); WHITE BLOOD COUNT 8.8 10^3/uL (4.3-11.0)
[2016-11-16 14:26] LABS: ALBUMIN 3.6 GM/DL (3.2-4.5); BILIRUBIN,TOTAL 0.6 MG/DL (0.1-1.0); CALCIUM 11.2 MG/DL (8.5-10.1); CREATININE SERUM 2.49 MG/DL (0.60-1.30); POTASSIUM 4.5 MMOL/L (3.6-5.0); TOTAL PROTEIN 6.8 GM/DL (6.4-8.2)
[~2016-12-14 12:59] MED LIST changes: +AZIT250T12 PO; -AZIT250T5 PO; +BUDE10.2 INH; +FENT1PAT9 TD; +HYDR-3812 PO; +HYDR2TAB6 PO; +SODI30SP2 NS
[2016-12-14 13:15] LABS: BASOPHILS % (AUTO) 0 % (0-10); EOSINOPHILS % (AUTO) 0 % (0-10); LYMPHOCYTES # (AUTO) 1.1 X 10^3 (1.0-4.0); LYMPHOCYTES % (AUTO) 11 % (12-44); MEAN CORPUSCULAR HEMOGLOBIN 28 PG (25-34); MEAN CORPUSCULAR HGB CONC 31 G/DL (32-36); MEAN CORPUSCULAR VOLUME 89 FL (80-99); MEAN PLATELET VOLUME 10.2 FL (7.4-10.4); MONOCYTES # (AUTO) 0.3 X 10^3 (0.0-1.0); MONOCYTES % (AUTO) 3 % (0-12); NEUTROPHILS # (AUTO) 8.5 X 10^3 (1.8-7.8); NEUTROPHILS % (AUTO) 86 % (42-75); PLATELET COUNT 292 10^3/uL (130-400); RED BLOOD COUNT 4.74 10^6/uL (4.35-5.85); RED CELL DISTRIBUTION WIDTH 16.4 % (10.0-14.5); WHITE BLOOD COUNT 9.9 10^3/uL (4.3-11.0)
[2016-12-14 14:08] LABS: ALBUMIN 3.5 GM/DL (3.2-4.5); BILIRUBIN,TOTAL 0.6 MG/DL (0.1-1.0); CALCIUM 10.4 MG/DL (8.5-10.1); CREATININE SERUM 2.46 MG/DL (0.60-1.30); POTASSIUM 4.9 MMOL/L (3.6-5.0); TOTAL PROTEIN 6.7 GM/DL (6.4-8.2)
[2016-12-16] MEDS ORDERED: LEVO500T2 PO (09:44)
[2016-12-16] MEDS ORDERED: PRD20T PO (09:44)
[2016-12-20] MEDS ORDERED: LEVO500T80 PO ×2 (09:14)
[2016-12-20] MEDS ORDERED: PRD20T PO ×2 (09:14)
[2016-12-20] MEDS ORDERED: FENT1PAT58 TD ×2 (09:14)
[2016-12-20] MEDS ORDERED: HYDR2TAB6 PO (09:19)
[2016-12-23] MEDS ORDERED: LEVO750T9 PO ×2 (10:08)
[2016-12-23] MEDS ORDERED: METR500T PO ×2 (10:08)
[2016-12-23] MEDS ORDERED: HYDR2TAB6 PO ×2 (10:10)
== END 2016-12-21 | disposition home or self-care (01) ==
LOC: ONC 12:59
PROVIDERS: ATTEND Internal Medicine Hematology & Oncology
DX: C50.122 Malignant neoplasm of central portion of left male breast (principal); Z17.0 Estrogen receptor positive status [ER+]; Z90.12 Acquired absence of left breast and nipple; Z85.858 Personal history of malignant neoplasm of other endocrine glands; I25.10 Atherosclerotic heart disease of native coronary artery without angina pectoris; I12.9 Hypertensive chronic kidney disease with stage 1 through stage 4 chronic kidney disease, or unspecified chronic kidney disease; E11.22 Type 2 diabetes mellitus with diabetic chronic kidney disease; N18.3 Chronic kidney disease, stage 3 (moderate); E78.5 Hyperlipidemia, unspecified; Z86.718 Personal history of other venous thrombosis and embolism; Z95.1 Presence of aortocoronary bypass graft; Z79.810 Long term (current) use of selective estrogen receptor modulators (SERMs); Z79.01 Long term (current) use of anticoagulants
CPT/HCPCS: 36415; 80053; 82378; 84153; 85025; 86300; 99213

== ENCOUNTER 2016-12-16 10:02 | Outpatient (CLI) | payer MEDICARE, MEDICAID ==
[~2016-12-16] VITALS: Ht 172.7 cm; Wt 114.8 kg
== END 2016-12-16 10:14 ==
LOC: PREOP 10:02
PROVIDERS: ATTEND Surgery
DX: Z01.818 Encounter for other preprocedural examination (principal); C50.922 Malignant neoplasm of unspecified site of left male breast

== ENCOUNTER 2016-12-20 00:01 | Inpatient (IN) | payer MEDICARE, MEDICAID ==
[2016-12-20] VITALS (26 sets, daily range): BP systolic 95–151; BP diastolic 60–91
[~2016-12-20] VITALS: Ht 170.2 cm; Wt 113.5 kg
[~2016-12-20 00:01] MED LIST changes: -AZIT250T12 PO; +AZIT250T5 PO; +METO-274 PO; -METO-395 PO
[2016-12-20] MEDS ORDERED: ONDANSETRON 4 MG/2 ML (SDV) Z0FRAN IVP PRN (01:45)
[2016-12-20] MEDS: LACTATED RINGERS 1,000 ML IV SCH ×3 (02:07→17:54)
[2016-12-20] MEDS ORDERED: RT-ALBUTEROL/IPRATROPIUM 3 ML (DUONEB) VIAL INH PRN (02:30)
[2016-12-20] MEDS: fentaNYL INJECTION 100 MCG/2 ML AMP IVP PRN ×3 (03:17→21:46)
[2016-12-20 05:45] LABS: BASOPHILS % (AUTO) 0 % (0-10); EOSINOPHILS % (AUTO) 0 % (0-10); LYMPHOCYTES # (AUTO) 1.6 X 10^3 (1.0-4.0); LYMPHOCYTES % (AUTO) 7 % (12-44); MEAN CORPUSCULAR HEMOGLOBIN 28 PG (25-34); MEAN CORPUSCULAR HGB CONC 32 G/DL (32-36); MEAN CORPUSCULAR VOLUME 88 FL (80-99); MEAN PLATELET VOLUME 10.6 FL (7.4-10.4); MONOCYTES # (AUTO) 0.8 X 10^3 (0.0-1.0); MONOCYTES % (AUTO) 4 % (0-12); NEUTROPHILS # (AUTO) 20.1 X 10^3 (1.8-7.8); NEUTROPHILS % (AUTO) 89 % (42-75); PLATELET COUNT 209 10^3/uL (130-400); RED BLOOD COUNT 4.88 10^6/uL (4.35-5.85); RED CELL DISTRIBUTION WIDTH 16.9 % (10.0-14.5); WHITE BLOOD COUNT 22.6 10^3/uL (4.3-11.0)
[2016-12-20] MEDS ORDERED: PANTOPRAZOLE 40 MG/10 ML (PROTONIX) VIAL IV SCH (06:00)
[2016-12-20 06:01] LABS: CALCIUM 8.8 MG/DL (8.5-10.1); CREATININE SERUM 2.46 MG/DL (0.60-1.30); PHOSPHORUS 3.1 MG/DL (2.3-4.7); POTASSIUM 4.3 MMOL/L (3.6-5.0)
[2016-12-20] MEDS: KCL 20 MEQ TAB (K-DUR) PO SCH (06:09)
[2016-12-20] MEDS: MAGNESIUM 1 GM/100 ML IVPB 100 ML IV SCH (06:09)
[2016-12-20] MEDS: POTASSIUM CL 10MEQ/50ML IVPB 50 ML IV SCH (06:09)
[2016-12-20 06:17] LABS: BAND NEUTROPHILS 7 %; LYMPHOCYTES % (MANUAL) 2 %; NEUTROPHILS % (MANUAL) 88 %
[2016-12-20] MEDS: RT-BUDESONIDE NEBS 0.5 MG/2ML (PULMICORT) AMP INH SCH ×2 (06:53→18:18)
[2016-12-20] MEDS: RT-ALBUTEROL/IPRATROPIUM 3 ML (DUONEB) VIAL INH SCH ×5 (06:53→22:15)
[2016-12-20] MEDS: RT-ADVAIR HFA 115/21 MCG PER PUFF IH SCH ×2 (06:53→18:23)
[2016-12-20] MEDS ORDERED: LIDOCAINE 1% INJ 20 ML (XYLOCAINE) VIAL ONE (07:17)
[2016-12-20] MEDS ORDERED: HEParin (CENTRAL IV FLUSH) 500 UNIT/5 ML SYR ONE (07:17)
[2016-12-20] MEDS ORDERED: BUPIVACAINE 0.5% 30 ML (SENSORCAINE) VIAL ONE (07:17)
[2016-12-20] MEDS ORDERED: 0.9% SODIUM CHLORIDE PF INJ 20 ML VIAL ONE (07:17)
--- NOTE | 2016-12-20 07:33 | Diagnostic Imaging Report ---
INDICATION: Pneumonia. EXAMINATION: Chest, 12/20/2016. Comparison made to 11/27/2016. FINDINGS: Heart is prominent. Pulmonary vasculature is unremarkable. There is possible mild infiltrate at the left lung base with findings at the right lung base likely caused by prominent fat pad with infiltrate or atelectasis not excluded. There are no significant effusions. There is no pneumothorax. Postoperative change seen along the mediastinum. IMPRESSION: 1. Atelectasis and/or infiltrate at the lung bases left greater than right see above discussion. Remaining chest is stable. Dictated by: Dictated on workstation # [id number]
[2016-12-20] MEDS: metroNIDAZOLE 500MG/100ML IVPB 100 ML IV SCH ×3 (08:00→21:47)
[2016-12-20] MEDS ORDERED: LEVOFLOXACIN 500 MG/100 ML IV 100 ML IV SCH (09:00)
[2016-12-20] MEDS ORDERED: LEVOFLOXACIN 750 MG/D5W 150 ML (PRE-MIX) IV SCH (09:00)
[2016-12-20] MEDS ORDERED: FENT1PAT58 TD (09:14)
[2016-12-20] MEDS ORDERED: LEVO500T80 PO (09:14)
[2016-12-20] MEDS ORDERED: PRD20T PO (09:14)
[2016-12-20] MEDS ORDERED: HYDR2TAB6 PO (09:19)
--- NOTE | 2016-12-20 11:03 | History & Physicial ---
History of Present Illness History of Present Illness Reason for visit/HPI Acute abdominal pain resulting in ER visit, revealing complicated sigmoid diverticulitis with microperforation and a small jess- colic abscess. Date of Admission Dec 20, 2016 at 12:55 am Date Seen by Provider: Dec 20, 2016 Time Seen by Provider: 07:12 I consulted on this patient on 12/20/16 10:57 Attending Physician Félix Bean MD Admitting Physician Navya Noble MD Consult Caroline Phillips Allergies and Home Medications Allergies Coded Allergies: Iodinated Contrast- Oral and IV Dye (Unverified Allergy, Mild, 10/20/08) Penicillins (Unverified Allergy, Mild, 10/20/08) Shellfish (Verified Allergy, Unknown, 02/18/06) amlodipine (Verified Allergy, Unknown, 11/29/06) iodine (Verified Allergy, Unknown, 08/21/05) penicillin G (Verified Allergy, Unknown, 08/21/05) Home Medications Albuterol Sulfate 18 Gm Hfa.aer.ad, 2 PUFF IH QID PRN for SHORTNESS OF BREATH, ( Reported) Arformoterol Tartrate 15 Mcg/2 Ml Vial.neb, 15 MCG NEB BID, (Reported) MIXES WITH BUDESONIDE Atorvastatin Calcium 40 Mg Tablet, 40 MG PO HS, (Reported) Budesonide 0.5 Mg/2 Ml Ampul.neb, 0.5 MG NEB BID, (Reported) MIXED WITH BROVANA Budesonide/Formoterol Fumarate 10.2 Gm Hfa.aer.ad, 2 PUFF INH BID PRN for WHEEZING, (Reported) Buspirone HCl 10 Mg Tablet, 10 MG PO HS PRN for ANXIETY, (Reported) Cetirizine HCl 10 Mg Tablet, 10 MG PO DAILY, (Reported) Cinacalcet HCl 30 Mg Tablet, 30 MG PO DAILY, (Reported) Clopidogrel Bisulfate 75 Mg Tablet, 75 MG PO HS, (Reported) Fenofibrate Nanocrystallized 145 Mg Tablet, 145 MG PO HS, (Reported) Fentanyl 1 Each Patch.td72, 50 MCG TD Q72H, (Reported) Furosemide 40 Mg Tablet, 40 MG PO DAILY, (Reported) Gabapentin 100 Mg Capsule, 100 MG PO TID, (Reported) Glimepiride 2 Mg Tablet, 2 MG PO DAILY, (Reported) Hydromorphone HCl 2 Mg Tablet, 2 MG PO BID PRN for PAIN-BREAKTHROUGH, (Reported) Isosorbide Mononitrate 30 Mg Tab.er.24h, 30 MG PO DAILY, (Reported) Levofloxacin 500 Mg Tablet, 250 MG PO DAILY for 10 Days, (Reported) TAKES 1/2 (500MG) TABLET FILLED #10 500MG TABS 8-7-17 FOR 1 DAILY - STATES THE DOSE WAS DECREASED TO 1/2 TAB DAILY X 10 DAYS DUE TO KIDNEY FUNCTION Metoprolol Succinate 100 Mg Tab.er.24h, 100 MG PO BID, (Reported) Montelukast Sodium 10 Mg Tablet, 10 MG PO HS, (Reported) Nitroglycerin 0.4 Mg Subl, 0.4 MG SL UD PRN for CHEST PAIN, (Reported) TAKE 1 TABLET EVERY 5 MINUTES X 3 DOSES NEEDED FOR CHEST PAIN Pantoprazole Sodium 40 Mg Tablet.dr, 40 MG PO BID, (Reported) Potassium Chloride 10 Meq Tablet.er, 10 MEQ PO DAILY, (Reported) Prednisone 20 Mg Tab, PO UD for 9 Days, (Reported) 20MG 3X DAILY X3 DAYS THEN 20MG 2X DAILY X3 DAYS THEN 20MG 1X DAILY X3 DAYS Ranolazine 500 Mg Tab.er.12h, 500 MG PO BID, (Reported) Rivaroxaban 15 Mg Tablet, 15 MG PO HS, (Reported) Sodium Chloride 30 Ml [place], 1-2 SPRAYS NS BID PRN for DRY NOSE, (Reported) Tamoxifen Citrate 20 Mg Tablet, 20 MG PO HS, (Reported) Tamsulosin HCl 0.4 Mg Cap.er.24h, 0.4 MG PO HS, (Reported) Past Ejxfwyu-Nrwpge-Kcisrb Hx Patient Social History Marrital Status: Employed/Student: retired Alcohol Use: Denies Use Recreational Drug Use: No Smoking Status: Current Everyday Smoker Type Used: Cigarettes 2nd Hand Smoke Exposure: No Physical Abuse Screen: No Sexual Abuse: No Recent Foreign Travel: No Contact w/other who traveled: No Recent Hopitalizations: No Recent Infectious Disease Expo: No Immunizations Up To Date Tetanus Booster (TDap): More than 5yrs Date of Pneumonia Vaccine: May 13, 2014 Date of Influenza Vaccine: Feb 11, 2016 Seasonal Allergies Seasonal Allergies: No Surgeries HX Surgeries: Yes (PARATHYROIDECTOMY, OPEN HEART SC, CARDIAC CATH X20, CARPEL TUNNEL LATA HAND) Surgeries: Appendectomy, Breast, Cardiac, Coronary Stent, Orthopedic Respiratory Hx Respiratory Disorders: Yes Respiratory Disorders: COPD, Emphysema Cardiovascular Hx Cardiovascular Disorders: Yes (HAS STENTS X3, HX LBBB, CHF) Cardiac Disorders: Angina, Atrial Fibrillation, Cardiomyopathy, Chronic Edema/ Swelling, Coronary Artery Disease, Deep Vein Thrombosis, Heart Attack, Heart Murmur, High Cholesterol, Hypertension Neurological Hx Neurological Disorders: Yes Neurological Disorders: TIA Reproductive System Hx Reproductive Disorders: No Sexually Transmitted Disease: No Genitourinary Hx Genitourinary Disorders: Yes (CHRONIC RENAL INSUFFICIENCY) Genitourinary Disorders: Renal Failure Gastrointestinal Hx Gastrointestinal Disorders: Yes (LIVER ENZYME ELEVATION/ LIPITOR ADJUSTED) Gastrointestinal Disorders: Gastroesophageal Reflux Musculoskeletal Hx Musculoskeletal Disorders: Yes (LEFT SHOULDER TORN ROTATOR CUFF, bilat carpal tunnel repair) Musculoskeletal Disorders: Degenerate Disk Disease, Chronic Back Pain Endocrine Hx Endocrine Disorders: Yes (PARATHYROIDECTOMY, "BORDERLINE DIABETIC") Endocrine Disorders: Diabetes, Non-Insulin dep HEENT HX ENT Disorders: No HEENT Disorders: Cataract Cancer Hx Cancer: Yes Cancer: Breast Psychosocial Hx Psychiatric Problems: No Integumentary HX Skin/Integumentary Disorder: No Blood Transfusions Hx Blood Disorders: No Family Medical History Family Hx: Arthritis 19 FATHER Cardiovascular disease 19 FATHER FH: breast cancer 19 MOTHER Respiratory disorder 19 FATHER Constitutional: fever, malaise, weakness EENTM: no symptoms reported Respiratory: cough, dyspnea on exertion Cardiovascular: Hx of Intervention Gastrointestinal: abdominal pain (LLQ) Genitourinary: no symptoms reported Musculoskeletal: no symptoms reported Skin: no symptoms reported Psychiatric/Neurological: No Symptoms Reported Physical Exam Vital Signs Vital Sign - Last 12Hours 12/20/16 01:00 Temp 98.2 Pulse 90 Resp 19 B/P (MAP) 104/62 Pulse Ox 96 O2 Delivery Nasal Cannula O2 Flow Rate 2.50 Capillary Refill : General Appearance: Moderate Distress HEENT: Normal ENT Inspection Neck: Supple Respiratory: Lungs Clear Gastrointestinal: Rebound, Tenderness Rectal: Deferred Back: Normal Inspection Extremity: Normal Inspection Skin: Warm/Dry Comments severe rebound tenderness over the left lower quadrant. No evidence of generalized peritonitis. Assessment/Plan Assessment and Plan gentleman with sigmoid diverticulitis and microperforation found on CT scan. Multiple other comorbidities including congestive heart failure and chronic renal insufficiency's. We'll treat nonoperatively using careful fluid management strategy, intravenous antibiotics and close observation. Medical service will be consulted to optimize his comorbidity. CT scan obtained from [facility] has been reviewed with our radiologist Dr. Dash Alarcon. Pericolic abscess is very small and easily defined. Therefore, percutaneous drainage is not feasible. We will repeat imaging in 3-4 days depending on response to IV antibiotics. Problems: Admission Diagnosis sigmoid diverticulitis with microperforation. Clinical Quality Measures DVT/VTE Risk/Contraindication: Risk Factor Score Per Nursin RFS Level Per Nursing on Admit: 4+=Very High FÉLIX BEAN MD Dec 20, 2016 11:03 am
[2016-12-20] MEDS ORDERED: RT-ALBUTEROL HFA (VENTOLIN) PER PUFF IH PRN (11:15)
[2016-12-20] MEDS ORDERED: NITROGLYCERIN SUBLINGUAL 0.4 MG TAB (NITROSTAT) SL PRN (11:15)
[2016-12-20] MEDS ORDERED: busPIRone 10 MG (BUSPAR) TAB PO PRN (11:15)
--- NOTE | 2016-12-20 12:42 | Consultation-Cardiology ---
HPI-Cardiology Cardiology Consultation: Date of Consultation 12/20/16 Date of Admission Attending Physician Félix Bean MD Admitting Physician Navya Noble MD Consulting Physician Forrest Mcnulty MD [id number]-Uhtirg Hx Patient Social History Marrital Status: Employed/Student: retired Alcohol Use: Denies Use Recreational Drug Use: No Smoking Status: Current Everyday Smoker Type Used: Cigarettes 2nd Hand Smoke Exposure: No Recent Foreign Travel: No Recent Infectious Disease Expo: No Physical Abuse Screen: No Sexual Abuse: No Immunizations Up To Date Tetanus Booster (TDap): More than 5yrs Date of Pneumonia Vaccine: May 13, 2014 Date of Influenza Vaccine: Feb 11, 2016 Past Medical History PMH As described under Assessment. Family Medical History Family Medical History: He reports his father had CAD. One of his sons is known to have HCM. Family History: Arthritis 19 FATHER Cardiovascular disease 19 FATHER FH: breast cancer 19 MOTHER Respiratory disorder 19 FATHER Allergies and Home Medications Allergies Coded Allergies: Iodinated Contrast- Oral and IV Dye (Unverified Allergy, Mild, 10/20/08) Penicillins (Unverified Allergy, Mild, 10/20/08) Shellfish (Verified Allergy, Unknown, 02/18/06) amlodipine (Verified Allergy, Unknown, 11/29/06) iodine (Verified Allergy, Unknown, 08/21/05) penicillin G (Verified Allergy, Unknown, 08/21/05) Home Medications Albuterol Sulfate 18 Gm Hfa.aer.ad, 2 PUFF IH QID PRN for SHORTNESS OF BREATH, ( Reported) Arformoterol Tartrate 15 Mcg/2 Ml Vial.neb, 15 MCG NEB BID, (Reported) MIXES WITH BUDESONIDE Atorvastatin Calcium 40 Mg Tablet, 40 MG PO HS, (Reported) Budesonide 0.5 Mg/2 Ml Ampul.neb, 0.5 MG NEB BID, (Reported) MIXED WITH BROVANA Budesonide/Formoterol Fumarate 10.2 Gm Hfa.aer.ad, 2 PUFF INH BID PRN for WHEEZING, (Reported) Buspirone HCl 10 Mg Tablet, 10 MG PO HS PRN for ANXIETY, (Reported) Cetirizine HCl 10 Mg Tablet, 10 MG PO DAILY, (Reported) Cinacalcet HCl 30 Mg Tablet, 30 MG PO DAILY, (Reported) Clopidogrel Bisulfate 75 Mg Tablet, 75 MG PO HS, (Reported) Fenofibrate Nanocrystallized 145 Mg Tablet, 145 MG PO HS, (Reported) Fentanyl 1 Each Patch.td72, 50 MCG TD Q72H, (Reported) Furosemide 40 Mg Tablet, 40 MG PO DAILY, (Reported) Gabapentin 100 Mg Capsule, 100 MG PO TID, (Reported) Glimepiride 2 Mg Tablet, 2 MG PO DAILY, (Reported) Hydromorphone HCl 2 Mg Tablet, 2 MG PO BID PRN for PAIN-BREAKTHROUGH, (Reported) Isosorbide Mononitrate 30 Mg Tab.er.24h, 30 MG PO DAILY, (Reported) Levofloxacin 500 Mg Tablet, 250 MG PO DAILY for 10 Days, (Reported) TAKES 1/2 (500MG) TABLET FILLED #10 500MG TABS 12-13-16 FOR 1 DAILY - STATES THE DOSE WAS DECREASED TO 1/2 TAB DAILY X 10 DAYS DUE TO KIDNEY FUNCTION Metoprolol Succinate 100 Mg Tab.er.24h, 100 MG PO BID, (Reported) Montelukast Sodium 10 Mg Tablet, 10 MG PO HS, (Reported) Nitroglycerin 0.4 Mg Subl, 0.4 MG SL UD PRN for CHEST PAIN, (Reported) TAKE 1 TABLET EVERY 5 MINUTES X 3 DOSES NEEDED FOR CHEST PAIN Pantoprazole Sodium 40 Mg Tablet.dr, 40 MG PO BID, (Reported) Potassium Chloride 10 Meq Tablet.er, 10 MEQ PO DAILY, (Reported) Prednisone 20 Mg Tab, PO UD for 9 Days, (Reported) 20MG 3X DAILY X3 DAYS THEN 20MG 2X DAILY X3 DAYS THEN 20MG 1X DAILY X3 DAYS Ranolazine 500 Mg Tab.er.12h, 500 MG PO BID, (Reported) Rivaroxaban 15 Mg Tablet, 15 MG PO HS, (Reported) Sodium Chloride 30 Ml [place], 1-2 SPRAYS NS BID PRN for DRY NOSE, (Reported) Tamoxifen Citrate 20 Mg Tablet, 20 MG PO HS, (Reported) Tamsulosin HCl 0.4 Mg Cap.er.24h, 0.4 MG PO HS, (Reported) Physical Exam-Cardiology Physical Exam Vital Signs/I&O Vital Sign - Last 12Hours 12/20/16 12/20/16 12/20/16 12/20/16 02:30 02:34 03:00 04:00 Pulse 89 90 Resp 15 16 B/P (MAP) 121/69 112/69 Pulse Ox 97 97 96 97 O2 Delivery Room Air Nasal Cannula Room Air Nasal Cannula O2 Flow Rate 2.50 2.50 2.50 2.50 12/20/16 12/20/16 12/20/16 12/20/16 04:00 04:35 05:15 06:00 Temp 96.8 Pulse 86 83 82 Resp 17 19 25 B/P (MAP) 113/60 107/67 95/74 Pulse Ox 97 97 99 O2 Delivery Nasal Cannula Nasal Cannula Nasal Cannula O2 Flow Rate 2.50 2.50 2.50 12/20/16 12/20/16 12/20/16 12/20/16 06:54 06:59 07:00 07:00 Temp 98.0 Pulse 79 Resp 10 B/P (MAP) 120/78 Pulse Ox 96 96 100 O2 Delivery Nasal Cannula Nasal Cannula Nasal Cannula Nasal Cannula O2 Flow Rate 3.00 3.00 3.00 3.00 12/20/16 12/20/16 12/20/16 12/20/16 07:00 07:00 08:00 08:00 Pulse 80 86 Resp 19 B/P (MAP) 143/74 Pulse Ox 96 94 O2 Delivery Nasal Cannula Nasal Cannula Nasal Cannula O2 Flow Rate 3.00 3.00 3.00 12/20/16 12/20/16 12/20/16 12/20/16 09:00 10:00 10:39 11:00 Pulse 84 84 82 Resp 22 19 18 B/P (MAP) 131/77 136/84 139/80 Pulse Ox 96 98 97 98 O2 Delivery Nasal Cannula Nasal Cannula Nasal Cannula Nasal Cannula O2 Flow Rate 3.00 3.00 3.00 3.00 12/20/16 12/20/16 12/20/16 12:00 12:00 12:00 Temp 97.6 Pulse 82 Resp 19 B/P (MAP) 138/79 Pulse Ox 95 O2 Delivery Nasal Cannula Nasal Cannula Nasal Cannula O2 Flow Rate 3.00 3.00 3.00 Capillary Refill : Data Review Labs Laboratory Tests 12/20/16 05:30: White Blood Count 22.6H, Red Blood Count 4.88, Hemoglobin 13.8, Hematocrit 43, Mean Corpuscular Volume 88, Mean Corpuscular Hemoglobin 28, Mean Corpuscular Hemoglobin Concent 32, Red Cell Distribution Width 16.9H, Platelet Count 209, Mean Platelet Volume 10.6H, Neutrophils (%) (Auto) 89H, Lymphocytes (%) (Auto) 7L, Monocytes (%) (Auto) 4, Eosinophils (%) (Auto) 0, Basophils (%) (Auto) 0, Neutrophils # (Auto) 20.1H, Lymphocytes # (Auto) 1.6, Monocytes # (Auto) 0.8, Eosinophils # (Auto) 0.0, Basophils # (Auto) 0.0, Neutrophils % (Manual) 88, Lymphocytes % (Manual) 2, Monocytes % (Manual) 3, Band Neutrophils 7, Blood Morphology Comment NORMAL, Sodium Level 142, Potassium Level 4.3, Chloride Level 105, Carbon Dioxide Level 27, Anion Gap 10, Blood Urea Nitrogen 49H, Creatinine 2.46H, Estimat Glomerular Filtration Rate 27, BUN/Creatinine Ratio 20 , Glucose Level 66L, Calcium Level 8.8, Phosphorus Level 3.1, Magnesium Level 2.0, Troponin I < 0.30 Radiology NAME: JAGRUTI GARCIA [facility] REC#: [id number] PT STATUS: ADM IN : 1960 PHYSICIAN: FÉLIX BEAN MD ADMIT DATE: 12/20/16/ICU Signed Date of Exam: 12/20/16 CHEST 1 VIEW, AP/PA ONLY INDICATION: Pneumonia. EXAMINATION: Chest, 12/20/2016. Comparison made to 11/27/2016. FINDINGS: Heart is prominent. Pulmonary vasculature is unremarkable. There is possible mild infiltrate at the left lung base with findings at the right lung base likely caused by prominent fat pad with infiltrate or atelectasis not excluded. There are no significant effusions. There is no pneumothorax. Postoperative change seen along the mediastinum. IMPRESSION: 1. Atelectasis and/or infiltrate at the lung bases left greater than right see above discussion. Remaining chest is stable. Dictated by: Dictated on workstation # [id number] Dict: 12/20/16 0706 Trans: 12/20/16 1137 Interpreted by: ELDA SOLARES MD Electronically signed by: ELDA SOLARES MD 12/20/16 1137 A/P-Cardiology Assessment/Admission Diagnosis Hypermetabolic supraclavicular lymph nodes and hypermetabolic osseous lesions suggestive of metastatic disease (PET-CT of 09/28/16) that are being followed by Dr Medrano, his oncologist Acute exacerbation of COPD in early September 2016 Chronic chest pain syndrome Coronary artery disease with a history of bare-metal stenting of the right coronary artery several years ago, which subsequently became occluded and he then underwent drug-eluting stenting of the right coronary artery with Atom 2.25 x 28-mm stent (August 2010). Card cath of 07/20/16 shows LMCA without significant disease, mod diffuse disease of LAD (including 50-60% ostial D1), chronic total distal occlusion of the LCX (unchanged compared to cath of 07/01/15 ) with distal collateralization, patent stent in the prox and mid RCA (known to be Atom 2.25 x 28, placed in August 2010), elevated LVEDP Hypertrophic cardiomyopathy with h/o partial myomectomy at [facility] in November 2005 Partial vision loss of the left eye only in early 2016. Branch retinal artery occlusion - following with his marketing automation specialist Dr. Encarnacion and Dr. Fan ( marketing automation specialist in [place]) MPI of of 06/29/16 shows small basal inferolateral UT with a small amount of jess -infarct ischemia, basal inferolateral hypo, LVEF 63%, mild cardiomegaly. Subsequent to this he had the card cath described above Echo of 06/28/16: LVEF 55%, mild asymmetric thickening of the interventricular septum without LVOT obstruction, mild to mod ao valve sclerosis and MAC w/o valvular stenosis, mild mitral & aortic & tricuspid regurg, PASP 35 mmHg Palpitations: 24 hr Holter of 06/28/16 showed NSR with relatively infrequent and isolated PVC & PAC, no significant lori Mild bilat carotid stenosis per u/s of July 2016 Chronic joint (including shoulders) and back discomfort Hypertension, labile H/O chronic chest discomfort Paroxysmal atrial fibrillation treated with pulmonary vein ablation at [facility] without subsequent recurrence. Chronic left bundle branch block following myectomy in November 2005. CKD stage 4 - for which he follow with nephrology in [place], [place] Chronic microscopic hematuria without any identifiable lesions. 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 Continuing tobaccoism from which cessation has been advised Degenerative joint disease. Bilateral carpal tunnel surgery. Intermittent noncompliance with medications. Bilateral leg swelling, likely related to venous insufficiency. Deep venous thrombosis treated with anticoag with rivroxaban. No recent blood clots in the leg veins Sleep apnea and restless leg syndrome. 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 Mccartney at [facility] in [place] in November 2011. He is now following with Dr. Medrano oncology services at [facility] History of hypercalcemia which is being followed by Dr. Noble, his pcp, and by Dr Medrano, his oncologist. He has a prior h/o partial parathyroidectomy Mild AST elevation for which f/u is with his pcp Clinical Quality Measures DVT/VTE Risk/Contraindication: Risk Factor Score Per Nursin RFS Level Per Nursing on Admit: 4+=Very High BLAYNE MORENO Dec 20, 2016 12:42
--- NOTE | 2016-12-20 13:15 | Consultation-Cardiology ---
HPI-Cardiology Cardiology Consultation: Date of Consultation 12/20/16 Time Seen by Provider: 12:55 Date of Admission Attending Physician Félix Steward MD Admitting Physician Navya Noble MD Consulting Physician CHELSEA HAWTHORNE MD, MA, FACP, FACC, FSCAI, CCDS HPI: Chief Complaint: Lower abdominal pain 56 yo man with multiple comorbidities that are outline above who is admitted to Dr Steward with ac abdomen. Started with lower abd pain and nausea yesterday. Better now. Denies vomiting or diarrhea or constipation Has chronic shortness of breath. Is on home oxygen Has chronic persistent and intermittent chest discomforts; these have not changed Denies palp or syncope Denies fever or chills Has chronic intermittent leg swelling Review of Systems-Cardiology Review of Systems Constitutional: malaise, tiredness, No weight loss, No weight gain Eyes: No vision change Ears/Nose/Throat: No ear discharge, No nasal drainage, No recent hearing loss Respiratory: As described under HPI Cardiovascular: As described under HPI Gastrointestinal: As described under HPI Genitourinary: No dysuria, No hematuria, No urine frequency changes Musculoskeletal: back pain (chronic) Skin: No ulcerations Psychiatric/Neurological: No depression, No focal weakness, No seizure, No syncope Hematologic: No bleeding abnormalities SOU-[id number]-[id number] Hx Patient Social History Marrital Status: Employed/Student: retired Alcohol Use: Denies Use Recreational Drug Use: No Smoking Status: Current Everyday Smoker Type Used: Cigarettes 2nd Hand Smoke Exposure: No Recent Foreign Travel: No Recent Infectious Disease Expo: No Physical Abuse Screen: No Sexual Abuse: No Immunizations Up To Date Tetanus Booster (TDap): More than 5yrs Date of Pneumonia Vaccine: May 13, 2014 Date of Influenza Vaccine: Feb 11, 2016 Past Medical History PMH As described under Assessment. Family Medical History Family Medical History: He reports his father had CAD. One of his sons is known to have HCM. Family History: Arthritis 19 FATHER Cardiovascular disease 19 FATHER FH: breast cancer 19 MOTHER Respiratory disorder 19 FATHER Allergies and Home Medications Allergies Coded Allergies: Iodinated Contrast- Oral and IV Dye (Unverified Allergy, Mild, 10/20/08) Penicillins (Unverified Allergy, Mild, 10/20/08) Shellfish (Verified Allergy, Unknown, 02/18/06) amlodipine (Verified Allergy, Unknown, 11/29/06) iodine (Verified Allergy, Unknown, 08/21/05) penicillin G (Verified Allergy, Unknown, 08/21/05) Home Medications Albuterol Sulfate 18 Gm Hfa.aer.ad, 2 PUFF IH QID PRN for SHORTNESS OF BREATH, ( Reported) Arformoterol Tartrate 15 Mcg/2 Ml Vial.neb, 15 MCG NEB BID, (Reported) MIXES WITH BUDESONIDE Atorvastatin Calcium 40 Mg Tablet, 40 MG PO HS, (Reported) Budesonide 0.5 Mg/2 Ml Ampul.neb, 0.5 MG NEB BID, (Reported) MIXED WITH BROVANA Budesonide/Formoterol Fumarate 10.2 Gm Hfa.aer.ad, 2 PUFF INH BID PRN for WHEEZING, (Reported) Buspirone HCl 10 Mg Tablet, 10 MG PO HS PRN for ANXIETY, (Reported) Cetirizine HCl 10 Mg Tablet, 10 MG PO DAILY, (Reported) Cinacalcet HCl 30 Mg Tablet, 30 MG PO DAILY, (Reported) Clopidogrel Bisulfate 75 Mg Tablet, 75 MG PO HS, (Reported) Fenofibrate Nanocrystallized 145 Mg Tablet, 145 MG PO HS, (Reported) Fentanyl 1 Each Patch.td72, 50 MCG TD Q72H, (Reported) Furosemide 40 Mg Tablet, 40 MG PO DAILY, (Reported) Gabapentin 100 Mg Capsule, 100 MG PO TID, (Reported) Glimepiride 2 Mg Tablet, 2 MG PO DAILY, (Reported) Hydromorphone HCl 2 Mg Tablet, 2 MG PO BID PRN for PAIN-BREAKTHROUGH, (Reported) Isosorbide Mononitrate 30 Mg Tab.er.24h, 30 MG PO DAILY, (Reported) Levofloxacin 500 Mg Tablet, 250 MG PO DAILY for 10 Days, (Reported) TAKES 1/2 (500MG) TABLET FILLED #10 500MG TABS 8-7-17 FOR 1 DAILY - STATES THE DOSE WAS DECREASED TO 1/2 TAB DAILY X 10 DAYS DUE TO KIDNEY FUNCTION Metoprolol Succinate 100 Mg Tab.er.24h, 100 MG PO BID, (Reported) Montelukast Sodium 10 Mg Tablet, 10 MG PO HS, (Reported) Nitroglycerin 0.4 Mg Subl, 0.4 MG SL UD PRN for CHEST PAIN, (Reported) TAKE 1 TABLET EVERY 5 MINUTES X 3 DOSES NEEDED FOR CHEST PAIN Pantoprazole Sodium 40 Mg Tablet., 40 MG PO BID, (Reported) Potassium Chloride 10 Meq Tablet.er, 10 MEQ PO DAILY, (Reported) Prednisone 20 Mg Tab, PO UD for 9 Days, (Reported) 20MG 3X DAILY X3 DAYS THEN 20MG 2X DAILY X3 DAYS THEN 20MG 1X DAILY X3 DAYS Ranolazine 500 Mg Tab.er.12h, 500 MG PO BID, (Reported) Rivaroxaban 15 Mg Tablet, 15 MG PO HS, (Reported) Sodium Chloride 30 Ml [place], 1-2 SPRAYS NS BID PRN for DRY NOSE, (Reported) Tamoxifen Citrate 20 Mg Tablet, 20 MG PO HS, (Reported) Tamsulosin HCl 0.4 Mg Cap.er.24h, 0.4 MG PO HS, (Reported) Physical Exam-Cardiology Physical Exam Vital Signs/I&O Vital Sign - Last 12Hours 12/20/16 12/20/16 12/20/16 12/20/16 01:30 02:00 02:00 02:07 Pulse 90 89 88 Resp 11 22 B/P (MAP) 111/60 110/71 Pulse Ox 97 97 97 O2 Delivery Room Air Nasal Cannula Room Air O2 Flow Rate 2.50 2.50 2.50 12/20/16 12/20/16 12/20/16 12/20/16 02:30 02:34 03:00 04:00 Pulse 89 90 Resp 15 16 B/P (MAP) 121/69 112/69 Pulse Ox 97 97 96 97 O2 Delivery Room Air Nasal Cannula Room Air Nasal Cannula O2 Flow Rate 2.50 2.50 2.50 2.50 12/20/16 12/20/16 12/20/16 12/20/16 04:00 04:35 05:15 06:00 Temp 96.8 Pulse 86 83 82 Resp 17 19 25 B/P (MAP) 113/60 107/67 95/74 Pulse Ox 97 97 99 O2 Delivery Nasal Cannula Nasal Cannula Nasal Cannula O2 Flow Rate 2.50 2.50 2.50 12/20/16 12/20/16 12/20/16 12/20/16 06:54 06:59 07:00 07:00 Temp 98.0 Pulse 79 Resp 10 B/P (MAP) 120/78 Pulse Ox 96 96 100 O2 Delivery Nasal Cannula Nasal Cannula Nasal Cannula Nasal Cannula O2 Flow Rate 3.00 3.00 3.00 3.00 8/14/17 8/14/17 8/14/17 8/14/17 07:00 07:00 08:00 08:00 Pulse 80 86 Resp 19 B/P (MAP) 143/74 Pulse Ox 96 94 O2 Delivery Nasal Cannula Nasal Cannula Nasal Cannula O2 Flow Rate 3.00 3.00 3.00 12/20/16 12/20/16 12/20/16 12/20/16 09:00 10:00 10:39 11:00 Pulse 84 84 82 Resp 22 19 18 B/P (MAP) 131/77 136/84 139/80 Pulse Ox 96 98 97 98 O2 Delivery Nasal Cannula Nasal Cannula Nasal Cannula Nasal Cannula O2 Flow Rate 3.00 3.00 3.00 3.00 12/20/16 12:00 Pulse 82 Resp 19 B/P (MAP) 138/79 Pulse Ox 95 O2 Delivery Nasal Cannula O2 Flow Rate 3.00 Capillary Refill : Constitutional: AAO x 3, well-developed, well-nourished HEENT: PERRL, EOMI, hearing is well preserved, No xanthelasmas are seen Neck: carotid pulses are 2 + bilaterally, with good upstrokes Respiratory: No accessory muscle use, No respiratory distress, other (good bilat air entry; diminished at the bases) Cardiovascular: regular rate-rhythm, S1 and S2, systolic murmur (2/6 MSM) Gastrointestinal: tender, No guarding, No rebound, audible bowel sounds Extremities: No clubbing, No cyanosis, No significant edema Neurologic/Psychiatric: grossly intact, power is 5/5 both on sides Skin: No rash on exposed areas, No ulcerations on exposed areas Data Review Labs Laboratory Tests 12/20/16 05:30: White Blood Count 22.6H, Red Blood Count 4.88, Hemoglobin 13.8, Hematocrit 43, Mean Corpuscular Volume 88, Mean Corpuscular Hemoglobin 28, Mean Corpuscular Hemoglobin Concent 32, Red Cell Distribution Width 16.9H, Platelet Count 209, Mean Platelet Volume 10.6H, Neutrophils (%) (Auto) 89H, Lymphocytes (%) (Auto) 7L, Monocytes (%) (Auto) 4, Eosinophils (%) (Auto) 0, Basophils (%) (Auto) 0, Neutrophils # (Auto) 20.1H, Lymphocytes # (Auto) 1.6, Monocytes # (Auto) 0.8, Eosinophils # (Auto) 0.0, Basophils # (Auto) 0.0, Neutrophils % (Manual) 88, Lymphocytes % (Manual) 2, Monocytes % (Manual) 3, Band Neutrophils 7, Blood Morphology Comment NORMAL, Sodium Level 142, Potassium Level 4.3, Chloride Level 105, Carbon Dioxide Level 27, Anion Gap 10, Blood Urea Nitrogen 49H, Creatinine 2.46H, Estimat Glomerular Filtration Rate 27, BUN/Creatinine Ratio 20 , Glucose Level 66L, Calcium Level 8.8, Phosphorus Level 3.1, Magnesium Level 2.0, Troponin I < 0.30 Laboratory Tests 12/20/16 05:30 A/P-Cardiology Assessment/Admission Diagnosis Abdominal pain due to sigmoid colitis and microperforation, managed by Dr Steward Hypermetabolic supraclavicular lymph nodes and hypermetabolic osseous lesions suggestive of metastatic disease (PET-CT of 09/28/16) that are being followed by Dr Medrano, his oncologist Acute exacerbation of COPD in early September 2016 Chronic chest pain syndrome Coronary artery disease with a history of bare-metal stenting of the right coronary artery several years ago, which subsequently became occluded and he then underwent drug-eluting stenting of the right coronary artery with Atom 2.25 x 28-mm stent (August 2010). Card cath of 07/20/16 shows LMCA without significant disease, mod diffuse disease of LAD (including 50-60% ostial D1), chronic total distal occlusion of the LCX (unchanged compared to cath of 07/01/15 ) with distal collateralization, patent stent in the prox and mid RCA (known to be Atom 2.25 x 28, placed in August 2010), elevated LVEDP Hypertrophic cardiomyopathy with h/o partial myomectomy at [facility] in November 2005 Partial vision loss of the left eye only in early 2016. Branch retinal artery occlusion - following with his cotton program technician Dr. Encarnacion and Dr. Fan ( cotton program technician in [place]) MPI of of 06/29/16 shows small basal inferolateral OH with a small amount of jess -infarct ischemia, basal inferolateral hypo, LVEF 63%, mild cardiomegaly. Subsequent to this he had the card cath described above Echo of 06/28/16: LVEF 55%, mild asymmetric thickening of the interventricular septum without LVOT obstruction, mild to mod ao valve sclerosis and MAC w/o valvular stenosis, mild mitral & aortic & tricuspid regurg, PASP 35 mmHg Palpitations: 24 hr Holter of 06/28/16 showed NSR with relatively infrequent and isolated PVC & PAC, no significant lori Mild bilat carotid stenosis per u/s of July 2016 Chronic joint (including shoulders) and back discomfort Hypertension, labile H/O chronic chest discomfort Paroxysmal atrial fibrillation treated with pulmonary vein ablation at [facility] without subsequent recurrence. Chronic left bundle branch block following myectomy in November 2005. CKD stage 4 - for which he follow with nephrology in [place], [place] Chronic microscopic hematuria without any identifiable lesions. 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 Continuing tobaccoism from which cessation has been advised Degenerative joint disease. Bilateral carpal tunnel surgery. Intermittent noncompliance with medications. Bilateral leg swelling, likely related to venous insufficiency. Deep venous thrombosis treated with anticoag with rivroxaban. No recent blood clots in the leg veins Sleep apnea and restless leg syndrome. 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 Mccartney at [facility] in [place] in November 2011. He is now following with Dr. Medrano oncology services at [facility] History of hypercalcemia which is being followed by Dr. Noble, his pcp, and by Dr Medrano, his oncologist. He has a prior h/o partial parathyroidectomy Chronic mild AST elevation for which f/u is with his pcp Discussion and Recomendations * Complex management due to multiple comorbidities that are outline above * Cardiac risk for noncardiac surgery is intermediate to high. It appears reasonable to proceed with necessary surgery * I spoke with him in detail and explained his cardiac risk to him. He understands * Please resume oral antiplatelet agents and anticoagulants KEYANA post surgery * Monitor labs closely * Continue previous cardiac regimen as far as possible Clinical Quality Measures DVT/VTE Risk/Contraindication: Risk Factor Score Per Nursin RFS Level Per Nursing on Admit: 4+=Very High CHELSEA HAWTHORNE MD FACP [facility] CCDS Dec 20, 2016 13:15
[2016-12-20] MEDS: ENOXAPARIN 40 MG/0.4 ML (LOVENOX) SYR SC SCH (13:22)
[2016-12-20] MEDS: predniSONE 20 MG TAB PO SCH ×2 (13:22→16:50)
[2016-12-20] MEDS: GABAPENTIN 100 MG (NEURONTIN) CAP PO SCH ×2 (13:22→21:47)
--- NOTE | 2016-12-20 13:35 | Consultation-Hospitalist ---
HPI History of Present Illness: HPI/Chief Complaint The patient is a 56-year-old white male seen in consultation for Dr. Steward. He is well-known to the hospitalist service. He has had several previous admissions. His initial admission was triggered by the onset of back pain. After further investigation it was noted that he had what appeared to be a metastatic malignancy in the vertebrae. He had a past history of male breast cancer and had been taking tamoxifen. This had been discontinued on his return to this area. On a recent admission he was to start combination chemotherapy/ hormonal therapy and radiation. He and his family had scheduled a family trip to [place] previously and had been allowed to go prior to starting treatment. He reported that they had a great time but he ended up being hospitalized in [place] for a bout of pneumonia. He was transferred here from [facility] after he presented with the acute onset of abdominal pain. He stated that that began in the right lower quadrant and ultimately across the pelvis. He denied any constipation diarrhea or blood in his stools. CT scan at [facility] showed that there appeared to be a microperforation of a diverticulum and a possible small abscess. He was transferred here for definitive treatment. Date Seen 12/20/16 Attending Physician Félix Steward MD PCP Navya Noble MD Referring Physician Date of Admission Dec 20, 2016 at 00:55 Home Medications & Allergies Home Medications Reviewed patient Home Medication Reconciliation Form Allergies Allergies Coded Allergies Iodinated Contrast- Oral and IV Dye (Unverified Allergy, Mild, 10/20/08) Penicillins (Unverified Allergy, Mild, 10/20/08) Shellfish (Verified Allergy, Unknown, 02/18/06) amlodipine (Verified Allergy, Unknown, 11/29/06) iodine (Verified Allergy, Unknown, 08/21/05) penicillin G (Verified Allergy, Unknown, 08/21/05) Past Wsjskkn-Uvlexu-Iqajsz Hx Patient Social History Marrital Status: Employed/Student: retired Alcohol Use: Denies Use Recreational Drug Use: No Smoking Status: Current Everyday Smoker Type Used: Cigarettes 2nd Hand Smoke Exposure: No Physical Abuse Screen: No Sexual Abuse: No Recent Foreign Travel: No Contact w/other who traveled: No Recent Hopitalizations: No Recent Infectious Disease Expo: No Immunizations Up To Date Tetanus Booster (TDap): More than 5yrs Date of Pneumonia Vaccine: May 13, 2014 Date of Influenza Vaccine: Feb 11, 2016 Seasonal Allergies Seasonal Allergies: No Surgeries HX Surgeries: Yes (PARATHYROIDECTOMY, OPEN HEART SC, CARDIAC CATH X20, CARPEL TUNNEL LATA HAND) Surgeries: Appendectomy, Breast, Cardiac, Coronary Stent, Orthopedic Respiratory Hx Respiratory Disorders: Yes Respiratory Disorders: COPD, Emphysema Cardiovascular Hx Cardiovascular Disorders: Yes (HAS STENTS X3, HX LBBB, CHF) Cardiac Disorders: Angina, Atrial Fibrillation, Cardiomyopathy, Chronic Edema/ Swelling, Coronary Artery Disease, Deep Vein Thrombosis, Heart Attack, Heart Murmur, High Cholesterol, Hypertension Neurological Hx Neurological Disorders: Yes Neurological Disorders: TIA Reproductive System Hx Reproductive Disorders: No Sexually Transmitted Disease: No Genitourinary Hx Genitourinary Disorders: Yes (CHRONIC RENAL INSUFFICIENCY) Genitourinary Disorders: Renal Failure Gastrointestinal Hx Gastrointestinal Disorders: Yes (LIVER ENZYME ELEVATION/ LIPITOR ADJUSTED) Gastrointestinal Disorders: Gastroesophageal Reflux Musculoskeletal Hx Musculoskeletal Disorders: Yes (LEFT SHOULDER TORN ROTATOR CUFF, bilat carpal tunnel repair) Musculoskeletal Disorders: Degenerate Disk Disease, Chronic Back Pain Endocrine Hx Endocrine Disorders: Yes (PARATHYROIDECTOMY, "BORDERLINE DIABETIC") Endocrine Disorders: Diabetes, Non-Insulin dep HEENT HX ENT Disorders: No HEENT Disorders: Cataract Cancer Hx Cancer: Yes Cancer: Breast Psychosocial Hx Psychiatric Problems: No Integumentary HX Skin/Integumentary Disorder: No Blood Transfusions Hx Blood Disorders: No Family Medical History Family Hx: Arthritis 19 FATHER Cardiovascular disease 19 FATHER FH: breast cancer 19 MOTHER Respiratory disorder 19 FATHER Review of Systems Constitutional: see HPI EENTM: no symptoms reported Respiratory: cough, dyspnea on exertion, short of breath, other (recent pneumonia) Cardiovascular: Hx of Intervention Gastrointestinal: see HPI, abdominal pain (pelvic) Genitourinary: no symptoms reported Musculoskeletal: no symptoms reported Psychiatric/Neurological: No Symptoms Reported Physical Exam Physical Exam Vital Signs Vital Sign - Last 12Hours 12/20/16 01:00 Temp 98.2 Pulse 90 Resp 19 B/P (MAP) 104/62 Pulse Ox 96 O2 Delivery Nasal Cannula O2 Flow Rate 2.50 Capillary Refill : General Appearance: Mild Distress, Other (recently acquired RAMIRES) Eyes: Bilateral Eye Normal Inspection HEENT: Normal ENT Inspection Neck: Full Range of Motion, Normal Inspection, Non Tender, Supple, Carotid Bruit Respiratory: Decreased Breath Sounds (distant) Cardiovascular: Irregularly Irregular Gastrointestinal: Abnormal Bowel Sounds (decreased), Guarding (TO palpation sub -umbilical) Back: Normal Inspection, No CVA Tenderness, No Vertebral Tenderness Extremity: Normal Capillary Refill, Normal Inspection, Normal Range of Motion, Non Tender, No Calf Tenderness, No Pedal Edema Neurologic/Psychiatric: Alert, Oriented x3, No Motor/Sensory Deficits, Normal Mood/Affect Skin: Normal Color Lymphatic: No Adenopathy Results Results/Procedures Lab Laboratory Tests 12/20/16 05:30 Assessment/Plan Admission Diagnosis 1.acute diverticulitis. 2.male breast cancer with bony metastases. 3.recent history of pneumonia. Assessment and Plan Antibiotics and conservative therapy Clinical Quality Measures DVT/VTE Risk/Contraindication: Risk Factor Score Per Nursin RFS Level Per Nursing on Admit: 4+=Very High JIMMY COPE MD Dec 20, 2016 13:35
[2016-12-20] MEDS: inSUlin ASPART (NovoLOG) 1 UNIT/0.01 ML (CHARGE PER UNIT) SC SCH ×2 (16:00→20:12)
[2016-12-20] MEDS: ALFUZOSIN HCL 10 MG TAB (UROXATRAL) PO SCH (18:29)
[2016-12-20] MEDS ORDERED: ATORVASTATIN 40 MG (LIPITOR) TABLET PO SCH (21:00)
[2016-12-20] MEDS: RANOLAZINE ER 500 MG TAB (RANEXA) PO SCH (21:46)
[2016-12-20] MEDS: TAMOXIFEN 10 MG (NOLVADEX) TAB PO SCH (21:46)
[2016-12-20] MEDS: meTOprolol SUCCINATE 100 MG (TOPROL XL) TAB PO SCH (21:47)
[2016-12-20] MEDS: MONTELUKAST 10 MG (SINGULAIR) TAB PO SCH (21:47)
[2016-12-21] VITALS (14 sets, daily range): BP systolic 93–143; BP diastolic 61–92
[2016-12-21] MEDS: fentaNYL INJECTION 100 MCG/2 ML AMP IVP PRN ×2 (01:00→17:05)
[2016-12-21] MEDS: RT-ALBUTEROL/IPRATROPIUM 3 ML (DUONEB) VIAL INH SCH ×6 (02:44→22:58)
[2016-12-21] MEDS: LACTATED RINGERS 1,000 ML IV SCH ×3 (02:50→18:27)
[2016-12-21 05:21] LABS: BASOPHILS % (AUTO) 0 % (0-10); EOSINOPHILS % (AUTO) 0 % (0-10); LYMPHOCYTES % (AUTO) 7 % (12-44); MEAN CORPUSCULAR HEMOGLOBIN 28 PG (25-34); MEAN CORPUSCULAR HGB CONC 32 G/DL (32-36); MEAN CORPUSCULAR VOLUME 88 FL (80-99); MEAN PLATELET VOLUME 10.6 FL (7.4-10.4); MONOCYTES # (AUTO) 0.5 X 10^3 (0.0-1.0); MONOCYTES % (AUTO) 4 % (0-12); NEUTROPHILS # (AUTO) 12.8 X 10^3 (1.8-7.8); NEUTROPHILS % (AUTO) 89 % (42-75); PLATELET COUNT 165 10^3/uL (130-400); RED BLOOD COUNT 4.53 10^6/uL (4.35-5.85); WHITE BLOOD COUNT 14.3 10^3/uL (4.3-11.0)
[2016-12-21 05:44] LABS: CALCIUM 9.8 MG/DL (8.5-10.1); CREATININE SERUM 1.62 MG/DL (0.60-1.30); MAGNESIUM 2.4 MG/DL (1.8-2.4); PHOSPHORUS 3.7 MG/DL (2.3-4.7)
[2016-12-21] MEDS: MAGNESIUM 1 GM/100 ML IVPB 100 ML IV SCH (06:11)
[2016-12-21] MEDS: POTASSIUM CL 10MEQ/50ML IVPB 50 ML IV SCH (06:11)
[2016-12-21] MEDS: KCL 20 MEQ TAB (K-DUR) PO SCH (06:12)
[2016-12-21] MEDS: inSUlin ASPART (NovoLOG) 1 UNIT/0.01 ML (CHARGE PER UNIT) SC SCH ×4 (06:13→20:53)
[2016-12-21] MEDS: metroNIDAZOLE 500MG/100ML IVPB 100 ML IV SCH ×3 (06:23→21:57)
[2016-12-21] MEDS: predniSONE 20 MG TAB PO SCH ×3 (06:23→17:05)
[2016-12-21] MEDS: RT-ADVAIR HFA 115/21 MCG PER PUFF IH SCH ×2 (06:43→19:12)
--- NOTE | 2016-12-21 07:43 | Pulmonary Consultation ---
History of Present Illness History of Present Illness Date of Consultation 12/21/16 07:38 Time Seen by Provider: 07:38 Date of Admission History of Present Illness 56yo with hx of breast cancer with mets to vertebrae and severe oxygen dependent COPD presented to ED via EMS from [facility] secondary to acute onset of abdominal pain RLQ. CT showed perforation with possible abscess formation. Pt was admitted to Dr. Steward. Dr. Steward is monitoring patient and holding off on surgical procedures for now. Allergies and Home Medications Allergies Coded Allergies: Iodinated Contrast- Oral and IV Dye (Unverified Allergy, Mild, 10/20/08) Penicillins (Unverified Allergy, Mild, 10/20/08) Shellfish (Verified Allergy, Unknown, 02/18/06) amlodipine (Verified Allergy, Unknown, 11/29/06) iodine (Verified Allergy, Unknown, 08/21/05) penicillin G (Verified Allergy, Unknown, 08/21/05) Home Medications Albuterol Sulfate 18 Gm Hfa.aer.ad, 2 PUFF IH QID PRN for SHORTNESS OF BREATH, ( Reported) Arformoterol Tartrate 15 Mcg/2 Ml Vial.neb, 15 MCG NEB BID, (Reported) MIXES WITH BUDESONIDE Atorvastatin Calcium 40 Mg Tablet, 40 MG PO HS, (Reported) Budesonide 0.5 Mg/2 Ml Ampul.neb, 0.5 MG NEB BID, (Reported) MIXED WITH BROVANA Budesonide/Formoterol Fumarate 10.2 Gm Hfa.aer.ad, 2 PUFF INH BID PRN for WHEEZING, (Reported) Buspirone HCl 10 Mg Tablet, 10 MG PO HS PRN for ANXIETY, (Reported) Cetirizine HCl 10 Mg Tablet, 10 MG PO DAILY, (Reported) Cinacalcet HCl 30 Mg Tablet, 30 MG PO DAILY, (Reported) Clopidogrel Bisulfate 75 Mg Tablet, 75 MG PO HS, (Reported) Fenofibrate Nanocrystallized 145 Mg Tablet, 145 MG PO HS, (Reported) Fentanyl 1 Each Patch.td72, 50 MCG TD Q72H, (Reported) Furosemide 40 Mg Tablet, 40 MG PO DAILY, (Reported) Gabapentin 100 Mg Capsule, 100 MG PO TID, (Reported) Glimepiride 2 Mg Tablet, 2 MG PO DAILY, (Reported) Hydromorphone HCl 2 Mg Tablet, 2 MG PO BID PRN for PAIN-BREAKTHROUGH, (Reported) Isosorbide Mononitrate 30 Mg Tab.er.24h, 30 MG PO DAILY, (Reported) Levofloxacin 500 Mg Tablet, 250 MG PO DAILY for 10 Days, (Reported) TAKES 1/2 (500MG) TABLET FILLED #10 500MG TABS 8-7-17 FOR 1 DAILY - STATES THE DOSE WAS DECREASED TO 1/2 TAB DAILY X 10 DAYS DUE TO KIDNEY FUNCTION Metoprolol Succinate 100 Mg Tab.er.24h, 100 MG PO BID, (Reported) Montelukast Sodium 10 Mg Tablet, 10 MG PO HS, (Reported) Nitroglycerin 0.4 Mg Subl, 0.4 MG SL UD PRN for CHEST PAIN, (Reported) TAKE 1 TABLET EVERY 5 MINUTES X 3 DOSES NEEDED FOR CHEST PAIN Pantoprazole Sodium 40 Mg Tablet.dr, 40 MG PO BID, (Reported) Potassium Chloride 10 Meq Tablet.er, 10 MEQ PO DAILY, (Reported) Prednisone 20 Mg Tab, PO UD for 9 Days, (Reported) 20MG 3X DAILY X3 DAYS THEN 20MG 2X DAILY X3 DAYS THEN 20MG 1X DAILY X3 DAYS Ranolazine 500 Mg Tab.er.12h, 500 MG PO BID, (Reported) Rivaroxaban 15 Mg Tablet, 15 MG PO HS, (Reported) Sodium Chloride 30 Ml [place], 1-2 SPRAYS NS BID PRN for DRY NOSE, (Reported) Tamoxifen Citrate 20 Mg Tablet, 20 MG PO HS, (Reported) Tamsulosin HCl 0.4 Mg Cap.er.24h, 0.4 MG PO HS, (Reported) Past Spuepno-Fmqmvz-Ourqms Hx Patient Social History Alcohol Use: Denies Use Recreational Drug Use: No Smoking Status: Current Everyday Smoker Type Used: Cigarettes 2nd Hand Smoke Exposure: No Recent Foreign Travel: No Contact w/Someone Who Travel: No Recent Infectious Disease Expo: No Recent Hopitalizations: No Physical Abuse Screen: No Sexual Abuse: No Immunizations Up To Date Tetanus Booster (TDap): More than 5yrs PED Vaccines UTD: No Date of Pneumonia Vaccine: May 13, 2014 Date of Influenza Vaccine: Feb 11, 2016 Seasonal Allergies Seasonal Allergies: No Surgeries HX Surgeries: Yes (PARATHYROIDECTOMY, OPEN HEART SC, CARDIAC CATH X20, CARPEL TUNNEL LATA HAND) Surgeries: Appendectomy, Breast, Cardiac, Coronary Stent, Orthopedic Respiratory Hx Respiratory Disorders: Yes Respiratory Disorders: Asthma, COPD, Emphysema Cardiovascular Hx Cardiac Disorders: Yes (HAS STENTS X3, HX LBBB, CHF) Cardiac Disorders: Angina, Atrial Fibrillation, Cardiomyopathy, Chronic Edema/ Swelling, Coronary Artery Disease, Deep Vein Thrombosis, Heart Attack, Heart Murmur, High Cholesterol, Hypertension Neurological Hx Neurological Disorders: Yes Neurological Disorders: TIA Reproductive System Hx Reproductive Disorders: No Sexually Transmitted Disease: No Genitourinary Hx Genitourinary Disorders: Yes (CHRONIC RENAL INSUFFICIENCY) Genitourinary Disorders: Renal Failure Gastrointestinal Hx Gastrointestinal Disorders: Yes (LIVER ENZYME ELEVATION/ LIPITOR ADJUSTED) Gastrointestinal Disorders: Gastroesophageal Reflux Musculoskeletal Hx Musculoskeletal Disorders: Yes (LEFT SHOULDER TORN ROTATOR CUFF, bilat carpal tunnel repair) Musculoskeletal Disorders: Degenerate Disk Disease, Chronic Back Pain Endocrine Hx Endocrine Disorders: Yes (PARATHYROIDECTOMY, "BORDERLINE DIABETIC") Endocrine Disorders: Diabetes, Non-Insulin dep HEENT HX ENT Disorders: No HEENT Disorders: Cataract Cancer Hx Cancer: Yes Cancer: Breast Psychosocial Hx Psychiatric Problems: No Integumentary HX Skin/Integumentary Disorder: No Blood Transfusions Hx Blood Disorders: No Family Medical History Family Medial History: Arthritis 19 FATHER Cardiovascular disease 19 FATHER FH: breast cancer 19 MOTHER Respiratory disorder 19 FATHER Exam Exam Vital Signs Date Time Temp Pulse Resp B/P (MAP) Pulse Ox O2 Delivery O2 Flow Rate FiO2 12/21/16 06:39 97 Nasal Cannula 3.00 12/21/16 06:00 88 15 129/81 99 Nasal Cannula 3.00 12/21/16 05:00 82 13 116/74 96 Nasal Cannula 3.00 12/21/16 04:19 97.0 12/21/16 04:00 96 Nasal Cannula 3.00 12/21/16 04:00 88 17 117/75 92 Nasal Cannula 3.00 12/21/16 03:00 84 28 120/73 97 Nasal Cannula 3.00 12/21/16 02:44 98 Nasal Cannula 3.00 12/21/16 02:00 84 10 93/63 96 Nasal Cannula 3.00 12/21/16 01:00 84 12/21/16 01:00 88 25 116/74 97 Nasal Cannula 3.00 12/21/16 00:48 97.2 12/21/16 00:00 87 18 120/75 94 Nasal Cannula 3.00 12/21/16 00:00 98 Nasal Cannula 3.00 12/20/16 23:00 90 15 138/71 95 Nasal Cannula 3.00 12/20/16 22:16 95 Nasal Cannula 3.00 12/20/16 22:00 91 13 129/73 Nasal Cannula 3.00 12/20/16 21:00 93 16 123/83 96 Nasal Cannula 3.00 12/20/16 20:00 97 Nasal Cannula 3.00 12/20/16 20:00 91 14 137/76 95 Nasal Cannula 3.00 12/20/16 19:41 96.9 98 16 151/78 96 Nasal Cannula 3.00 12/20/16 19:00 90 14 141/86 95 Nasal Cannula 3.00 12/20/16 19:00 90 12/20/16 18:23 96 Nasal Cannula 3.00 12/20/16 18:19 96 Nasal Cannula 3.00 12/20/16 18:00 84 14 127/84 95 Nasal Cannula 3.00 12/20/16 17:00 85 17 138/76 96 Nasal Cannula 3.00 12/20/16 16:00 Nasal Cannula 3.00 12/20/16 16:00 98.2 Nasal Cannula 3.00 12/20/16 16:00 92 11 146/91 97 Nasal Cannula 3.00 12/20/16 15:00 90 11 137/81 100 Nasal Cannula 3.00 12/20/16 14:37 90 Nasal Cannula 3.00 12/20/16 14:00 81 19 131/86 99 Nasal Cannula 3.00 12/20/16 13:00 80 18 131/82 98 Nasal Cannula 3.00 12/20/16 13:00 80 12/20/16 12:00 Nasal Cannula 3.00 12/20/16 12:00 97.6 Nasal Cannula 3.00 12/20/16 12:00 82 19 138/79 95 Nasal Cannula 3.00 12/20/16 11:00 82 18 139/80 98 Nasal Cannula 3.00 12/20/16 10:39 97 Nasal Cannula 3.00 12/20/16 10:00 84 19 136/84 98 Nasal Cannula 3.00 12/20/16 09:00 84 22 131/77 96 Nasal Cannula 3.00 12/20/16 08:00 Nasal Cannula 3.00 12/20/16 08:00 86 19 143/74 94 Nasal Cannula 3.00 I & O 12/21/16 07:00 Intake Total 125 ml Output Total 1550 ml Balance -1425 ml General Appearance: Mild Distress, Other (recently acquired RAMIRES) HEENT: Normal ENT Inspection Neck: Full Range of Motion, Normal Inspection, Non Tender, Supple, Carotid Bruit Respiratory: Decreased Breath Sounds (distant) Cardiovascular: Irregularly Irregular Extremity: Normal Capillary Refill, Normal Inspection, Normal Range of Motion, Non Tender, No Calf Tenderness, No Pedal Edema Neurologic/Psychiatric: Alert, Oriented x3, No Motor/Sensory Deficits, Normal Mood/Affect Skin: Normal Color Lymphatic: No Adenopathy Results Lab Laboratory Tests 12/20/16 05:30 12/21/16 04:50 Assessment/Plan Assessment/Plan Acute abdominal pain secondary to sigmoid colitis and microperforation -Dr. Steward in managing -Continue to monitor COPD -Monitor -SVNS -Oxygen Metastatic breast cancer -Oncology following CAD, cardiomyopathyEF 55% -Cardiology following Tobacco dependance -Education SERA -compliant with CPAP therapy currently - 233 Clinical Quality Measures DVT/VTE Risk/Contraindication: Risk Factor Score Per Nursin RFS Level Per Nursing on Admit: 4+=Very High GABE MAYBERRY DO Dec 21, 2016 07:43
--- NOTE | 2016-12-21 08:47 | Progress Note-Cardiology ---
Cardiology SOAP Progress Note Subjective: Sitting up in bed. Frustrated that he can only have a small amount of clear liquids. No c/o CP, palpitations, syncope, near syncope or dyspnea. Objective: I&O/Vital Signs Vital Sign - Last 12Hours 12/21/16 12/21/16 12/21/16 12/21/16 03:00 04:00 04:00 04:19 Temp 97.0 Pulse 84 88 Resp 28 17 B/P (MAP) 120/73 117/75 Pulse Ox 97 92 96 O2 Delivery Nasal Cannula Nasal Cannula Nasal Cannula O2 Flow Rate 3.00 3.00 3.00 12/21/16 12/21/16 12/21/16 12/21/16 05:00 06:00 06:39 07:00 Pulse 82 88 84 Resp 13 15 B/P (MAP) 116/74 129/81 Pulse Ox 96 99 97 O2 Delivery Nasal Cannula Nasal Cannula Nasal Cannula O2 Flow Rate 3.00 3.00 3.00 12/21/16 12/21/16 12/21/16 12/21/16 08:00 08:00 10:09 12:00 Temp 98.0 97.6 Pulse Ox 97 O2 Delivery Nasal Cannula Nasal Cannula Nasal Cannula Nasal Cannula O2 Flow Rate 3.00 3.00 3.00 3.00 12/21/16 12/21/16 12/21/16 12:00 13:00 14:40 Pulse 82 Pulse Ox 96 O2 Delivery Nasal Cannula Nasal Cannula O2 Flow Rate 3.00 3.00 Intake and Output 12/21/16 00:00 Intake Total 100 ml Output Total 475 ml Balance -375 ml Weight (Pounds): 242 Weight (Ounces): 0.0 Weight (Calculated Kilograms): [id number] Constitutional: AAO x 3, well-developed, well-nourished Respiratory: No accessory muscle use, No respiratory distress, other (good bilat air entry; diminished at the bases) Cardiovascular: regular rate-rhythm, S1 and S2, systolic murmur (2/6 MSM) Gastrointestional: tender, No guarding, No rebound, audible bowel sounds Extremities: No clubbing, No cyanosis, No significant edema Neurologic/Psychiatric: grossly intact, power is 5/5 both on sides Skin: No rash on exposed areas, No ulcerations on exposed areas Results/Procedures: Labs Laboratory Tests 12/20/16 16:47: Glucometer 59*L 12/20/16 20:11: Glucometer 66L 12/21/16 04:50: White Blood Count 14.3H, Red Blood Count 4.53, Hemoglobin 12.6L, Hematocrit 40, Mean Corpuscular Volume 88, Mean Corpuscular Hemoglobin 28, Mean Corpuscular Hemoglobin Concent 32, Red Cell Distribution Width 17.0H, Platelet Count 165, Mean Platelet Volume 10.6H, Neutrophils (%) (Auto) 89H, Lymphocytes (%) (Auto) 7L, Monocytes (%) (Auto) 4, Eosinophils (%) (Auto) 0, Basophils (%) (Auto) 0, Neutrophils # (Auto) 12.8H, Lymphocytes # (Auto) 1.0, Monocytes # (Auto) 0.5, Eosinophils # (Auto) 0.0, Basophils # (Auto) 0.0, Sodium Level 139, Potassium Level 5.0, Chloride Level 106, Carbon Dioxide Level 25, Anion Gap 8, Blood Urea Nitrogen 30H, Creatinine 1.62H, Estimat Glomerular Filtration Rate 44, BUN/ Creatinine Ratio 19, Glucose Level 103, Calcium Level 9.8, Phosphorus Level 3.7 , Magnesium Level 2.4 A/P: Assessment: Abdominal pain due to sigmoid colitis and microperforation, managed by Dr Steward. There appears to be clinical improvement No evidence of CHF at this time Acute exacerbation of COPD in early September 2016 Chronic chest pain syndrome Coronary artery disease with a history of bare-metal stenting of the right coronary artery several years ago, which subsequently became occluded and he then underwent drug-eluting stenting of the right coronary artery with Atom 2.25 x 28-mm stent (August 2010). Card cath of 07/20/16 shows LMCA without significant disease, mod diffuse disease of LAD (including 50-60% ostial D1), chronic total distal occlusion of the LCX (unchanged compared to cath of 07/01/15 ) with distal collateralization, patent stent in the prox and mid RCA (known to be Atom 2.25 x 28, placed in August 2010), elevated LVEDP Hypertrophic cardiomyopathy with h/o partial myomectomy at [facility] in November 2005 Hypermetabolic supraclavicular lymph nodes and hypermetabolic osseous lesions suggestive of metastatic disease (PET-CT of 09/28/16) that are being followed by Dr Medrano, his oncologist Partial vision loss of the left eye only in early 2016. Branch retinal artery occlusion - following with his health center associate Dr. Encarnacion and Dr. Fan ( health center associate in [place]) MPI of of 06/29/16 shows small basal inferolateral RI with a small amount of jess -infarct ischemia, basal inferolateral hypo, LVEF 63%, mild cardiomegaly. Subsequent to this he had the card cath described above Echo of 06/28/16: LVEF 55%, mild asymmetric thickening of the interventricular septum without LVOT obstruction, mild to mod ao valve sclerosis and MAC w/o valvular stenosis, mild mitral & aortic & tricuspid regurg, PASP 35 mmHg Palpitations: 24 hr Holter of 06/28/16 showed NSR with relatively infrequent and isolated PVC & PAC, no significant lori Mild bilat carotid stenosis per u/s of July 2016 Chronic joint (including shoulders) and back discomfort Hypertension, labile Paroxysmal atrial fibrillation treated with pulmonary vein ablation at [facility] without subsequent recurrence. Chronic left bundle branch block following myectomy in November 2005. CKD stage 4 - for which he follow with nephrology in [place], [place] Chronic microscopic hematuria without any identifiable lesions. 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 Continuing tobaccoism from which cessation has been advised Degenerative joint disease. Bilateral carpal tunnel surgery. Intermittent noncompliance with medications. Bilateral leg swelling, likely related to venous insufficiency. Deep venous thrombosis treated with anticoag with rivroxaban. No recent blood clots in the leg veins Sleep apnea and restless leg syndrome. 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 Mccartney at [facility] in [place] in November 2011. He is now following with Dr. Medrano oncology services at [facility] History of hypercalcemia which is being followed by Dr. Noble, his pcp, and by Dr Medrano, his oncologist. He has a prior h/o partial parathyroidectomy Chronic mild AST elevation for which f/u is with his pcp Plan: * Complex management due to multiple comorbidities as outlined above * Cardiac risk for noncardiac surgery is intermediate to high. It appears reasonable to proceed with necessary surgery per Dr. Mcnulty * Dr. Mcnulty has spoken with him in detail and explained his cardiac risk to him. He understands * Please resume oral antiplatelet agents and anticoagulants KEYANA post surgery * Monitor labs closely * Continue previous cardiac regimen as far as possible * Monitor lab Physician Assessment Physician Assessment Lungs: good bilat air entry Cor: reg Abd: soft Ext: no c/c/e A&R * As documented in our note above that I updated (italics) and as noted below * Continue current cardiac regimen * Monitor labs closely * Reduce iv fluids * I answered his questions BLAYNE MORENO [facility] Dec 21, 2016 08:47 CHELSEA MCNULTY MD FACP FAC CCDS Dec 21, 2016 14:53
[2016-12-21] MEDS: ISOSORBIDE MONONITRATE 30 MG (IMDUR) TAB PO SCH (09:04)
[2016-12-21] MEDS: FUROSEMIDE 40 MG (LASIX) TAB PO SCH (09:04)
[2016-12-21] MEDS: meTOprolol SUCCINATE 100 MG (TOPROL XL) TAB PO SCH ×2 (09:04→21:57)
[2016-12-21] MEDS: GABAPENTIN 100 MG (NEURONTIN) CAP PO SCH ×3 (09:04→21:57)
--- NOTE | 2016-12-21 09:13 | Diagnostic Imaging Report ---
Portable erect AP chest at 544 hours. INDICATION: Pneumonia. FINDINGS: The previous exam of 12/20/16 noted mild bibasilar atelectasis/infiltrate with greater involvement of the left. On this study, the lung bases do seem better aerated. There is only a small amount of residual density still present in each lower lobe. However, in the interval since the prior study a vague area of slightly increased density has developed in the right upper lung. This finding is questionable for a new area of developing pneumonia/atelectasis. A followup exam would be recommended for further study. Left upper lung is clear. The heart is stable in size. The sternal wires and surgical clips noted previously are again evident and no different. The mediastinum is not widened. The osseous structures are intact. IMPRESSION: The appearance of the chest has improved as the lung bases do seem better aerated. However, there is now a question of a new area of pneumonia/atelectasis developing in the right upper lobe. A followup study would be recommended for continued evaluation. Dictated by: Dictated on workstation # [id number]
[2016-12-21] MEDS: RANOLAZINE ER 500 MG TAB (RANEXA) PO SCH ×2 (10:36→21:57)
--- NOTE | 2016-12-21 13:50 | Progress Note-Hospitalist ---
Standard Progress Note Progress Notes/Assess & Plan Date Seen 12/21/16 Time Seen by Provider: 13:48 Diagnosis 1.acute diverticulitis. 2.male breast cancer with bony metastases. 3.recent history of pneumonia. Assess & Plan/Chief Complaint The patient reports that he is feeling a good deal better today. He has afebrile. He would like to eat. I discussed the the situation with Dr. Steward and the patient will be transferred to the floor. Physical exam: There is family in the room and he is in good spirits. Lungs are clear to auscultation. CV is irregular. Abdomen is soft and there is no tenderness palpation. Impression: Acute diverticulitis Plan: Advance diet to clear liquid and transfer to fourth medical Labs Laboratory Tests 12/20/16 05:30 12/21/16 04:50 JIMMY COPE MD Dec 21, 2016 13:50
[2016-12-21] MEDS: ENOXAPARIN 40 MG/0.4 ML (LOVENOX) SYR SC SCH (15:10)
[2016-12-21] MEDS: LEVOFLOXACIN 750 MG/D5W 150 ML (PRE-MIX) IV SCH (15:10)
--- NOTE | 2016-12-21 15:36 | Progress Note ---
Subjective Date Seen by Provider: Dec 21, 2016 Time Seen by Provider: 15:26 Subjective/Events-last exam Feeling a little better since yesterday. Rates his pain about 2 or 3/10. No nausea or emesis. Breathing he states is about baseline. Patient tolerating sips of liquids. No fever sweats chills shortness of breath or chest pain. WBC down today. Objective Exam Vital Signs Date Time Temp Pulse Resp B/P (MAP) Pulse Ox O2 Delivery O2 Flow Rate FiO2 12/21/16 14:40 96 Nasal Cannula 3.00 12/21/16 13:00 82 12/21/16 12:00 Nasal Cannula 3.00 12/21/16 12:00 97.6 Nasal Cannula 3.00 12/21/16 10:09 97 Nasal Cannula 3.00 12/21/16 08:00 Nasal Cannula 3.00 12/21/16 08:00 98.0 Nasal Cannula 3.00 12/21/16 07:00 84 12/21/16 06:39 97 Nasal Cannula 3.00 12/21/16 06:00 88 15 129/81 99 Nasal Cannula 3.00 12/21/16 05:00 82 13 116/74 96 Nasal Cannula 3.00 12/21/16 04:19 97.0 12/21/16 04:00 96 Nasal Cannula 3.00 12/21/16 04:00 88 17 117/75 92 Nasal Cannula 3.00 12/21/16 03:00 84 28 120/73 97 Nasal Cannula 3.00 12/21/16 02:44 98 Nasal Cannula 3.00 12/21/16 02:00 84 10 93/63 96 Nasal Cannula 3.00 12/21/16 01:00 84 12/21/16 01:00 88 25 116/74 97 Nasal Cannula 3.00 12/21/16 00:48 97.2 12/21/16 00:00 87 18 120/75 94 Nasal Cannula 3.00 12/21/16 00:00 98 Nasal Cannula 3.00 12/20/16 23:00 90 15 138/71 95 Nasal Cannula 3.00 12/20/16 22:16 95 Nasal Cannula 3.00 12/20/16 22:00 91 13 129/73 Nasal Cannula 3.00 12/20/16 21:00 93 16 123/83 96 Nasal Cannula 3.00 12/20/16 20:00 97 Nasal Cannula 3.00 12/20/16 20:00 91 14 137/76 95 Nasal Cannula 3.00 12/20/16 19:41 96.9 98 16 151/78 96 Nasal Cannula 3.00 12/20/16 19:00 90 14 141/86 95 Nasal Cannula 3.00 12/20/16 19:00 90 12/20/16 18:23 96 Nasal Cannula 3.00 12/20/16 18:19 96 Nasal Cannula 3.00 12/20/16 18:00 84 14 127/84 95 Nasal Cannula 3.00 12/20/16 17:00 85 17 138/76 96 Nasal Cannula 3.00 12/20/16 16:00 Nasal Cannula 3.00 12/20/16 16:00 98.2 Nasal Cannula 3.00 12/20/16 16:00 92 11 146/91 97 Nasal Cannula 3.00 I & O 12/21/16 07:00 Intake Total 125 ml Output Total 1550 ml Balance -1425 ml Capillary Refill : General Appearance: No Apparent Distress (laying in bed), Mild Distress HEENT: Normal ENT Inspection Neck: Full Range of Motion, Normal Inspection, Non Tender, Supple, Carotid Bruit Respiratory: Decreased Breath Sounds Cardiovascular: Regular Rate, Rhythm Gastrointestinal: tenderness (lower abdomen, not peritoneal) Extremity: Normal Capillary Refill, Normal Inspection, Normal Range of Motion, Non Tender, No Calf Tenderness, No Pedal Edema Neurologic/Psychiatric: Alert, Oriented x3, No Motor/Sensory Deficits, Normal Mood/Affect Skin: Normal Color Lymphatic: No Adenopathy Results Lab Laboratory Tests 12/20/16 16:47: Glucometer 59*L 12/20/16 20:11: Glucometer 66L 12/21/16 04:50: White Blood Count 14.3H, Red Blood Count 4.53, Hemoglobin 12.6L, Hematocrit 40, Mean Corpuscular Volume 88, Mean Corpuscular Hemoglobin 28, Mean Corpuscular Hemoglobin Concent 32, Red Cell Distribution Width 17.0H, Platelet Count 165, Mean Platelet Volume 10.6H, Neutrophils (%) (Auto) 89H, Lymphocytes (%) (Auto) 7L, Monocytes (%) (Auto) 4, Eosinophils (%) (Auto) 0, Basophils (%) (Auto) 0, Neutrophils # (Auto) 12.8H, Lymphocytes # (Auto) 1.0, Monocytes # (Auto) 0.5, Eosinophils # (Auto) 0.0, Basophils # (Auto) 0.0, Sodium Level 139, Potassium Level 5.0, Chloride Level 106, Carbon Dioxide Level 25, Anion Gap 8, Blood Urea Nitrogen 30H, Creatinine 1.62H, Estimat Glomerular Filtration Rate 44, BUN/ Creatinine Ratio 19, Glucose Level 103, Calcium Level 9.8, Phosphorus Level 3.7 , Magnesium Level 2.4 Assessment/Plan Assessment/Plan Assessment/Plan sigmoid diverticulitis with microperforation and abscess multiple comorbidities continue with bowel rest iv antibiotics clears sips. Clinical Quality Measures DVT/VTE Risk/Contraindication: Risk Factor Score Per Nursin RFS Level Per Nursing on Admit: 4+=Very High KELLY DOMINGUEZ DO Dec 21, 2016 3:36 pm
[2016-12-21] MEDS: ALFUZOSIN HCL 10 MG TAB (UROXATRAL) PO SCH (17:05)
[2016-12-21] MEDS: MONTELUKAST 10 MG (SINGULAIR) TAB PO SCH (21:57)
[2016-12-21] MEDS: TAMOXIFEN 10 MG (NOLVADEX) TAB PO SCH (21:57)
[2016-12-22 00:10] VITALS: BP 109/59
[2016-12-22] MEDS: RT-ALBUTEROL/IPRATROPIUM 3 ML (DUONEB) VIAL INH SCH ×6 (02:56→21:39)
[2016-12-22 04:00] VITALS: BP 112/63
[2016-12-22] MEDS: inSUlin ASPART (NovoLOG) 1 UNIT/0.01 ML (CHARGE PER UNIT) SC SCH ×4 (05:17→21:23)
[2016-12-22] MEDS: metroNIDAZOLE 500MG/100ML IVPB 100 ML IV SCH ×3 (05:27→21:22)
[2016-12-22] MEDS: LACTATED RINGERS 1,000 ML IV SCH ×3 (05:28→21:26)
[2016-12-22] MEDS: predniSONE 20 MG TAB PO SCH ×3 (06:30→20:08)
[2016-12-22] MEDS: RT-ADVAIR HFA 115/21 MCG PER PUFF IH SCH ×2 (07:12→18:22)
--- NOTE | 2016-12-22 07:33 | Pulmonary Progress Note ---
Subjective Time Seen by Provider: 08:10 Subjective/Events-last exam Pt feels improved. No complications noted. Exam Exam Vital Signs Date Time Temp Pulse Resp B/P (MAP) Pulse Ox O2 Delivery O2 Flow Rate FiO2 12/22/16 07:14 97 Nasal Cannula 2.50 12/22/16 04:00 98.3 91 20 112/63 96 Nasal Cannula 2.00 12/22/16 02:56 97 Nasal Cannula 2.50 12/22/16 00:10 98.0 86 20 109/59 95 Nasal Cannula 2.00 12/21/16 22:58 94 Nasal Cannula 2.50 12/21/16 20:25 Nasal Cannula 2.00 12/21/16 20:00 98.0 77 22 100/61 94 Nasal Cannula 3.00 12/21/16 19:12 92 Room Air 12/21/16 16:00 Nasal Cannula 3.00 12/21/16 16:00 98.4 Nasal Cannula 3.00 12/21/16 16:00 17 133/71 95 Nasal Cannula 3.00 12/21/16 15:00 85 22 129/76 97 Nasal Cannula 3.00 12/21/16 14:40 96 Nasal Cannula 3.00 12/21/16 14:00 81 12 128/81 97 Nasal Cannula 3.00 12/21/16 13:00 85 14 143/92 96 Nasal Cannula 3.00 12/21/16 13:00 82 12/21/16 12:00 81 18 123/79 95 Nasal Cannula 3.00 12/21/16 12:00 Nasal Cannula 3.00 12/21/16 12:00 97.6 Nasal Cannula 3.00 12/21/16 11:00 82 21 130/82 95 Nasal Cannula 3.00 12/21/16 10:09 97 Nasal Cannula 3.00 12/21/16 08:00 Nasal Cannula 3.00 12/21/16 08:00 98.0 Nasal Cannula 3.00 General Appearance: No Apparent Distress (laying in bed), Mild Distress HEENT: Normal ENT Inspection Neck: Full Range of Motion, Normal Inspection, Non Tender, Supple, Carotid Bruit Respiratory: Decreased Breath Sounds Cardiovascular: Regular Rate, Rhythm Gastrointestinal: tenderness (lower abdomen, not peritoneal) Extremity: Normal Capillary Refill, Normal Inspection, Normal Range of Motion, Non Tender, No Calf Tenderness, No Pedal Edema Neurologic/Psychiatric: Alert, Oriented x3, No Motor/Sensory Deficits, Normal Mood/Affect Skin: Normal Color Lymphatic: No Adenopathy Results Lab Laboratory Tests 12/21/16 04:50 Assessment/Plan Assessment/Plan Acute abdominal pain secondary to sigmoid colitis and microperforation -Dr. Steward in managing -Continue to monitor -flagyl and levaquin COPD -Monitor -SVNS -Oxygen Atelectasis -IS -increase activity as tolerated Metastatic breast cancer -Oncology following CAD, cardiomyopathyEF 55% -Cardiology following Tobacco dependance -Education SERA -compliant with CPAP therapy currently - 232 Clinical Quality Measures DVT/VTE Risk/Contraindication: Risk Factor Score Per Nursin RFS Level Per Nursing on Admit: 4+=Very High GABE MAYBERRY DO Dec 22, 2016 07:33
[2016-12-22 07:53] VITALS: BP 138/79
[2016-12-22] MEDS: RANOLAZINE ER 500 MG TAB (RANEXA) PO SCH ×2 (08:13→21:23)
[2016-12-22] MEDS: FUROSEMIDE 40 MG (LASIX) TAB PO SCH (08:14)
[2016-12-22] MEDS: meTOprolol SUCCINATE 100 MG (TOPROL XL) TAB PO SCH ×2 (08:14→21:23)
[2016-12-22] MEDS: ISOSORBIDE MONONITRATE 30 MG (IMDUR) TAB PO SCH (08:14)
[2016-12-22] MEDS: GABAPENTIN 100 MG (NEURONTIN) CAP PO SCH ×3 (08:14→21:23)
[2016-12-22] MEDS: KCL 20 MEQ TAB (K-DUR) PO SCH (08:16)
[2016-12-22] MEDS ORDERED: FENTANYL PATCH REMOVAL TP SCH (08:59)
[2016-12-22] MEDS ORDERED: fentaNYL PATCH 50 MCG (DURAGESIC) TD SCH (09:00)
[2016-12-22 09:01] LABS: CALCIUM 10.3 MG/DL (8.5-10.1); CREATININE SERUM 1.55 MG/DL (0.60-1.30); POTASSIUM 4.8 MMOL/L (3.6-5.0)
--- NOTE | 2016-12-22 09:19 | Progress Note-Cardiology ---
Cardiology SOAP Progress Note Subjective: No cp or palp or syncope or shortness of breath at rest Abd pain better Objective: I&O/Vital Signs Vital Sign - Last 12Hours 12/21/16 12/22/16 12/22/16 12/22/16 22:58 00:10 02:56 04:00 Temp 98.0 98.3 Pulse 86 91 Resp 20 20 B/P (MAP) 109/59 112/63 Pulse Ox 94 95 97 96 O2 Delivery Nasal Cannula Nasal Cannula Nasal Cannula Nasal Cannula O2 Flow Rate 2.50 2.00 2.50 2.00 12/22/16 12/22/16 12/22/16 07:14 07:53 08:15 Temp 96.2 Pulse 80 Resp 20 B/P (MAP) 138/79 Pulse Ox 97 96 96 O2 Delivery Nasal Cannula Nasal Cannula Nasal Cannula O2 Flow Rate 2.50 2.00 2.00 Weight (Pounds): 250 Weight (Ounces): 8.0 Weight (Calculated Kilograms): 113.022509 Constitutional: AAO x 3, well-developed, well-nourished Respiratory: No accessory muscle use, No respiratory distress, other (good bilat air entry; diminished at the bases) Cardiovascular: regular rate-rhythm, S1 and S2, systolic murmur (2/6 MSM) Gastrointestional: tender, No guarding, No rebound, audible bowel sounds Extremities: No clubbing, No cyanosis, No significant edema Neurologic/Psychiatric: grossly intact, power is 5/5 both on sides Skin: No rash on exposed areas, No ulcerations on exposed areas Results/Procedures: Labs Laboratory Tests 12/21/16 12:47: Glucometer 110 12/21/16 16:05: Glucometer 102 12/21/16 20:52: Glucometer 142H 12/22/16 05:13: Glucometer 134H 12/22/16 08:31: Sodium Level 135, Potassium Level 4.8, Chloride Level 104, Carbon Dioxide Level 23, Anion Gap 8, Blood Urea Nitrogen 27H, Creatinine 1.55H, Estimat Glomerular Filtration Rate 46, BUN/Creatinine Ratio 17, Glucose Level 130H, Calcium Level 10.3H Laboratory Tests 12/21/16 04:50 12/22/16 08:31 A/P: Assessment: Abdominal pain due to sigmoid colitis and microperforation, managed by Dr Steward. There appears to be clinical improvement No evidence of CHF at this time Acute exacerbation of COPD in early September 2016 Chronic chest pain syndrome Coronary artery disease with a history of bare-metal stenting of the right coronary artery several years ago, which subsequently became occluded and he then underwent drug-eluting stenting of the right coronary artery with Atom 2.25 x 28-mm stent (August 2010). Card cath of 07/20/16 shows LMCA without significant disease, mod diffuse disease of LAD (including 50-60% ostial D1), chronic total distal occlusion of the LCX (unchanged compared to cath of 07/01/15 ) with distal collateralization, patent stent in the prox and mid RCA (known to be Atom 2.25 x 28, placed in August 2010), elevated LVEDP Hypertrophic cardiomyopathy with h/o partial myomectomy at [facility] in November 2005 Hypermetabolic supraclavicular lymph nodes and hypermetabolic osseous lesions suggestive of metastatic disease (PET-CT of 09/28/16) that are being followed by Dr Medrano, his oncologist Partial vision loss of the left eye only in early 2016. Branch retinal artery occlusion - following with his research & analytics manager Dr. Encarnacion and Dr. Fan ( research & analytics manager in [place]) MPI of of 06/29/16 shows small basal inferolateral [place] with a small amount of jess -infarct ischemia, basal inferolateral hypo, LVEF 63%, mild cardiomegaly. Subsequent to this he had the card cath described above Echo of 06/28/16: LVEF 55%, mild asymmetric thickening of the interventricular septum without LVOT obstruction, mild to mod ao valve sclerosis and MAC w/o valvular stenosis, mild mitral & aortic & tricuspid regurg, PASP 35 mmHg Palpitations: 24 hr Holter of 06/28/16 showed NSR with relatively infrequent and isolated PVC & PAC, no significant lori Mild bilat carotid stenosis per u/s of July 2016 Chronic joint (including shoulders) and back discomfort Hypertension, labile Paroxysmal atrial fibrillation treated with pulmonary vein ablation at [facility] without subsequent recurrence. Chronic left bundle branch block following myectomy in November 2005. CKD stage 4 - for which he follow with nephrology in [place], [place] Chronic microscopic hematuria without any identifiable lesions. 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 Continuing tobaccoism from which cessation has been advised Degenerative joint disease. Bilateral carpal tunnel surgery. Intermittent noncompliance with medications. Bilateral leg swelling, likely related to venous insufficiency. Deep venous thrombosis treated with anticoag with rivroxaban. No recent blood clots in the leg veins Sleep apnea and restless leg syndrome. 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 Mccartney at [facility] in [place] in November 2011. He is now following with Dr. Medrano oncology services at [facility] History of hypercalcemia which is being followed by Dr. Noble, his pcp, and by Dr Medrano, his oncologist. He has a prior h/o partial parathyroidectomy Chronic mild AST elevation for which f/u is with his pcp Plan: * Complex management due to multiple comorbidities as outlined above * Cardiac risk for noncardiac surgery is intermediate to high. It appears reasonable to proceed with necessary surgery * Monitor labs closely * I spoke with him and his fam (that were present at his bedside today) and answered questions CHELSEA HAWTHORNE MD FACP FACC CCDS Dec 22, 2016 09:19
[2016-12-22 09:27] LABS: BASOPHILS % (AUTO) 0 % (0-10); EOSINOPHILS % (AUTO) 0 % (0-10); LYMPHOCYTES # (AUTO) 0.8 X 10^3 (1.0-4.0); LYMPHOCYTES % (AUTO) 8 % (12-44); MEAN CORPUSCULAR HEMOGLOBIN 28 PG (25-34); MEAN CORPUSCULAR HGB CONC 31 G/DL (32-36); MEAN CORPUSCULAR VOLUME 88 FL (80-99); MEAN PLATELET VOLUME 11.3 FL (7.4-10.4); MONOCYTES # (AUTO) 0.4 X 10^3 (0.0-1.0); MONOCYTES % (AUTO) 4 % (0-12); NEUTROPHILS % (AUTO) 88 % (42-75); PLATELET COUNT 159 10^3/uL (130-400); RED BLOOD COUNT 4.72 10^6/uL (4.35-5.85); RED CELL DISTRIBUTION WIDTH 16.8 % (10.0-14.5); WHITE BLOOD COUNT 10.3 10^3/uL (4.3-11.0)
[2016-12-22] MEDS: LEVOFLOXACIN 750 MG/D5W 150 ML (PRE-MIX) IV SCH (11:03)
--- NOTE | 2016-12-22 11:41 | Progress Note-Hospitalist ---
Progress Note HPI/CC on Admission The patient is a 56-year-old white male seen in consultation for Dr. Setward. He is well-known to the hospitalist service. He has had several previous admissions. His initial admission was triggered by the onset of back pain. After further investigation it was noted that he had what appeared to be a metastatic malignancy in the vertebrae. He had a past history of male breast cancer and had been taking tamoxifen. This had been discontinued on his return to this area. On a recent admission he was to start combination chemotherapy/ hormonal therapy and radiation. He and his family had scheduled a family trip to [place] previously and had been allowed to go prior to starting treatment. He reported that they had a great time but he ended up being hospitalized in [place] for a bout of pneumonia. He was transferred here from [facility] after he presented with the acute onset of abdominal pain. He stated that that began in the right lower quadrant and ultimately across the pelvis. He denied any constipation diarrhea or blood in his stools. CT scan at [place] showed that there appeared to be a microperforation of a diverticulum and a possible small abscess. He was transferred here for definitive treatment. Progress Notes/Assess & Plan Date Seen 12/22/16 Time Seen by Provider: 10:00 Diagonsis/Assessment & Plan Chart Review: No fever Vitals stable WBC 10.3 normal Creat 1.55 Pharmacy Review: Chemo possible as swingbed or out-pt if must do that application support analyst: Pt is ambulating 3 times daily Pt has not been eating. Dr. Riojas wants him to stay on clear liquids for another day. CT will be performed tomorrow Patient Interview: Pt confirms being in [place], going to the beach and then going to the hospital. Pt was in the hospital there for 3 days. Pt also went to the [facility]. Pt confirms being on clear liquid diet and will have a CT. Pt states that he would like to eat Physical exam stable. Lungs sound perfect Pt denies having a lot of pain in his abdomen. Pt confirms having BMs and there is a small amount of pain in his abdomen with the BMs. Pt confirms having a BM yesterday. Pt was assured that we will take care of his infection then he can restart chemo. Assessment: Acute diverticulitis with abscess improved on antibiotics and IV fluids Breast cancer with metastasis to the spine was to begin chemotherapy but holding due to infection COPD CHF CAD Plan: Swingbed eval Stool softeners Ambulate Scribed by Mary Smith under the direct supervision of Dr. Walsh. DANIEL WALSH DO Dec 22, 2016 11:41
[2016-12-22] MEDS: ENOXAPARIN 40 MG/0.4 ML (LOVENOX) SYR SC SCH (12:40)
[2016-12-22 12:49] VITALS: BP 117/73
[2016-12-22 15:49] VITALS: BP 144/78
[2016-12-22] MEDS ORDERED: ACETAMINOPHEN 325 MG TABLET/CAPLET (TYLENOL) PO PRN (16:00)
--- NOTE | 2016-12-22 17:24 | Progress Note ---
Subjective Date Seen by Provider: Dec 22, 2016 Time Seen by Provider: 08:50 Subjective/Events-last exam Patient states feeling better still today. He does not have any significant lower abdominal pain but still with minimal pain. Patient is tolerating liquids. His white blood cell count is continued decrease. He denies any nausea vomiting fever sweats chills shortness of breath or chest pain. Objective Exam Vital Signs Date Time Temp Pulse Resp B/P (MAP) Pulse Ox O2 Delivery O2 Flow Rate FiO2 12/22/16 15:49 97.4 84 20 144/78 96 Nasal Cannula 2.00 12/22/16 14:32 94 Nasal Cannula 2.50 12/22/16 12:49 97.5 83 20 117/73 96 Nasal Cannula 2.00 12/22/16 10:30 98 Nasal Cannula 2.50 12/22/16 08:15 96 Nasal Cannula 2.00 12/22/16 07:53 96.2 80 20 138/79 96 Nasal Cannula 2.00 12/22/16 07:14 97 Nasal Cannula 2.50 12/22/16 04:00 98.3 91 20 112/63 96 Nasal Cannula 2.00 12/22/16 02:56 97 Nasal Cannula 2.50 12/22/16 00:10 98.0 86 20 109/59 95 Nasal Cannula 2.00 12/21/16 22:58 94 Nasal Cannula 2.50 12/21/16 20:25 Nasal Cannula 2.00 12/21/16 20:00 98.0 77 22 100/61 94 Nasal Cannula 3.00 12/21/16 19:12 92 Room Air Capillary Refill : General Appearance: No Apparent Distress (laying in bed) HEENT: Normal ENT Inspection Neck: Full Range of Motion, Normal Inspection, Non Tender, Supple, Carotid Bruit Respiratory: Decreased Breath Sounds Cardiovascular: Regular Rate, Rhythm Gastrointestinal: tenderness (lower abdomen, not peritoneal, very minimal) Extremity: Normal Capillary Refill, Normal Inspection, Normal Range of Motion, Non Tender, No Calf Tenderness, No Pedal Edema Neurologic/Psychiatric: Alert, Oriented x3, No Motor/Sensory Deficits, Normal Mood/Affect Skin: Normal Color Lymphatic: No Adenopathy Results Lab Laboratory Tests 12/21/16 20:52: Glucometer 142H 12/22/16 05:13: Glucometer 134H 12/22/16 08:31: White Blood Count 10.3, Red Blood Count 4.72, Hemoglobin 13.0L, Hematocrit 41, Mean Corpuscular Volume 88, Mean Corpuscular Hemoglobin 28, Mean Corpuscular Hemoglobin Concent 31L, Red Cell Distribution Width 16.8H, Platelet Count 159, Mean Platelet Volume 11.3H, Neutrophils (%) (Auto) 88H, Lymphocytes (%) (Auto) 8L, Monocytes (%) (Auto) 4, Eosinophils (%) (Auto) 0, Basophils (%) (Auto) 0, Neutrophils # (Auto) 9.0H, Lymphocytes # (Auto) 0.8L, Monocytes # (Auto) 0.4, Eosinophils # (Auto) 0.0, Basophils # (Auto) 0.0, Sodium Level 135, Potassium Level 4.8, Chloride Level 104, Carbon Dioxide Level 23, Anion Gap 8, Blood Urea Nitrogen 27H, Creatinine 1.55H, Estimat Glomerular Filtration Rate 46, BUN/ Creatinine Ratio 17, Glucose Level 130H, Calcium Level 10.3H 12/22/16 10:50: Glucometer 125H 12/22/16 16:04: Glucometer 115H Assessment/Plan Assessment/Plan Assessment/Plan sigmoid diverticulitis with microperforation and abscess multiple comorbidities continue with bowel rest iv antibiotics clears Plan repeat CT scan abdomen and pelvis in the morning Clinical Quality Measures DVT/VTE Risk/Contraindication: Risk Factor Score Per Nursin RFS Level Per Nursing on Admit: 4+=Very High KELLY DOMINGUEZ DO Dec 22, 2016 17:24
[2016-12-22 20:00] VITALS: BP 115/60
[2016-12-22] MEDS: ALFUZOSIN HCL 10 MG TAB (UROXATRAL) PO SCH (20:08)
[2016-12-22] MEDS: MONTELUKAST 10 MG (SINGULAIR) TAB PO SCH (21:23)
[2016-12-22] MEDS: TAMOXIFEN 10 MG (NOLVADEX) TAB PO SCH (21:26)
[2016-12-23] VITALS: BP 123/69
[2016-12-23] MEDS: RT-ALBUTEROL/IPRATROPIUM 3 ML (DUONEB) VIAL INH SCH ×3 (02:01→10:19)
[2016-12-23 04:00] VITALS: BP 123/69
[2016-12-23] MEDS: LACTATED RINGERS 1,000 ML IV SCH (05:19)
[2016-12-23] MEDS: metroNIDAZOLE 500MG/100ML IVPB 100 ML IV SCH (05:19)
[2016-12-23] MEDS: KCL 20 MEQ TAB (K-DUR) PO SCH (05:19)
[2016-12-23] MEDS: inSUlin ASPART (NovoLOG) 1 UNIT/0.01 ML (CHARGE PER UNIT) SC SCH ×2 (05:22→12:28)
[2016-12-23 06:00] LABS: BASOPHILS % (AUTO) 0 % (0-10); EOSINOPHILS % (AUTO) 0 % (0-10); LYMPHOCYTES # (AUTO) 0.7 X 10^3 (1.0-4.0); LYMPHOCYTES % (AUTO) 10 % (12-44); MEAN CORPUSCULAR HEMOGLOBIN 28 PG (25-34); MEAN CORPUSCULAR HGB CONC 32 G/DL (32-36); MEAN CORPUSCULAR VOLUME 87 FL (80-99); MEAN PLATELET VOLUME 10.8 FL (7.4-10.4); MONOCYTES # (AUTO) 0.4 X 10^3 (0.0-1.0); MONOCYTES % (AUTO) 5 % (0-12); NEUTROPHILS # (AUTO) 6.3 X 10^3 (1.8-7.8); NEUTROPHILS % (AUTO) 85 % (42-75); PLATELET COUNT 170 10^3/uL (130-400); RED BLOOD COUNT 4.44 10^6/uL (4.35-5.85); RED CELL DISTRIBUTION WIDTH 16.5 % (10.0-14.5); WHITE BLOOD COUNT 7.4 10^3/uL (4.3-11.0)
[2016-12-23 06:20] LABS: BILIRUBIN,TOTAL 0.5 MG/DL (0.1-1.0); CALCIUM 10.2 MG/DL (8.5-10.1); CREATININE SERUM 1.57 MG/DL (0.60-1.30); TOTAL PROTEIN 5.6 GM/DL (6.4-8.2)
[2016-12-23] MEDS: RT-ADVAIR HFA 115/21 MCG PER PUFF IH SCH (07:24)
[2016-12-23 08:00] VITALS: BP 131/77
[2016-12-23] MEDS: RANOLAZINE ER 500 MG TAB (RANEXA) PO SCH (08:00)
[2016-12-23] MEDS: GABAPENTIN 100 MG (NEURONTIN) CAP PO SCH (08:01)
[2016-12-23] MEDS: FUROSEMIDE 40 MG (LASIX) TAB PO SCH (08:01)
[2016-12-23] MEDS: meTOprolol SUCCINATE 100 MG (TOPROL XL) TAB PO SCH (08:01)
[2016-12-23] MEDS: predniSONE 20 MG TAB PO SCH (08:01)
[2016-12-23] MEDS: ISOSORBIDE MONONITRATE 30 MG (IMDUR) TAB PO SCH (08:01)
--- NOTE | 2016-12-23 08:37 | Diagnostic Imaging Report ---
PROCEDURE: CT abdomen and pelvis without contrast. TECHNIQUE: Multiple contiguous axial images were obtained through the abdomen and pelvis without the use of intravenous contrast. INDICATION: Abdominal abscess, sigmoid diverticulitis. Comparison study: Outside films from [facility] dated 12/19/2016. FINDINGS: Patient has developed a small left pleural effusion with mild bibasilar atelectasis. The liver, gallbladder, spleen, pancreas, and adrenal glands appear normal. Mild stranding is now seen around the kidneys which is new. Inflammation around the diverticula in the mid sigmoid colon has decreased. Some air within the mesentery has resolved. No fluid collections or ascites is seen. Urinary bladder and prostate gland are normal. Osseous structures demonstrate some degenerative changes. IMPRESSION: 1. The sigmoid diverticulitis has significantly improved. The free air within the abdomen has nearly completely resolved. 2. There has been development of a small left pleural effusion. 3. Some stranding of the fat around the kidneys has developed. Possible reactive to the diverticulitis or due to a nephritis. Recommend correlation with urinalysis. ? Dictated by: Dictated on workstation # [id number]
--- NOTE | 2016-12-23 09:21 | Progress Note-Cardiology ---
Cardiology SOAP Progress Note Subjective: No further c/o CP. Chronic exertional dyspnea which is unchanged. No c/o palpitations, syncope or near syncope. Wants to go home today. Wants to eat. Objective: I&O/Vital Signs Vital Sign - Last 12Hours 12/23/16 12/23/16 12/23/16 12/23/16 00:00 02:01 04:00 07:26 Temp 98.4 98.4 Pulse 90 90 Resp 18 20 B/P (MAP) 123/69 123/69 Pulse Ox 97 96 92 97 O2 Delivery Nasal Cannula Nasal Cannula Nasal Cannula Nasal Cannula O2 Flow Rate 2.50 2.00 2.00 2.00 2.50 2.00 12/23/16 12/23/16 12/23/16 12/23/16 08:00 08:00 10:13 10:21 Temp 98.6 Pulse 88 88 Resp 20 B/P (MAP) 131/77 Pulse Ox 93 97 97 94 O2 Delivery Nasal Cannula Nasal Cannula Nasal Cannula O2 Flow Rate 2.00 2.00 2.00 2.00 FiO2 28 Weight (Pounds): 250 Weight (Ounces): 5.0 Weight (Calculated Kilograms): 113.474473 Constitutional: AAO x 3, well-developed, well-nourished Respiratory: No accessory muscle use, No respiratory distress, other (good bilat air entry; diminished at the bases) Cardiovascular: regular rate-rhythm, S1 and S2, systolic murmur (2/6 MSM) Gastrointestional: tender, No guarding, No rebound, audible bowel sounds Extremities: No clubbing, No cyanosis, No significant edema Neurologic/Psychiatric: grossly intact, power is 5/5 both on sides Skin: No rash on exposed areas, No ulcerations on exposed areas Results/Procedures: Labs Laboratory Tests 12/22/16 16:04: Glucometer 115H 12/22/16 20:11: Glucometer 106 12/23/16 05:20: Glucometer 134H, White Blood Count 7.4, Red Blood Count 4.44, Hemoglobin 12.3L, Hematocrit 39L, Mean Corpuscular Volume 87, Mean Corpuscular Hemoglobin 28, Mean Corpuscular Hemoglobin Concent 32, Red Cell Distribution Width 16.5H, Platelet Count 170, Mean Platelet Volume 10.8H, Neutrophils (%) (Auto) 85H, Lymphocytes (%) (Auto) 10L, Monocytes (%) (Auto) 5, Eosinophils (%) (Auto) 0, Basophils (%) (Auto) 0, Neutrophils # (Auto) 6.3, Lymphocytes # (Auto) 0.7L, Monocytes # (Auto) 0.4, Eosinophils # (Auto) 0.0, Basophils # (Auto) 0.0, Sodium Level 134L, Potassium Level 5.0, Chloride Level 104, Carbon Dioxide Level 24, Anion Gap 6, Blood Urea Nitrogen 27H, Creatinine 1.57H, Estimat Glomerular Filtration Rate 46, BUN/Creatinine Ratio 17, Glucose Level 142H, Calcium Level 10.2H, Total Bilirubin 0.5, Aspartate Amino Transf (AST/SGOT) 27, Alanine Aminotransferase (ALT/SGPT) 16, Alkaline Phosphatase 97, Total Protein 5.6L, Albumin 3.0L A/P: Assessment: Abdominal pain due to sigmoid colitis and microperforation, managed by Dr Steward. There appears to be clinical improvement No evidence of CHF at this time Currently awaiting port placement that is scheduled for 12/24/16 Acute exacerbation of COPD in early September 2016 Chronic chest pain syndrome Coronary artery disease with a history of bare-metal stenting of the right coronary artery several years ago, which subsequently became occluded and he then underwent drug-eluting stenting of the right coronary artery with Atom 2.25 x 28-mm stent (August 2010). Card cath of 07/20/16 shows LMCA without significant disease, mod diffuse disease of LAD (including 50-60% ostial D1), chronic total distal occlusion of the LCX (unchanged compared to cath of 07/01/15 ) with distal collateralization, patent stent in the prox and mid RCA (known to be Atom 2.25 x 28, placed in August 2010), elevated LVEDP Hypertrophic cardiomyopathy with h/o partial myomectomy at [facility] in November 2005 Hypermetabolic supraclavicular lymph nodes and hypermetabolic osseous lesions suggestive of metastatic disease (PET-CT of 09/28/16) that are being followed by Dr Medrano, his oncologist Partial vision loss of the left eye only in early 2016. Branch retinal artery occlusion - following with his enterprise software developer Dr. Encarnacion and Dr. Fan ( enterprise software developer in [place]) MPI of of 2/21/17 shows small basal inferolateral [place] with a small amount of jess -infarct ischemia, basal inferolateral hypo, LVEF 63%, mild cardiomegaly. Subsequent to this he had the card cath described above Echo of 06/28/16: LVEF 55%, mild asymmetric thickening of the interventricular septum without LVOT obstruction, mild to mod ao valve sclerosis and MAC w/o valvular stenosis, mild mitral & aortic & tricuspid regurg, PASP 35 mmHg Palpitations: 24 hr Holter of 06/28/16 showed NSR with relatively infrequent and isolated PVC & PAC, no significant lori Mild bilat carotid stenosis per u/s of July 2016 Chronic joint (including shoulders) and back discomfort Hypertension, labile Paroxysmal atrial fibrillation treated with pulmonary vein ablation at [facility] without subsequent recurrence. Chronic left bundle branch block following myectomy in November 2005. CKD stage 4 - for which he follow with nephrology in [place], [place] Chronic microscopic hematuria without any identifiable lesions. 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 Continuing tobaccoism from which cessation has been advised Degenerative joint disease. Bilateral carpal tunnel surgery. Intermittent noncompliance with medications. Bilateral leg swelling, likely related to venous insufficiency. Deep venous thrombosis treated with anticoag with rivroxaban. No recent blood clots in the leg veins Sleep apnea and restless leg syndrome. 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 Mccartney at [facility] in [place] in November 2011. He is now following with Dr. Medrano oncology services at [facility] History of hypercalcemia which is being followed by Dr. Noble, his pcp, and by Dr Medrano, his oncologist. He has a prior h/o partial parathyroidectomy Chronic mild AST elevation for which f/u is with his pcp Plan: * Complex management due to multiple comorbidities as outlined above * Cardiac risk for noncardiac surgery is intermediate to high. It appears reasonable to proceed with necessary surgery * Monitor labs closely * Spoke with Dr. Phillips today - plan is to advance diet * Awaiting port placement in preparation for chemo tx * Advise resumption of Plavix and Xarelto KEYANA following procedure, or if it is to be done at a later date then resume medications now Physician Assessment Physician Assessment Lungs: good bilat air entry Cor: reg Ext: no c/c/e A&R * As documented in our note above that I updated (italics) and as noted below * His port placement is scheduled for tomorrow. We recommend resumption of antiplatelet and anticoag KEYANA after surgery * We have advised outpatient f/u BLAYNE MORENO MAILMASTER Dec 23, 2016 09:21 CHELESA HAWTHORNE MD FACP FAC CCDS Dec 23, 2016 11:13
--- NOTE | 2016-12-23 09:32 | Discharge Summary-Hospitalist ---
Diagnosis/Chief Complaint Date of Admission Dec 20, 2016 at 00:55 Date of Discharge Admission Diagnosis 1.acute diverticulitis. 2.male breast cancer with bony metastases. 3.recent history of pneumonia. 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 Dr. Riojas wants him to stay on clear liquids for another day. CT will be performed tomorrow Patient Interview: Pt confirms being in [place], going to the beach and then going to the hospital. Pt was in the hospital there for 3 days. Pt also went to the [facility]. Pt confirms being on clear liquid diet and will have a CT. Pt states that he would like to eat Physical exam stable. Lungs sound perfect Pt denies having a lot of pain in his abdomen. Pt confirms having BMs and there is a small amount of pain in his abdomen with the BMs. Pt confirms having a BM yesterday. Pt was assured that we will take care of his infection then he can restart chemo. Assessment: Acute diverticulitis with abscess improved on antibiotics and IV fluids Breast cancer with metastasis to the spine was to begin chemotherapy but holding due to infection COPD CHF CAD Plan: Swingbed eval Stool softeners Ambulate Scribed by Mary Smith under the direct supervision of Dr. Walsh. Notes from 12/23/16 Chart Review: CT showed diverticulitis sign improved free air nearly completely resolved Dr. Riojas Review: Dr. Riojas would like the pt to stay until tomorrow so a port can be placed, but for billing purposes, this will be performed in out-pt setting. Patient Interview: Pt denies seeing a surgeon today. CT was discussed and looks much better. On Tuesday pt will meet with Susan Pt states he has not eaten since Tuesday afternoon. I informed the pt that we will advance diet and he will be on soft, bland foods, but I will discuss this with surgery. Pt was informed that he will be able to DC after I confer with surgery Physical exam stable. Pt confirms having O2 supply at home Pt was encouraged to ambulate and pt is doing well with this Plan: Advance diet - full liquids Ambulate Confer with surgery before DC DC home on po abx Scribed by Mary Smith under the direct supervision of Dr. Walsh. Discharge Summary Discharge Physical Examination Allergies: Coded Allergies: Iodinated Contrast- Oral and IV Dye (Unverified Allergy, Mild, 10/20/08) Penicillins (Unverified Allergy, Mild, 10/20/08) Shellfish (Verified Allergy, Unknown, 02/18/06) amlodipine (Verified Allergy, Unknown, 11/29/06) iodine (Verified Allergy, Unknown, 08/21/05) penicillin G (Verified Allergy, Unknown, 08/21/05) Vitals & I&Os Vital Signs Date Time Temp Pulse Resp B/P (MAP) Pulse Ox O2 Delivery O2 Flow Rate FiO2 12/23/16 10:21 94 Nasal Cannula 2.00 12/23/16 10:13 88 28 12/23/16 08:00 98.6 20 131/77 Hospital Course Hospital course: Patient had a lengthy hospital course that included ICU admission for diverticular abscess and congestive heart failure and severe COPD. I was consulted to manage multiple comorbidities and I consulted cardiology and pulmonology to assist. He was placed on empiric antibiotics of Levaquin and Flagyl for the diverticular abscess with free air but conservative management was recommended and it was successful considering his very poor surgical status it was best to maintaining conservative approach. He has a history of breast cancer with metastasis to the spine in the mist of undergoing treatment for chemotherapy was delayed this week because the infection. Overall his labs returned back to normal CT scan that was repeated showed complete resolution of diverticulitis and abscess and free air and considering he was advancing on his diet and full liquids would be maintained he was deemed stable for discharge with close follow-up the next day to have Dr. Riojas Place port to begin chemotherapy with follow-up with Dr. Castillo office on Tuesday. Labs (last 24 hrs) Laboratory Tests 12/22/16 16:04: Glucometer 115H 12/22/16 20:11: Glucometer 106 12/23/16 05:20: Glucometer 134H, White Blood Count 7.4, Red Blood Count 4.44, Hemoglobin 12.3L, Hematocrit 39L, Mean Corpuscular Volume 87, Mean Corpuscular Hemoglobin 28, Mean Corpuscular Hemoglobin Concent 32, Red Cell Distribution Width 16.5H, Platelet Count 170, Mean Platelet Volume 10.8H, Neutrophils (%) (Auto) 85H, Lymphocytes (%) (Auto) 10L, Monocytes (%) (Auto) 5, Eosinophils (%) (Auto) 0, Basophils (%) (Auto) 0, Neutrophils # (Auto) 6.3, Lymphocytes # (Auto) 0.7L, Monocytes # (Auto) 0.4, Eosinophils # (Auto) 0.0, Basophils # (Auto) 0.0, Sodium Level 134L, Potassium Level 5.0, Chloride Level 104, Carbon Dioxide Level 24, Anion Gap 6, Blood Urea Nitrogen 27H, Creatinine 1.57H, Estimat Glomerular Filtration Rate 46, BUN/Creatinine Ratio 17, Glucose Level 142H, Calcium Level 10.2H, Total Bilirubin 0.5, Aspartate Amino Transf (AST/SGOT) 27, Alanine Aminotransferase (ALT/SGPT) 16, Alkaline Phosphatase 97, Total Protein 5.6L, Albumin 3.0L Pending Labs Laboratory Tests 12/23/16 05:20: White Blood Count 7.4, Red Blood Count 4.44, Hemoglobin 12.3, Hematocrit 39, Mean Corpuscular Volume 87, Mean Corpuscular Hemoglobin 28, Mean Corpuscular Hemoglobin Concent 32, Red Cell Distribution Width 16.5, Platelet Count 170, Mean Platelet Volume 10.8, Neutrophils (%) (Auto) 85, Lymphocytes (%) (Auto) 10 , Monocytes (%) (Auto) 5, Eosinophils (%) (Auto) 0, Basophils (%) (Auto) 0, Neutrophils # (Auto) 6.3, Lymphocytes # (Auto) 0.7, Monocytes # (Auto) 0.4, Eosinophils # (Auto) 0.0, Basophils # (Auto) 0.0, Sodium Level 134, Potassium Level 5.0, Chloride Level 104, Carbon Dioxide Level 24, Anion Gap 6, Blood Urea Nitrogen 27, Creatinine 1.57, Estimat Glomerular Filtration Rate 46, BUN/ Creatinine Ratio 17, Glucose Level 142, Glucometer 134, Calcium Level 10.2, Total Bilirubin 0.5, Aspartate Amino Transf (AST/SGOT) 27, Alanine Aminotransferase (ALT/SGPT) 16, Alkaline Phosphatase 97, Total Protein 5.6, Albumin 3.0 Discharge Home Medications: Active Scripts Active Hydromorphone HCl 2 Mg Tablet 2 Mg PO BID PRN Levaquin (Levofloxacin) 750 Mg Tablet 750 Mg PO DAILY Flagyl (Metronidazole) 500 Mg Tablet 500 Mg PO TID Reported Prednisone 20 Mg Tab PO UD 9 Days 20MG 3X DAILY X3 DAYS THEN 20MG 2X DAILY X3 DAYS THEN 20MG 1X DAILY X3 DAYS Levofloxacin 500 Mg Tablet 250 Mg PO DAILY 10 Days TAKES 1/2 (500MG) TABLET FILLED #10 500MG TABS 8-7-17 FOR 1 DAILY - STATES THE DOSE WAS DECREASED TO 1/2 TAB DAILY X 10 DAYS DUE TO KIDNEY FUNCTION Duragesic Patch 50MCG (Fentanyl) 1 Each Patch.td72 50 Mcg TD Q72H Symbicort 160-4.5 Mcg Inhaler (Budesonide/Formoterol Fumarate) 10.2 Gm Hfa.aer.ad 2 Puff INH BID PRN Saline Nasal [place] (Sodium Chloride) 30 Ml [place] 1-2 Sprays NS BID PRN Metoprolol Succinate 100 Mg Tab.er.24h 100 Mg PO BID Ranexa (Ranolazine) 500 Mg Tab.er.12h 500 Mg PO BID Glimepiride 2 Mg Tablet 2 Mg PO DAILY Tamsulosin HCl 0.4 Mg Cap.er.24h 0.4 Mg PO HS Budesonide 0.5 Mg/2 Ml Ampul.neb 0.5 Mg NEB BID MIXED WITH BROVANA Potassium Chloride 10 Meq Tablet.er 10 Meq PO DAILY Cetirizine HCl 10 Mg Tablet 10 Mg PO DAILY Isosorbide Mononitrate ER (Isosorbide Mononitrate) 30 Mg Tab.er.24h 30 Mg PO DAILY Sensipar (Cinacalcet HCl) 30 Mg Tablet 30 Mg PO DAILY Buspirone HCl 10 Mg Tablet 10 Mg PO HS PRN Brovana (Arformoterol Tartrate) 15 Mcg/2 Ml Vial.neb 15 Mcg NEB BID MIXES WITH BUDESONIDE Furosemide 40 Mg Tablet 40 Mg PO DAILY Atorvastatin Calcium 40 Mg Tablet 40 Mg PO HS Fenofibrate (Fenofibrate Nanocrystallized) 145 Mg Tablet 145 Mg PO HS Clopidogrel (Clopidogrel Bisulfate) 75 Mg Tablet 75 Mg PO HS Pantoprazole Sodium 40 Mg Tablet.dr 40 Mg PO BID Gabapentin 100 Mg Capsule 100 Mg PO TID Tamoxifen Citrate 20 Mg Tablet 20 Mg PO HS Montelukast Sodium 10 Mg Tablet 10 Mg PO HS Ventolin Hfa (Albuterol Sulfate) 18 Gm Hfa.aer.ad 2 Puff IH QID PRN Xarelto (Rivaroxaban) 15 Mg Tablet 15 Mg PO HS Nitrostat (Nitroglycerin) 0.4 Mg Subl 0.4 Mg SL UD PRN TAKE 1 TABLET EVERY 5 MINUTES X 3 DOSES NEEDED FOR CHEST PAIN Instructions to patient/family Please see electonic discharge instructions given to patient. Clinical Quality Measures DVT/VTE Risk/Contraindication: Risk Factor Score Per Nursin RFS Level Per Nursing on Admit: 4+=Very High DANIEL WALSH DO Dec 23, 2016 09:32
[2016-12-23] MEDS ORDERED: LEVO750T9 PO (10:08)
[2016-12-23] MEDS ORDERED: METR500T PO (10:08)
[2016-12-23] MEDS ORDERED: HYDR2TAB6 PO (10:10)
[2016-12-23 10:13] VITALS: BP 131/71
[2016-12-23 12:00] VITALS: BP 129/77
[2016-12-23] MEDS: LEVOFLOXACIN 750 MG/D5W 150 ML (PRE-MIX) IV SCH (12:29)
[2016-12-23] MEDS: ENOXAPARIN 40 MG/0.4 ML (LOVENOX) SYR SC SCH (12:29)
--- NOTE | 2016-12-23 13:22 | Progress Note ---
Subjective Date Seen by Provider: Dec 23, 2016 Time Seen by Provider: 10:30 Subjective/Events-last exam Patient feeling better. WBC improved. Not having any abdominal pain at this time. Tolerating diet. No n/v fever sweats chills shortness of breath or chest pain. Objective Exam Vital Signs Date Time Temp Pulse Resp B/P (MAP) Pulse Ox O2 Delivery O2 Flow Rate FiO2 12/23/16 12:00 98.4 84 20 129/77 94 Nasal Cannula 2.00 2.00 12/23/16 10:21 94 Nasal Cannula 2.00 12/23/16 10:13 88 97 28 12/23/16 08:00 97 Nasal Cannula 2.00 12/23/16 08:00 98.6 88 20 131/77 93 Nasal Cannula 2.00 2.00 12/23/16 07:26 97 Nasal Cannula 2.00 12/23/16 04:00 98.4 90 20 123/69 92 Nasal Cannula 2.00 2.00 12/23/16 02:01 96 Nasal Cannula 2.00 12/23/16 00:00 98.4 90 18 123/69 97 Nasal Cannula 2.50 2.50 12/22/16 21:39 97 Nasal Cannula 2.00 12/22/16 20:00 96 Nasal Cannula 2.00 12/22/16 20:00 98.3 84 18 115/60 93 Nasal Cannula 2.50 2.50 12/22/16 18:29 Nasal Cannula 2.00 12/22/16 18:22 93 Nasal Cannula 2.00 12/22/16 15:49 97.4 84 20 144/78 96 Nasal Cannula 2.00 12/22/16 14:32 94 Nasal Cannula 2.50 Capillary Refill : General Appearance: No Apparent Distress (sitting in chair) HEENT: Normal ENT Inspection Neck: Full Range of Motion, Normal Inspection, Non Tender, Supple, Carotid Bruit Respiratory: No Respiratory Distress, Decreased Breath Sounds Cardiovascular: Regular Rate, Rhythm Gastrointestinal: non tender, soft, no organomegaly Extremity: Normal Capillary Refill, Normal Inspection, Normal Range of Motion, Non Tender, No Calf Tenderness, No Pedal Edema Neurologic/Psychiatric: Alert, Oriented x3, No Motor/Sensory Deficits, Normal Mood/Affect Skin: Normal Color Lymphatic: No Adenopathy Results Lab Laboratory Tests 12/22/16 16:04: Glucometer 115H 12/22/16 20:11: Glucometer 106 12/23/16 05:20: Glucometer 134H, White Blood Count 7.4, Red Blood Count 4.44, Hemoglobin 12.3L, Hematocrit 39L, Mean Corpuscular Volume 87, Mean Corpuscular Hemoglobin 28, Mean Corpuscular Hemoglobin Concent 32, Red Cell Distribution Width 16.5H, Platelet Count 170, Mean Platelet Volume 10.8H, Neutrophils (%) (Auto) 85H, Lymphocytes (%) (Auto) 10L, Monocytes (%) (Auto) 5, Eosinophils (%) (Auto) 0, Basophils (%) (Auto) 0, Neutrophils # (Auto) 6.3, Lymphocytes # (Auto) 0.7L, Monocytes # (Auto) 0.4, Eosinophils # (Auto) 0.0, Basophils # (Auto) 0.0, Sodium Level 134L, Potassium Level 5.0, Chloride Level 104, Carbon Dioxide Level 24, Anion Gap 6, Blood Urea Nitrogen 27H, Creatinine 1.57H, Estimat Glomerular Filtration Rate 46, BUN/Creatinine Ratio 17, Glucose Level 142H, Calcium Level 10.2H, Total Bilirubin 0.5, Aspartate Amino Transf (AST/SGOT) 27, Alanine Aminotransferase (ALT/SGPT) 16, Alkaline Phosphatase 97, Total Protein 5.6L, Albumin 3.0L Assessment/Plan Assessment/Plan Assessment/Plan sigmoid diverticulitis with microperforation and abscess multiple comorbidities full liquid diet converted to oral antibiotics repeat ct this am with improvement okay with dc home needs port since continues to improve and off of blood thinners will plan on port in am. will also need colonoscopy approximately 6 weeks after complete improvement. Clinical Quality Measures DVT/VTE Risk/Contraindication: Risk Factor Score Per Nursin RFS Level Per Nursing on Admit: 4+=Very High KELLY DOMINGUEZ DO Dec 23, 2016 13:22
== END 2016-12-23 13:05 | disposition home or self-care (01) | DRG 392 ==
LOC: ICU 00:55 → 4TH 12-21 16:20
PROVIDERS: ADMIT Surgery; ATTEND Surgery
DX: K57.20 Diverticulitis of large intestine with perforation and abscess without bleeding (principal); I13.0 Hypertensive heart and chronic kidney disease with heart failure and stage 1 through stage 4 chronic kidney disease, or unspecified chronic kidney disease; N18.4 Chronic kidney disease, stage 4 (severe); I50.9 Heart failure, unspecified; I42.2 Other hypertrophic cardiomyopathy; C79.51 Secondary malignant neoplasm of bone; C50.921 Malignant neoplasm of unspecified site of right male breast; I25.119 Atherosclerotic heart disease of native coronary artery with unspecified angina pectoris; I25.2 Old myocardial infarction; J44.9 Chronic obstructive pulmonary disease, unspecified; F17.218 Nicotine dependence, cigarettes, with other nicotine-induced disorders; I48.0 Paroxysmal atrial fibrillation; E11.9 Type 2 diabetes mellitus without complications; G47.33 Obstructive sleep apnea (adult) (pediatric); G25.81 Restless legs syndrome; E78.00 Pure hypercholesterolemia, unspecified; M54.9 Dorsalgia, unspecified; M75.102 Unspecified rotator cuff tear or rupture of left shoulder, not specified as traumatic; I87.2 Venous insufficiency (chronic) (peripheral); K21.9 Gastro-esophageal reflux disease without esophagitis; E89.2 Postprocedural hypoparathyroidism; Z87.01 Personal history of pneumonia (recurrent); Z90.12 Acquired absence of left breast and nipple; Z79.810 Long term (current) use of selective estrogen receptor modulators (SERMs); Z99.81 Dependence on supplemental oxygen; Z79.84 Long term (current) use of oral hypoglycemic drugs; Z95.5 Presence of coronary angioplasty implant and graft; Z91.19 Patient's noncompliance with other medical treatment and regimen; Z86.718 Personal history of other venous thrombosis and embolism; Z86.73 Personal history of transient ischemic attack (TIA), and cerebral infarction without residual deficits
CPT/HCPCS: 36415; 71010; 74176; 80048; 80053; 82962; 83735; 84100; 84484; 85007; 85025; 85027; 94640; 94760

== ENCOUNTER 2016-12-24 06:38 | Day surgery (SDC) | payer MEDICARE, MEDICAID ==
[~2016-12-24] VITALS: Ht 172.7 cm; Wt 114.9 kg
[~2016-12-24 06:38] MED LIST changes: +AZIT250T12 PO; -AZIT250T5 PO; +FENT1PAT58 TD; +LEVO500T80 PO; +LEVO750T9 PO; -METO-274 PO; +METO-395 PO
[2016-12-24] MEDS ORDERED: LACTATED RINGERS 1,000 ML IV PRN (07:08)
[2016-12-24 07:10] VITALS: BP 127/67
[2016-12-24] MEDS ORDERED: FAMOTIDINE 20MG/2ML IV (PEPCID) IV ONE (07:15)
[2016-12-24] MEDS ORDERED: ONDANSETRON 4 MG/2 ML (SDV) Z0FRAN IV ONE (07:15)
[2016-12-24] MEDS ORDERED: BUPIVACAINE 0.5% 30 ML (SENSORCAINE) VIAL ONE ×2 (07:16→07:28)
[2016-12-24] MEDS ORDERED: HEParin (CENTRAL IV FLUSH) 500 UNIT/5 ML SYR ONE (07:16)
[2016-12-24] MEDS ORDERED: 0.9% SODIUM CHLORIDE PF INJ 20 ML VIAL ONE (07:16)
[2016-12-24] MEDS ORDERED: LIDOCAINE 1% INJ 20 ML (XYLOCAINE) VIAL ONE ×2 (07:17→07:28)
[2016-12-24] MEDS ORDERED: MIDAZOLAM 10 MG/2 ML (VERSED) VIAL ONE (07:27)
[2016-12-24] MEDS ORDERED: fentaNYL INJECTION 100 MCG/2 ML AMP ONE (07:28)
[2016-12-24] MEDS ORDERED: LIDOCAINE PF 2% 5 ML (XYLOCAINE) VIAL ONE (07:31)
[2016-12-24] MEDS ORDERED: ETOMIDATE IV SOLN 20 MG/10 ML VIAL ONE (07:31)
[2016-12-24] MEDS ORDERED: ONDANSETRON 4 MG/2 ML (SDV) Z0FRAN ONE (07:31)
[2016-12-24] MEDS ORDERED: proPOfol 200 MG/20 ML (DIPRIVAN) VIAL IV ONE (07:31)
[2016-12-24] MEDS ORDERED: CLINDAMYCIN 600 MG/4ML (CLEOCIN) VIAL ONE (07:39)
[2016-12-24] MEDS ORDERED: NS (IVPB) 50 ML ONE (07:39)
[2016-12-24] MEDS ORDERED: ceFAZolin 2 GM/NS 50 ML IV ONE (07:45)
[2016-12-24] MEDS ORDERED: CLINDAMYCIN INJECTION 600 MG in NS (IVPB) 50 ML IV ONE (07:45)
--- NOTE | 2016-12-24 07:45 | Progress Note-Pre Operative ---
Pre-Operative Progress Note H&P Reviewed The H&P was reviewed, patient examined and no changes noted. Date Seen by Provider: Dec 24, 2016 Time Seen by Provider: 07:45 Date H&P Reviewed: Dec 24, 2016 Time H&P Reviewed: 07:45 Pre-Operative Diagnosis: breast cancer KELLY DOMINGUEZ DO Dec 24, 2016 7:45 am
[2016-12-24] MEDS ORDERED: LACTATED RINGERS 1,000 ML IV ONE (08:10)
[2016-12-24] MEDS ORDERED: fentaNYL INJECTION 100 MCG/2 ML AMP IVP PRN (08:45)
--- NOTE | 2016-12-24 08:56 | Discharge Inst-Simple/Standard ---
Discharge Inst-Standard Patient Instructions/Follow Up Plan of Care/Instructions/FU: 2 weeks hSine Activity as Tolerated: No Discharge Diet: Liquid Diet Other Inst to Patient Follow up Appt: Make appointment for 2 week. Instructions: No lifting greater than 10 pounds. No strenuous activity. May shower in 24 hours, no tub bath or soaking. Use incentive spirometer at home as directed. No Smoking Skin/Wound Care: May remove bandages in 24 hours. You need to leave the white strips over incision on they will fall off on their own. Place ice pack over incision for 15 min off 30 min and repeat. for first 24 hours and for discomfort. Symptoms to Report: Appetite Changes, Extremity Discoloration, Numbness/Tingling, Swelling Increased , Bleeding Excessive, Eyesight Changes, Pain Increased, Urine Color Change, Constipation(Persistent), Fever over 101 degree F, Pain/Pressure in chest, Urinating Difficulty, Cough Up/Vomit Blood, Heart Beat Irreg/Pounding, Pain/ Pressure in jaw, Vaginal Bleeding Increase, Cramps in feet or legs, Lightheadedness, Pain/Pressure in shoulder, Diarrhea(Persistent), Memory Changes Suddenly, Questions/Concerns, Weight gain consecutive days, Dizziness/ Fainting, Nausea/Vomiting, Shortness of Breath, Weight gain over 2 pounds If questions or concerns contact your physician Or seek help at emergency department. KELLY DOMINGUEZ DO Dec 24, 2016 8:56 am
--- NOTE | 2016-12-24 09:12 | Diagnostic Imaging Report ---
INDICATION: Postoperative port placement COMPARISON STUDY: Chest from 3 days ago. FINDINGS: Portable upright view of the chest demonstrates interval placement of a right jugular port with its tip in the inferior aspect of the SVC. Cardiomegaly and sternotomy changes are stable. Minimal infiltrates are present in the right suprahilar region. These have improved. IMPRESSION: 1. Port placement in good position 2. Some infiltrates in the right suprahilar region have nearly resolved. Dictated by: Dictated on workstation # [id number]
[2016-12-24 09:40] VITALS: BP 136/82
--- NOTE | 2016-12-24 09:50 | OPERATIVE REPORT ---
DATE OF SERVICE: 12/24/2016 PREOPERATIVE DIAGNOSIS: Breast cancer. POSTOPERATIVE DIAGNOSIS: Breast cancer. PROCEDURE: Port placement using ultrasound guidance. SURGEON: Kelly Riojas DO ANESTHESIA: MAC. ESTIMATED BLOOD LOSS: Minimal. COMPLICATIONS: None. INDICATIONS: The patient is a 56-year-old male with recurrent metastatic breast cancer. He was explained risks and benefits of having port placement and understands risks and benefits and wishes to proceed. Consent was signed and on the chart. DESCRIPTION OF PROCEDURE: The patient was taken to the operating suite, was prepped and draped in sterile fashion. Surgical pause was performed. Using ultrasound guidance, right internal jugular vein was located. Local anesthetic was infiltrated into the area. The right internal jugular vein was then accessed using micro access needle and wire was inserted. Dark nonpulsatile blood was withdrawn before the wire was inserted. Fluoroscopy assured proper placement. A small stab incision was made at the insertion site. The micro access dilator was then advanced over the wire. The wire was removed and the normal wire was inserted. Fluoroscopy showed proper placement. This was then secured with a hemostat on the drapes. Local anesthetic was used to infiltrate the neck down towards the right chest for tunneling and for creating the pocket. A #15 blade scalpel was used to make a small incision and dissect down to the pectoral fascia and blunt dissection was used for creating the pocket. The wire was then grabbed and the dilator sheath was advanced over the wire under fluoroscopy. The dilator and wire were removed. The Groshong catheter was inserted through the sheath and the sheath was then removed. The Gro[place]ong wire was removed, it was then tunneled from the insertion point down to the pocket where fluoroscopy was used to ensure the proper length. The catheter was cut to length and secured to the port, which was then placed in the pocket and then accessed without difficulty. This was flushed with saline and then heparin without difficulty. The subcutaneous tissues were then reapproximated using 3-0 Vicryl. The skin incisions were then closed using Dermabond after the areas were washed and dried. Once the Dermabond was dried, sterile bandage was applied. The patient tolerated procedure well without any complications. Chest x-ray pending. 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
[2016-12-24 10:10] VITALS: BP 136/78
[2016-12-24 10:20] VITALS: BP 136/78
--- NOTE | 2016-12-24 19:55 | Diagnostic Imaging Report ---
INDICATION: Port placement. EXAMINATION: Fluoroscopic assistance was provided for Dr. John Riojas during his Port-A-Cath insertion procedure. FLUOROSCOPY TIME: 21.3 seconds of fluoroscopy time was utilized. FINDINGS: Two spot films of the right upper thorax were received from the OR. The final film shows that there is a Port-A-Cath in place with the tip overlying the distal superior vena cava. IMPRESSION: Fluoroscopic assistance was provided for Dr. Riojas during his Port-A-Cath insertion procedure. Dictated by: Dictated on workstation # [id number]
== END 2016-12-24 10:20 | disposition home or self-care (01) ==
LOC: SDC 06:38
PROVIDERS: ATTEND Surgery
DX: C50.922 Malignant neoplasm of unspecified site of left male breast (principal); C79.51 Secondary malignant neoplasm of bone; I25.119 Atherosclerotic heart disease of native coronary artery with unspecified angina pectoris; I13.0 Hypertensive heart and chronic kidney disease with heart failure and stage 1 through stage 4 chronic kidney disease, or unspecified chronic kidney disease; I50.9 Heart failure, unspecified; N18.9 Chronic kidney disease, unspecified; I48.91 Unspecified atrial fibrillation; J45.909 Unspecified asthma, uncomplicated; G47.33 Obstructive sleep apnea (adult) (pediatric); J44.9 Chronic obstructive pulmonary disease, unspecified; F17.210 Nicotine dependence, cigarettes, uncomplicated; K21.9 Gastro-esophageal reflux disease without esophagitis; Z90.12 Acquired absence of left breast and nipple; Z86.718 Personal history of other venous thrombosis and embolism; Z79.01 Long term (current) use of anticoagulants; Z79.02 Long term (current) use of antithrombotics/antiplatelets; Z99.81 Dependence on supplemental oxygen; Z79.899 Other long term (current) drug therapy
CPT/HCPCS: 71010; 82962; 87081

== ENCOUNTER 2016-12-29 12:44 | Outpatient (RCR) | payer MEDICARE, MEDICAID ==
[~2016-12-29 12:44] MED LIST changes: -AZIT250T12 PO; +AZIT250T5 PO; +METO-274 PO; -METO-395 PO
== END 2017-02-05 | disposition home or self-care (01) ==
LOC: ONC 12:44
PROVIDERS: ATTEND Internal Medicine Hematology & Oncology
DX: C50.122 Malignant neoplasm of central portion of left male breast (principal); Z17.0 Estrogen receptor positive status [ER+]; Z90.12 Acquired absence of left breast and nipple; Z85.858 Personal history of malignant neoplasm of other endocrine glands; I25.10 Atherosclerotic heart disease of native coronary artery without angina pectoris; I12.9 Hypertensive chronic kidney disease with stage 1 through stage 4 chronic kidney disease, or unspecified chronic kidney disease; E11.22 Type 2 diabetes mellitus with diabetic chronic kidney disease; N18.3 Chronic kidney disease, stage 3 (moderate); E78.5 Hyperlipidemia, unspecified; Z86.718 Personal history of other venous thrombosis and embolism; Z95.1 Presence of aortocoronary bypass graft; Z79.810 Long term (current) use of selective estrogen receptor modulators (SERMs); Z79.01 Long term (current) use of anticoagulants
CPT/HCPCS: 99213

== ENCOUNTER → 2016-12-31 | Outpatient (CLI) | payer MEDICARE, MEDICAID ==
[~2016-12-31] MED LIST changes: +AZIT250T12 PO; -AZIT250T5 PO; -METO-274 PO; +METO-395 PO
--- NOTE | 2016-12-31 11:50 | Diagnostic Imaging Report ---
PROCEDURE: CT head without contrast. TECHNIQUE: Multiple contiguous axial images were obtained through the brain without the use of intravenous contrast. Indication: Dizziness, facial asymmetry. Comparison: 09/18/2015. Discussion: No adverse interval change. No acute intracranial hemorrhage, mass, midline shift, or hydrocephalus. The ventricles and sulci are normal size configuration for age. White matter hypoattenuation is nonspecific though not greater than expected for age related chronic small vessel ischemic disease, stable. Chronic lacunar infarct within the left basal ganglia is stable. The visualized orbits, paranasal sinuses, mastoid air cells, and calvarium are unremarkable. Impression: 1. Stable negative head CT. Dictated by: Dictated on workstation # [id number]
== END ==
LOC: RAD 11:06
PROVIDERS: ATTEND Nurse Practitioner Adult Health
DX: R42 Dizziness and giddiness (principal); Q67.0 Congenital facial asymmetry; C50.022 Malignant neoplasm of nipple and areola, left male breast
CPT/HCPCS: 70450

== ENCOUNTER → 2017-02-03 | Outpatient (CLI) | payer MEDICARE, MEDICAID ==
[2017-02-03 10:07] LABS: BILIRUBIN,URINE NEGATIVE (NEGATIVE); KETONES,URINE NEGATIVE (NEGATIVE); LEUKOCYTE ESTERASE ,URINE 1+ (NEGATIVE); NITRITE,URINE NEGATIVE (NEGATIVE); PH,URINE 5 (5-9); PROTEIN,URINE 2+ (NEGATIVE); UROBILINOGEN,URINE NORMAL (NORMAL)
[2017-02-03 10:10] LABS: RED BLOOD COUNT 4.85 10^6/uL (4.35-5.85); WHITE BLOOD COUNT 4.6 10^3/uL (4.3-11.0)
[2017-02-03 10:11] LABS: MEAN PLATELET VOLUME 10.5 FL (7.4-10.4); RED CELL DISTRIBUTION WIDTH 17.4 % (10.0-14.5)
[2017-02-03 10:26] LABS: PROTEIN/CREATININE RATIO 0.23
[2017-02-03 10:26] LABS: ALBUMIN 3.4 GM/DL (3.2-4.5); CALCIUM 9.2 MG/DL (8.5-10.1); CREATININE SERUM 1.63 MG/DL (0.60-1.30); PHOSPHORUS 2.7 MG/DL (2.3-4.7); POTASSIUM 4.8 MMOL/L (3.6-5.0)
[2017-02-03 10:45] LABS: WBC,URINE 0-2 /HPF
[2017-02-03 23:42] LABS: CALCIUM IONIZED 1.34 mmol/L (1.16-1.32); CORRECTED IONIZED CALCIUM 1.28 mmol/L (1.16-1.32)
[2017-02-04 06:32] LABS: CALCIUM PARA THYROID HORMONE 9.1 mg/dL (8.5-10.5)
[2017-02-04 06:33] LABS: CALCIUM PH 7.31
== END ==
LOC: LAB 09:15
PROVIDERS: ATTEND Internal Medicine Nephrology
DX: I12.9 Hypertensive chronic kidney disease with stage 1 through stage 4 chronic kidney disease, or unspecified chronic kidney disease (principal); N18.3 Chronic kidney disease, stage 3 (moderate); I51.7 Cardiomegaly; E11.9 Type 2 diabetes mellitus without complications; I25.10 Atherosclerotic heart disease of native coronary artery without angina pectoris; E83.52 Hypercalcemia; E87.5 Hyperkalemia; R60.9 Edema, unspecified; J44.9 Chronic obstructive pulmonary disease, unspecified; Z72.0 Tobacco use
CPT/HCPCS: 80069; 81000; 82306; 82330; 82570; 83970; 84156

== ENCOUNTER → 2017-02-03 | Outpatient (CLI) | payer MEDICARE, MEDICAID ==
[2017-02-03 10:12] LABS: MEAN PLATELET VOLUME 10.5 FL (7.4-10.4); RED BLOOD COUNT 4.85 10^6/uL (4.35-5.85); RED CELL DISTRIBUTION WIDTH 17.4 % (10.0-14.5); WHITE BLOOD COUNT 4.6 10^3/uL (4.3-11.0)
[2017-02-03 10:32] LABS: ALBUMIN 3.4 GM/DL (3.2-4.5); BILIRUBIN,TOTAL 0.8 MG/DL (0.1-1.0); CALCIUM 9.2 MG/DL (8.5-10.1); CREATININE SERUM 1.65 MG/DL (0.60-1.30); POTASSIUM 4.7 MMOL/L (3.6-5.0); TOTAL PROTEIN 6.6 GM/DL (6.4-8.2)
== END ==
LOC: LAB 09:04
PROVIDERS: ATTEND Family Medicine
DX: E11.9 Type 2 diabetes mellitus without complications (principal); I11.0 Hypertensive heart disease with heart failure; E78.5 Hyperlipidemia, unspecified
CPT/HCPCS: 80053; 83036

== ENCOUNTER → 2017-02-03 | Outpatient (CLI) | payer MEDICARE, MEDICAID ==
[2017-02-03 10:09] LABS: BASOPHILS % (AUTO) 0 % (0-10); EOSINOPHILS # (AUTO) 0.1 10^3/uL (0.0-0.3); EOSINOPHILS % (AUTO) 1 % (0-10); LYMPHOCYTES # (AUTO) 1.3 X 10^3 (1.0-4.0); LYMPHOCYTES % (AUTO) 28 % (12-44); MEAN CORPUSCULAR HEMOGLOBIN 28 PG (25-34); MEAN CORPUSCULAR HGB CONC 32 G/DL (32-36); MEAN CORPUSCULAR VOLUME 89 FL (80-99); MEAN PLATELET VOLUME 10.5 FL (7.4-10.4); MONOCYTES # (AUTO) 0.2 X 10^3 (0.0-1.0); MONOCYTES % (AUTO) 4 % (0-12); NEUTROPHILS # (AUTO) 3.1 X 10^3 (1.8-7.8); NEUTROPHILS % (AUTO) 66 % (42-75); PLATELET COUNT 212 10^3/uL (130-400); RED BLOOD COUNT 4.85 10^6/uL (4.35-5.85); RED CELL DISTRIBUTION WIDTH 17.4 % (10.0-14.5); WHITE BLOOD COUNT 4.6 10^3/uL (4.3-11.0)
[2017-02-03 10:26] LABS: ALBUMIN 3.5 GM/DL (3.2-4.5); BILIRUBIN,TOTAL 0.8 MG/DL (0.1-1.0); CALCIUM 9.1 MG/DL (8.5-10.1); CREATININE SERUM 1.65 MG/DL (0.60-1.30); MAGNESIUM 2.3 MG/DL (1.8-2.4); PHOSPHORUS 2.6 MG/DL (2.3-4.7); POTASSIUM 4.7 MMOL/L (3.6-5.0); TOTAL PROTEIN 6.6 GM/DL (6.4-8.2)
== END ==
LOC: LAB 09:10
PROVIDERS: ATTEND Internal Medicine Medical Oncology
DX: C50.929 Malignant neoplasm of unspecified site of unspecified male breast (principal); C79.9 Secondary malignant neoplasm of unspecified site
CPT/HCPCS: 36415; 80053; 83735; 84100; 85025; 86300

== ENCOUNTER → 2017-04-07 | Outpatient (CLI) | payer MEDICARE, MEDICAID ==
--- NOTE | 2017-04-07 12:22 | Diagnostic Imaging Report ---
PA and lateral views of the chest. INDICATION: Shortness of breath. FINDINGS: The lungs are clear with no focal infiltrates. There is mild hyperinflation. The heart size is mildly enlarged. There is no effusion or pneumothorax. The mediastinum and tata appear unremarkable. There is an infusion port with the tip at the SVC level. Sternotomy wires are seen. IMPRESSION: Cardiomegaly. COPD. Dictated by: Dictated on workstation # [id number]
[2017-04-07 12:25] LABS: BASOPHILS % (AUTO) 1 % (0-10); EOSINOPHILS # (AUTO) 0.1 10^3/uL (0.0-0.3); EOSINOPHILS % (AUTO) 3 % (0-10); LYMPHOCYTES # (AUTO) 1.2 X 10^3 (1.0-4.0); LYMPHOCYTES % (AUTO) 35 % (12-44); MEAN CORPUSCULAR HEMOGLOBIN 30 PG (25-34); MEAN CORPUSCULAR HGB CONC 31 G/DL (32-36); MEAN CORPUSCULAR VOLUME 97 FL (80-99); MONOCYTES # (AUTO) 0.2 X 10^3 (0.0-1.0); MONOCYTES % (AUTO) 6 % (0-12); NEUTROPHILS # (AUTO) 1.9 X 10^3 (1.8-7.8); NEUTROPHILS % (AUTO) 55 % (42-75); PLATELET COUNT 198 10^3/uL (130-400); RED CELL DISTRIBUTION WIDTH 19.7 % (10.0-14.5); WHITE BLOOD COUNT 3.5 10^3/uL (4.3-11.0)
[2017-04-07 12:44] LABS: ALBUMIN 3.3 GM/DL (3.2-4.5); BILIRUBIN,TOTAL 0.6 MG/DL (0.1-1.0); CALCIUM 8.8 MG/DL (8.5-10.1); CREATININE SERUM 2.53 MG/DL (0.60-1.30); POTASSIUM 4.2 MMOL/L (3.6-5.0); TOTAL PROTEIN 6.8 GM/DL (6.4-8.2)
== END ==
LOC: RAD 11:46
PROVIDERS: ATTEND Internal Medicine Medical Oncology
DX: J44.9 Chronic obstructive pulmonary disease, unspecified (principal); I51.7 Cardiomegaly; E78.5 Hyperlipidemia, unspecified; C50.822 Malignant neoplasm of overlapping sites of left male breast; C79.51 Secondary malignant neoplasm of bone; Z17.0 Estrogen receptor positive status [ER+]
CPT/HCPCS: 36415; 71020; 80053; 80061; 85025

== ENCOUNTER → 2017-05-04 | Outpatient (CLI) | payer MEDICARE, MEDICAID ==
[~2017-05-04] MED LIST changes: -HYDR-3812 PO; +METO100T12 PO; -METO100T2 PO
[2017-05-04 16:34] LABS: CALCIUM 8.4 MG/DL (8.5-10.1); CREATININE SERUM 2.43 MG/DL (0.60-1.30); MAGNESIUM 1.7 MG/DL (1.8-2.4); POTASSIUM 4.7 MMOL/L (3.6-5.0)
== END ==
LOC: LAB 16:00
PROVIDERS: ATTEND Internal Medicine Cardiovascular Disease
DX: I48.0 Paroxysmal atrial fibrillation (principal); I25.10 Atherosclerotic heart disease of native coronary artery without angina pectoris; I42.2 Other hypertrophic cardiomyopathy; I65.23 Occlusion and stenosis of bilateral carotid arteries; I13.0 Hypertensive heart and chronic kidney disease with heart failure and stage 1 through stage 4 chronic kidney disease, or unspecified chronic kidney disease; I50.32 Chronic diastolic (congestive) heart failure; N18.3 Chronic kidney disease, stage 3 (moderate); J43.8 Other emphysema; R31.29 Other microscopic hematuria; E78.4 Other hyperlipidemia; G47.33 Obstructive sleep apnea (adult) (pediatric); Z86.74 Personal history of sudden cardiac arrest
CPT/HCPCS: 36415; 80048; 83735

== ENCOUNTER → 2017-08-12 | Outpatient (CLI) | payer MEDICARE, MEDICAID ==
[2017-08-12 11:24] LABS: ALBUMIN 3.9 GM/DL (3.2-4.5); CALCIUM 9.6 MG/DL (8.5-10.1); CREATININE SERUM 2.06 MG/DL (0.60-1.30); PHOSPHORUS 3.7 MG/DL (2.3-4.7); POTASSIUM 4.9 MMOL/L (3.6-5.0)
== END ==
LOC: LAB 10:51
PROVIDERS: ATTEND Internal Medicine Nephrology
DX: I12.9 Hypertensive chronic kidney disease with stage 1 through stage 4 chronic kidney disease, or unspecified chronic kidney disease (principal); N18.3 Chronic kidney disease, stage 3 (moderate); I51.7 Cardiomegaly; E11.9 Type 2 diabetes mellitus without complications; I25.10 Atherosclerotic heart disease of native coronary artery without angina pectoris; E83.52 Hypercalcemia; E87.5 Hyperkalemia; R60.9 Edema, unspecified; Z72.0 Tobacco use; J44.9 Chronic obstructive pulmonary disease, unspecified; I47.2 Ventricular tachycardia
CPT/HCPCS: 36415; 80069

== ENCOUNTER → 2017-09-07 | Outpatient (CLI) | payer MEDICARE, MEDICAID ==
[~2017-09-07] MED LIST changes: -FENO145T20 PO; +FENO145T37 PO
[2017-09-07 15:59] LABS: BILIRUBIN,URINE NEGATIVE (NEGATIVE); CLARITY,URINE CLEAR; COLOR,URINE YELLOW; GLUCOSE, URINE (UA) NEGATIVE (NEGATIVE); KETONES,URINE NEGATIVE (NEGATIVE); LEUKOCYTE ESTERASE ,URINE 1+ (NEGATIVE); NITRITE,URINE NEGATIVE (NEGATIVE); PH,URINE 5 (5-9); PROTEIN,URINE NEGATIVE (NEGATIVE); UROBILINOGEN,URINE 1 MG/DL (NORMAL)
[2017-09-07 16:04] LABS: HEMOGLOBIN 12.3 G/DL (13.3-17.7); MEAN PLATELET VOLUME 10.3 FL (7.4-10.4); RED BLOOD COUNT 4.34 10^6/uL (4.35-5.85); WHITE BLOOD COUNT 4.9 10^3/uL (4.3-11.0)
[2017-09-07 16:06] LABS: RBC,URINE RARE /HPF
[2017-09-07 16:07] LABS: BACTERIA,URINE NEGATIVE /HPF; WBC,URINE 0-2 /HPF
[2017-09-07 16:15] LABS: ALBUMIN 3.8 GM/DL (3.2-4.5); CALCIUM 9.2 MG/DL (8.5-10.1); CREATININE SERUM 1.71 MG/DL (0.60-1.30); PHOSPHORUS 4.3 MG/DL (2.3-4.7); POTASSIUM 4.7 MMOL/L (3.6-5.0); URIC ACID 6.1 MG/DL (2.6-7.2)
== END ==
LOC: LAB 15:36
PROVIDERS: ATTEND Internal Medicine Nephrology
DX: N18.3 Chronic kidney disease, stage 3 (moderate) (principal); I12.9 Hypertensive chronic kidney disease with stage 1 through stage 4 chronic kidney disease, or unspecified chronic kidney disease; E11.22 Type 2 diabetes mellitus with diabetic chronic kidney disease; I51.7 Cardiomegaly; I25.10 Atherosclerotic heart disease of native coronary artery without angina pectoris; E83.52 Hypercalcemia; E87.5 Hyperkalemia; R60.9 Edema, unspecified; J44.9 Chronic obstructive pulmonary disease, unspecified; I47.2 Ventricular tachycardia; Z72.0 Tobacco use; Z95.5 Presence of coronary angioplasty implant and graft; Z95.810 Presence of automatic (implantable) cardiac defibrillator
CPT/HCPCS: 36415; 80069; 81000; 82306; 82570; 83970; 84156; 84550; 85027

== ENCOUNTER 2018-07-30 15:18 | Emergency (ER) | payer MEDICARE, MEDICAID ==
[~2018-07-30] VITALS: Ht 172.7 cm; Wt 114.9 kg
[~2018-07-30 15:18] MED LIST changes: -IPRA3AMP IH; +IPRA3AMP31 IH
--- NOTE | 2018-07-30 15:35 | NUR ---
[employer] DEFIBRILLATOR INTERROGATED AND TRANSMITTED.
[2018-07-30] MEDS ORDERED: ASPIRIN 81 MG CHEW (CHILDREN'S ASA) PO STA (15:43)
[2018-07-30] MEDS ORDERED: RT-ALBUTEROL/IPRATROPIUM 3 ML (DUONEB) VIAL INH ONE (15:45)
--- NOTE | 2018-07-30 15:45 | NUR ---
[employer] ENTRY LEVEL FINANCE CALLED AT THIS TIME TO REPORT THAT PT HAD ZERO EVENTS NOTED ON INTERROGATION AND RESULTS HAVE BEEN FAXED TO ER. DR. ELLIS NOTED.
--- OUTSIDE RECORDS SUMMARY | 2018-07-30 15:49 | XMS REPORT | Clinical Summary ---
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 Disp. Refills Start End Date Status Date ADVAIR DISKUS 250-50 Inhale. 60 10/11/19 Active mcg/dose DISKUS 13 albuterol (PROVENTIL Inhale. 8 10/08/19 Active HFA;VENTOLIN HFA) 90 12 mcg/actuation inhaler pantoprazole (PROTONIX) Take by mouth. 30 05/26/19 Active 40 MG tablet 12 famotidine (PEPCID) 20 MG Take by mouth. 30 05/26/19 Active tablet 12 potassium chloride Take by mouth. 30 05/26/19 Active (K-DUR,KLOR-CON) 20 MEQ 12 tablet furosemide (LASIX) 40 MG Take by mouth. 30 05/26/19 Active tablet 12 letrozole (FEMARA) 2.5 mg Take 1 tablet (2.5 mg 90 tablet 3 01/07/20 Active tablet total) by mouth daily. 17 ondansetron (ZOFRAN) 8 MG Take 1 tablet (8 mg 30 tablet 3 01/14/20 Active tablet total) by mouth every 8 17 (eight) hours as needed for nausea. clopidogrel (PLAVIX) 75 Take 75 mg by mouth Active mg tablet daily. rivaroxaban (XARELTO) 10 Take 10 mg by mouth Active mg tablet daily. gabapentin (NEURONTIN) Take 100 mg by mouth 3 Active 100 MG capsule (three) times a day. CARVEDILOL ORAL Take by mouth. Active cetirizine (ZYRTEC) 10 MG Take 10 mg by mouth Active tablet daily. isosorbide mononitrate Take 30 mg by mouth Active (IMDUR) 30 MG 24 hr daily. tablet cinacalcet (SENSIPAR) 30 Take 30 mg by mouth Active MG tablet daily. amiodarone (PACERONE) 400 Take 400 mg by mouth Active MG tablet daily. ranolazine (RANEXA) 500 Take 500 mg by mouth 2 Active MG 12 hr tablet (two) times a day. busPIRone (BUSPAR) 10 MG Take 10 mg by mouth 3 Active tablet (three) times a day. traMADol (ULTRAM) 50 mg Take 50 mg by mouth every Active tablet 6 (six) hours as needed for pain. tamsulosin (FLOMAX) 0.4 Take 0.4 mg by mouth Active mg Cp24 daily. montelukast (SINGULAIR) Take 10 mg by mouth Active 10 mg tablet nightly. fenofibrate (TRICOR) 145 Take 145 mg by mouth Active MG tablet daily. mirtazapine (REMERON) 7.5 Take 7.5 mg by mouth Active MG tabletIndications: nightly. major depressive disorder HYDROmorphone (DILAUDID) Take 1 tablet (2 mg 120 tablet 0 12/23/19 Active 2 MG tablet total) by mouth every 6 18 (six) hours as needed for pain. fentaNYL (DURAGESIC) 50 Place 1 patch on the skin 10 patch 0 12/23/19 Active mcg/hr patch every 72 hours. 18 Active Problems Problem Noted Date BRCA2 genetic carrier 03/24/2017 Osseous metastasis (HCC) 01/06/2017 Limb pain 10/12/2012 Limb swelling 10/12/2012 Malignant neoplasm of overlapping sites of left male breast (HCC) 11/03/2011 Overview: ICD-10 conversion Type 2 diabetes mellitus without complications (HCC) 11/03/2011 Overview: ICD-10 conversion Family History Medical History Relation Name Comments No Known Problems Father Breast cancer Mother Breast Cancer; Age 43 Relation Name Status Comments Father Mother Social History Tobacco Use Types Packs/Day Years Used Date Smoker, Current Status Unknown Smokeless Tobacco: Never Used Tobacco Cessation: Counseling Given: Yes Alcohol Use Drinks/Week oz/Week Comments No Sex Assigned at Date Recorded Not on file Last Filed Vital Signs Vital Sign Reading Time Taken Blood Pressure 113/63 12/22/2017 9:39 AM CDT Pulse 81 12/22/2017 9:39 AM CDT Temperature 36.7 C (98.1 F) 12/22/2017 9:39 AM CDT Respiratory Rate 18 12/22/2017 9:39 AM CDT Oxygen Saturation 96% 12/22/2017 9:39 AM CDT Inhaled Oxygen - - Concentration Weight 110.7 kg (244 lb) 12/22/2017 9:39 AM CDT Height 177.8 cm (5' 10") 12/22/2017 9:39 AM CDT Body Mass Index 35.01 12/22/2017 9:39 AM CDT Plan of Treatment Health Maintenance Due Date Last Done Comments Diabetes Mellitus 1958 Hemoglobin A1C Diabetes Mellitus 1958 Ophthalmology Exam Diabetes Mellitus Urine 1958 Microalbumin Hepatitis C Screen 1958 Lipid Screening 1958 Medicare Annual Wellness 1958 Spirometry # 1960 Td # 1958 Tobacco Cessation 1958 Counseling # Diabetes Mellitus Foot 1968 Exam Pneumococcal Immunization 1977 19-64 Highest Risk# (1 of 3 - PCV13) Colorectal Screening via 2008 Colonoscopy Zoster Vaccine# (1 of 2) 2008 Influenza Vaccine (Season 03/09/2019 Ended) Results Not on filefrom Last 3 Months
[2018-07-30 15:52] LABS: BASOPHILS % (AUTO) 0 % (0-10); EOSINOPHILS # (AUTO) 0.1 10^3/uL (0.0-0.3); EOSINOPHILS % (AUTO) 1 % (0-10); HEMATOCRIT 37 % (40-54); HEMOGLOBIN 10.9 G/DL (13.3-17.7); LYMPHOCYTES # (AUTO) 1.3 X 10^3 (1.0-4.0); LYMPHOCYTES % (AUTO) 19 % (12-44); MEAN CORPUSCULAR HEMOGLOBIN 27 PG (25-34); MEAN CORPUSCULAR HGB CONC 30 G/DL (32-36); MEAN CORPUSCULAR VOLUME 93 FL (80-99); MEAN PLATELET VOLUME 10.9 FL (7.4-10.4); MONOCYTES # (AUTO) 0.8 X 10^3 (0.0-1.0); MONOCYTES % (AUTO) 12 % (0-12); NEUTROPHILS # (AUTO) 4.6 X 10^3 (1.8-7.8); NEUTROPHILS % (AUTO) 67 % (42-75); PLATELET COUNT 211 10^3/uL (130-400); RED CELL DISTRIBUTION WIDTH 16.9 % (10.0-14.5); WHITE BLOOD COUNT 6.9 10^3/uL (4.3-11.0)
[2018-07-30 15:58] LABS: INR 1.3 (0.8-1.4); PROTHROMBIN TIME PATIENT 17.2 SEC (12.2-14.7)
--- NOTE | 2018-07-30 16:03 | ED Chest Pain ---
General Chief Complaint: Cardiac/General Problems Stated Complaint: SHOCKED BY DEFIBRILLATOR Source: patient, EMS Exam Limitations: no limitations History of Present Illness Date Seen by Provider: Jul 30, 2018 Time Seen by Provider: 15:21 Initial Comments Here with report of chest pain that started about an hour ago central and left- sided that he describes as an ache. It went to the left arm. Notes that is not been feeling well today and feels like he got shocked by his defibrillator. Here for evaluation for that. Also reports that when he woke up this morning he wasn't feeling well and had some numbness or tingling on the right side including his arm and leg. States that while he was at gnosticism she to keep moving his leg to get that to feel better. He does have a pacemaker defibrillator. He is on Xarelto and Plavix. Does have significant heart history including myocardial infarction. Does admit to some shortness of breath today. Smokes about 1 cigarette a day some days and does have history of COPD. Has used his albuterol recently and can use it up to 4 times a day. Timing/Duration: other (numbness and tingling for 8 hours or more and chest pain for a couple of hours.) Severity/Quality: moderate, pressure Location: central Radiation: arms Activities at Onset: none Prior CP/Workup: cardiac cath, echocardiography, heart attack Modifying Factors: improves with rest ASA po DIGITAL FORENSICS INVESTIGATOR: No NTG SL DIGITAL FORENSICS INVESTIGATOR: No Associated Symptoms: No abdominal pain, No back pain, No diaphoresis; fatigue; No fever/chills, No nausea/vomiting; shortness of breath, weakness Allergies and Home Medications Allergies Coded Allergies: Iodinated Contrast- Oral and IV Dye (Unverified Allergy, Mild, 10/20/08) Penicillins (Unverified Allergy, Mild, 10/20/08) Shellfish (Verified Allergy, Unknown, 02/18/06) amlodipine (Verified Allergy, Unknown, 11/29/06) iodine (Verified Allergy, Unknown, 08/21/05) penicillin G (Verified Allergy, Unknown, 08/21/05) Home Medications Albuterol Sulfate 18 Gm Hfa.aer.ad, 2 PUFF IH QID PRN for SHORTNESS OF BREATH, ( Reported) Arformoterol Tartrate 15 Mcg/2 Ml Vial.neb, 15 MCG NEB BID, (Reported) MIXES WITH BUDESONIDE Atorvastatin Calcium 40 Mg Tablet, 40 MG PO HS, (Reported) Budesonide 0.5 Mg/2 Ml Ampul.neb, 0.5 MG NEB BID, (Reported) MIXED WITH BROVANA Budesonide/Formoterol Fumarate 10.2 Gm Hfa.aer.ad, 2 PUFF INH BID PRN for WHEEZING, (Reported) Buspirone HCl 10 Mg Tablet, 10 MG PO HS PRN for ANXIETY, (Reported) Cetirizine HCl 10 Mg Tablet, 10 MG PO DAILY, (Reported) Cinacalcet HCl 30 Mg Tablet, 30 MG PO DAILY, (Reported) Clopidogrel Bisulfate 75 Mg Tablet, 75 MG PO HS, (Reported) Fenofibrate Nanocrystallized 145 Mg Tablet, 145 MG PO HS, (Reported) Fentanyl 1 Each Patch.td72, 50 MCG TD Q72H, (Reported) Furosemide 40 Mg Tablet, 40 MG PO DAILY, (Reported) Gabapentin 100 Mg Capsule, 100 MG PO TID, (Reported) Glimepiride 2 Mg Tablet, 2 MG PO DAILY, (Reported) Hydromorphone HCl 2 Mg Tablet, 2 MG PO BID PRN for PAIN-BREAKTHROUGH Prescribed by: DANIEL WALSH on 12/23/16 1010 Isosorbide Mononitrate 30 Mg Tab.er.24h, 30 MG PO DAILY, (Reported) Levofloxacin 750 Mg Tablet, 750 MG PO DAILY Prescribed by: DANIEL WALSH on 12/23/16 1008 Metoprolol Succinate 100 Mg Tab.er.24h, 100 MG PO BID, (Reported) Metronidazole 500 Mg Tablet, 500 MG PO TID Prescribed by: DANIEL WALSH on 12/23/16 1008 Montelukast Sodium 10 Mg Tablet, 10 MG PO HS, (Reported) Nitroglycerin 0.4 Mg Subl, 0.4 MG SL UD PRN for CHEST PAIN, (Reported) TAKE 1 TABLET EVERY 5 MINUTES X 3 DOSES NEEDED FOR CHEST PAIN Pantoprazole Sodium 40 Mg Tablet.dr, 40 MG PO BID, (Reported) Potassium Chloride 10 Meq Tablet.er, 10 MEQ PO DAILY, (Reported) Prednisone 20 Mg Tab, PO UD, (Reported) 20MG 3X DAILY X3 DAYS THEN 20MG 2X DAILY X3 DAYS THEN 20MG 1X DAILY X3 DAYS Ranolazine 500 Mg Tab.er.12h, 500 MG PO BID, (Reported) Rivaroxaban 15 Mg Tablet, 15 MG PO HS, (Reported) Sodium Chloride 30 Ml [place], 1-2 SPRAYS NS BID PRN for DRY NOSE, (Reported) Tamoxifen Citrate 20 Mg Tablet, 20 MG PO HS, (Reported) Tamsulosin HCl 0.4 Mg Cap.er.24h, 0.4 MG PO HS, (Reported) Patient Home Medication List Home Medication List Reviewed: Yes Review of Systems Review of Systems Constitutional: see HPI; No chills, No fever EENTM: No Symptoms Reported Respiratory: See HPI, Shortness of Air, Wheezing Cardiovascular: Chest Pain; Denies Edema; Lightheadedness Gastrointestinal: No Symptoms Reported Genitourinary: No Symptoms Reported Musculoskeletal: No muscle pain; muscle weakness Skin: no symptoms reported Psychiatric/Neurological: See HPI, Numbness, Weakness All Other Systems Reviewed Negative Unless Noted: Yes Past [id number] Hx Past Med/Social Hx: Reviewed Nursing Past Med/Soc Hx Patient Social History Alcohol Use: Denies Use Recreational Drug Use: No Smoking Status: Current Someday Smoker Type Used: Cigarettes 2nd Hand Smoke Exposure: No Recent Hopitalizations: No Immunizations Up To Date Tetanus Booster (TDap): Unknown PED Vaccines UTD: No Date of Pneumonia Vaccine: May 13, 2014 Date of Influenza Vaccine: Feb 11, 2016 Seasonal Allergies Seasonal Allergies: No Past Medical History Surgeries: Yes (PARATHYROIDECTOMY, OPEN HEART SC, CARDIAC CATH X20, CARPEL TUNNEL LATA HAND) Appendectomy, Breast, Cardiac, Coronary Stent, Orthopedic Respiratory: Yes (wears oxygen at all times) Asthma, COPD, Emphysema Currently Using CPAP: Yes Currently Using BIPAP: No Cardiac: Yes (HAS STENTS X3, HX LBBB, CHF) Angina, Atrial Fibrillation, Cardiomyopathy, Chronic Edema/Swelling, Coronary Artery Disease, Deep Vein Thrombosis, Heart Attack, Heart Murmur, High Cholesterol, Hypertension Neurological: Yes TIA Reproductive Disorders: No Sexually Transmitted Disease: No Genitourinary: Yes Renal Failure Gastrointestinal: Yes (LIVER ENZYME ELEVATION/ LIPITOR ADJUSTED) Gastroesophageal Reflux Musculoskeletal: Yes (LEFT SHOULDER TORN ROTATOR CUFF, bilat carpal tunnel repair) Degenerate Disk Disease, Chronic Back Pain Endocrine: No (PARATHYROIDECTOMY, "BORDERLINE DIABETIC"; OBESITY) Diabetes, Non-Insulin dep HEENT: Yes Cataract Cancer: Yes Breast Psychosocial: No Integumentary: No Blood Disorders: No Family Medical History Reviewed Nursing Family Hx Arthritis 19 FATHER Cardiovascular disease 19 FATHER FH: breast cancer 19 MOTHER Respiratory disorder 19 FATHER Physical Exam Vital Signs Vital Signs - First Documented 07/30/18 15:20 Temp 99.7 Pulse 81 Resp 22 B/P (MAP) 133/84 (100) Pulse Ox 97 O2 Delivery Nasal Cannula O2 Flow Rate 2.00 Capillary Refill : Height, Weight, BMI Height: 5'8.00" Weight: 253lbs. 5.0oz. 114.693546ys; 38.5 BMI Method:Stated General Appearance: No Apparent Distress, WD/WN, Obese HEENT: PERRL/EOMI, Pharynx Normal Neck: Non Tender, Supple Respiratory: Lungs Clear, Normal Breath Sounds Cardiovascular: Regular Rate, Rhythm, No Murmur Gastrointestinal: Non Tender, Soft Extremity: Normal Range of Motion, Non Tender Neurologic/Psychiatric: Alert, Oriented x3 Skin: Normal Color, Warm/Dry Progress/Results/Core Measures Results/Orders Lab Results Laboratory Tests Test 07/30/18 15:27 07/30/18 17:32 Range/Units White Blood Count 6.9 4.3-11.0 10^3/uL Red Blood Count 3.99 L 4.35-5.85 10^6/uL Hemoglobin 10.9 L 13.3-17.7 G/DL Hematocrit 37 L 40-54 % Mean Corpuscular Volume 93 80-99 FL Mean Corpuscular Hemoglobin 27 25-34 PG Mean Corpuscular Hemoglobin Concent 30 L 32-36 G/DL Red Cell Distribution Width 16.9 H 10.0-14.5 % Platelet Count 211 130-400 10^3/uL Mean Platelet Volume 10.9 H 7.4-10.4 FL Neutrophils (%) (Auto) 67 42-75 % Lymphocytes (%) (Auto) 19 12-44 % Monocytes (%) (Auto) 12 0-12 % Eosinophils (%) (Auto) 1 0-10 % Basophils (%) (Auto) 0 0-10 % Neutrophils # (Auto) 4.6 1.8-7.8 X 10^3 Lymphocytes # (Auto) 1.3 1.0-4.0 X 10^3 Monocytes # (Auto) 0.8 0.0-1.0 X 10^3 Eosinophils # (Auto) 0.1 0.0-0.3 10^3/uL Basophils # (Auto) 0.0 0.0-0.1 10^3/uL Prothrombin Time 17.2 H 12.2-14.7 SEC INR Comment 1.3 0.8-1.4 Activated Partial Thromboplast Time 36 H 24-35 SEC D-Dimer 0.89 H 0.00-0.49 UG/ML Sodium Level 140 135-145 MMOL/L Potassium Level 3.7 3.6-5.0 MMOL/L Chloride Level 105 98-107 MMOL/L Carbon Dioxide Level 24 21-32 MMOL/L Anion Gap 11 5-14 MMOL/L Blood Urea Nitrogen 20 H 7-18 MG/DL Creatinine 1.69 H 0.60-1.30 MG/DL Estimat Glomerular Filtration Rate 42 BUN/Creatinine Ratio 12 Glucose Level 129 H 70-105 MG/DL Calcium Level 9.1 8.5-10.1 MG/DL Corrected Calcium 9.7 8.5-10.1 MG/DL Magnesium Level 2.4 1.8-2.4 MG/DL Total Bilirubin 0.6 0.1-1.0 MG/DL Aspartate Amino Transf (AST/SGOT) 95 H 5-34 U/L Alanine Aminotransferase (ALT/SGPT) 37 0-55 U/L Alkaline Phosphatase 103 40-136 U/L Myoglobin 55.7 10.0-92.0 NG/ML Troponin I 0.088 H 0.087 H <0.028 NG/ML B-Type Natriuretic Peptide 650.7 H <100.0 PG/ML Total Protein 7.4 6.4-8.2 GM/DL Albumin 3.3 3.2-4.5 GM/DL Lipase 43 8-78 U/L My Orders Orders - CHINO ELLIS MD Cbc With Automated Diff (07/30/18 15:43) Magnesium (07/30/18 15:43) Chest 1 View, Ap/Pa Only (07/30/18 15:43) Ekg Tracing (07/30/18 15:43) Cardiac Profile 1 (07/30/18 15:43) Comprehensive Metabolic Panel (07/30/18 15:43) Myoglobin Serum (07/30/18 15:43) Protime With Inr (07/30/18 15:43) Partial Thromboplastin Time (07/30/18 15:43) O2 (07/30/18 15:43) Monitor-Rhythm Ecg Trace Only (07/30/18 15:43) Lipid Panel (07/31/18 06:00) Saline Lock/Iv-Start (07/30/18 15:43) Lipase (07/30/18 15:43) BNP (07/30/18 15:43) Fibrin Degradation Products (07/30/18 15:43) Aspirin Chewable Tablet (Baby Aspirin Ch (07/30/18 15:43) Albuterol/Ipra Inhalation Soln (Duoneb I (07/30/18 15:45) Svn Small Volume Nebulizer (07/30/18 15:43) Ct Head Wo-R/O Stroke (07/30/18 15:56) Sputum Culture (07/30/18 16:29) Furosemide Injection (Lasix Injection) (07/30/18 16:35) Troponin I (07/30/18 17:26) Medications Given in ED Current Medications Medications Dose Ordered Sig/Rebecca Route Start Time Stop Time Status Last Admin Dose Admin Albuterol/ Ipratropium 3 ml ONCE ONCE INH 07/30/18 15:45 07/30/18 15:48 DC 07/30/18 16:20 3 ML Vital Signs/I&O 07/30/18 07/30/18 15:20 15:20 Temp 99.7 Pulse 81 Resp 22 B/P (MAP) 133/84 (100) Pulse Ox 97 97 O2 Delivery Nasal Cannula O2 Flow Rate 2.00 2.00 Progress Progress Note : Progress Note Seen and evaluated. IV, labs, EKG, chest x-ray ordered. Pacemaker interrogated and transmitted to [place]. Aspirin 324 mg by mouth ordered. Monitor patient. 1600: Medtronic interrogation completed and results no no ectopy or shocks initiated for pacing or V. fib/V. tach. Overall no observation based on current interrogation of pacemaker her Medtronic findings. We did initiate evaluation for stroke as patient has had the right-sided tingling. This aphasia screen ordered. Stroke scale is negative except for mildly decreased sensation on the right side upper and lower extremity. No pronator drift. Tracks well. Patient would be excluded from TPA due to double oral anticoagulant use and time of symptoms onset 8 hours ago. Patient will be very high risk at any rate and with a score of only one I would not recommend. Patient and family agree. 1636 I have discussed the case with Dr. Castillo. Some mild central vascular congestion noted on chest x-ray. CT negative. We will initiate Lasix 80 mg IV times one now and repeat troponin. Initial sets not convincing for any concerning findings at this time. We will continue to monitor patient. 1805: Repeat troponin done and negative. Overall doing better. Patient and family member both agree that he would like to go home and he feels safe in a few go home. He has appointment with his general manager food on August 08. He will keep that appointment. He will send his Medtronic data to his physician as well. Discharged home with return precautions. Patient verbalize understanding instructions and agreement with plan. Initial ECG Impression Date: Jul 30, 2018 Initial ECG Impression Time: 15:45 Initial ECG Rate: 76 Comment Left bundle branch block with normal axis. No evidence of ST elevation LA. Similar but improved with respect to T wave inversion from previous of 12/22/16. Interpreted by me. Diagnostic Imaging Diagonstic Imaging: [facility] [place], [place] NAME: JAGRUTI GARCIA MED REC#: [id number] PT STATUS: REG ER : 1960 PHYSICIAN: CHINO ELLIS MD ADMIT DATE: 07/30/18/ER Draft Date of Exam:07/30/18 CT HEAD WO-R/O STROKE PROCEDURE: CT head without contrast, r/o stroke. TECHNIQUE: Multiple contiguous axial images were obtained through the brain without the use of intravenous contrast. Auto Exposure Controls were utilized during the CT exam to meet ALARA standards for radiation dose reduction. INDICATION: Weakness. COMPARISON: 12/31/2016. FINDINGS: Stable age-related cerebral volume loss is present. There is no midline shift or mass effect. There is no focus of acute ischemia or hemorrhage. There is no dense vessel sign. No extra-axial fluid collection is identified. The ventricular size is normal. The bony calvarium, visualized paranasal sinuses and mastoids are clear. IMPRESSION: Negative CT head. No focus of acute ischemia or hemorrhage. Report was called to nurse Carmichael (for Dr. Ellis) in the [facility] [place] ER at 4:22 p.m., by nidia. Dictated on workstation # [id number] Dict: 07/30/18 1615 Trans: 07/30/18 1626 PJQuan [id number] Interpreted by: NAGI MAHER Electronically signed by: Darrel Imaging: Xray Plain Films/CT/US/NM/MRI: chest Comments [facility], [facility]. [place], [place] NAME: JAGRUTI GARCIA [facility] REC#: [id number] PT STATUS: REG ER : 1960 PHYSICIAN: CHINO ELLIS MD ADMIT DATE: 07/30/18/ER Draft Date of Exam:07/30/18 CHEST 1 VIEW, AP/PA ONLY INDICATION: Cardiac pacemaker, coronary artery disease. COMPARISON: 04/07/2017. EXAMINATION: Single view of the chest was obtained. FINDINGS: Stable cardiac enlargement without overt pulmonary edema. There is slight central vascular congestion. There is no pneumothorax. Sternal wires are midline. Pacemaker is in stable position. The Port-A-Cath has been removed. Osseous structures are stable. IMPRESSION: Cardiac enlargement with slight central vascular congestion. Dictated on workstation # [id number] Dict: 07/30/18 1614 Trans: 07/30/18 1619 PJQuan [id number] Interpreted by: NAGI MAHER Electronically signed by: Departure Impression Primary Impression: Chest pain Qualified Codes: R07.9 - Chest pain, unspecified Disposition: 01 HOME, SELF-CARE Condition: Improved Departure-Patient Inst. Decision time for Depature: 18:08 Referrals: KIMANI GALINDO MD (PCP/Family) Primary Care Physician Patient Instructions: Chest Pain (DC) Add. Discharge Instructions: All discharge instructions reviewed with patient and/or family. Voiced understanding. Continue home medications as previously prescribed. Follow-up with your DrDanis as scheduled on August 08. You should send your pacemaker defibrillator data to your doctor. Return for worse pain, fever, vomiting, weakness, breathing problems, swelling or other concerns as needed. You may do your additional dose of Lasix for the next 2 days. CHINO ELLIS MD Jul 30, 2018 16:02
[2018-07-30 16:13] LABS: ALBUMIN 3.3 GM/DL (3.2-4.5); BILIRUBIN,TOTAL 0.6 MG/DL (0.1-1.0); CALCIUM 9.1 MG/DL (8.5-10.1); CREATININE SERUM 1.69 MG/DL (0.60-1.30); MAGNESIUM 2.4 MG/DL (1.8-2.4); POTASSIUM 3.7 MMOL/L (3.6-5.0); TOTAL PROTEIN 7.4 GM/DL (6.4-8.2)
[2018-07-30 16:19] LABS: MYOGLOBIN SERUM 55.7 NG/ML (10.0-92.0)
--- NOTE | 2018-07-30 16:20 | Diagnostic Imaging Report ---
INDICATION: Cardiac pacemaker, coronary artery disease. COMPARISON: 04/07/2017. EXAMINATION: Single view of the chest was obtained. FINDINGS: Stable cardiac enlargement without overt pulmonary edema. There is slight central vascular congestion. There is no pneumothorax. Sternal wires are midline. Pacemaker is in stable position. The Port-A-Cath has been removed. Osseous structures are stable. IMPRESSION: Cardiac enlargement with slight central vascular congestion. Dictated by: Dictated on workstation # [id number]
--- NOTE | 2018-07-30 16:27 | Diagnostic Imaging Report ---
PROCEDURE: CT head without contrast, r/o stroke. TECHNIQUE: Multiple contiguous axial images were obtained through the brain without the use of intravenous contrast. Auto Exposure Controls were utilized during the CT exam to meet ALARA standards for radiation dose reduction. INDICATION: Weakness. COMPARISON: 12/31/2016. FINDINGS: Stable age-related cerebral volume loss is present. There is no midline shift or mass effect. There is no focus of acute ischemia or hemorrhage. There is no dense vessel sign. No extra-axial fluid collection is identified. The ventricular size is normal. The bony calvarium, visualized paranasal sinuses and mastoids are clear. IMPRESSION: Negative CT head. No focus of acute ischemia or hemorrhage. Report was called to nurse Carmichael (for Dr. Stratton) in the [facility] ER at 4:22 p.m., by nidia. Dictated by: Dictated on workstation # [id number]
[2018-07-30] MEDS ORDERED: FUROSEMIDE 40 MG/4 ML INJ (LASIX) IV STA (16:35)
--- NOTE | 2018-07-30 18:00 | NUR ---
400 CC URINE OUTPUT AFTER LASIX IV.
[2018-07-30 18:17] VITALS: BP 137/93
== END 2018-07-30 18:25 | disposition home or self-care (01) ==
LOC: EDUNIT# 15:18 → ER 15:19
DX: R07.9 Chest pain, unspecified (principal); I25.2 Old myocardial infarction; I11.0 Hypertensive heart disease with heart failure; I50.9 Heart failure, unspecified; I48.91 Unspecified atrial fibrillation; I25.10 Atherosclerotic heart disease of native coronary artery without angina pectoris; I42.9 Cardiomyopathy, unspecified; E78.00 Pure hypercholesterolemia, unspecified; K21.9 Gastro-esophageal reflux disease without esophagitis; E66.9 Obesity, unspecified; E11.9 Type 2 diabetes mellitus without complications; J43.9 Emphysema, unspecified; F17.210 Nicotine dependence, cigarettes, uncomplicated; Z95.810 Presence of automatic (implantable) cardiac defibrillator; Z79.02 Long term (current) use of antithrombotics/antiplatelets; Z86.73 Personal history of transient ischemic attack (TIA), and cerebral infarction without residual deficits; Z85.3 Personal history of malignant neoplasm of breast; Z86.718 Personal history of other venous thrombosis and embolism; Z90.49 Acquired absence of other specified parts of digestive tract; Z82.49 Family history of ischemic heart disease and other diseases of the circulatory system; Z80.3 Family history of malignant neoplasm of breast; Z68.38 Body mass index [BMI] 38.0-38.9, adult; Z95.5 Presence of coronary angioplasty implant and graft; Z90.89 Acquired absence of other organs; Z79.51 Long term (current) use of inhaled steroids; Z79.4 Long term (current) use of insulin; Z79.52 Long term (current) use of systemic steroids; Z79.01 Long term (current) use of anticoagulants; Z91.041 Radiographic dye allergy status; Z88.0 Allergy status to penicillin
CPT/HCPCS: 36415; 70450; 71045; 80053; 83690; 83735; 83874; 83880; 84484; 85025; 85379; 85610; 85730; 87070; 87077; 87184; 87205; 93005; 93041; 96374

== ENCOUNTER 2018-11-21 01:01 | Emergency (ER) | payer MEDICARE, MEDICAID ==
[~2018-11-21] VITALS: Ht 172.7 cm; Wt 114.9 kg
[2018-11-21 01:01] VITALS: BP 119/76
--- OUTSIDE RECORDS SUMMARY | 2018-11-21 01:10 | XMS REPORT | Clinical Summary ---
Author Author [facility] Organization [facility] Address Unknown Phone Unavailable Care Team Providers Care Metallurgical Engineering Technician Name Role Phone Navya Noble MD PCP [...] Vaccine# (1 of 2) 2008 Influenza Vaccine (#1) 2019 Results Not on filefrom Last 3 Months
--- OUTSIDE RECORDS SUMMARY | 2018-11-21 01:10 | XMS REPORT ---
Author Author Migration, Doctor Organization [facility] Address Unknown Phone Unavailable Care Team Providers Care Warehouse Person Name Role Phone Migration, Doctor Unavailable Unavailable PROBLEMS Type Condition ICD9-CM Code QEL58-GU Code Onset Dates Condition Status SNOMED Code Problem Dietary surveillance and counseling V65.3 Active 205067189 Problem Counseling on substance use and abuse V65.42 Active 679385274 Problem DTAP TEST V06.1 Active Problem Unspecified pre-operative examination V72.84 Active 009058019 Problem Abdominal pain, right lower quadrant 789.03 Active 980945324 Problem Need for prophylactic vaccination and inoculation, Influenza V04.81 Active 702887166 Problem Cough 786.2 Active 89423635 Problem Chest pain, unspecified 786.50 Active 08860723 Problem Other hammer toe (acquired) 735.4 Active 89808258 Problem Pain in soft tissues of limb 729.5 Active 23538130 Problem Other specified disease of hair and hair follicles 704.8 Active 346849487 Problem Neoplasm of unspecified nature of breast 239.3 Active 245357690 Problem Epistaxis 784.7 Active 24008593 Problem Malignant neoplasm of breast (female), unspecified site 174.9 Active 177258448 Problem Wheezing 786.07 Active 38239702 Problem Ingrowing nail 703.0 Active 680144378 Problem Effusion of ankle and foot joint 719.07 Active 9718698 Problem Acute sinusitis, unspecified 461.9 Active 93355674 Problem Obesity, unspecified 278.00 Active 350387384 ALLERGIES Substance Reaction Event Type Date Status Niacin 500 Mg Capsule, Extended Release pt c/o warm sensation of skin Non Drug Allergy Aug, Active ENCOUNTERS Encounter Location Date Diagnosis [facility] [address] [id number] [address] Aug, [facility] [address] [id number] [address] Aug, [facility] [id number] [place] [address] 15 May, 2013 [facility] [address] [id number] [place] [address] 15 May, 2013 [facility] [address] [id number] [place] [address] Jan, [facility] [address] [id number] [place] [address] Oct, [facility] [address] [id number] [place] [address] Aug, [facility] [address] [id number] [place] [address] Aug, [facility] [address] [id number] [place] [address] Jul, [facility] [address] [facility] [id number] [place] [address] Jul, [facility] [address] [id number] [place] [address] Jul, [facility] [address] [id number] [place] [address] Jun, [facility] [address] [facility] [id number] [place] [address] Jun, [facility] [address] [id number] [place] [address] Jun, [facility] [address] [facility] [id number] [place] [address] Jun, [facility] [place] [facility] [address] [id number] [place] [address] May, [facility] [place] [facility] [address] [id number] [place] [address] May, [facility] [place] [facility] [address] [id number] [place] [address] May, [facility] [place] [facility] [address] [id number] [place] [address] May, [facility] [place] [facility] [address] [id number] [place] [address] May, [facility] [place] [facility] [address] [id number] [place] [address] Apr, [facility] [place] [facility] [address] [id number] [place] [address] Apr, [facility] [place] [facility] [address] [id number] [place] [address] Apr, [facility] [place] [facility] [address] [id number] [place] [address] Apr, [facility] [place] [facility] [address] [id number] [place] [address] Apr, [facility] [place] [facility] [address] [id number] [place] [address] Apr, [facility] [place] [facility] [address] [id number] [place] [address] Mar, [facility] [place] [facility] [address] [id number] [place] [address] 29 Mar, 2012 [facility] [place] [facility] [address] [id number] [place] [address] Mar, [facility] [place] [facility] [address] [id number], [place] [address] 28 Mar, 2012 [facility] [place] [facility] [address] [id number] [place] [address] 15 Mar, 2012 [facility] [place] [facility] [address] [id number] [place] [address] 15 Mar, 2012 [facility] [place] [facility] [address] [facility] [id number] [place] [address] 05 Feb, 2012 [facility] [place] [facility] [address] [id number], [place] [address] 21 Jan, 2012 [facility] [place] [facility] [address] [id number] [place] [address] 20 Jan, 2012 [facility] [place] [facility] [address] [id number] [place] [address] 18 Jan, 2012 [facility] [place] [facility] [address] [id number] [place] [address] 05 Jan, 2012 [facility] [place] [facility] [address] [id number] [place] [address] 28 Dec, 2011 [facility] [place] [facility] [address] [id number] [place] [address] 24 Dec, 2011 [facility] [place] [facility] [address] [id number] [place] [address] 13 Dec, 2011 [facility] [place] [facility] [address] [id number] [place] [address] Dec, [facility] [place] [facility] [address] [id number] [place] [address] 17 Nov, 2011 [facility] [place] [facility] [address] [id number] [place] [address] 17 Nov, 2011 [facility] [place] [facility] [address] [id number] [place] [address] 16 Nov, 2011 [facility] [place] [facility] [address] [id number] [place] [address] 13 Nov, 2011 [facility] [place] [facility] [address] [id number] [place] [address] Nov, [facility] [place] [facility] [address] [id number] [place] [address] Oct, [facility] [place] [facility] [address] [id number] [place] [address] Oct, [facility] [place] [facility] [address] [id number] [place] [address] Oct, [facility] [place] [facility] [address] [id number] [place] [address] Oct, [facility] [place] [facility] [address] [id number] [place] [address] Oct, [facility] [place] [facility] [address] [id number] [place] [address] Oct, [facility] [place] [facility] [address] [id number] [place] [address] Oct, [facility] [place] [facility] [address] [id number] [place] [address] September, [facility] [place] [facility] [address] [id number] [place] [address] September, [facility] [place] [facility] [address] [id number] [place] [address] September, [facility] [place] [facility] [address] [id number] [place] [address] Aug, [facility] [place] [facility] [address] [id number] [place] [address] Aug, [facility] [place] [facility] [address] [id number] [place] [address] Aug, [facility] [place] [facility] [address] [id number] [place] [address] Jul, [facility] [place] [facility] [address] [id number] [place] [address] Jul, [facility] [place] [facility] [address] [id number] [place] [address] Jul, [facility] [place] [facility] [address] [id number] [place] [address] 29 Jun, 2011 [facility] [place] [facility] [address] [id number] [place] [address] 15 Jun, 2011 [facility] [place] [facility] [address] [id number] [place] [address] Jun, [facility] [place] [facility] [address] [id number] [place] [address] May, [facility] [place] [facility] [address] [id number] [place] [address] May, [facility] [place] [facility] [address] [facility] [id number] [place] [address] May, [facility] [place] [facility] [address] [id number] [place] [address] May, [facility] [place] [facility] [address] [id number] [place] [address] Apr, [facility] [place] [facility] [address] [id number] [place] [address] Apr, [facility] [place] [facility] [address] [facility] [id number] [place] [address] Apr, [facility] [place] [facility] [address] [id number], [place] [address] Apr, [facility] [place] [facility] [address] [id number] [place] [address] Mar, [facility] [place] [facility] [address] [facility] [id number] [place] [address] Mar, [facility] [place] [facility] [address] [id number], [place] [address] Mar, [facility] [place] [facility] [address] [id number], [place] [address] Mar, [facility] [place] [facility] [address] [id number] [place] [address] Mar, [facility] [place] [facility] [address] [facility] [id number], [place] [address] Feb, [facility] [place] [facility] [address] [facility] [id number], [place] [address] Feb, [facility] [place] [facility] [address] [id number] [place] [address] Feb, [facility] [address] [id number] [place] [address] Feb, [facility] [place] [facility] [address] [id number] [place] [address] Feb, [facility] [place] [facility] [address] [id number] [place] [address] Feb, [facility] [place] [facility] [address] [id number] [place] [address] 14 Feb, 2011 [facility] [place] [facility] [address] [id number] [place] [address] Feb, [facility] [place] [facility] [address] [id number] [place] [address] Jan, [facility] [place] [facility] [address] [id number] [place] [address] Dec, [facility] [place] [facility] [address] [id number] [place] [address] September, [facility] [place] [facility] [address] [id number] [place] [address] Aug, [facility] [place] [facility] [address] [id number] [place] [address] Jul, [facility] [place] [facility] [address] [id number] [place] [address] May, [facility] [place] [facility] [address] [id number] [place] [address] Apr, [facility] [place] [facility] [address] [id number] [place] [address] Apr, [facility] [place] [facility] [address] [id number] [place] [address] Apr, [facility] [place] [facility] [address] [id number] [place] [address] Apr, [facility] [place] [facility] [address] [id number] [place] [address] Mar, [facility] [place] [facility] [address] [id number] [place] [address] Mar, [facility] [place] [facility] [address] [id number] [place] [address] Mar, [facility] [place] [facility] [address] [id number] [place] [address] Mar, [facility] [place] [facility] [address] [id number] [place] [address] Feb, [facility] [place] [facility] [address] [id number] [place] [address] Feb, [facility] [place] [facility] [address] [id number] [place] [address] Feb, [facility] [place] [facility] [address] [id number] [place] [address] Feb, [facility] [place] [facility] [address] [id number] [place] [address] Dec, [facility] [place] [facility] [address] [id number] [place] [address] Nov, [facility] [place] [facility] [address] [id number] [place] [address] September, [facility] [place] [facility] [address] [id number], [place] [address] Jun, [facility] [place] [facility] [address] [id number] [place] [address] May, [facility] [place] [facility] [address] [id number] [place] [address] Feb, [facility] [place] [facility] [address] [id number], [place] [address] Feb, [facility] [place] [facility] [address] [id number], [place] [address] Oct, IMMUNIZATIONS No Known Immunizations SOCIAL HISTORY Never Assessed REASON FOR VISIT [facility] PLAN OF CARE VITAL SIGNS MEDICATIONS Medication Instructions Dosage Frequency Start Date End Date Duration Status Claritin 10 mg take 1 tablet by Oral route 1 time per day Take 1 tablet every other day secondary to renal insufficiency Jul, Active Clindamycin HCl 150 mg 1 capsule by Oral route every 6 hours for 7 days Jan, Active Flovent HFA 220 mcg/actuation 1 puffs by Inhalation route 2 times per day Mar, Active Tricor 145 mg 1 tablet by Oral route 1 time per day Jan, Active Protonix 40 mg 1 ea by Oral route 1 time per day May, Active Metoprolol Succinate ER 100 mg by Oral route 2 times per sax889 mg in the am and 50mg in the pm Jan, Active tramadol 50 mg take 1 tablet (50 mg) by oral route every 6 hours as neededPRNpain Jun, Active ProAir HFA 90 mcg/actuation 1-2 puffs by Inhalation route 4 times per dayPRN Jan, Active Famotidine by Oral eosip30em once daily Aug, Active warfarin 3 mg take 1 tablet (3 mg) by oral route once daily Jul, Active Metoprolol Tartrate by Oral gpnve00ab once daily Aug, Active Percocet 2.5-325 mg take 1 - 2 tablets by oral route every 6 hours as needed Dec, Active RESULTS No Results PROCEDURES No Known procedures INSTRUCTIONS MEDICATIONS ADMINISTERED No Known Medications
--- OUTSIDE RECORDS SUMMARY | 2018-11-21 01:10 | XMS REPORT ---
Author Author Migration, Doctor Organization [facility] Address Unknown Phone Unavailable Care Team Providers Care Fire Technician Name Role Phone Migration, Doctor Unavailable Unavailable PROBLEMS Type Condition ICD9-CM Code BPL84-VL Code Onset Dates Condition Status SNOMED Code Problem Dietary surveillance and counseling V65.3 Active 275608043 Problem Counseling on substance use and abuse V65.42 Active 872923091 Problem DTAP TEST V06.1 Active Problem Unspecified pre-operative examination V72.84 Active 429546902 Problem Abdominal pain, right lower quadrant 789.03 Active 283412235 Problem Need for prophylactic vaccination and inoculation, Influenza V04.81 Active 761459357 Problem Cough 786.2 Active 93915267 Problem Chest pain, unspecified 786.50 Active 57708605 Problem Other hammer toe (acquired) 735.4 Active 88808092 Problem Pain in soft tissues of limb 729.5 Active 98823251 Problem Other specified disease of hair and hair follicles 704.8 Active 211720078 Problem Neoplasm of unspecified nature of breast 239.3 Active 133225960 Problem Epistaxis 784.7 Active 49546144 Problem Malignant neoplasm of breast (female), unspecified site 174.9 Active 505236499 Problem Wheezing 786.07 Active 79051902 Problem Ingrowing nail 703.0 Active 889404668 Problem Effusion of ankle and foot joint 719.07 Active 7613112 Problem Acute sinusitis, unspecified 461.9 Active 00450582 Problem Obesity, unspecified 278.00 Active 464799136 ALLERGIES No Information ENCOUNTERS Encounter Location Date Diagnosis [facility] [address] [id number] [address] Aug, [facility] [id number] [address] Aug, [facility] [address] [id number] [address] May, [facility] [id number] [address] 15 May, 2013 [facility] [address] [id number] [place] [address] Jan, [facility] [address] [id number] [place] [address] Oct, [facility] [address] [id number] [place] [address] Aug, [facility] [address] [id number] [place] [address] Aug, [facility] [address] [id number] [place] [address] Jul, [facility] [address] [id number] [place] [address] Jul, [facility] [address] [id number] [place] [address] Jul, [facility] [address] [id number] [place] [address] Jun, [facility] [address] [id number] [place] [address] Jun, [facility] [address] [id number] [place] [address] Jun, [facility] [address] [id number] [place] [address] Jun, [facility] [address] [id number] [place] [address] May, [facility] [address] [id number] [place] [address] May, [facility] [address] [id number] [place] [address] May, [facility] [address] [id number] [place] [address] May, [facility] [place] [facility] [address] [id number] [place] [address] May, [facility] [place] [facility] [address] [id number] [place] [address] Apr, [facility] [place] [facility] [address] [id number] [place] [address] Apr, [facility] [place] [facility] [address] [id number] [place] [address] Apr, [facility] [place] [facility] [address] [id number] [place] [address] Apr, [facility] [place] [facility] [address] [id number] [place] [address] Apr, [facility] [place] [facility] [address] [id number] [place] [address] Apr, [facility] [place] [facility] [address] [id number] [place] [address] Mar, [facility] [place] [facility] [address] [id number] [place] [address] Mar, [facility] [place] [facility] [address] [id number], [place] [address] Mar, [facility] [place] [facility] [address] [id number], [place] [address] Mar, [facility] [place] [facility] [address] [id number], [place] [address] 15 Mar, 2012 [facility] [place] [facility] [address] [id number] [place] [address] Mar, [facility] [place] [facility] [address] [id number], [place] [address] 05 Feb, 2012 [facility] [place] [facility] [address] [id number] [place] [address] Jan, [facility] [place] [facility] [address] [id number] [place] [address] 20 Jan, 2012 [facility] [place] [facility] [address] [id number] [place] [address] 18 Jan, 2012 [facility] [place] [facility] [address] [id number] [place] [address] 05 Jan, 2012 [facility] [place] [facility] [address] [id number] [place] [address] 28 Dec, 2011 [facility] [place] [facility] [address] [id number] [place] [address] 24 Dec, 2011 [facility] [place] [facility] [address] [id number] [place] [address] 13 Dec, 2011 [facility] [place] [facility] [address] [id number] [place] [address] 10 Dec, 2011 [facility] [place] [facility] [address] [id number] [place] [address] 17 Nov, 2011 [facility] [place] [facility] [address] [id number] [place] [address] 17 Nov, 2011 [facility] [place] [facility] [address] [id number] [place] [address] 16 Nov, 2011 [facility] [place] [facility] [address] [id number] [place] [address] 13 Nov, 2011 [facility] [place] [facility] [address] [id number] [place] [address] Nov, [facility] [place] [facility] [address] [id number] [place] [address] Oct, [facility] [place] [facility] [address] [id number] [place] [address] Oct, [facility] [place] [facility] [address] [id number] [place] [address] Oct, [facility] [place] [facility] [address] [id number] [place] [address] Oct, [facility] [place] [facility] [address] [id number] [place] [address] Oct, [facility] [place] [facility] [address] [id number] [place] [address] Oct, [facility] [place] [facility] [address] [id number] [place] [address] Oct, [facility] [place] [facility] [address] [id number] [place] [address] September, [facility] [place] [facility] [address] [id number] [place] [address] September, [facility] [place] [facility] [address] [id number] [place] [address] September, [facility] [place] [facility] [address] [id number] [place] [address] Aug, [facility] [place] [facility] [address] [id number] [place] [address] Aug, [facility] [place] [facility] [address] [id number] [place] [address] Aug, [facility] [place] [facility] [address] [id number] [place] [address] Jul, [facility] [place] [facility] [address] [facility] [id number] [place] [address] Jul, [facility] [place] [facility] [address] [id number] [place] [address] Jul, [facility] [place] [facility] [address] [id number] [place] [address] Jun, [facility] [place] [facility] [address] [id number] [place] [address] Jun, [facility] [place] [facility] [address] [id number] [place] [address] Jun, [facility] [place] [facility] [address] [id number], [place] [address] May, [facility] [place] [facility] [address] [id number] [place] [address] May, [facility] [place] [facility] [address] [id number] [place] [address] May, [facility] [place] [facility] [address] [id number] [place] [address] May, [facility] [place] [facility] [address] [id number] [place] [address] Apr, [facility] [place] [facility] [address] [id number] [place] [address] Apr, [facility] [place] [facility] [address] [id number] [place] [address] Apr, [facility] [place] [facility] [address] [id number] [place] [address] Apr, [facility] [place] [facility] [address] [id number] [place] [address] Mar, [facility] [place] [facility] [address] [id number] [place] [address] Mar, [facility] [place] [facility] [address] [id number] [place] [address] Mar, [facility] [place] [facility] [address] [id number], [place] [address] Mar, [facility] [place] [facility] [address] [id number], [place] [address] Mar, [facility] [place] [facility] [address] [id number] [place] [address] Feb, [facility] [place] [facility] [address] [id number] [place] [address] Feb, [facility] [place] [facility] [address] [id number] [place] [address] Feb, [facility] [place] [facility] [address] [id number] [place] [address] Feb, [facility] [address] [id number] [place] [address] Feb, [facility] [place] [facility] [address] [id number] [place] [address] Feb, [facility] [address] [id number] [place] [address] 14 Feb, 2011 [facility] [place] [facility] [address] [id number] [place] [address] Feb, [facility] [address] [id number] [place] [address] Jan, [facility] [address] [id number] [place] [address] Dec, [facility] [address] [id number] [place] [address] September, [facility] [address] [id number] [place] [address] Aug, [facility] [place] [facility] [address] [id number] [place] [address] Jul, [facility] [address] [id number] [place] [address] May, [facility] [address] [id number] [place] [address] Apr, [facility] [address] [id number] [place] [address] Apr, [facility] [place] [facility] [address] [id number] [place] [address] Apr, [facility] [place] [facility] [address] [id number] [place] [address] Apr, [facility] [place] [facility] [address] [id number] [place] [address] Mar, [facility] [address] [id number], [place] [address] Mar, [facility] [address] [id number], [place] [address] Mar, [facility] [address] [facility] [id number], [place] [address] Mar, [facility] [address] [id number], [place] [address] Feb, [facility] [address] [id number] [place] [address] Feb, [facility] [address] [facility] [id number], [place] [address] Feb, [facility] [address] [facility] [id number], [place] [address] Feb, [facility] [address] [facility] [id number], [place] [address] Dec, [facility] [address] [facility] [id number], [place] [address] Nov, [facility] [address] [facility] [id number], [place] [address] September, [facility] [address] [facility] [id number], [place] [address] Jun, [facility] [address] [id number], [place] [address] May, [facility] [address] [facility] [id number], [place] [address] Feb, [facility] [address] [facility] [id number], [place] [address] Feb, [facility] [address] [facility] [id number], [place] [address] Oct, IMMUNIZATIONS No Known Immunizations SOCIAL HISTORY Never Assessed REASON FOR VISIT EMR-[facility] [place] PLAN OF CARE VITAL SIGNS MEDICATIONS Unknown Medications RESULTS No Results PROCEDURES No Known procedures INSTRUCTIONS MEDICATIONS ADMINISTERED No Known Medications
--- OUTSIDE RECORDS SUMMARY | 2018-11-21 01:11 | XMS REPORT ---
Author Author Migration, Doctor Organization [facility] Address Unknown Phone Unavailable Care Team Providers Care Dental Mold Maker Name Role Phone Migration, Doctor Unavailable Unavailable PROBLEMS Type Condition ICD9-CM Code REY14-ZN Code Onset Dates Condition Status SNOMED Code Problem Dietary surveillance and counseling V65.3 Active 608222278 Problem Counseling on substance use and abuse V65.42 Active 289877032 Problem DTAP TEST V06.1 Active Problem Unspecified pre-operative examination V72.84 Active 376867422 Problem Abdominal pain, right lower quadrant 789.03 Active 014452032 Problem Need for prophylactic vaccination and inoculation, Influenza V04.81 Active 831868479 Problem Cough 786.2 Active 28059699 Problem Chest pain, unspecified 786.50 Active 96103756 Problem Other hammer toe (acquired) 735.4 Active 41648130 Problem Pain in soft tissues of limb 729.5 Active 15602030 Problem Other specified disease of hair and hair follicles 704.8 Active 610088237 Problem Neoplasm of unspecified nature of breast 239.3 Active 945060243 Problem Epistaxis 784.7 Active 90488503 Problem Malignant neoplasm of breast (female), unspecified site 174.9 Active 088339897 Problem Wheezing 786.07 Active 17696151 Problem Ingrowing nail 703.0 Active 662092115 Problem Effusion of ankle and foot joint 719.07 Active 6113224 Problem Acute sinusitis, unspecified 461.9 Active 53034673 Problem Obesity, unspecified 278.00 Active 691467152 ALLERGIES No Information ENCOUNTERS Encounter Location Date Diagnosis [facility] [id number] [address] Aug, [facility] [id number] [address] Aug, [facility] [id number] [address] May, [facility] [id number] [place] [address] 15 May, 2013 [facility] [address] [id number] [place] [address] Jan, [facility] [address] [id number] [place] [address] Oct, [facility] [address] [id number] [place] [address] Aug, [facility] [address] [id number] [place] [address] Aug, [facility] [address] [id number] [place] [address] Jul, [facility] [address] [id number] [place] [address] Jul, [facility] [address] [id number] [place] [address] Jul, [facility] [address] [id number] [place] [address] Jun, [facility] [address] [id number] [place] [address] Jun, [facility] [address] [id number] [place] [address] Jun, [facility] [address] [id number] [place] [address] Jun, [facility] [address] [id number] [place] [address] May, [facility] [address] [id number] [place] [address] May, [facility] [address] [id number] [place] [address] May, [facility] [address] [id number] [place] [address] May, [facility] [place] [facility] [address] [id number] [place] [address] May, [facility] [place] [facility] [address] [id number] [place] [address] Apr, [facility] [place] [facility] [address] [id number] [place] [address] Apr, [facility] [place] [facility] [address] [id number] [place] [address] Apr, [facility] [place] [facility] [address] [id number] [place] [address] Apr, [facility] [place] [facility] [address] [id number] [place] [address] Apr, [facility] [place] [facility] [address] [id number] [place] [address] Apr, [facility] [place] [facility] [address] [id number] [place] [address] Mar, [facility] [place] [facility] [address] [id number] [place] [address] Mar, [facility] [place] [facility] [address] [id number] [address] Mar, [facility] [place] [facility] [address] [id number] [address] Mar, [facility] [place] [facility] [address] [id number] [address] 15 Mar, 2012 [facility] [place] [facility] [address] [id number] [place] [address] Mar, [facility] [place] [facility] [address] [id number] [address] 05 Feb, 2012 [facility] [place] [facility] [address] [id number] [place] [address] Jan, [facility] [place] [facility] [address] [id number] [place] [address] 20 Jan, 2012 [facility] [place] [facility] [address] [id number] [place] [address] 18 Jan, 2012 [facility] [place] [facility] [address] [id number] [place] [address] 05 Jan, 2012 [facility] [place] [facility] [address] [id number] [place] [address] 28 Dec, 2011 [facility] [place] [facility] [address] [id number] [place] [address] 24 Dec, 2011 [facility] [place] [facility] [address] [id number] [place] [address] 13 Dec, 2011 [facility] [place] [facility] [address] [id number] [place] [address] 10 Dec, 2011 [facility] [place] [facility] [address] [id number] [place] [address] 17 Nov, 2011 [facility] [place] [facility] [address] [id number] [place] [address] 17 Nov, 2011 [facility] [place] [facility] [address] [id number] [place] [address] 16 Nov, 2011 [facility] [place] [facility] [address] [id number] [place] [address] 13 Nov, 2011 [facility] [place] [facility] [address] [id number] [place] [address] Nov, [facility] [place] [facility] [address] [id number] [place] [address] Oct, [facility] [place] [facility] [address] [id number] [place] [address] Oct, [facility] [place] [facility] [address] [id number] [place] [address] Oct, [facility] [place] [facility] [address] [id number] [place] [address] Oct, [facility] [place] [facility] [address] [id number] [place] [address] Oct, [facility] [place] [facility] [address] [id number] [place] [address] Oct, [facility] [place] [facility] [address] [id number] [place] [address] Oct, [facility] [place] [facility] [address] [id number] [place] [address] September, [facility] [place] [facility] [address] [id number] [place] [address] September, [facility] [place] [facility] [address] [id number] [place] [address] September, [facility] [place] [facility] [address] [id number] [place] [address] Aug, [facility] [place] [facility] [address] [id number] [place] [address] Aug, [facility] [place] [facility] [address] [id number] [place] [address] Aug, [facility] [place] [facility] [address] [id number] [place] [address] Jul, [facility] [place] [facility] [address] [facility] [id number] [place] [address] Jul, [facility] [place] [facility] [address] [id number] [place] [address] Jul, [facility] [place] [facility] [address] [id number] [place] [address] Jun, [facility] [place] [facility] [address] [id number] [place] [address] Jun, [facility] [place] [facility] [address] [id number] [place] [address] Jun, [facility] [place] [facility] [address] [id number] [address] May, [facility] [place] [facility] [address] [id number] [place] [address] May, [facility] [place] [facility] [address] [id number] [place] [address] May, [facility] [place] [facility] [address] [id number] [place] [address] May, [facility] [place] [facility] [address] [id number] [place] [address] Apr, [facility] [place] [facility] [address] [id number] [place] [address] Apr, [facility] [place] [facility] [address] [id number] [place] [address] Apr, [facility] [place] [facility] [address] [id number] [place] [address] Apr, [facility] [place] [facility] [address] [id number] [place] [address] Mar, [facility] [place] [facility] [address] [id number] [place] [address] Mar, [facility] [place] [facility] [address] [id number] [place] [address] Mar, [facility] [place] [facility] [address] [id number] [address] Mar, [facility] [place] [facility] [address] [id number] [address] Mar, [facility] [place] [facility] [address] [id number] [place] [address] Feb, [facility] [place] [facility] [address] [id number] [place] [address] Feb, [facility] [place] [facility] [address] [id number] [place] [address] Feb, [facility] [place] [facility] [address] [id number] [place] [address] Feb, [facility] [address] [id number] [place] [address] Feb, [facility] [place] [facility] [address] [id number] [place] [address] Feb, [facility] [address] [id number] [place] [address] 14 Feb, 2011 [facility] [place] [facility] [address] [id number] [place] [address] Feb, [facility] [address] [id number] [place] [address] Jan, [facility] [address] [id number] [place] [address] Dec, [facility] [address] [id number] [place] [address] September, [facility] [address] [id number] [place] [address] Aug, [facility] [place] [facility] [address] [id number] [place] [address] Jul, [facility] [address] [id number] [place] [address] May, [facility] [address] [id number] [place] [address] Apr, [facility] [address] [id number] [place] [address] Apr, [facility] [place] [facility] [address] [id number] [place] [address] Apr, [facility] [place] [facility] [address] [id number] [place] [address] Apr, [facility] [place] [facility] [address] [id number] [place] [address] Mar, [facility] [address] [id number] [address] Mar, [facility] [address] [id number] [place] [address] Mar, [facility] [address] [facility] [id number] [address] Mar, [facility] [address] [id number] [place] [address] Feb, [facility] [address] [id number] [place] [address] Feb, [facility] [address] [facility] [id number] [address] Feb, [facility] [address] [facility] [id number] [place] [address] Feb, [facility] [address] [facility] [id number] [address] Dec, [facility] [address] [facility] [id number] [address] Nov, [facility] [address] [facility] [id number] [address] September, [facility] [address] [facility] [id number] [address] Jun, [facility] [address] [id number] [place] [address] May, [facility] [address] [facility] [id number] [address] Feb, [facility] [address] [facility] [id number] [place] [address] Feb, [facility] [address] [facility] [id number] [place] [address] Oct, IMMUNIZATIONS No Known Immunizations SOCIAL HISTORY Never Assessed REASON FOR VISIT EMR-[facility] PLAN OF CARE VITAL SIGNS MEDICATIONS Unknown Medications RESULTS No Results PROCEDURES No Known procedures INSTRUCTIONS MEDICATIONS ADMINISTERED No Known Medications
--- OUTSIDE RECORDS SUMMARY | 2018-11-21 01:11 | XMS REPORT ---
Author Author Migration, Doctor Organization [facility] Address Unknown Phone Unavailable Care Team Providers Care Tile Trimmer Name Role Phone Migration, Doctor Unavailable Unavailable PROBLEMS Type Condition ICD9-CM Code GPF35-LM Code Onset Dates Condition Status SNOMED Code Problem Dietary surveillance and counseling V65.3 Active 976314728 Problem Counseling on substance use and abuse V65.42 Active 199328883 Problem DTAP TEST V06.1 Active Problem Unspecified pre-operative examination V72.84 Active 320928441 Problem Abdominal pain, right lower quadrant 789.03 Active 864432720 Problem Need for prophylactic vaccination and inoculation, Influenza V04.81 Active 030822617 Problem Cough 786.2 Active 38965015 Problem Chest pain, unspecified 786.50 Active 56181429 Problem Other hammer toe (acquired) 735.4 Active 48819856 Problem Pain in soft tissues of limb 729.5 Active 31588690 Problem Other specified disease of hair and hair follicles 704.8 Active 218960770 Problem Neoplasm of unspecified nature of breast 239.3 Active 195983492 Problem Epistaxis 784.7 Active 46488629 Problem Malignant neoplasm of breast (female), unspecified site 174.9 Active 199231415 Problem Wheezing 786.07 Active 80979564 Problem Ingrowing nail 703.0 Active 321506091 Problem Effusion of ankle and foot joint 719.07 Active 7877899 Problem Acute sinusitis, unspecified 461.9 Active 70319189 Problem Obesity, unspecified 278.00 Active 566290358 ALLERGIES No Information ENCOUNTERS Encounter Location Date Diagnosis [facility] [address] [id number] [address] Aug, [facility] [id number] [address] Aug, [facility] [id number] [address] May, [facility] [id number] [address] 15 May, 2013 [facility] [address] [id number] [place] [address] Jan, [facility] [address] [id number] [place] [address] Oct, [facility] [address] [id number] [place] [address] Aug, [facility] [address] [id number] [place] [address] Aug, [facility] [address] [id number] [place] [address] Jul, [facility] [address] [id number] [place] [address] Jul, [facility] [address] [id number] [place] [address] Jul, [facility] [address] [id number] [place] [address] Jun, [facility] [address] [id number] [place] [address] Jun, [facility] [address] [id number] [place] [address] Jun, [facility] [address] [id number] [place] [address] Jun, [facility] [address] [id number] [place] [address] May, [facility] [address] [id number] [place] [address] May, [facility] [address] [id number] [place] [address] May, [facility] [address] [id number] [place] [address] May, [facility] [place] [facility] [address] [id number] [place] [address] May, [facility] [place] [facility] [address] [id number] [place] [address] Apr, [facility] [place] [facility] [address] [id number] [place] [address] Apr, [facility] [place] [facility] [address] [id number] [place] [address] Apr, [facility] [place] [facility] [address] [id number] [place] [address] Apr, [facility] [place] [facility] [address] [id number] [place] [address] Apr, [facility] [place] [facility] [address] [id number] [place] [address] Apr, [facility] [place] [facility] [address] [id number] [place] [address] Mar, [facility] [place] [facility] [address] [id number] [place] [address] Mar, [facility] [place] [facility] [address] [id number], [place] [address] Mar, [facility] [place] [facility] [address] [id number], [place] [address] Mar, [facility] [place] [facility] [address] [id number], [place] [address] 15 Mar, 2012 [facility] [place] [facility] [address] [id number] [place] [address] Mar, [facility] [place] [facility] [address] [id number], [place] [address] 05 Feb, 2012 [facility] [place] [facility] [address] [id number] [place] [address] Jan, [facility] [place] [facility] [address] [id number] [place] [address] 20 Jan, 2012 [facility] [place] [facility] [address] [id number] [place] [address] 18 Jan, 2012 [facility] [place] [facility] [address] [id number] [place] [address] 05 Jan, 2012 [facility] [place] [facility] [address] [id number] [place] [address] 28 Dec, 2011 [facility] [place] [facility] [address] [id number] [place] [address] 24 Dec, 2011 [facility] [place] [facility] [address] [id number] [place] [address] 13 Dec, 2011 [facility] [place] [facility] [address] [id number] [place] [address] 10 Dec, 2011 [facility] [place] [facility] [address] [id number] [place] [address] 17 Nov, 2011 [facility] [place] [facility] [address] [id number] [place] [address] 17 Nov, 2011 [facility] [place] [facility] [address] [id number] [place] [address] 16 Nov, 2011 [facility] [place] [facility] [address] [id number] [place] [address] 13 Nov, 2011 [facility] [place] [facility] [address] [id number] [place] [address] Nov, [facility] [place] [facility] [address] [id number] [place] [address] Oct, [facility] [place] [facility] [address] [id number] [place] [address] Oct, [facility] [place] [facility] [address] [id number] [place] [address] Oct, [facility] [place] [facility] [address] [id number] [place] [address] Oct, [facility] [place] [facility] [address] [id number] [place] [address] Oct, [facility] [place] [facility] [address] [id number] [place] [address] Oct, [facility] [place] [facility] [address] [id number] [place] [address] Oct, [facility] [place] [facility] [address] [id number] [place] [address] September, [facility] [place] [facility] [address] [id number] [place] [address] September, [facility] [place] [facility] [address] [id number] [place] [address] September, [facility] [place] [facility] [address] [id number] [place] [address] Aug, [facility] [place] [facility] [address] [id number] [place] [address] Aug, [facility] [place] [facility] [address] [id number] [place] [address] Aug, [facility] [place] [facility] [address] [id number] [place] [address] Jul, [facility] [place] [facility] [address] [facility] [id number] [place] [address] Jul, [facility] [place] [facility] [address] [id number] [place] [address] Jul, [facility] [place] [facility] [address] [id number] [place] [address] Jun, [facility] [place] [facility] [address] [id number] [place] [address] Jun, [facility] [place] [facility] [address] [id number] [place] [address] Jun, [facility] [place] [facility] [address] [id number], [place] [address] May, [facility] [place] [facility] [address] [id number] [place] [address] May, [facility] [place] [facility] [address] [id number] [place] [address] May, [facility] [place] [facility] [address] [id number] [place] [address] May, [facility] [place] [facility] [address] [id number] [place] [address] Apr, [facility] [place] [facility] [address] [id number] [place] [address] Apr, [facility] [place] [facility] [address] [id number] [place] [address] Apr, [facility] [place] [facility] [address] [id number] [place] [address] Apr, [facility] [place] [facility] [address] [id number] [place] [address] Mar, [facility] [place] [facility] [address] [id number] [place] [address] Mar, [facility] [place] [facility] [address] [id number] [place] [address] Mar, [facility] [place] [facility] [address] [id number], [place] [address] Mar, [facility] [place] [facility] [address] [id number], [place] [address] Mar, [facility] [place] [facility] [address] [id number] [place] [address] Feb, [facility] [place] [facility] [address] [id number] [place] [address] Feb, [facility] [place] [facility] [address] [id number] [place] [address] Feb, [facility] [place] [facility] [address] [id number] [place] [address] Feb, [facility] [address] [id number] [place] [address] Feb, [facility] [place] [facility] [address] [id number] [place] [address] Feb, [facility] [address] [id number] [place] [address] 14 Feb, 2011 [facility] [place] [facility] [address] [id number] [place] [address] Feb, [facility] [address] [id number] [place] [address] Jan, [facility] [address] [id number] [place] [address] Dec, [facility] [address] [id number] [place] [address] September, [facility] [address] [id number] [place] [address] Aug, [facility] [place] [facility] [address] [id number] [place] [address] Jul, [facility] [address] [id number] [place] [address] May, [facility] [address] [id number] [place] [address] Apr, [facility] [address] [id number] [place] [address] Apr, [facility] [place] [facility] [address] [id number] [place] [address] Apr, [facility] [place] [facility] [address] [id number] [place] [address] Apr, [facility] [place] [facility] [address] [id number] [place] [address] Mar, [facility] [address] [id number], [place] [address] Mar, [facility] [address] [id number], [place] [address] Mar, [facility] [address] [facility] [id number], [place] [address] Mar, [facility] [address] [id number], [place] [address] Feb, [facility] [address] [id number] [place] [address] Feb, [facility] [address] [facility] [id number], [place] [address] Feb, [facility] [address] [facility] [id number], [place] [address] Feb, [facility] [address] [facility] [id number], [place] [address] Dec, [facility] [address] [facility] [id number], [place] [address] Nov, [facility] [address] [facility] [id number], [place] [address] September, [facility] [address] [facility] [id number], [place] [address] Jun, [facility] [address] [id number], [place] [address] May, [facility] [address] [facility] [id number], [place] [address] Feb, [facility] [address] [facility] [id number], [place] [address] Feb, [facility] [address] [facility] [id number], [place] [address] Oct, IMMUNIZATIONS No Known Immunizations SOCIAL HISTORY Never Assessed [place]ASON [place] [place] VITAL SIGNS MEDICATIONS Unknown Medications RESULTS No Results PROCEDURES No Known procedures INSTRUCTIONS MEDICATIONS ADMINISTERED No Known Medications
--- OUTSIDE RECORDS SUMMARY | 2018-11-21 01:11 | XMS REPORT ---
Author Author Migration, Doctor Organization [facility] Address Unknown Phone Unavailable Care Team Providers Care Body And Fender Mechanic Name Role Phone Migration, Doctor Unavailable Unavailable PROBLEMS Type Condition ICD9-CM Code ERQ70-OB Code Onset Dates Condition Status SNOMED Code Problem Dietary surveillance and counseling V65.3 Active 887731551 Problem Counseling on substance use and abuse V65.42 Active 827165181 Problem DTAP TEST V06.1 Active Problem Unspecified pre-operative examination V72.84 Active 652261069 Problem Abdominal pain, right lower quadrant 789.03 Active 598756873 Problem Need for prophylactic vaccination and inoculation, Influenza V04.81 Active 613901937 Problem Cough 786.2 Active 75128528 Problem Chest pain, unspecified 786.50 Active 24437775 Problem Other hammer toe (acquired) 735.4 Active 06627211 Problem Pain in soft tissues of limb 729.5 Active 38455637 Problem Other specified disease of hair and hair follicles 704.8 Active 145783542 Problem Neoplasm of unspecified nature of breast 239.3 Active 975840300 Problem Epistaxis 784.7 Active 83529673 Problem Malignant neoplasm of breast (female), unspecified site 174.9 Active 185274171 Problem Wheezing 786.07 Active 68054068 Problem Ingrowing nail 703.0 Active 107295419 Problem Effusion of ankle and foot joint 719.07 Active 8085769 Problem Acute sinusitis, unspecified 461.9 Active 14355455 Problem Obesity, unspecified 278.00 Active 414761720 ALLERGIES No Information ENCOUNTERS Encounter Location Date Diagnosis [facility] [address] [id number] [address] Aug, [facility] [id number] [address] Aug, [facility] [id number] [address] May, [facility] [id number] [address] 15 May, 2013 [facility] [address] [id number] [place] [address] Jan, [facility] [address] [id number] [place] [address] Oct, [facility] [address] [id number] [place] [address] Aug, [facility] [address] [id number] [place] [address] Aug, [facility] [address] [id number] [place] [address] Jul, [facility] [address] [id number] [place] [address] Jul, [facility] [address] [id number] [place] [address] Jul, [facility] [address] [id number] [place] [address] Jun, [facility] [address] [id number] [place] [address] Jun, [facility] [address] [id number] [place] [address] Jun, [facility] [address] [id number] [place] [address] Jun, [facility] [address] [id number] [place] [address] May, [facility] [address] [id number] [place] [address] May, [facility] [address] [id number] [place] [address] May, [facility] [address] [id number] [place] [address] May, [facility] [place] [facility] [address] [id number] [place] [address] May, [facility] [place] [facility] [address] [id number] [place] [address] Apr, [facility] [place] [facility] [address] [id number] [place] [address] Apr, [facility] [place] [facility] [address] [id number] [place] [address] Apr, [facility] [place] [facility] [address] [id number] [place] [address] Apr, [facility] [place] [facility] [address] [id number] [place] [address] Apr, [facility] [place] [facility] [address] [id number] [place] [address] Apr, [facility] [place] [facility] [address] [id number] [place] [address] Mar, [facility] [place] [facility] [address] [id number] [place] [address] Mar, [facility] [place] [facility] [address] [id number], [place] [address] Mar, [facility] [place] [facility] [address] [id number], [place] [address] Mar, [facility] [place] [facility] [address] [id number], [place] [address] 15 Mar, 2012 [facility] [place] [facility] [address] [id number] [place] [address] Mar, [facility] [place] [facility] [address] [id number], [place] [address] 05 Feb, 2012 [facility] [place] [facility] [address] [id number] [place] [address] Jan, [facility] [place] [facility] [address] [id number] [place] [address] 20 Jan, 2012 [facility] [place] [facility] [address] [id number] [place] [address] 18 Jan, 2012 [facility] [place] [facility] [address] [id number] [place] [address] 05 Jan, 2012 [facility] [place] [facility] [address] [id number] [place] [address] 28 Dec, 2011 [facility] [place] [facility] [address] [id number] [place] [address] 24 Dec, 2011 [facility] [place] [facility] [address] [id number] [place] [address] 13 Dec, 2011 [facility] [place] [facility] [address] [id number] [place] [address] 10 Dec, 2011 [facility] [place] [facility] [address] [id number] [place] [address] 17 Nov, 2011 [facility] [place] [facility] [address] [id number] [place] [address] 17 Nov, 2011 [facility] [place] [facility] [address] [id number] [place] [address] 16 Nov, 2011 [facility] [place] [facility] [address] [id number] [place] [address] 13 Nov, 2011 [facility] [place] [facility] [address] [id number] [place] [address] Nov, [facility] [place] [facility] [address] [id number] [place] [address] Oct, [facility] [place] [facility] [address] [id number] [place] [address] Oct, [facility] [place] [facility] [address] [id number] [place] [address] Oct, [facility] [place] [facility] [address] [id number] [place] [address] Oct, [facility] [place] [facility] [address] [id number] [place] [address] Oct, [facility] [place] [facility] [address] [id number] [place] [address] Oct, [facility] [place] [facility] [address] [id number] [place] [address] Oct, [facility] [place] [facility] [address] [id number] [place] [address] September, [facility] [place] [facility] [address] [id number] [place] [address] September, [facility] [place] [facility] [address] [id number] [place] [address] September, [facility] [place] [facility] [address] [id number] [place] [address] Aug, [facility] [place] [facility] [address] [id number] [place] [address] Aug, [facility] [place] [facility] [address] [id number] [place] [address] Aug, [facility] [place] [facility] [address] [id number] [place] [address] Jul, [facility] [place] [facility] [address] [facility] [id number] [place] [address] Jul, [facility] [place] [facility] [address] [id number] [place] [address] Jul, [facility] [place] [facility] [address] [id number] [place] [address] Jun, [facility] [place] [facility] [address] [id number] [place] [address] Jun, [facility] [place] [facility] [address] [id number] [place] [address] Jun, [facility] [place] [facility] [address] [id number], [place] [address] May, [facility] [place] [facility] [address] [id number] [place] [address] May, [facility] [place] [facility] [address] [id number] [place] [address] May, [facility] [place] [facility] [address] [id number] [place] [address] May, [facility] [place] [facility] [address] [id number] [place] [address] Apr, [facility] [place] [facility] [address] [id number] [place] [address] Apr, [facility] [place] [facility] [address] [id number] [place] [address] Apr, [facility] [place] [facility] [address] [id number] [place] [address] Apr, [facility] [place] [facility] [address] [id number] [place] [address] Mar, [facility] [place] [facility] [address] [id number] [place] [address] Mar, [facility] [place] [facility] [address] [id number] [place] [address] Mar, [facility] [place] [facility] [address] [id number], [place] [address] Mar, [facility] [place] [facility] [address] [id number], [place] [address] Mar, [facility] [place] [facility] [address] [id number] [place] [address] Feb, [facility] [place] [facility] [address] [id number] [place] [address] Feb, [facility] [place] [facility] [address] [id number] [place] [address] Feb, [facility] [place] [facility] [address] [id number] [place] [address] Feb, [facility] [address] [id number] [place] [address] Feb, [facility] [place] [facility] [address] [id number] [place] [address] Feb, [facility] [address] [id number] [place] [address] 14 Feb, 2011 [facility] [place] [facility] [address] [id number] [place] [address] Feb, [facility] [address] [id number] [place] [address] Jan, [facility] [address] [id number] [place] [address] Dec, [facility] [address] [id number] [place] [address] September, [facility] [address] [id number] [place] [address] Aug, [facility] [place] [facility] [address] [id number] [place] [address] Jul, [facility] [address] [id number] [place] [address] May, [facility] [address] [id number] [place] [address] Apr, [facility] [address] [id number] [place] [address] Apr, [facility] [place] [facility] [address] [id number] [place] [address] Apr, [facility] [place] [facility] [address] [id number] [place] [address] Apr, [facility] [place] [facility] [address] [id number] [place] [address] Mar, [facility] [address] [id number], [place] [address] Mar, [facility] [address] [id number], [place] [address] Mar, [facility] [address] [facility] [id number], [place] [address] Mar, [facility] [address] [id number], [place] [address] Feb, [facility] [address] [id number] [place] [address] Feb, [facility] [address] [facility] [id number], [place] [address] Feb, [facility] [address] [facility] [id number], [place] [address] Feb, [facility] [address] [facility] [id number], [place] [address] Dec, [facility] [address] [facility] [id number], [place] [address] Nov, [facility] [address] [facility] [id number], [place] [address] September, [facility] [address] [facility] [id number], [place] [address] Jun, [facility] [address] [id number], [place] [address] May, [facility] [address] [facility] [id number], [place] [address] Feb, [facility] [address] [facility] [id number], [place] [address] Feb, [facility] [address] [facility] [id number], [place] [address] Oct, IMMUNIZATIONS No Known Immunizations SOCIAL HISTORY Never Assessed REASON FOR VISIT EMR-[facility] PLAN OF CARE VITAL SIGNS MEDICATIONS Unknown Medications RESULTS No Results PROCEDURES No Known procedures INSTRUCTIONS MEDICATIONS ADMINISTERED No Known Medications
--- OUTSIDE RECORDS SUMMARY | 2018-11-21 01:11 | XMS REPORT ---
Author Author Migration, Doctor Organization [facility] Address Unknown Phone Unavailable Care Team Providers Care Machine Pecan Picker Name Role Phone Migration, Doctor Unavailable Unavailable PROBLEMS Type Condition ICD9-CM Code MRC68-YQ Code Onset Dates Condition Status SNOMED Code Problem Dietary surveillance and counseling V65.3 Active 109945780 Problem Counseling on substance use and abuse V65.42 Active 255194330 Problem DTAP TEST V06.1 Active Problem Unspecified pre-operative examination V72.84 Active 779654533 Problem Abdominal pain, right lower quadrant 789.03 Active 996491635 Problem Need for prophylactic vaccination and inoculation, Influenza V04.81 Active 673024747 Problem Cough 786.2 Active 54109362 Problem Chest pain, unspecified 786.50 Active 68100156 Problem Other hammer toe (acquired) 735.4 Active 36085325 Problem Pain in soft tissues of limb 729.5 Active 35883875 Problem Other specified disease of hair and hair follicles 704.8 Active 068602787 Problem Neoplasm of unspecified nature of breast 239.3 Active 719931769 Problem Epistaxis 784.7 Active 92001660 Problem Malignant neoplasm of breast (female), unspecified site 174.9 Active 310649933 Problem Wheezing 786.07 Active 48369861 Problem Ingrowing nail 703.0 Active 408837708 Problem Effusion of ankle and foot joint 719.07 Active 5983007 Problem Acute sinusitis, unspecified 461.9 Active 23598983 Problem Obesity, unspecified 278.00 Active 598971180 ALLERGIES No Information ENCOUNTERS Encounter Location Date Diagnosis [facility] [address] [id number] [address] Aug, [facility] [id number], [place] [address] Aug, [facility] [address] [id number] [address] May, [facility] [address] [id number] [address] 15 May, 2013 [facility] [address] [id number] [place] [address] Jan, [facility] [address] [id number] [place] [address] Oct, [facility] [address] [id number] [place] [address] Aug, [facility] [address] [id number] [place] [address] Aug, [facility] [address] [id number] [place] [address] Jul, [facility] [address] [id number] [place] [address] Jul, [facility] [address] [id number] [place] [address] Jul, [facility] [address] [id number] [place] [address] Jun, [facility] [address] [id number] [place] [address] Jun, [facility] [address] [id number] [place] [address] Jun, [facility] [address] [id number] [place] [address] Jun, [facility] [address] [id number] [place] [address] May, [facility] [address] [id number] [place] [address] May, [facility] [address] [id number] [place] [address] May, [facility] [address] [id number] [place] [address] May, [facility] [place] [facility] [address] [id number] [place] [address] May, [facility] [place] [facility] [address] [id number] [place] [address] Apr, [facility] [place] [facility] [address] [id number] [place] [address] Apr, [facility] [place] [facility] [address] [id number] [place] [address] Apr, [facility] [place] [facility] [address] [id number] [place] [address] Apr, [facility] [place] [facility] [address] [id number] [place] [address] Apr, [facility] [place] [facility] [address] [id number] [place] [address] Apr, [facility] [place] [facility] [address] [id number] [place] [address] Mar, [facility] [place] [facility] [address] [id number] [place] [address] Mar, [facility] [place] [facility] [address] [id number], [place] [address] Mar, [facility] [place] [facility] [address] [id number], [place] [address] Mar, [facility] [place] [facility] [address] [id number], [place] [address] 15 Mar, 2012 [facility] [place] [facility] [address] [id number] [place] [address] Mar, [facility] [place] [facility] [address] [id number], [place] [address] 05 Feb, 2012 [facility] [place] [facility] [address] [id number] [place] [address] Jan, [facility] [place] [facility] [address] [id number] [place] [address] 20 Jan, 2012 [facility] [place] [facility] [address] [id number] [place] [address] 18 Jan, 2012 [facility] [place] [facility] [address] [id number] [place] [address] 05 Jan, 2012 [facility] [place] [facility] [address] [id number] [place] [address] 28 Dec, 2011 [facility] [place] [facility] [address] [id number] [place] [address] 24 Dec, 2011 [facility] [place] [facility] [address] [id number] [place] [address] 13 Dec, 2011 [facility] [place] [facility] [address] [id number] [place] [address] 10 Dec, 2011 [facility] [place] [facility] [address] [id number] [place] [address] 17 Nov, 2011 [facility] [place] [facility] [address] [id number] [place] [address] 17 Nov, 2011 [facility] [place] [facility] [address] [id number] [place] [address] 16 Nov, 2011 [facility] [place] [facility] [address] [id number] [place] [address] 13 Nov, 2011 [facility] [place] [facility] [address] [id number] [place] [address] Nov, [facility] [place] [facility] [address] [id number] [place] [address] Oct, [facility] [place] [facility] [address] [id number] [place] [address] Oct, [facility] [place] [facility] [address] [id number] [place] [address] Oct, [facility] [place] [facility] [address] [id number] [place] [address] Oct, [facility] [place] [facility] [address] [id number] [place] [address] Oct, [facility] [place] [facility] [address] [id number] [place] [address] Oct, [facility] [place] [facility] [address] [id number] [place] [address] Oct, [facility] [place] [facility] [address] [id number] [place] [address] September, [facility] [place] [facility] [address] [id number] [place] [address] September, [facility] [place] [facility] [address] [id number] [place] [address] September, [facility] [place] [facility] [address] [id number] [place] [address] Aug, [facility] [place] [facility] [address] [id number] [place] [address] Aug, [facility] [place] [facility] [address] [id number] [place] [address] Aug, [facility] [place] [facility] [address] [id number] [place] [address] Jul, [facility] [place] [facility] [address] [facility] [id number] [place] [address] Jul, [facility] [place] [facility] [address] [id number] [place] [address] Jul, [facility] [place] [facility] [address] [id number] [place] [address] Jun, [facility] [place] [facility] [address] [id number] [place] [address] Jun, [facility] [place] [facility] [address] [id number] [place] [address] Jun, [facility] [place] [facility] [address] [id number], [place] [address] May, [facility] [place] [facility] [address] [id number] [place] [address] May, [facility] [place] [facility] [address] [id number] [place] [address] May, [facility] [place] [facility] [address] [id number] [place] [address] May, [facility] [place] [facility] [address] [id number] [place] [address] Apr, [facility] [place] [facility] [address] [id number] [place] [address] Apr, [facility] [place] [facility] [address] [id number] [place] [address] Apr, [facility] [place] [facility] [address] [id number] [place] [address] Apr, [facility] [place] [facility] [address] [id number] [place] [address] Mar, [facility] [place] [facility] [address] [id number] [place] [address] Mar, [facility] [place] [facility] [address] [id number] [place] [address] Mar, [facility] [place] [facility] [address] [id number], [place] [address] Mar, [facility] [place] [facility] [address] [id number], [place] [address] Mar, [facility] [place] [facility] [address] [id number] [place] [address] Feb, [facility] [place] [facility] [address] [id number] [place] [address] Feb, [facility] [place] [facility] [address] [id number] [place] [address] Feb, [facility] [place] [facility] [address] [id number] [place] [address] Feb, [facility] [address] [id number] [place] [address] Feb, [facility] [place] [facility] [address] [id number] [place] [address] Feb, [facility] [address] [id number] [place] [address] 14 Feb, 2011 [facility] [place] [facility] [address] [id number] [place] [address] Feb, [facility] [address] [id number] [place] [address] Jan, [facility] [address] [id number] [place] [address] Dec, [facility] [address] [id number] [place] [address] September, [facility] [address] [id number] [place] [address] Aug, [facility] [place] [facility] [address] [id number] [place] [address] Jul, [facility] [address] [id number] [place] [address] May, [facility] [address] [id number] [place] [address] Apr, [facility] [address] [id number] [place] [address] Apr, [facility] [place] [facility] [address] [id number] [place] [address] Apr, [facility] [place] [facility] [address] [id number] [place] [address] Apr, [facility] [place] [facility] [address] [id number] [place] [address] Mar, [facility] [address] [id number], [place] [address] Mar, [facility] [address] [id number], [place] [address] Mar, [facility] [address] [facility] [id number], [place] [address] Mar, [facility] [address] [id number], [place] [address] Feb, [facility] [address] [id number] [place] [address] Feb, [facility] [address] [facility] [id number], [place] [address] Feb, [facility] [address] [facility] [id number], [place] [address] Feb, [facility] [address] [facility] [id number], [place] [address] Dec, [facility] [address] [facility] [id number], [place] [address] Nov, [facility] [address] [facility] [id number], [place] [address] September, [facility] [address] [facility] [id number], [place] [address] Jun, [facility] [address] [id number], [place] [address] May, [facility] [address] [facility] [id number], [place] [address] Feb, [facility] [address] [facility] [id number], [place] [address] Feb, [facility] [address] [facility] [id number], [place] [address] Oct, IMMUNIZATIONS No Known Immunizations SOCIAL HISTORY Never Assessed REASON FOR VISIT EMR-[facility] [place] PLAN OF CARE VITAL SIGNS MEDICATIONS Unknown Medications RESULTS No Results PROCEDURES No Known procedures INSTRUCTIONS MEDICATIONS ADMINISTERED No Known Medications
--- OUTSIDE RECORDS SUMMARY | 2018-11-21 01:12 | XMS REPORT ---
Author Author Migration, Doctor Organization [facility] Address Unknown Phone Unavailable Care Team Providers Care Rollway Man Name Role Phone Migration, Doctor Unavailable Unavailable PROBLEMS Type Condition ICD9-CM Code FPO84-FT Code Onset Dates Condition Status SNOMED Code Problem Dietary surveillance and counseling V65.3 Active 230745273 Problem Counseling on substance use and abuse V65.42 Active 864078456 Problem DTAP TEST V06.1 Active Problem Unspecified pre-operative examination V72.84 Active 184881635 Problem Abdominal pain, right lower quadrant 789.03 Active 411390379 Problem Need for prophylactic vaccination and inoculation, Influenza V04.81 Active 862019202 Problem Cough 786.2 Active 11712427 Problem Chest pain, unspecified 786.50 Active 34631085 Problem Other hammer toe (acquired) 735.4 Active 77343105 Problem Pain in soft tissues of limb 729.5 Active 14330444 Problem Other specified disease of hair and hair follicles 704.8 Active 517151040 Problem Neoplasm of unspecified nature of breast 239.3 Active 227598709 Problem Epistaxis 784.7 Active 74602795 Problem Malignant neoplasm of breast (female), unspecified site 174.9 Active 668979684 Problem Wheezing 786.07 Active 27531599 Problem Ingrowing nail 703.0 Active 145718659 Problem Effusion of ankle and foot joint 719.07 Active 8926755 Problem Acute sinusitis, unspecified 461.9 Active 99531236 Problem Obesity, unspecified 278.00 Active 651227092 ALLERGIES No Information ENCOUNTERS Encounter Location Date Diagnosis [facility] [address] [id number] [address] Aug, [facility] [id number] [address] Aug, [facility] [address] [id number] [address] May, [facility] [id number] [address] 15 May, 2013 [facility] [address] [id number] [place] [address] Jan, [facility] [address] [id number] [place] [address] Oct, [facility] [address] [id number] [place] [address] Aug, [facility] [address] [id number] [place] [address] Aug, [facility] [address] [id number] [place] [address] Jul, [facility] [address] [id number] [place] [address] Jul, [facility] [address] [id number] [place] [address] Jul, [facility] [address] [id number] [place] [address] Jun, [facility] [address] [id number] [place] [address] Jun, [facility] [address] [id number] [place] [address] Jun, [facility] [address] [id number] [place] [address] Jun, [facility] [address] [id number] [place] [address] May, [facility] [address] [id number] [place] [address] May, [facility] [address] [id number] [place] [address] May, [facility] [address] [id number] [place] [address] May, [facility] [place] [facility] [address] [id number] [place] [address] May, [facility] [place] [facility] [address] [id number] [place] [address] Apr, [facility] [place] [facility] [address] [id number] [place] [address] Apr, [facility] [place] [facility] [address] [id number] [place] [address] Apr, [facility] [place] [facility] [address] [id number] [place] [address] Apr, [facility] [place] [facility] [address] [id number] [place] [address] Apr, [facility] [place] [facility] [address] [id number] [place] [address] Apr, [facility] [place] [facility] [address] [id number] [place] [address] Mar, [facility] [place] [facility] [address] [id number] [place] [address] Mar, [facility] [place] [facility] [address] [id number] [address] Mar, [facility] [place] [facility] [address] [id number] [place] [address] Mar, [facility] [place] [facility] [address] [id number] [place] [address] 15 Mar, 2012 [facility] [place] [facility] [address] [id number] [place] [address] Mar, [facility] [place] [facility] [address] [id number] [place] [address] 05 Feb, 2012 [facility] [place] [facility] [address] [id number] [place] [address] Jan, [facility] [place] [facility] [address] [id number] [place] [address] 20 Jan, 2012 [facility] [place] [facility] [address] [id number] [place] [address] 18 Jan, 2012 [facility] [place] [facility] [address] [id number] [place] [address] 05 Jan, 2012 [facility] [place] [facility] [address] [id number] [place] [address] 28 Dec, 2011 [facility] [place] [facility] [address] [id number] [place] [address] 24 Dec, 2011 [facility] [place] [facility] [address] [id number] [place] [address] 13 Dec, 2011 [facility] [place] [facility] [address] [id number] [place] [address] 10 Dec, 2011 [facility] [place] [facility] [address] [id number] [place] [address] 17 Nov, 2011 [facility] [place] [facility] [address] [id number] [place] [address] 17 Nov, 2011 [facility] [place] [facility] [address] [id number] [place] [address] 16 Nov, 2011 [facility] [place] [facility] [address] [id number] [place] [address] 13 Nov, 2011 [facility] [place] [facility] [address] [id number] [place] [address] Nov, [facility] [place] [facility] [address] [id number] [place] [address] Oct, [facility] [place] [facility] [address] [id number] [place] [address] Oct, [facility] [place] [facility] [address] [id number] [place] [address] Oct, [facility] [place] [facility] [address] [id number] [place] [address] Oct, [facility] [place] [facility] [address] [id number] [place] [address] Oct, [facility] [place] [facility] [address] [id number] [place] [address] Oct, [facility] [place] [facility] [address] [id number] [place] [address] Oct, [facility] [place] [facility] [address] [id number] [place] [address] September, [facility] [place] [facility] [address] [id number] [place] [address] September, [facility] [place] [facility] [address] [id number] [place] [address] September, [facility] [place] [facility] [address] [id number] [place] [address] Aug, [facility] [place] [facility] [address] [id number] [place] [address] Aug, [facility] [place] [facility] [address] [id number] [place] [address] Aug, [facility] [place] [facility] [address] [id number] [place] [address] Jul, [facility] [place] [facility] [address] [facility] [id number] [place] [address] Jul, [facility] [place] [facility] [address] [id number] [place] [address] Jul, [facility] [place] [facility] [address] [id number] [place] [address] Jun, [facility] [place] [facility] [address] [id number] [place] [address] Jun, [facility] [place] [facility] [address] [id number] [place] [address] Jun, [facility] [place] [facility] [address] [id number] [place] [address] May, [facility] [place] [facility] [address] [id number] [place] [address] May, [facility] [place] [facility] [address] [id number] [place] [address] May, [facility] [place] [facility] [address] [id number] [place] [address] May, [facility] [place] [facility] [address] [id number] [place] [address] Apr, [facility] [place] [facility] [address] [id number] [place] [address] Apr, [facility] [place] [facility] [address] [id number] [place] [address] Apr, [facility] [place] [facility] [address] [id number] [place] [address] Apr, [facility] [place] [facility] [address] [id number] [place] [address] Mar, [facility] [place] [facility] [address] [id number] [place] [address] Mar, [facility] [place] [facility] [address] [id number] [place] [address] Mar, [facility] [place] [facility] [address] [id number] [place] [address] Mar, [facility] [place] [facility] [address] [id number] [place] [address] Mar, [facility] [place] [facility] [address] [id number] [place] [address] Feb, [facility] [place] [facility] [address] [id number] [place] [address] Feb, [facility] [place] [facility] [address] [id number] [place] [address] Feb, [facility] [place] [facility] [address] [id number] [place] [address] Feb, [facility] [address] [id number] [place] [address] Feb, [facility] [place] [facility] [address] [id number] [place] [address] Feb, [facility] [address] [id number] [place] [address] 14 Feb, 2011 [facility] [place] [facility] [address] [id number] [place] [address] Feb, [facility] [address] [id number] [place] [address] Jan, [facility] [address] [id number] [place] [address] Dec, [facility] [address] [id number] [place] [address] September, [facility] [address] [id number] [place] [address] Aug, [facility] [place] [facility] [address] [id number] [place] [address] Jul, [facility] [address] [id number] [place] [address] May, [facility] [address] [id number] [place] [address] Apr, [facility] [address] [id number] [place] [address] Apr, [facility] [place] [facility] [address] [id number] [place] [address] Apr, [facility] [place] [facility] [address] [id number] [place] [address] Apr, [facility] [place] [facility] [address] [id number] [place] [address] Mar, [facility] [address] [id number] [place] [address] Mar, [facility] [address] [id number] [place] [address] Mar, [facility] [address] [facility] [id number] [place] [address] Mar, [facility] [address] [id number] [place] [address] Feb, [facility] [address] [id number] [place] [address] Feb, [facility] [address] [facility] [id number] [place] [address] Feb, [facility] [address] [facility] [id number] [place] [address] Feb, [facility] [address] [facility] [id number] [place] [address] Dec, [facility] [address] [facility] [id number] [place] [address] Nov, [facility] [address] [facility] [id number] [place] [address] September, [facility] [address] [facility] [id number] [place] [address] Jun, [facility] [address] [id number] [place] [address] May, [facility] [address] [facility] [id number] [place] [address] Feb, [facility] [address] [facility] [id number] [place] [address] Feb, [facility] [address] [facility] [id number] [place] [address] Oct, IMMUNIZATIONS No Known Immunizations SOCIAL HISTORY Never Assessed REASON FOR VISIT EMR-[facility] PLAN OF CARE VITAL SIGNS MEDICATIONS Unknown Medications RESULTS No Results PROCEDURES No Known procedures INSTRUCTIONS MEDICATIONS ADMINISTERED No Known Medications
[2018-11-21] MEDS ORDERED: ASPIRIN 81 MG CHEW (CHILDREN'S ASA) PO ONE (01:30)
[2018-11-21] MEDS ORDERED: ACETAMINOPHEN 500 MG TAB (TYLENOL) PO PRN (01:30)
[2018-11-21] MEDS ORDERED: NITROGLYCERIN 0.4 MG SL TABS BTL 25'S SL PRN (01:30)
[2018-11-21 01:36] LABS: BASOPHILS # (AUTO) 0.1 10^3/uL (0.0-0.1); BASOPHILS % (AUTO) 1 % (0-10); EOSINOPHILS # (AUTO) 0.1 10^3/uL (0.0-0.3); EOSINOPHILS % (AUTO) 2 % (0-10); HEMATOCRIT 37 % (40-54); HEMOGLOBIN 11.5 G/DL (13.3-17.7); LYMPHOCYTES # (AUTO) 1.3 X 10^3 (1.0-4.0); LYMPHOCYTES % (AUTO) 16 % (12-44); MEAN CORPUSCULAR HEMOGLOBIN 29 PG (25-34); MEAN CORPUSCULAR HGB CONC 31 G/DL (32-36); MEAN CORPUSCULAR VOLUME 95 FL (80-99); MEAN PLATELET VOLUME 10.6 FL (7.4-10.4); MONOCYTES # (AUTO) 0.8 X 10^3 (0.0-1.0); MONOCYTES % (AUTO) 11 % (0-12); NEUTROPHILS # (AUTO) 5.6 X 10^3 (1.8-7.8); NEUTROPHILS % (AUTO) 71 % (42-75); PLATELET COUNT 230 10^3/uL (130-400); RED CELL DISTRIBUTION WIDTH 21.4 % (10.0-14.5); WHITE BLOOD COUNT 7.9 10^3/uL (4.3-11.0)
[2018-11-21] MEDS ORDERED: methylPREDNISolone 125 MG (Solu-MEDROL) VIAL IV STA (01:37)
[2018-11-21 01:42] LABS: INR 2.9 (0.8-1.4); PROTHROMBIN TIME PATIENT 31.8 SEC (12.2-14.7)
[2018-11-21] MEDS ORDERED: DEXAMETHASONE 4 MG/ML SDV (DECADRON) IH ONE (01:45)
[2018-11-21] MEDS ORDERED: RT-ALBUTEROL/IPRATROPIUM 3 ML (DUONEB) VIAL INH ONE (01:45)
--- NOTE | 2018-11-21 01:48 | ED Chest Pain ---
General Chief Complaint: Chest Pain Stated Complaint: CHEST PAIN Source: patient (PT IS VERY LIMITED HISTORIAN AND SPEECH PATTERN SOMEWHAT DIFFICULT TO UNDERSTAND), old records History of Present Illness Date Seen by Provider: Nov 21, 2018 Time Seen by Provider: 01:18 Initial Comments PT ARRIVES VIA POV FROM HOME, WITH DAUGHTER C/O CHEST PAIN STATES PAIN BEGAN AROUND 1700, WHEN HE GOT HOME FROM [place] PAIN GOT WORSE AROUND [id number] TONIGHT RATES PAIN 6-7/10 AT WORST, RATES 2-3/10 NOW TOOK NTG AROUND MIDNIGHT, AND ANOTHER ONE ABOUT 10 MINUTES LATER, WITH SOME RELIEF, THEN PAIN STARTED TO COME BACK SO CAME TO ER. PT HAS COPD, WITH CHRONIC DYSPNEA, BUT HAS HAD INCREASED SHORTNESS OF BREATH--FOR UNDETERMINED LENGTH OF TIME LAST NEB TREATMENT WAS AROUND 2130 TONIGHT C/O PRODUCTIVE COUGH WITH YELLOW-ASTORGA SPUTUM--ONGOING FOR UNKNOWN LENGTH OF TIME PT DENIES FEVER--STATES TEMP WAS 99.6 TONIGHT PT HAS HAD NAUSEA, NO VOMITING. STATES HE HAS HAD DIARRHEA "ALL DAY"--X 4 EPISODES. NO BLACK/BLOODY/TARRY STOOLS. LATER STATES HE HAS DIARRHEA FROM ONE OF HIS MEDICATIONS C/O LOWER ABDOMINAL PAIN--COMES AND GOES, AND IS ONGOING PROBLEM??? NO PAIN ON URINATION, HAS CHRONIC PROBLEMS URINATING PT HAS CHRONIC LEG SWELLING--RIGHT > LEFT--IS WORSE THAN NORMAL, BUT IS UNKNOWN WHEN SWELLING WORSENED. PT WITH EXTENSIVE CARDIAC HISTORY--HAS HAD MULTIPLE CARDIAC CATHS, WITH STENTS X 2 OR 3 PT IS ON XARELTO + PLAVIX PT HAS HAD NE, CHF, HAS HAD ATRIAL FIBRILLATION--S/P PULMONARY VEIN ABLATION; HX OF V-TACH HX OF CARDIAC SEPTAL MYECTOMY PT HAS PACEMAKER + DEFIBRILLATOR, WITH LBBB WAS HERE 07/30/18 FOR CHEST PAIN --3 HOUR RULE OUT IN ER AND SENT HOME. PT HAD CARDIAC CATH IN [place] A MONTH AGO--NO INTERVENTION--VESSELS TOO SMALL FOR STENT, PER PT AND DAUGHTER PT ALSO BEING TREATED FOR METASTATIC BREAST CANCER TO SPINE/BONE--ON ORAL CHEMO PCP: DR. GALINDO CARDIOLOGISTS: DR. STRINGER AND DR. JEAN BAPTISTE--[employer] Allergies and Home Medications Allergies Coded Allergies: Iodinated Contrast- Oral and IV Dye (Unverified Allergy, Mild, 11/21/18) Penicillins (Unverified Allergy, Mild, 11/21/18) Shellfish (Verified Allergy, Unknown, 11/21/18) amlodipine (Verified Allergy, Unknown, 11/21/18) iodine (Verified Allergy, Unknown, 11/21/18) penicillin G (Verified Allergy, Unknown, 11/21/18) Home Medications Albuterol Sulfate 18 Gm Hfa.aer.ad, 2 PUFF IH QID PRN for SHORTNESS OF BREATH, (Reported) Arformoterol Tartrate 15 Mcg/2 Ml Vial.neb, 15 MCG NEB BID, (Reported) MIXES WITH BUDESONIDE Atorvastatin Calcium 40 Mg Tablet, 40 MG PO HS, (Reported) Budesonide 0.5 Mg/2 Ml Ampul.neb, 0.5 MG NEB BID, (Reported) MIXED WITH BROVANA Buspirone HCl 10 Mg Tablet, 10 MG PO HS PRN for ANXIETY, (Reported) Cetirizine HCl 10 Mg Tablet, 10 MG PO DAILY, (Reported) Cinacalcet HCl 30 Mg Tablet, 30 MG PO DAILY, (Reported) Clopidogrel Bisulfate 75 Mg Tablet, 75 MG PO HS, (Reported) Fenofibrate Nanocrystallized 145 Mg Tablet, 145 MG PO HS, (Reported) Fluticasone Propionate 16 Gm [place], PRN, (Reported) Gabapentin 100 Mg Capsule, 100 MG PO TID, (Reported) Guaifenesin 600 Mg Tab.er.12h, PRN, (Reported) Montelukast Sodium 10 Mg Tablet, 10 MG PO HS, (Reported) Nitroglycerin 0.4 Mg Subl, 0.4 MG SL UD PRN for CHEST PAIN, (Reported) TAKE 1 TABLET EVERY 5 MINUTES X 3 DOSES NEEDED FOR CHEST PAIN Pantoprazole Sodium 40 Mg Tablet.dr, 40 MG PO BID, (Reported) Rivaroxaban 15 Mg Tablet, 15 MG PO HS, (Reported) Tamsulosin HCl 0.4 Mg Cap.er.24h, 0.4 MG PO HS, (Reported) Patient Home Medication List Home Medication List Reviewed: Yes Review of Systems Review of Systems Constitutional: fever Respiratory: See HPI, Cough, Shortness of Air, SOA With Exertion Cardiovascular: See HPI, Chest Pain, Edema; Denies Syncope Gastrointestinal: See HPI, Abdominal Pain, Diarrhea, Nausea Genitourinary: See HPI, Frequency, Urgency, Other (SMALL AMOUNTS) Musculoskeletal: see HPI Skin: no symptoms reported Psychiatric/Neurological: No Symptoms Reported Endocrine: No Symptoms Reported Hematologic/Lymphatic: See HPI (ON PLAVIX + XARELTO) Past Jxbrcbb-Arnyxi-Qyebmn Hx Patient Social History Alcohol Use: Rarely Uses Recreational Drug Use: No Smoking Status: Current Someday Smoker (1 PPD > 45 YEARS, NOW SMOKES A COUPLE OF CIGARETTES ) Type Used: Cigarettes 2nd Hand Smoke Exposure: No Recent Hopitalizations: No Immunizations Up To Date Tetanus Booster (TDap): Unknown PED Vaccines UTD: No Date of Pneumonia Vaccine: May 13, 2014 Date of Influenza Vaccine: Feb 11, 2016 Seasonal Allergies Seasonal Allergies: Yes Past Medical History Surgeries: Yes (PARATHYROIDECTOMY; MULTIPLE CARDIAC CATHS--STENTS X 2 OR 3; CARDIAC ( PULMONARY VEIN) ABLATION FOR ATRIAL FIB; PACEMAKER/DEFIBRILLATOR; CARDIAC SEPTAL MYECTOMY; BILATERAL CARPEL TUNNEL; LEFT MASTECTOMY; PORT PL ACEMENT/REMOVAL; EXPLORATORY LAPAROTOMY WITH APPY; ) Abdominal, Appendectomy, Breast, Cardiac, Coronary Stent, Defibrillator, O rthopedic, Pacemaker Respiratory: Yes (wears oxygen at all times 2-3L; CPAP) Asthma, Pneumonia, Sleep Apnea, COPD, Emphysema Currently Using CPAP: Yes Currently Using BIPAP: No Cardiac: Yes (HAS STENTS X3, HX LBBB, CHF; ATRIAL FIBRILLATION--S/P CARDIAC ABLATION; MULTIPLE DVT'S; CHRONIC LEG SWELLING RIGHT > LEFT; CAROTID DISEASE; V- TACH) Angina, Atrial Fibrillation, Cardiomyopathy, Chronic Edema/Swelling, Coronary Artery Disease, Deep Vein Thrombosis, Heart Attack, Heart Murmur, High Cholesterol, Hypertension, Irregular Heartbeat, Valvular Heart Disease Neurological: Yes TIA Reproductive Disorders: No Sexually Transmitted Disease: No Genitourinary: Yes Benign Prostatic Hyperpl, Renal Failure Gastrointestinal: Yes (DIVERTICULITIS WITH SMALL PERFORATION--NO SURGERY) Gastroesophageal Reflux, Diverticulosis Musculoskeletal: Yes (LEFT SHOULDER TORN ROTATOR CUFF; BILATERAL CARPAL TUNNEL SURGERY; CHRONIC NECK PAIN/DEGENERATIVE DISEASE) Degenerate Disk Disease, Arthritis, Chronic Back Pain Endocrine: Yes (OBESITY; PARATHYROIDECTOMY FOR BENIGN TUMOR; HYPERCALCEMIA; HYPERKALEMIA) Parathyroid Disease, Diabetes, Non-Insulin dep HEENT: Yes Cataract Cancer: Yes (METASTATIC LEFT BREAST CANCER TO SPINE / BONE 2016; S/P SURGERY AND ORAL CHEMO) Breast Did You Recieve Any Treatments: Yes What Type of Treatment Did You: Chemotherapy, Surgical Intervention Psychosocial: Yes Anxiety Integumentary: No Blood Disorders: No Family Medical History Arthritis 19 FATHER Cardiovascular disease 19 FATHER FH: breast cancer 19 MOTHER Respiratory disorder 19 FATHER Physical Exam Vital Signs Vital Signs - First Documented 11/21/18 01:15 FiO2 96 Capillary Refill : Less Than 3 Seconds Height, Weight, BMI Height: 5'8.00" Weight: 253lbs. 5.0oz. [id number]; 38.5 BMI Method:Stated General Appearance: No Apparent Distress, Obese, Other (SPEECH RAPID AND SOMEWHAT MUMBLED AND SOMEWHAT DIFFICULT TO UNDERSTANT AT TIMES--NORMAL FOR PATIENT) HEENT: Other (EDENTULOUS) Neck: Full Range of Motion, Normal Inspection, Non Tender, Supple; No Carotid Bruit, No JVD Respiratory: No Respiratory Distress, Wheezing (DIFFUSE EXPIRATORY WHEEZING BILATERALLY), Other (VEYR MILDLY DYSPNEIC ON ARRIVAL--IMPROVED AT REST) Cardiovascular: Regular Rate, Rhythm, No JVD, No Murmur Gastrointestinal: Non Tender, Soft, Other (OBESE/ROTUND) Extremity: Non Tender, No Calf Tenderness, Pedal Edema (2+ ON RIGHT, 1+ ON LFT--PT STATES IS NORMAL) Neurologic/Psychiatric: Alert, Oriented x3, No Motor/Sensory Deficits, Normal 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, 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 Norm as Tested Skin: Normal Color, Warm/Dry Focused Exam Lactate Level 11/21/18 01:28: Lactic Acid Level 1.25 Lactic Acid Level Laboratory Tests Test 11/21/18 01:28 Lactic Acid Level 1.25 MMOL/L (0.50-2.00) Progress/Results/Core Measures Results/Orders Lab Results Laboratory Tests Test 11/21/18 01:10 11/21/18 01:28 11/21/18 02:05 Range/Units White Blood Count 7.9 4.3-11.0 10^3/uL Red Blood Count 3.94 L 4.35-5.85 10^6/uL Hemoglobin 11.5 L 13.3-17.7 G/DL Hematocrit 37 L 40-54 % Mean Corpuscular Volume 95 80-99 FL Mean Corpuscular Hemoglobin 29 25-34 PG Mean Corpuscular Hemoglobin Concent 31 L 32-36 G/DL Red Cell Distribution Width 21.4 H 10.0-14.5 % Platelet Count 230 130-400 10^3/uL Mean Platelet Volume 10.6 H 7.4-10.4 FL Neutrophils (%) (Auto) 71 42-75 % Lymphocytes (%) (Auto) 16 12-44 % Monocytes (%) (Auto) 11 0-12 % Eosinophils (%) (Auto) 2 0-10 % Basophils (%) (Auto) 1 0-10 % Neutrophils # (Auto) 5.6 1.8-7.8 X 10^3 Lymphocytes # (Auto) 1.3 1.0-4.0 X 10^3 Monocytes # (Auto) 0.8 0.0-1.0 X 10^3 Eosinophils # (Auto) 0.1 0.0-0.3 10^3/uL Basophils # (Auto) 0.1 0.0-0.1 10^3/uL Prothrombin Time 31.8 H 12.2-14.7 SEC INR Comment 2.9 H 0.8-1.4 Activated Partial Thromboplast Time 57 H 24-35 SEC Sodium Level 140 135-145 MMOL/L Potassium Level 3.6 3.6-5.0 MMOL/L Chloride Level 99 98-107 MMOL/L Carbon Dioxide Level 28 21-32 MMOL/L Anion Gap 13 5-14 MMOL/L Blood Urea Nitrogen 50 H 7-18 MG/DL Creatinine 3.14 H 0.60-1.30 MG/DL Estimat Glomerular Filtration Rate 20 BUN/Creatinine Ratio 16 Glucose Level 98 70-105 MG/DL Calcium Level 9.0 8.5-10.1 MG/DL Corrected Calcium 9.2 8.5-10.1 MG/DL Magnesium Level 2.2 1.8-2.4 MG/DL Total Bilirubin 1.2 H 0.1-1.0 MG/DL Aspartate Amino Transf (AST/SGOT) 129 H 5-34 U/L Alanine Aminotransferase (ALT/SGPT) 56 H 0-55 U/L Alkaline Phosphatase 65 40-136 U/L Myoglobin 115.9 H 10.0-92.0 NG/ML Troponin I 0.130 H <0.028 NG/ML B-Type Natriuretic Peptide 439.9 H <100.0 PG/ML Total Protein 7.5 6.4-8.2 GM/DL Albumin 3.7 3.2-4.5 GM/DL Amylase Level 90 25-125 U/L Lipase 73 8-78 U/L Lactic Acid Level 1.25 0.50-2.00 MMOL/L Urine Color YELLOW Urine Clarity CLEAR Urine pH 7 5-9 Urine Specific [place] 1.010 L 1.016-1.022 Urine Protein NEGATIVE NEGATIVE Urine Glucose (UA) NEGATIVE NEGATIVE Urine Ketones NEGATIVE NEGATIVE Urine Nitrite NEGATIVE NEGATIVE Urine Bilirubin NEGATIVE NEGATIVE Urine Urobilinogen 1 NORMAL MG/DL Urine Leukocyte Esterase NEGATIVE NEGATIVE Urine RBC (Auto) NEGATIVE NEGATIVE Urine RBC NONE /HPF Urine WBC NONE /HPF Urine Squamous Epithelial Cells RARE /HPF Urine Crystals NONE /LPF Urine Bacteria NEGATIVE /HPF Urine Casts NONE /LPF Urine Mucus NEGATIVE /LPF Urine Culture Indicated CULTURE PENDING My Orders Orders - MAYRA HOLMAN DO Cbc With Automated Diff (11/21/18:17) Magnesium (11/21/18:17) Chest 1 View, Ap/Pa Only (11/21/18:17) Ekg Tracing (11/21/18:17) Cardiac Profile 1 (11/21/18:17) Comprehensive Metabolic Panel (11/21/18:17) Myoglobin Serum (11/21/18:17) Protime With Inr (11/21/18:17) Partial Thromboplastin Time (11/21/18:17) O2 (11/21/18:17) Monitor-Rhythm Ecg Trace Only (11/21/18:17) Ed Iv/Invasive Line Start (11/21/18:17) Lipase (11/21/18:17) Amylase (11/21/18:17) BNP (11/21/18:17) Nitroglycerin 0.4 Mg Btl 25's (Nitrostat (11/21/18 01:30) Aspirin Chewable Tablet (Baby Aspirin Ch (11/21/18 01:30) Blood Culture (11/21/18:17) Urinalysis (11/21/18:17) Urine Culture (11/21/18:17) Acetaminophen Tablet (Tylenol Tablet) (11/21/18 01:30) Ed Iv/Invasive Line Start (11/21/18:17) Ed Iv/Invasive Line Start (11/21/18:17) Vital Signs Adult Sepsis Patie Q15M (7/16/19 01:17) O2 (11/21/18 01:17) Remove Rings In Anticipation O (11/21/18 01:17) Lactic Acid Analyzer (11/21/18 01:17) Albuterol/Ipra Inhalation Soln (Duoneb I (11/21/18 01:45) Dexamethasone Injection (Decadron Inject (11/21/18 01:45) Rt Request For Service (11/21/18 01:37) Methylprednisolone Sod Succ (Solu-Medrol (11/21/18 01:37) Svn Small Volume Nebulizer (11/21/18 01:37) Morphine Injection (Morphine Injection (11/21/18 02:30) Morphine Injection (Morphine Injection (11/21/18 03:02) Medications Given in ED Current Medications Medications Dose Ordered Sig/Rebecca Route Start Time Stop Time Status Last Admin Dose Admin Acetaminophen 1,000 mg ONCE PRN PO 11/21/18 01:30 11/21/18 02:29 DC 11/21/18 01:40 1,000 MG Albuterol/ Ipratropium 3 ml ONCE ONCE INH 11/21/18 01:45 11/21/18 01:46 DC 11/21/18 01:46 3 ML Aspirin 324 mg ONCE ONCE PO 11/21/18 01:30 11/21/18 01:31 DC 11/21/18 01:24 324 MG Dexamethasone Sodium Phosphate 20 mg ONCE ONCE IH 11/21/18 01:45 11/21/18 01:46 DC 11/21/18 01:47 20 MG Nitroglycerin 0.4 mg UD PRN SL 11/21/18 01:30 11/21/18 04:32 DC 11/21/18 01:25 0.4 MG Vital Signs/I&O 11/21/18 11/21/18 11/21/18 11/21/18 01:01 01:01 01:01 01:01 Temp 100.2 100.2 100.2 Pulse 81 81 81 Resp 22 22 22 B/P (MAP) 119/76 (90) 119/76 119/76 (90) Pulse Ox 96 96 96 O2 Delivery Nasal Cannula Nasal Cannula O2 Flow Rate 3.0 3.0 3.0 3.0 11/21/18 11/21/18 11/21/18 11/21/18 01:15 01:40 01:48 02:10 Temp 100.2 98.0 Pulse Ox 96 95 O2 Delivery Nasal Cannula Nasal Cannula O2 Flow Rate 3.00 2.50 FiO2 96 11/21/18 11/21/18 11/21/18 02:10 02:30 04:17 Temp 98.0 98.0 98.0 Pulse 80 Resp 20 B/P (MAP) 122/63 (82) Pulse Ox 92 O2 Delivery Nasal Cannula O2 Flow Rate 3.00 Progress Progress Note : Progress Note VITALS REMAINED STABLE GIVEN NEB TREATMENT WITH DECREASED WHEEZING AND INCREASED AERATION. GIVEN NTG X 1 HERE--PT STATES PAIN "A LITTLE BETTER" BUT STILL RATES PAIN 2-3 /10--BP 105-110 SYSTOLIC GIVEN MORPHINE--PAIN RELIEVED AT TIME OF TRANSFER Initial ECG Impression Date: Nov 21, 2018 Initial ECG Impression Time: 01:09 Initial ECG Rate: 83 Initial ECG Rhythm: Normal Sinus (LBBB) Initial ECG Comparisson: Unchanged Diagnostic Imaging Comments CXR--CHRONIC CHANGES, NO ACUTE PROCESS, PENDING RADIOLOGIST REVIEW Reviewed: Reviewed by Ct Departure Communication (Admissions) [phone]--CALLED [facility] HOSPITALIST, WILL CALL BACK. [phone]--SPOKE WITH DR. MOY, HOSPITALIST, ACCEPTS PT FOR ADMIT/TRANSFER. Impression Primary Impression: Chest pain Additional Impressions: Non-ST elevation NE (NSTEMI) COPD exacerbation Chronic renal failure Elevated liver enzymes Breast cancer metastasized to bone Disposition: 02 XFER SHT-TRM HOSP Condition: Improved Transfer Transfer Facility: [facility] Method of Transfer: EMS Departure-Patient Inst. Referrals: KIMANI GALINDO MD (PCP/Family) Primary Care Physician MAYRA HOLMAN DO Nov 21, 2018 01:48
[2018-11-21 01:49] LABS: ALBUMIN 3.7 GM/DL (3.2-4.5); BILIRUBIN,TOTAL 1.2 MG/DL (0.1-1.0); CREATININE SERUM 3.14 MG/DL (0.60-1.30); MAGNESIUM 2.2 MG/DL (1.8-2.4); POTASSIUM 3.6 MMOL/L (3.6-5.0); TOTAL PROTEIN 7.5 GM/DL (6.4-8.2)
[2018-11-21 02:13] LABS: BILIRUBIN,URINE NEGATIVE (NEGATIVE); CLARITY,URINE CLEAR; COLOR,URINE YELLOW; GLUCOSE, URINE (UA) NEGATIVE (NEGATIVE); KETONES,URINE NEGATIVE (NEGATIVE); LEUKOCYTE ESTERASE ,URINE NEGATIVE (NEGATIVE); NITRITE,URINE NEGATIVE (NEGATIVE); PH,URINE 7 (5-9); PROTEIN,URINE NEGATIVE (NEGATIVE); UROBILINOGEN,URINE 1 MG/DL (NORMAL)
[2018-11-21 02:20] LABS: BACTERIA,URINE NEGATIVE /HPF; SQUAMOUS EPITHELIAL CELL,UR RARE /HPF
[2018-11-21] MEDS ORDERED: FINA5TAB6 (02:27)
[2018-11-21] MEDS ORDERED: TORS100T4 (02:27)
[2018-11-21] MEDS ORDERED: TAMS0.4C98 (02:27)
[2018-11-21] MEDS ORDERED: METO-387 (02:27)
[2018-11-21] MEDS ORDERED: HYDR-3812 (02:27)
[2018-11-21] MEDS ORDERED: RIVA15TA (02:27)
[2018-11-21] MEDS ORDERED: OLAP100T (02:27)
[2018-11-21] MEDS ORDERED: AMIO400T5 (02:27)
[2018-11-21] MEDS ORDERED: METO2.5T (02:27)
[2018-11-21] MEDS ORDERED: MIRT15TA6 (02:27)
[2018-11-21] MEDS ORDERED: POTA20TA15 (02:27)
[2018-11-21] MEDS ORDERED: morphine INJ 10 MG/ML 1ML (SYR OR VIAL) IVP STA ×2 (02:30→03:02)
[2018-11-21] MEDS ORDERED: GUAI600T43 (02:35)
[2018-11-21] MEDS ORDERED: FLT05NA16 (02:35)
--- NOTE | 2018-11-21 03:47 | NUR ---
REPORT GIVEN TO [facility] NOTIFIED OF TRANSFER.
[2018-11-21 04:17] VITALS: BP 122/63
--- NOTE | 2018-11-21 04:32 | NUR ---
CALLED JOSE AT [facility] TO UPDATE ON PATIENT DEPARTURE TO [facility].
--- NOTE | 2018-11-21 07:29 | Diagnostic Imaging Report ---
INDICATION: Chest pain. TECHNIQUE: Single view chest 2:21 AM. CORRELATION STUDY: 07/30/2018 FINDINGS: Poststernotomy changes. Right-sided AICD unchanged. Heart size enlarged. Vascular slightly increased. Scattered pulmonary parenchymal densities appearing generally stable. Right midlung somewhat obscured by the pacemaker.. Prior surgical change left shoulder. IMPRESSION: 1. Generally stable appearance about the chest. No adverse interval change suggested. Dictated by: Dictated on workstation # [id number]
== END 2018-11-21 04:20 | disposition short-term general hospital (02) ==
LOC: EDUNIT# 01:01 → ER 01:04
DX: I21.4 Non-ST elevation (NSTEMI) myocardial infarction (principal); J44.1 Chronic obstructive pulmonary disease with (acute) exacerbation; I13.0 Hypertensive heart and chronic kidney disease with heart failure and stage 1 through stage 4 chronic kidney disease, or unspecified chronic kidney disease; N18.9 Chronic kidney disease, unspecified; I50.9 Heart failure, unspecified; R94.5 Abnormal results of liver function studies; C50.919 Malignant neoplasm of unspecified site of unspecified female breast; C79.51 Secondary malignant neoplasm of bone; I48.91 Unspecified atrial fibrillation; F17.210 Nicotine dependence, cigarettes, uncomplicated; J43.9 Emphysema, unspecified; J45.909 Unspecified asthma, uncomplicated; G47.30 Sleep apnea, unspecified; I42.9 Cardiomyopathy, unspecified; I25.10 Atherosclerotic heart disease of native coronary artery without angina pectoris; E78.00 Pure hypercholesterolemia, unspecified; K21.9 Gastro-esophageal reflux disease without esophagitis; E66.9 Obesity, unspecified; E11.22 Type 2 diabetes mellitus with diabetic chronic kidney disease; E21.5 Disorder of parathyroid gland, unspecified; F41.9 Anxiety disorder, unspecified; Z86.73 Personal history of transient ischemic attack (TIA), and cerebral infarction without residual deficits; Z95.810 Presence of automatic (implantable) cardiac defibrillator; Z95.5 Presence of coronary angioplasty implant and graft; Z79.01 Long term (current) use of anticoagulants; Z79.02 Long term (current) use of antithrombotics/antiplatelets; Z88.0 Allergy status to penicillin; Z88.8 Allergy status to other drugs, medicaments and biological substances; Z90.12 Acquired absence of left breast and nipple; Z99.81 Dependence on supplemental oxygen
CPT/HCPCS: 36415; 71045; 80053; 81000; 82150; 83605; 83690; 83735; 83874; 83880; 84484; 85025; 85610; 85730; 87040; 87077; 87088; 93005; 93041; 94640; 96374; 96375

== ENCOUNTER 2019-01-01 08:24 | Emergency (ER) | payer MEDICARE, MEDICAID ==
[~2019-01-01] VITALS: Ht 170.2 cm; Wt 113.4 kg
[~2019-01-01 08:24] MED LIST changes: +AMIO400T5; +FINA5TAB6; +FLT05NA16; +GUAI600T43; +HYDR-3812; +METO-387; +METO2.5T; +MIRT15TA6; +OLAP100T; +POTA20TA15; +RIVA15TA; +TAMS0.4C98; +TORS100T4
[2019-01-01] MEDS ORDERED: NS IV 500 ML 500 ML IV ONE ×2 (08:39→10:23)
[2019-01-01 08:48] LABS: BASOPHILS # (AUTO) 0.1 10^3/uL (0.0-0.1); BASOPHILS % (AUTO) 1 % (0-10); EOSINOPHILS # (AUTO) 0.1 10^3/uL (0.0-0.3); EOSINOPHILS % (AUTO) 1 % (0-10); HEMATOCRIT 37 % (40-54); HEMOGLOBIN 12.1 G/DL (13.3-17.7); LYMPHOCYTES # (AUTO) 1.6 X 10^3 (1.0-4.0); LYMPHOCYTES % (AUTO) 20 % (12-44); MEAN CORPUSCULAR HEMOGLOBIN 31 PG (25-34); MEAN CORPUSCULAR HGB CONC 33 G/DL (32-36); MEAN CORPUSCULAR VOLUME 93 FL (80-99); MEAN PLATELET VOLUME 11.6 FL (7.4-10.4); MONOCYTES # (AUTO) 0.7 X 10^3 (0.0-1.0); MONOCYTES % (AUTO) 9 % (0-12); NEUTROPHILS # (AUTO) 5.5 X 10^3 (1.8-7.8); NEUTROPHILS % (AUTO) 69 % (42-75); PLATELET COUNT 194 10^3/uL (130-400); RED CELL DISTRIBUTION WIDTH 19.1 % (10.0-14.5)
[2019-01-01 08:53] LABS: INR 2.4 (0.8-1.4); PROTHROMBIN TIME PATIENT 27.3 SEC (12.2-14.7)
[2019-01-01 08:55] LABS: BILIRUBIN,URINE NEGATIVE (NEGATIVE); CLARITY,URINE CLEAR; COLOR,URINE YELLOW; GLUCOSE, URINE (UA) NEGATIVE (NEGATIVE); KETONES,URINE NEGATIVE (NEGATIVE); LEUKOCYTE ESTERASE ,URINE NEGATIVE (NEGATIVE); NITRITE,URINE NEGATIVE (NEGATIVE); PH,URINE 6.5 (5-9); PROTEIN,URINE NEGATIVE (NEGATIVE); UROBILINOGEN,URINE NORMAL (NORMAL)
--- NOTE | 2019-01-01 09:00 | ED Syncope ---
General Chief Complaint: Trauma-Non Activation Stated Complaint: FALL Source of Information: Patient, EMS Exam Limitations: No Limitations History of Present Illness Date Seen by Provider: Jan 01, 2019 Time Seen by Provider: 08:32 Initial Comments The patient presents to ER by EMS from home with chief complaint that he had an unwitnessed fall. He said he was feeling dizzy for the past couple days and then shaky and his daughter notes that whenever he gets shaky it usually results in an infection. He said he braced himself against the wall and then slid to the floor. He does not recall hitting his head and is not having any pain in his head or neck. He thinks he may have passed out for no more than a minute. His daughter responded immediately to the sound of his falling. He does have an extensive history including CHF, borderline diabetes not on insulin, heart disease, metastatic breast cancer with left breast mastectomy, ongoing chemotherapy followed by oncologist in [place], Dr Ho and [facility]. Patient's had no palpitations but he felt like his pacemaker was kicking on him and he did have some minor chest pain around the episode of the fall. Allergies and Home Medications Allergies Coded Allergies: Iodinated Contrast- Oral and IV Dye (Unverified Allergy, Mild, 11/21/18) Penicillins (Unverified Allergy, Mild, 11/21/18) Shellfish (Verified Allergy, Unknown, 11/21/18) amlodipine (Verified Allergy, Unknown, 11/21/18) iodine (Verified Allergy, Unknown, 11/21/18) penicillin G (Verified Allergy, Unknown, 11/21/18) Home Medications Albuterol Sulfate 18 Gm Hfa.aer.ad, 2 PUFF IH QID PRN for SHORTNESS OF BREATH, (Reported) Arformoterol Tartrate 15 Mcg/2 Ml Vial.neb, 15 MCG NEB BID, (Reported) MIXES WITH BUDESONIDE Atorvastatin Calcium 40 Mg Tablet, 40 MG PO HS, (Reported) Budesonide 0.5 Mg/2 Ml Ampul.neb, 0.5 MG NEB BID, (Reported) MIXED WITH BROVANA Buspirone HCl 10 Mg Tablet, 10 MG PO HS PRN for ANXIETY, (Reported) Cetirizine HCl 10 Mg Tablet, 10 MG PO DAILY, (Reported) Cinacalcet HCl 30 Mg Tablet, 30 MG PO DAILY, (Reported) Clopidogrel Bisulfate 75 Mg Tablet, 75 MG PO HS, (Reported) Fenofibrate Nanocrystallized 145 Mg Tablet, 145 MG PO HS, (Reported) Fluticasone Propionate 16 Gm [place], PRN, (Reported) Gabapentin 100 Mg Capsule, 100 MG PO TID, (Reported) Guaifenesin 600 Mg Tab.er.12h, PRN, (Reported) Montelukast Sodium 10 Mg Tablet, 10 MG PO HS, (Reported) Nitroglycerin 0.4 Mg Subl, 0.4 MG SL UD PRN for CHEST PAIN, (Reported) TAKE 1 TABLET EVERY 5 MINUTES X 3 DOSES NEEDED FOR CHEST PAIN Pantoprazole Sodium 40 Mg Tablet.dr, 40 MG PO BID, (Reported) Rivaroxaban 15 Mg Tablet, 15 MG PO HS, (Reported) Tamsulosin HCl 0.4 Mg Cap.er.24h, 0.4 MG PO HS, (Reported) Patient Home Medication List Home Medication List Reviewed: Yes Review of Systems Constitutional: No chills, No diaphoresis; dizziness EENTM: No ear discharge, No hearing loss Respiratory: No cough, No short of breath Cardiovascular: see HPI, chest pain; No edema; Hx of Intervention (cabg); No palpitations; syncope Gastrointestinal: No abdominal pain, No constipation, No diarrhea, No nausea Genitourinary: No discharge, No dysuria Musculoskeletal: No back pain, No joint pain Past Wkbaaji-Qvotmh-Lwvslc Hx Patient Social History Alcohol Use: Denies Use Recreational Drug Use: No Type Used: Cigarettes 2nd Hand Smoke Exposure: No Recent Hopitalizations: No Immunizations Up To Date Tetanus Booster (TDap): Unknown PED Vaccines UTD: No Date of Pneumonia Vaccine: May 13, 2014 Date of Influenza Vaccine: Feb 11, 2016 Seasonal Allergies Seasonal Allergies: Yes Past Medical History Surgeries: Yes Abdominal, Appendectomy, Breast, Cardiac, Coronary Stent, Defibrillator, Orthopedic, Pacemaker Respiratory: Yes (wears oxygen at all times 2-3L; CPAP) Asthma, Pneumonia, Sleep Apnea, COPD, Emphysema Currently Using CPAP: Yes Currently Using BIPAP: No Cardiac: Yes Angina, Atrial Fibrillation, Cardiomyopathy, Chronic Edema/Swelling, Coronary Artery Disease, Deep Vein Thrombosis, Heart Attack, Heart Murmur, High Cholesterol, Hypertension, Irregular Heartbeat, Valvular Heart Disease Neurological: Yes TIA Reproductive Disorders: No Sexually Transmitted Disease: No Genitourinary: Yes (CHRONIC KIDNEY DISEASE STAGE 3) Benign Prostatic Hyperpl, Renal Failure Gastrointestinal: Yes (DIVERTICULITIS WITH SMALL PERFORATION--NO SURGERY) Gastroesophageal Reflux, Diverticulosis Musculoskeletal: Yes Degenerate Disk Disease, Arthritis, Chronic Back Pain Endocrine: Yes (OBESITY; PARATHYROIDECTOMY FOR BENIGN TUMOR; HYPERCALCEMIA; HYPERKALEMIA) Parathyroid Disease, Diabetes, Non-Insulin dep HEENT: Yes Cataract Cancer: Yes Breast Did You Recieve Any Treatments: Yes What Type of Treatment Did You: Chemotherapy, Surgical Intervention Psychosocial: Yes Anxiety Integumentary: No Blood Disorders: No Family Medical History Arthritis 19 FATHER Cardiovascular disease 19 FATHER FH: breast cancer 19 MOTHER Respiratory disorder 19 FATHER Physical Exam Vital Signs Vital Signs - First Documented 01/01/19 09:00 Temp 98.3 Pulse 71 Resp 20 B/P (MAP) 112/63 (79) Pulse Ox 98 O2 Delivery Nasal Cannula O2 Flow Rate 3.00 Capillary Refill : Height, Weight, BMI Height: 5'8.00" Weight: 253lbs. 5.0oz. 114.523109un; 38.5 BMI Method:Stated General Appearance: No Apparent Distress, Other (chronically ill, tremors) HEENT: PERRL/EOMI, TMs Normal, Pharynx Normal (dry oral mucosa); No Moist Mucous Membranes Neck: Full Range of Motion, Normal Inspection, Non Tender Cardiovascular: Regular Rate, Rhythm, No Edema, Normal Peripheral Pulses Respiratory: Chest Non Tender, Lungs Clear, Normal Breath Sounds, No Accessory Muscle Use, No Respiratory Distress Gastrointestinal: Normal Bowel Sounds, No Organomegaly, Non Tender, Soft Neurologic/Psychiatric: Alert, Oriented x3, No Motor/Sensory Deficits, Normal Mood/Affect, mold closer helper II-XII Norm as Tested Cranial Nerves: Normal Hearing, Normal Speech, PERRL Motor/Sensory: No Motor Deficit, No Sensory Deficit, Other (tremors) Skin: Normal Color, Warm/Dry Focused Exam Lactate Level 01/01/19 08:34: Lactic Acid Level 2.51*H Lactic Acid Level Laboratory Tests Test 01/01/19 08:34 Lactic Acid Level 2.51 MMOL/L (0.50-2.00) *H Progress/Results/Core Measures Results/Orders Lab Results Laboratory Tests Test 01/01/19 08:34 01/01/19 08:48 Range/Units White Blood Count 8.0 4.3-11.0 10^3/uL Red Blood Count 3.95 L 4.35-5.85 10^6/uL Hemoglobin 12.1 L 13.3-17.7 G/DL Hematocrit 37 L 40-54 % Mean Corpuscular Volume 93 80-99 FL Mean Corpuscular Hemoglobin 31 25-34 PG Mean Corpuscular Hemoglobin Concent 33 32-36 G/DL Red Cell Distribution Width 19.1 H 10.0-14.5 % Platelet Count 194 130-400 10^3/uL Mean Platelet Volume 11.6 H 7.4-10.4 FL Neutrophils (%) (Auto) 69 42-75 % Lymphocytes (%) (Auto) 20 12-44 % Monocytes (%) (Auto) 9 0-12 % Eosinophils (%) (Auto) 1 0-10 % Basophils (%) (Auto) 1 0-10 % Neutrophils # (Auto) 5.5 1.8-7.8 X 10^3 Lymphocytes # (Auto) 1.6 1.0-4.0 X 10^3 Monocytes # (Auto) 0.7 0.0-1.0 X 10^3 Eosinophils # (Auto) 0.1 0.0-0.3 10^3/uL Basophils # (Auto) 0.1 0.0-0.1 10^3/uL Prothrombin Time 27.3 H 12.2-14.7 SEC INR Comment 2.4 H 0.8-1.4 Activated Partial Thromboplast Time 47 H 24-35 SEC Sodium Level 139 135-145 MMOL/L Potassium Level 3.0 L 3.6-5.0 MMOL/L Chloride Level 93 L 98-107 MMOL/L Carbon Dioxide Level 29 21-32 MMOL/L Anion Gap 17 H 5-14 MMOL/L Blood Urea Nitrogen 100 *H 7-18 MG/DL Creatinine 4.78 H 0.60-1.30 MG/DL Estimat Glomerular Filtration Rate 13 BUN/Creatinine Ratio 21 Glucose Level 140 H 70-105 MG/DL Lactic Acid Level 2.51 *H 0.50-2.00 MMOL/L Calcium Level 8.7 8.5-10.1 MG/DL Corrected Calcium 8.9 8.5-10.1 MG/DL Total Bilirubin 1.4 H 0.1-1.0 MG/DL Aspartate Amino Transf (AST/SGOT) 101 H 5-34 U/L Alanine Aminotransferase (ALT/SGPT) 34 0-55 U/L Alkaline Phosphatase 49 40-136 U/L Troponin I 0.237 H <0.028 NG/ML C-Reactive Protein High Sensitivity 3.18 H 0.00-0.50 MG/DL B-Type Natriuretic Peptide 304.8 H <100.0 PG/ML Total Protein 7.8 6.4-8.2 GM/DL Albumin 3.7 3.2-4.5 GM/DL Lipase 84 H 8-78 U/L Urine Color YELLOW Urine Clarity CLEAR Urine pH 6.5 5-9 Urine Specific [place] 1.010 L 1.016-1.022 Urine Protein NEGATIVE NEGATIVE Urine Glucose (UA) NEGATIVE NEGATIVE Urine Ketones NEGATIVE NEGATIVE Urine Nitrite NEGATIVE NEGATIVE Urine Bilirubin NEGATIVE NEGATIVE Urine Urobilinogen NORMAL NORMAL MG/DL Urine Leukocyte Esterase NEGATIVE NEGATIVE Urine RBC (Auto) NEGATIVE NEGATIVE Urine RBC NONE /HPF Urine WBC NONE /HPF Urine Squamous Epithelial Cells RARE /HPF Urine Crystals NONE /LPF Urine Bacteria NEGATIVE /HPF Urine Casts NONE /LPF Urine Mucus NEGATIVE /LPF Urine Culture Indicated NO My Orders Orders - CHEO FLANNERY Protime With Inr (01/01/19 08:37) Partial Thromboplastin Time (01/01/19 08:37) Cbc With Automated Diff (01/01/19 08:37) Comprehensive Metabolic Panel (01/01/19 08:37) Hs C Reactive Protein (01/01/19 08:37) Ua Culture If Indicated (01/01/19 08:37) Lipase (01/01/19 08:37) Blood Culture (01/01/19 08:37) Lactic Acid Analyzer (01/01/19 08:37) Ekg Tracing (01/01/19 08:39) Continuous Ekg Monitoring (01/01/19 08:39) Troponin I (01/01/19 08:39) BNP (01/01/19 08:39) Ed Iv/Invasive Line Start (01/01/19 08:39) Ns Iv 500 Ml (Sodium Chloride 0.9%) (01/01/19 08:39) Chest 1 View, Ap/Pa Only (01/01/19 08:39) Ct Head/Cervical Spine Wo (01/01/19 08:39) Ns W/Kcl 40 Meq/L (Ns Iv W/Kcl 40 Meq/L) (01/01/19 10:30) Ed Iv/Invasive Line Start (01/01/19 10:23) Ns Iv 500 Ml (Sodium Chloride 0.9%) (01/01/19 10:23) Ct Chest Wo (01/01/19 10:25) Aspirin Chewable Tablet (Baby Aspirin Ch (01/01/19 10:30) Morphine Injection (Morphine Injection (01/01/19 10:27) Ondansetron Injection (Zofran Injectio (01/01/19 10:30) Morphine Injection (Morphine Injection (01/01/19 10:23) Potassium Cl 10meq/50ml Ivpb (Kcl 10 Meq (01/01/19 10:26) Ekg Tracing (01/01/19 11:53) Morphine Injection (Morphine Injection (01/01/19 12:10) Medications Given in ED Current Medications Medications Dose Ordered Sig/Rebecca Route Start Time Stop Time Status Last Admin Dose Admin Aspirin 324 mg ONCE ONCE PO 01/01/19 10:30 01/01/19 10:31 DC 01/01/19 10:35 324 MG Ondansetron HCl 4 mg ONCE ONCE IVP 01/01/19 10:30 01/01/19 10:31 DC 01/01/19 10:38 4 MG Sodium Chloride 500 ml @ 0 mls/hr Q0M ONCE IV 01/01/19 08:39 01/01/19 08:42 DC 01/01/19 09:02 0 MLS/HR Sodium Chloride 500 ml @ 0 mls/hr Q0M ONCE IV 01/01/19 10:23 01/01/19 10:25 DC 01/01/19 10:40 0 MLS/HR Vital Signs/I&O 01/01/19 01/01/19 09:00 12:33 Temp 98.3 Pulse 71 68 73 74 Resp 20 B/P (MAP) 112/63 (79) 98/56 (70) 93/59 (70) 84/41 (55) Pulse Ox 98 O2 Delivery Nasal Cannula O2 Flow Rate 3.00 Progress Progress Note #1: Time: 09:04 Progress Note Syncopal workup including troponin, EKG and BNP. He is not having any chest pain now. He had a bradycardic episode since he said he was feeling his pacemaker. CT of the head and C-spine, chest x-ray, urine and blood cultures and lactate. Lactate elevated which could be because he appears clinically dry and is dehydrated secondary to his furosemide treatment or could indicate some kind of end organ dysfunction or tissue ischemia. Plan to start with 500 cc boluses. Progress Note #2: Time: 10:26 Progress Note Pneumonia? CT Chest without. Her 500 cc of fluid and normal saline with 40 of potassium at 250 an hour to gently rehydrate him. Elevated troponin secondary to his acute kidney injury on chronic kidney disease versus possible in STEMI?. Repeat EKG and he'll need serial troponin. We are on ICU diversion and he will probably need a nephrology consult so we will plan to transfer him were cardiology and nephrology is available. Plan to give aspirin 325 mg now. Progress Note #3: Time: 10:55 Progress Note C-collar removed from clinical or radiographic evidence. Patient's having no neck or head pain. The morphine did help his chest pain brought it down to 1 out of 10. He agrees to go to [facility] since as were his oncologist and his fire marshal Dr. López work. Progress Note #4: Time: 12:24 Progress Note Discussed the case with Dr. Sharma she feels that the patient is having orthostatic hypotension that is a volume issue and she can keep him here however he is not orthostatic she would recommend sending him where his fire marshal is. Progress Note #5: Time: 12:49 Progress Note Orthos weakly positive with Diastolic. Medicine team declines to admit him because they feel he'll inevitably need cardiac consultation and his fire marshal is at [facility] so they suggest going there. He has received 1300 cc IV fluids. If he needed a cardiac catheterization with his kidney injury nephrology and possibly dialysis would need to be available which is not currently available at [place]. Initial ECG Impression Date: Jan 01, 2019 Initial ECG Impression Time: 08:40 Initial ECG Rate: 71 Initial ECG Rhythm: Normal Sinus Initial ECG Intervals: CO (232) Initial ECG Intervals QTC 579 ms Initial ECG Impression: Nonspecific Changes Comment First-degree AV block with left bundle branch block. No Sgarbossa's criteria. Clinically significant ST elevation or depression. EKG : EKG Time: 10:28 Rate: 70 Rhythm: Normal Sinus Intervals: CO (224), QT (523) ECG Comparisson: Unchanged ECG Impression: Nonspecific Changes Comment sinus rhythm with a first-degree AV block. Left bundle-branch block without clinically significant ST elevation or depression. Negative for Sgarbossa's Criteria. Diagnostic Imaging Diagonstic Imaging: Xray Plain Films/CT/US/NM/MRI: chest (1v) Comments NAME: JAGRUTI GARCIA [facility] REC#: [id number] PT STATUS: REG ER : 1960 PHYSICIAN: CHEO FLANNERY MD ADMIT DATE: 01/01/19/ER Signed Date of Exam:01/01/19 CHEST 1 VIEW, AP/PA ONLY INDICATION: Fall. Dizziness. COMPARISON: 11/11/2018 FINDINGS: Single frontal view of the chest demonstrates stable heart size and pulmonary vascularity. Sternotomy wires and right-sided AICD are noted. Evaluation lung haynes demonstrates scattered nodular opacities bilaterally. The largest of these is seen on the left and measures 2.6 x 1.3 cm. There is no large effusion or pneumothorax. No large pleural effusion or pneumothorax is seen. The visualized osseous structures show no acute abnormalities. IMPRESSION: 1. Scattered nodular pulmonary opacities bilaterally concerning for scattered infiltrates versus soft tissue nodules. Further evaluation with CT chest is recommended. Dictated by: Dictated on workstation # [id number] Dict: 01/01/19 0958 Trans: 01/01/19 1002 [id number] Interpreted by: AVRIL PRESSLEY MD Electronically signed by: AVRIL PRESSLEY MD 01/01/19 1002 Reviewed: Reviewed by Wy Diagonstic Imaging: CT (without IV contrast) Plain Films/CT/US/NM/MRI: c-spine, head Comments NAME: JAGRUTI GARCIA [facility] REC#: [id number] PT STATUS: REG ER : 1960 PHYSICIAN: CHEO FLANNERY MD ADMIT DATE: 01/01/19/ER Signed Date of Exam:01/01/19 CT HEAD/CERVICAL SPINE WO PROCEDURE: CT head and CT cervical spine without contrast. TECHNIQUE: Multiple contiguous axial images were obtained through the brain and cervical spine without the use of intravenous contrast. Sagittal and coronal reformations through the cervical spine were then performed. Auto Exposure Controls were utilized during the CT exam to meet ALARA standards for radiation dose reduction. INDICATION: Head and neck pain after fall with dizziness Comparison is made with prior examination from 07/30/2018. FINDINGS: There is prominence of the ventricles and sulci. There is mild chronic microvascular ischemic disease. There is no hydrocephalus. There is no midline shift. There is no intracranial mass, hemorrhage or extra-axial fluid collection. The calvarium is intact. The frontal, ethmoid, sphenoid and maxillary sinuses are clear. Mastoid air cells are clear. The alignment of the cervical spine is normal. The vertebral body heights are well-maintained. There is no fracture or traumatic subluxation. There are numerous sclerotic metastatic foci. The prevertebral soft tissues are within normal limits. Lung apices are clear. IMPRESSION: Atrophy and chronic microvascular ischemic disease, however, no acute intracranial abnormality. Mild cervical spondylosis without acute fracture or traumatic subluxation. There is diffuse osseous metastatic disease again seen. Dictated by: Dictated on workstation # [id number] Dict: 01/01/19 1025 Trans: 01/01/19 1046 [facility] [id number] Interpreted by: JOHN TERESA MD Electronically signed by: JOHN TERESA MD 01/01/19 1046 Reviewed: Reviewed by Wy Diagonstic Imaging: CT (chest) Plain Films/CT/US/NM/MRI: chest Comments NAME: JAGRUTI GARCIA [facility] REC#: [id number] PT STATUS: REG ER : 1960 PHYSICIAN: CHEO FLANNERY MD ADMIT DATE: 01/01/19/ER Draft Date of Exam:01/01/19 CT CHEST WO PROCEDURE: CT chest without contrast. TECHNIQUE: Multiple contiguous axial images were obtained through the chest without the use of intravenous contrast. Auto Exposure Controls were utilized during the CT exam to meet ALARA standards for radiation dose reduction. INDICATION: Pulmonary nodule seen on previous chest radiograph. History of recent fall. Dizziness. 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 These areas of sclerotic foci are felt to correspond to nodular opacity seen on recent chest radiograph. Fractures are identified. Lung haynes are otherwise clear. There is no focal consolidation, large effusion, nor pneumothorax. No suspicious pulmonary nodules or parenchymal masses are identified. Cardiomediastinal structures show normal heart size. There is no large pericardial effusion. There are bulky mitral valve calcifications. Advanced calcified aortic and coronary atherosclerotic disease is also identified. Indwelling AICD is noted. No pathologically enlarged or morphologically abnormal adenopathy is seen within the mediastinum, tata, nor axilla. Included portions of the upper abdomen show cholelithiasis. IMPRESSION: 1. 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 Multiple other osteoblastic lesions are seen throughout the remaining osseous structures. Correlation with known primary malignancy such as prostate cancer is recommended. 2. No acute cardia pulmonary process. 3. Advanced calcified aortic and coronary atherosclerotic disease. Correlation with underlying risk factors is recommended. 4. Cholelithiasis. Dictated on workstation # [id number] Dict: 01/01/19 1100 Trans: 01/01/19 1116 [facility] [id number] Interpreted by: AVRIL PRESSLEY MD Electronically signed by: Reviewed: Reviewed by Me Departure Impression Primary Impression: Syncope and collapse Additional Impressions: Elevated troponin I level Acute kidney injury Angina at rest Disposition: 02 XFER SHT-TRM HOSP Condition: Stable Transfer Time Spoke to Accepting Phy: 13:00 Transfer Progress Notes [facility] ED Agrees this is not a trauma admission so OK to go to Hospitalist. Dr Esquivel accepts the Patient. Transfer Time: 15:05 Transfer Facility: [facility] [place] Method of Transfer: EMS Departure-Patient Inst. Referrals: KIMANI GALINDO MD (PCP/Family) Primary Care Physician Copy Copies To 1: KIMANI GALINDO MD, TITUS J Jan 01, 2019 09:00
[2019-01-01 09:02] LABS: BACTERIA,URINE NEGATIVE /HPF; SQUAMOUS EPITHELIAL CELL,UR RARE /HPF
[2019-01-01 09:02] LABS: ALBUMIN 3.7 GM/DL (3.2-4.5); BILIRUBIN,TOTAL 1.4 MG/DL (0.1-1.0); CALCIUM 8.7 MG/DL (8.5-10.1); CREATININE SERUM 4.78 MG/DL (0.60-1.30); TOTAL PROTEIN 7.8 GM/DL (6.4-8.2)
--- NOTE | 2019-01-01 10:01 | Diagnostic Imaging Report ---
INDICATION: Fall. Dizziness. COMPARISON: 11/11/2018 FINDINGS: Single frontal view of the chest demonstrates stable heart size and pulmonary vascularity. Sternotomy wires and right-sided AICD are noted. Evaluation lung haynes demonstrates scattered nodular opacities bilaterally. The largest of these is seen on the left and measures 2.6 x 1.3 cm. There is no large effusion or pneumothorax. No large pleural effusion or pneumothorax is seen. The visualized osseous structures show no acute abnormalities. IMPRESSION: 1. Scattered nodular pulmonary opacities bilaterally concerning for scattered infiltrates versus soft tissue nodules. Further evaluation with CT chest is recommended. Dictated by: Dictated on workstation # [id number]
[2019-01-01] MEDS ORDERED: morphine INJ 10 MG/ML 1ML (SYR OR VIAL) ONE (10:23)
[2019-01-01] MEDS ORDERED: POTASSIUM CL 10MEQ/50ML IVPB 0 ML IV ONE (10:26)
[2019-01-01] MEDS ORDERED: morphine INJ 10 MG/ML 1ML (SYR OR VIAL) IVP STA ×2 (10:27→12:10)
[2019-01-01] MEDS ORDERED: ONDANSETRON 4 MG/2 ML (SDV) Z0FRAN IVP ONE (10:30)
[2019-01-01] MEDS ORDERED: ASPIRIN 81 MG CHEW (CHILDREN'S ASA) PO ONE (10:30)
[2019-01-01] MEDS ORDERED: NS W/KCL 40 MEQ/L 1,000 ML IV SCH (10:30)
--- NOTE | 2019-01-01 10:41 | Diagnostic Imaging Report ---
PROCEDURE: CT head and CT cervical spine without contrast. TECHNIQUE: Multiple contiguous axial images were obtained through the brain and cervical spine without the use of intravenous contrast. Sagittal and coronal reformations through the cervical spine were then performed. Auto Exposure Controls were utilized during the CT exam to meet ALARA standards for radiation dose reduction. INDICATION: Head and neck pain after fall with dizziness Comparison is made with prior examination from 07/30/2018. FINDINGS: There is prominence of the ventricles and sulci. There is mild chronic microvascular ischemic disease. There is no hydrocephalus. There is no midline shift. There is no intracranial mass, hemorrhage or extra-axial fluid collection. The calvarium is intact. The frontal, ethmoid, sphenoid and maxillary sinuses are clear. Mastoid air cells are clear. The alignment of the cervical spine is normal. The vertebral body heights are well-maintained. There is no fracture or traumatic subluxation. There are numerous sclerotic metastatic foci. The prevertebral soft tissues are within normal limits. Lung apices are clear. IMPRESSION: Atrophy and chronic microvascular ischemic disease, however, no acute intracranial abnormality. Mild cervical spondylosis without acute fracture or traumatic subluxation. There is diffuse osseous metastatic disease again seen. Dictated by: Dictated on workstation # [id number]
--- NOTE | 2019-01-01 10:45 | NUR ---
chest pain re-assessed after aspirin admin, pt states pain is "starting to get better".
--- NOTE | 2019-01-01 10:55 | NUR ---
C-Collar removed at this time by Maritza Willis
--- NOTE | 2019-01-01 11:17 | Diagnostic Imaging Report ---
PROCEDURE: CT chest without contrast. TECHNIQUE: Multiple contiguous axial images were obtained through the chest without the use of intravenous contrast. Auto Exposure Controls were utilized during the CT exam to meet ALARA standards for radiation dose reduction. INDICATION: Pulmonary nodule seen on previous chest radiograph. History of recent fall. Dizziness. 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 These areas of sclerotic foci are felt to correspond to nodular opacity seen on recent chest radiograph. Fractures are identified. Lung haynes are otherwise clear. There is no focal consolidation, large effusion, nor pneumothorax. No suspicious pulmonary nodules or parenchymal masses are identified. Cardiomediastinal structures show normal heart size. There is no large pericardial effusion. There are bulky mitral valve calcifications. Advanced calcified aortic and coronary atherosclerotic disease is also identified. Indwelling AICD is noted. No pathologically enlarged or morphologically abnormal adenopathy is seen within the mediastinum, tata, nor axilla. Included portions of the upper abdomen show cholelithiasis. IMPRESSION: 1. 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 Multiple other osteoblastic lesions are seen throughout the remaining osseous structures. Correlation with known primary malignancy such as prostate cancer is recommended. 2. No acute cardia pulmonary process. 3. Advanced calcified aortic and coronary atherosclerotic disease. Correlation with underlying risk factors is recommended. 4. Cholelithiasis. Dictated by: Dictated on workstation # [id number]
[2019-01-01 12:33] VITALS: BP_SYST 84; BP_SYST 93; BP_SYST 98; BP_DIAS 41; BP_DIAS 56; BP_DIAS 59
--- NOTE | 2019-01-01 12:39 | NUR ---
chest pain re-assessed at this time. Pt rates 2/10, previously was 4/10
[2019-01-01 15:13] VITALS: BP 110/96
== END 2019-01-01 15:08 | disposition short-term general hospital (02) ==
LOC: EDUNIT# 08:24 → ER 08:25
DX: R55 Syncope and collapse (principal); R74.8 Abnormal levels of other serum enzymes; N17.9 Acute kidney failure, unspecified; I25.119 Atherosclerotic heart disease of native coronary artery with unspecified angina pectoris; I13.0 Hypertensive heart and chronic kidney disease with heart failure and stage 1 through stage 4 chronic kidney disease, or unspecified chronic kidney disease; I50.9 Heart failure, unspecified; N18.3 Chronic kidney disease, stage 3 (moderate); E11.22 Type 2 diabetes mellitus with diabetic chronic kidney disease; C79.9 Secondary malignant neoplasm of unspecified site; J43.9 Emphysema, unspecified; G47.30 Sleep apnea, unspecified; I42.9 Cardiomyopathy, unspecified; I25.2 Old myocardial infarction; E78.00 Pure hypercholesterolemia, unspecified; K21.9 Gastro-esophageal reflux disease without esophagitis; E66.9 Obesity, unspecified; Z87.19 Personal history of other diseases of the digestive system; Z87.01 Personal history of pneumonia (recurrent); Z91.041 Radiographic dye allergy status; Z88.0 Allergy status to penicillin; Z79.02 Long term (current) use of antithrombotics/antiplatelets; Z79.52 Long term (current) use of systemic steroids; Z95.5 Presence of coronary angioplasty implant and graft; Z95.810 Presence of automatic (implantable) cardiac defibrillator; Z99.81 Dependence on supplemental oxygen; Z86.73 Personal history of transient ischemic attack (TIA), and cerebral infarction without residual deficits; Z82.49 Family history of ischemic heart disease and other diseases of the circulatory system; Z80.3 Family history of malignant neoplasm of breast; W19.XXXA Unspecified fall, initial encounter
CPT/HCPCS: 36415; 70450; 71045; 71250; 72125; 80053; 81000; 83605; 83690; 83880; 84484; 85025; 85610; 85730; 86141; 87040; 93005

== ENCOUNTER 2019-05-15 09:52 | Emergency (ER) | payer MEDICARE, MEDICAID ==
[~2019-05-15] VITALS: Ht 172.7 cm; Wt 117.2 kg
[2019-05-15 10:23] LABS: BASOPHILS % (AUTO) 1 % (0-10); EOSINOPHILS # (AUTO) 0.1 10^3/uL (0.0-0.3); EOSINOPHILS % (AUTO) 1 % (0-10); HEMATOCRIT 29 % (40-54); HEMOGLOBIN 9.3 G/DL (13.3-17.7); LYMPHOCYTES # (AUTO) 1.1 X 10^3 (1.0-4.0); LYMPHOCYTES % (AUTO) 12 % (12-44); MEAN CORPUSCULAR HEMOGLOBIN 27 PG (25-34); MEAN CORPUSCULAR HGB CONC 32 G/DL (32-36); MEAN CORPUSCULAR VOLUME 85 FL (80-99); MEAN PLATELET VOLUME 10.8 FL (7.4-10.4); MONOCYTES # (AUTO) 0.8 X 10^3 (0.0-1.0); MONOCYTES % (AUTO) 9 % (0-12); NEUTROPHILS # (AUTO) 6.9 X 10^3 (1.8-7.8); NEUTROPHILS % (AUTO) 78 % (42-75); PLATELET COUNT 193 10^3/uL (130-400); RED CELL DISTRIBUTION WIDTH 19.3 % (10.0-14.5); WHITE BLOOD COUNT 8.9 10^3/uL (4.3-11.0)
[2019-05-15 10:37] LABS: BILIRUBIN,TOTAL 1.4 MG/DL (0.1-1.0); CALCIUM 8.5 MG/DL (8.5-10.1); CREATININE SERUM 5.53 MG/DL (0.60-1.30); POTASSIUM 5.3 MMOL/L (3.6-5.0); TOTAL PROTEIN 7.5 GM/DL (6.4-8.2)
--- NOTE | 2019-05-15 11:20 | ED Respiratory ---
General Chief Complaint: Respiratory Problems Stated Complaint: WEAKNESS;LEG SWELLING;SOA Nursing Triage Note: TO ED PER [facility] WITH HOME O2 INPLACE AT 3 L NC. DAUGHTER WITH PATIENT REPORTS THAT AT MATTIE TIME WAS PLACED ON KEFLEX FOR 10DAYS HAS JUST FINISHED IT . SAW THE [facility] AT [facility] LAST WEEK AND DIURETIC WAS INCREASED. CON'T TO BE SOB AND INCREASE IN FLUID. ALSO HIS KIDNEY FUNCTION IS POOR. Source: patient, family Exam Limitations: no limitations History of Present Illness Date Seen by Provider: May 15, 2019 Time Seen by Provider: 10:45 Initial Comments Here with report of increasing shortness of breath, weakness, decreased urination, increased shakiness and overall not feeling well. Has had increasing kidney failure and is retaining fluids. Does have history of breast cancer with metastasis to bone that is being treated with hormone therapy as he did not tolerate more advanced chemotherapy. There has been concerns about more significant advancement and he was considering he was unable to dialysis or not. Currently he is feeling worse and would like to consider dialysis. Presents for those concerns. Usually follows in the [facility] system. Primary care doctor is Dr. Navya Noble out of [place]. Timing/Duration: week, getting worse Severity: moderate, severe Prior Episodes/Possible Cause: chronic episodes Modifying Factors: Worse With Activity; Improves With Oxygen, Improves With Rest Associated Symptoms: No chest pain/soreness, No cough, No fever/chills, No nasal congestion, No nasal drainage; shortness of breath; No wheezing Allergies and Home Medications Allergies Coded Allergies: Iodinated Contrast- Oral and IV Dye (Unverified Allergy, Mild, 11/21/18) Penicillins (Unverified Allergy, Mild, 11/21/18) Shellfish (Verified Allergy, Unknown, 11/21/18) amlodipine (Verified Allergy, Unknown, 11/21/18) iodine (Verified Allergy, Unknown, 11/21/18) penicillin G (Verified Allergy, Unknown, 11/21/18) Home Medications Albuterol Sulfate 18 Gm Hfa.aer.ad, 2 PUFF IH QID PRN for SHORTNESS OF BREATH, (Reported) Arformoterol Tartrate 15 Mcg/2 Ml Vial.neb, 15 MCG NEB BID, (Reported) MIXES WITH BUDESONIDE Atorvastatin Calcium 40 Mg Tablet, 40 MG PO HS, (Reported) Budesonide 0.5 Mg/2 Ml Ampul.neb, 0.5 MG NEB BID, (Reported) MIXED WITH BROVANA Buspirone HCl 10 Mg Tablet, 10 MG PO HS PRN for ANXIETY, (Reported) Cetirizine HCl 10 Mg Tablet, 10 MG PO DAILY, (Reported) Cinacalcet HCl 30 Mg Tablet, 30 MG PO DAILY, (Reported) Clopidogrel Bisulfate 75 Mg Tablet, 75 MG PO HS, (Reported) Fenofibrate Nanocrystallized 145 Mg Tablet, 145 MG PO HS, (Reported) Fluticasone Propionate 16 Gm [place], PRN, (Reported) Gabapentin 100 Mg Capsule, 100 MG PO TID, (Reported) Guaifenesin 600 Mg Tab.er.12h, PRN, (Reported) Montelukast Sodium 10 Mg Tablet, 10 MG PO HS, (Reported) Nitroglycerin 0.4 Mg Subl, 0.4 MG SL UD PRN for CHEST PAIN, (Reported) TAKE 1 TABLET EVERY 5 MINUTES X 3 DOSES NEEDED FOR CHEST PAIN Pantoprazole Sodium 40 Mg Tablet.dr, 40 MG PO BID, (Reported) Rivaroxaban 15 Mg Tablet, 15 MG PO HS, (Reported) Tamsulosin HCl 0.4 Mg Cap.er.24h, 0.4 MG PO HS, (Reported) Patient Home Medication List Home Medication List Reviewed: Yes Review of Systems Review of Systems Constitutional: see HPI; No chills, No fever; malaise, weakness EENTM: no symptoms reported Respiratory: No cough; short of breath; No wheezing Cardiovascular: No chest pain; edema; No palpitations Gastrointestinal: abdominal pain (suprapubic) Genitourinary: decreased output, frequency; No pain Musculoskeletal: no symptoms reported Skin: no symptoms reported Psychiatric/Neurological: No Symptoms Reported All Other Systems Reviewed Negative Unless Noted: Yes Past Caxujtm-Rcnsoq-Gxiuez Hx Past Med/Social Hx: Reviewed Nursing Past Med/Soc Hx Patient Social History Alcohol Use: Denies Use Recreational Drug Use: Yes (smoke) Type Used: Cigarettes 2nd Hand Smoke Exposure: No Recent Foreign Travel: No Contact w/Someone Who Travel: No Recent Infectious Disease Expo: No Recent Hopitalizations: No Immunizations Up To Date Tetanus Booster (TDap): Unknown PED Vaccines UTD: No Date of Pneumonia Vaccine: May 13, 2014 Date of Influenza Vaccine: Feb 11, 2016 Seasonal Allergies Seasonal Allergies: Yes Past Medical History Surgeries: Yes Abdominal, Appendectomy, Breast, Cardiac, Coronary Stent, Defibrillator, Orthopedic, Pacemaker Respiratory: Yes (wears oxygen at all times 2-3L; CPAP) Asthma, Pneumonia, Sleep Apnea, COPD, Emphysema Currently Using CPAP: Yes Currently Using BIPAP: No Cardiac: Yes Angina, Atrial Fibrillation, Cardiomyopathy, Chronic Edema/Swelling, Coronary Artery Disease, Deep Vein Thrombosis, Heart Attack, Heart Murmur, High Choles terol, Hypertension, Irregular Heartbeat, Valvular Heart Disease Neurological: Yes TIA Reproductive Disorders: No Sexually Transmitted Disease: No Genitourinary: Yes (CHRONIC KIDNEY DISEASE STAGE 3) Benign Prostatic Hyperpl, Renal Failure Gastrointestinal: Yes (DIVERTICULITIS WITH SMALL PERFORATION--NO SURGERY) Gastroesophageal Reflux, Diverticulosis Musculoskeletal: Yes Degenerate Disk Disease, Arthritis, Chronic Back Pain Endocrine: Yes (OBESITY; PARATHYROIDECTOMY FOR BENIGN TUMOR; HYPERCALCEMIA; HYPERKALEMIA) Parathyroid Disease, Diabetes, Non-Insulin dep HEENT: Yes Cataract Cancer: Yes Breast Did You Recieve Any Treatments: Yes What Type of Treatment Did You: Chemotherapy, Surgical Intervention Psychosocial: Yes Anxiety Integumentary: No Blood Disorders: No Family Medical History Reviewed Nursing Family Hx Arthritis 19 FATHER Cardiovascular disease 19 FATHER FH: breast cancer 19 MOTHER Respiratory disorder 19 FATHER Physical Exam Vital Signs - First Documented 05/15/19 09:52 Temp 35.7 Pulse 80 Resp 18 B/P (MAP) 142/111 (121) Pulse Ox 94 O2 Delivery Nasal Cannula O2 Flow Rate 2.00 Capillary Refill : Less Than 3 Seconds Height: 5'7.00" Weight: 250lbs. 5.0oz. 113.293968mg; 39.00 BMI Method:Stated General Appearance: WD/WN, mild distress, obese HEENT: PERRL/EOMI, pharynx normal Neck: full range of motion, supple Respiratory: decreased breath sounds (obesity limited), crackles (bilateral bases) Cardiovascular: regular rate, rhythm, no murmur Gastrointestinal: non tender, soft Extremities: no calf tenderness, pedal edema (4+ bilateral lower extremities to at least the level of the knees), other (has tremors noted that worsen with movement) Neurologic/Psychiatric: alert, normal mood/affect, oriented x 3 Skin: normal color, warm/dry Progress/Results/Core Measures Suspected Sepsis Recent Fever Within 48 Hours: No Infection Criteria Present: None New/Unexplained Altered Menta: No Sepsis Screen: No Definite Risk SIRS Temperature: Pulse: 80 Respiratory Rate: 18 Laboratory Tests 05/15/19 10:10: White Blood Count 8.9 Blood Pressure 142 /111 Mean: 121 Laboratory Tests 05/15/19 10:10: Creatinine 5.53H, Platelet Count 193, Total Bilirubin 1.4H Results/Orders Lab Results Laboratory Tests Test 05/15/19 10:10 05/15/19 11:25 Range/Units White Blood Count 8.9 4.3-11.0 10^3/uL Red Blood Count 3.46 L 4.35-5.85 10^6/uL Hemoglobin 9.3 L 13.3-17.7 G/DL Hematocrit 29 L 40-54 % Mean Corpuscular Volume 85 80-99 FL Mean Corpuscular Hemoglobin 27 25-34 PG Mean Corpuscular Hemoglobin Concent 32 32-36 G/DL Red Cell Distribution Width 19.3 H 10.0-14.5 % Platelet Count 193 130-400 10^3/uL Mean Platelet Volume 10.8 H 7.4-10.4 FL Neutrophils (%) (Auto) 78 H 42-75 % Lymphocytes (%) (Auto) 12 12-44 % Monocytes (%) (Auto) 9 0-12 % Eosinophils (%) (Auto) 1 0-10 % Basophils (%) (Auto) 1 0-10 % Neutrophils # (Auto) 6.9 1.8-7.8 X 10^3 Lymphocytes # (Auto) 1.1 1.0-4.0 X 10^3 Monocytes # (Auto) 0.8 0.0-1.0 X 10^3 Eosinophils # (Auto) 0.1 0.0-0.3 10^3/uL Basophils # (Auto) 0.0 0.0-0.1 10^3/uL Sodium Level 137 135-145 MMOL/L Potassium Level 5.3 H 3.6-5.0 MMOL/L Chloride Level 95 L 98-107 MMOL/L Carbon Dioxide Level 29 21-32 MMOL/L Anion Gap 13 5-14 MMOL/L Blood Urea Nitrogen 80 H 7-18 MG/DL Creatinine 5.53 H 0.60-1.30 MG/DL Estimat Glomerular Filtration Rate 11 BUN/Creatinine Ratio 14 Glucose Level 115 H 70-105 MG/DL Calcium Level 8.5 8.5-10.1 MG/DL Corrected Calcium 9.3 8.5-10.1 MG/DL Total Bilirubin 1.4 H 0.1-1.0 MG/DL Aspartate Amino Transf (AST/SGOT) 83 H 5-34 U/L Alanine Aminotransferase (ALT/SGPT) 28 0-55 U/L Alkaline Phosphatase 44 40-136 U/L Troponin I 0.262 H <0.028 NG/ML C-Reactive Protein High Sensitivity 3.52 H 0.00-0.50 MG/DL B-Type Natriuretic Peptide 2522.8 H <100.0 PG/ML Total Protein 7.5 6.4-8.2 GM/DL Albumin 3.0 L 3.2-4.5 GM/DL Thyroid Stimulating Hormone (TSH) 4.84 0.35-4.94 UIU/ML Urine Color YELLOW Urine Clarity CLEAR Urine pH 6.5 5-9 Urine Specific [place] 1.015 L 1.016-1.022 Urine Protein 1+ H NEGATIVE Urine Glucose (UA) NEGATIVE NEGATIVE Urine Ketones NEGATIVE NEGATIVE Urine Nitrite NEGATIVE NEGATIVE Urine Bilirubin NEGATIVE NEGATIVE Urine Urobilinogen 1.0 < = 1.0 MG/DL Urine Leukocyte Esterase NEGATIVE NEGATIVE Urine RBC (Auto) NEGATIVE NEGATIVE Urine RBC NONE /HPF Urine WBC RARE /HPF Urine Crystals NONE /LPF Urine Bacteria NEGATIVE /HPF Urine Casts PRESENT /LPF Urine Hyaline Casts 2-5 H /LPF Urine Mucus NEGATIVE /LPF Urine Culture Indicated NO My Orders Orders - CHINO ELLIS MD Ed Iv/Invasive Line Start (05/15/19 10:13) Ekg Tracing (05/15/19 10:13) O2 (05/15/19 10:13) Chest 1 View, Ap/Pa Only (05/15/19 10:13) BNP (05/15/19 10:13) Cbc With Automated Diff (05/15/19 10:13) Comprehensive Metabolic Panel (05/15/19 10:13) Hs C Reactive Protein (05/15/19 10:13) Thyroid Stimulating Hormone (05/15/19 10:13) Troponin I (05/15/19 10:13) Ua Culture If Indicated (05/15/19 11:20) Vital Signs/I&O 05/15/19 05/15/19 09:52 09:52 Temp 35.7 Pulse 80 Resp 18 B/P (MAP) 142/111 (121) Pulse Ox 94 94 O2 Delivery Nasal Cannula Nasal Cannula O2 Flow Rate 2.00 Capillary Refill : Less Than 3 Seconds Blood Pressure Mean: 121 Progress Note : Progress Note Seen and evaluated. IV, labs, EKG and chest x-ray ordered. We will check a UA as well. I did discuss at length with the patient and family regarding the need for nephrology evaluation which we do not have here. We will complete initial evaluation process and then transfer to the [facility] system where he is a known patient. There is concerns about the need for dialysis but has complicating factors of metastatic cancer. Patient does want to pursue evaluation for dialysis so we will arrange for transfer. Monitor patient. 1210: I have discussed the case with the solar project coordination specialist at [facility] in [place], [place]. While patient does need transfer, he does not meet ICU criteria yet. He will need transfer to a medical bed but they do not have a medical bed currently available but anticipate one coming up soon. We are awaiting for bed to open up and then I will talk with the hospitalist. All of this was discussed with the patient and family. He does not want to pursue transfer to another Center and wants to go there so we will continue to try for transfer to [facility]. We will change the patient from the ER cot to an inpatient bed for comfort while in the ER. Monitor patient. 1234: Patient has been accepted at [facility] in [place], [place], Dr. Tellez accepting. We're awaiting bed assignment. Family updated. 1310: Bed assignment received. Dispatch notified of transfer. Report given to cover for transfer. Patient and family agree. ECG Initial ECG Impression Date: May 15, 2019 Initial ECG Impression Time: 10:31 Initial ECG Rate: 73 Comment Sinus rhythm with first degree AV block and with left bundle branch block. No evidence of ST elevation LA. Similar to previous of . Interpreted by me. Diagnostic Imaging Diagonstic Imaging: Xray Plain Films/CT/US/NM/MRI: chest Comments NAME: JAGRUTI GARCIA MED REC#: [id number] PT STATUS: REG ER : 1960 PHYSICIAN: CHINO ELLIS MD ADMIT DATE: 05/15/19/ER Draft Date of Exam:05/15/19 CHEST 1 VIEW, AP/PA ONLY INDICATION: Shortness of breath. COMPARISON: 01/01/2019. FINDINGS: Enlargement of the heart is unchanged from prior. Some new left perihilar infiltrate or partial atelectasis has developed. There does appear to be a small left pleural effusion. There may be mild interstitial edema. Innumerable bony sclerotic foci are unchanged. ICD device and midline sternal wires are stable. IMPRESSION: Similar cardiomegaly; however, vascular congestion, left perihilar infiltrate or atelectasis, a small left effusion, and likely mild edema have developed with multifocal background osteosclerotic bony lesions unchanged. Dictated on workstation # [id number] Dict: 05/15/19 1130 Trans: 05/15/19 1134 [id number] Interpreted by: JAYMIE PAYNE Electronically signed by: Departure Impression Primary Impression: End stage renal disease Additional Impressions: Volume overload Qualified Codes: E87.70 - Fluid overload, unspecified Breast cancer metastasized to bone Qualified Codes: C50.919 - Malignant neoplasm of unspecified site of unspecified female breast; C79.51 - Secondary malignant neoplasm of bone Heart failure Qualified Codes: I50.9 - Heart failure, unspecified Disposition: 02 XFER SHT-TRM HOSP Condition: Stable Transfer Transfer Reason: Exceeds level of care Time Spoke to Accepting Phy: 12:34 Transfer Progress Notes 1234: Pending bed assignment but have accepting physician. Transfer Facility: [place], [place], Dr. Tellez and accepting Method of Transfer: EMS Departure-Patient Inst. Referrals: NAVYA NOBLE MD (PCP/Family) Primary Care Physician CHINO ELLIS MD May 15, 2019 11:20
--- NOTE | 2019-05-15 11:35 | Diagnostic Imaging Report ---
INDICATION: Shortness of breath. COMPARISON: 01/01/2019. FINDINGS: Enlargement of the heart is unchanged from prior. Some new left perihilar infiltrate or partial atelectasis has developed. There does appear to be a small left pleural effusion. There may be mild interstitial edema. Innumerable bony sclerotic foci are unchanged. ICD device and midline sternal wires are stable. IMPRESSION: Similar cardiomegaly; however, vascular congestion, left perihilar infiltrate or atelectasis, a small left effusion, and likely mild edema have developed with multifocal background osteosclerotic bony lesions unchanged. Dictated by: Dictated on workstation # [id number]
[2019-05-15 11:36] LABS: BILIRUBIN,URINE NEGATIVE (NEGATIVE); CLARITY,URINE CLEAR; COLOR,URINE YELLOW; GLUCOSE, URINE (UA) NEGATIVE (NEGATIVE); KETONES,URINE NEGATIVE (NEGATIVE); LEUKOCYTE ESTERASE ,URINE NEGATIVE (NEGATIVE); NITRITE,URINE NEGATIVE (NEGATIVE); PH,URINE 6.5 (5-9); PROTEIN,URINE 1+ (NEGATIVE)
[2019-05-15 11:45] LABS: BACTERIA,URINE NEGATIVE /HPF; WBC,URINE RARE /HPF
--- NOTE | 2019-05-15 12:08 | NUR ---
DR ELLIS TALKED WITH [facility] ABOUT TRANSFER WILL CALL BACK.
--- NOTE | 2019-05-15 12:12 | NUR ---
[facility] HAS NO MEDICAL BED PLAN TO KEEP IN ED TILL BE OPENS UP AT [facility] FAMILY AWARE PLAN TO PUT PATIENT ON HOSPITAL BED.
--- NOTE | 2019-05-15 13:05 | NUR ---
[facility] HAS ACCEPTED PATIENT WILL WAIT FOR BED PATIENT PLACED IN HOSPITAL BED.
[2019-05-15 13:27] VITALS: BP 110/57
--- NOTE | 2019-05-15 13:27 | NUR ---
REPORT TO [facility]
== END 2019-05-15 13:42 | disposition short-term general hospital (02) ==
LOC: EDUNIT# 09:52 → ER 09:53
DX: E11.22 Type 2 diabetes mellitus with diabetic chronic kidney disease (principal); I13.2 Hypertensive heart and chronic kidney disease with heart failure and with stage 5 chronic kidney disease, or end stage renal disease; I50.9 Heart failure, unspecified; N18.6 End stage renal disease; C50.919 Malignant neoplasm of unspecified site of unspecified female breast; C79.51 Secondary malignant neoplasm of bone; I48.91 Unspecified atrial fibrillation; I25.10 Atherosclerotic heart disease of native coronary artery without angina pectoris; I25.2 Old myocardial infarction; E78.00 Pure hypercholesterolemia, unspecified; F41.9 Anxiety disorder, unspecified; K21.9 Gastro-esophageal reflux disease without esophagitis; E66.9 Obesity, unspecified; Z86.718 Personal history of other venous thrombosis and embolism; Z91.041 Radiographic dye allergy status; Z88.0 Allergy status to penicillin; Z88.8 Allergy status to other drugs, medicaments and biological substances; Z79.02 Long term (current) use of antithrombotics/antiplatelets; Z79.01 Long term (current) use of anticoagulants; Z86.73 Personal history of transient ischemic attack (TIA), and cerebral infarction without residual deficits; Z90.49 Acquired absence of other specified parts of digestive tract; Z95.5 Presence of coronary angioplasty implant and graft; Z95.810 Presence of automatic (implantable) cardiac defibrillator; Z99.81 Dependence on supplemental oxygen; Z82.49 Family history of ischemic heart disease and other diseases of the circulatory system; Z80.3 Family history of malignant neoplasm of breast; Z68.39 Body mass index [BMI] 39.0-39.9, adult
CPT/HCPCS: 36415; 71045; 80053; 81000; 83880; 84443; 84484; 85025; 86141; 93005

== ENCOUNTER 2019-06-16 03:35 | Emergency (ER) | payer MEDICARE, MEDICAID ==
[~2019-06-16] VITALS: Ht 173 cm; Wt 118.0 kg
[~2019-06-16 03:35] MED LIST changes: -GLIM2TAB PO; +GLIM2TAB2 PO; -METO-387; -METO-395 PO; +MTP100TCR PO; +MTP25TSR; -TAMS0.4C98; +TMSL.4C
[2019-06-16] MEDS ORDERED: NS IV 500 ML 500 ML IV ONE (03:46)
[2019-06-16] MEDS ORDERED: NS IV 1000 ML 1,000 ML IV SCH (03:46)
[2019-06-16 04:03] LABS: BASOPHILS % (AUTO) 0 % (0-10); EOSINOPHILS % (AUTO) 0 % (0-10); HEMATOCRIT 26 % (40-54); LYMPHOCYTES # (AUTO) 1.4 X 10^3 (1.0-4.0); LYMPHOCYTES % (AUTO) 16 % (12-44); MEAN CORPUSCULAR HEMOGLOBIN 27 PG (25-34); MEAN CORPUSCULAR HGB CONC 31 G/DL (32-36); MEAN CORPUSCULAR VOLUME 87 FL (80-99); MEAN PLATELET VOLUME 11.4 FL (7.4-10.4); MONOCYTES # (AUTO) 0.9 X 10^3 (0.0-1.0); MONOCYTES % (AUTO) 10 % (0-12); NEUTROPHILS # (AUTO) 6.6 X 10^3 (1.8-7.8); NEUTROPHILS % (AUTO) 73 % (42-75); PLATELET COUNT 123 10^3/uL (130-400); RED CELL DISTRIBUTION WIDTH 25.1 % (10.0-14.5); WHITE BLOOD COUNT 9.1 10^3/uL (4.3-11.0)
--- NOTE | 2019-06-16 04:03 | ED Fall/Injury ---
General Stated Complaint: LOW BLOOD PRESSURE Source: patient, EMS Exam Limitations: no limitations History of Present Illness Date Seen by Provider: Jun 16, 2019 Time Seen by Provider: 03:40 Initial Comments Patient presents to ER by EMS from home with chief complaint that he had another syncopal episode and nearly fall. He said he was caught by his son who was watching him and he did not strike his head but he is on Eliquis. He has worsening chronic kidney disease recently going on hemodialysis using a right- sided double-lumen dialysis catheter on Tuesday, and Tuesday. He has not missed any dialysis events recently. they took a liter off of him. He's been and [facility] and was released on midodrine 10 mg 3 times a day. His daughter who he lives with his nurse practitioner and she calls and gives report ahead of time stating that his normal systolic blood pressure is 80-90 on a good day and today it was around 70/40 so while she was at work his son stayed with him tonight. He had a fall 2 days ago all right toe. He stubbed it again tonight. He is known to primary care Dr. Noble, Dr. Lawler, cardiology, and Dr. Golden nephrology. They are considering starting a fistula up if necessary but have not done that yet. He has an occasional nonproductive cough. He denies any fever or chills. He is not having any chest pain. His weakness and syn copal/near syncopal episodes having going on for several weeks now. History of ESRD on dialysis since May 2019, hypertension, hypertrophic cardiomegaly, type 2 diabetes, CHF, SERA, CAD with 2-3 stents, no COPD, ventricular tachycardia, atrial fibrillation, diverticulosis, BPH, breast cancer with metastasis to bones, cardioverter defibrillator and continues to smoke cigarettes. Allergies and Home Medications Allergies Coded Allergies: Iodinated Contrast- Oral and IV Dye (Unverified Allergy, Mild, 11/21/18) Penicillins (Unverified Allergy, Mild, 11/21/18) Shellfish (Verified Allergy, Unknown, 11/21/18) amlodipine (Verified Allergy, Unknown, 11/21/18) iodine (Verified Allergy, Unknown, 11/21/18) penicillin G (Verified Allergy, Unknown, 11/21/18) Home Medications Albuterol Sulfate 18 Gm Hfa.aer.ad, 2 PUFF IH QID PRN for SHORTNESS OF BREATH, (Reported) Arformoterol Tartrate 15 Mcg/2 Ml Vial.neb, 15 MCG NEB BID, (Reported) MIXES WITH BUDESONIDE Atorvastatin Calcium 40 Mg Tablet, 40 MG PO HS, (Reported) Budesonide 0.5 Mg/2 Ml Ampul.neb, 0.5 MG NEB BID, (Reported) MIXED WITH BROVANA Buspirone HCl 10 Mg Tablet, 10 MG PO HS PRN for ANXIETY, (Reported) Cetirizine HCl 10 Mg Tablet, 10 MG PO DAILY, (Reported) Cinacalcet HCl 30 Mg Tablet, 30 MG PO DAILY, (Reported) Clopidogrel Bisulfate 75 Mg Tablet, 75 MG PO HS, (Reported) Fenofibrate Nanocrystallized 145 Mg Tablet, 145 MG PO HS, (Reported) Fluticasone Propionate 16 Gm [place], PRN, (Reported) Gabapentin 100 Mg Capsule, 100 MG PO TID, (Reported) Guaifenesin 600 Mg Tab.er.12h, PRN, (Reported) Montelukast Sodium 10 Mg Tablet, 10 MG PO HS, (Reported) Nitroglycerin 0.4 Mg Subl, 0.4 MG SL UD PRN for CHEST PAIN, (Reported) TAKE 1 TABLET EVERY 5 MINUTES X 3 DOSES NEEDED FOR CHEST PAIN Pantoprazole Sodium 40 Mg Tablet.dr, 40 MG PO BID, (Reported) Rivaroxaban 15 Mg Tablet, 15 MG PO HS, (Reported) Tamsulosin HCl 0.4 Mg Cap.er.24h, 0.4 MG PO HS, (Reported) Patient Home Medication List Home Medication List Reviewed: Yes Review of Systems Review of Systems Constitutional: No chills, No fever, No malaise Eyes: Denies Blindness, Denies Blurred Vision Ears, Nose, Mouth, Throat: denies ear pain, denies ear discharge Respiratory: No cough, No short of breath Cardiovascular: No chest pain, No edema; Hx of Intervention, syncope, vascular heart diseas Gastrointestinal: No abdominal pain, No constipation, No diarrhea, No nausea, No vomiting Genitourinary: No discharge, No dysuria Musculoskeletal: No back pain, No joint pain All Other Systems Reviewed Negative Unless Noted: Yes Past Hmxhlns-Xuxmfk-Snuqrh Hx Patient Social History Alcohol Use: Denies Use Recreational Drug Use: No Smoking Status: Current Everyday Smoker Type Used: Cigarettes 2nd Hand Smoke Exposure: No Recent Foreign Travel: No Contact w/Someone Who Travel: No Recent Hopitalizations: No Immunizations Up To Date Tetanus Booster (TDap): Unknown PED Vaccines UTD: No Date of Pneumonia Vaccine: May 13, 2014 Date of Influenza Vaccine: Feb 11, 2016 Seasonal Allergies Seasonal Allergies: Yes Past Medical History Surgeries: Yes Abdominal, Appendectomy, Breast, Cardiac, Coronary Stent, Defibrillator, Orthopedic, Pacemaker Respiratory: Yes (wears oxygen at all times 2-3L; CPAP) Asthma, Pneumonia, Sleep Apnea, COPD, Emphysema Currently Using CPAP: Yes Currently Using BIPAP: No Cardiac: Yes Angina, Atrial Fibrillation, Cardiomyopathy, Chronic Edema/Swelling, Coronary Artery Disease, Deep Vein Thrombosis, Heart Attack, Heart Murmur, High Cholesterol, Hypertension, Irregular Heartbeat, Valvular Heart Disease Neurological: Yes TIA Reproductive Disorders: No Sexually Transmitted Disease: No Genitourinary: Yes (CHRONIC KIDNEY DISEASE STAGE 3) Benign Prostatic Hyperpl, Renal Failure Gastrointestinal: Yes (DIVERTICULITIS WITH SMALL PERFORATION--NO SURGERY) Gastroesophageal Reflux, Diverticulosis Musculoskeletal: Yes Degenerate Disk Disease, Arthritis, Chronic Back Pain Endocrine: Yes (OBESITY; PARATHYROIDECTOMY FOR BENIGN TUMOR; HYPERCALCEMIA; H YPERKALEMIA) Parathyroid Disease, Diabetes, Non-Insulin dep HEENT: Yes Cataract Cancer: Yes Breast Did You Recieve Any Treatments: Yes What Type of Treatment Did You: Chemotherapy, Surgical Intervention Psychosocial: Yes Anxiety Integumentary: No Blood Disorders: No Family Medical History Arthritis 19 FATHER Cardiovascular disease 19 FATHER FH: breast cancer 19 MOTHER Respiratory disorder 19 FATHER Physical Exam Vital Signs Vital Signs - First Documented 06/16/19 06/16/19 03:40 03:43 Temp 37.0 Pulse 89 Resp 20 B/P (MAP) 77/38 Pulse Ox 98 O2 Delivery Nasal Cannula O2 Flow Rate 4.00 Capillary Refill : Height, Weight, BMI Height: 5'7.00" Weight: 250lbs. 5.0oz. 113.739562mn; 39.00 BMI Method:Stated General Appearance: WD/WN, no apparent distress HEENT: PERRL/EOMI, normal ENT inspection, pharynx normal, other (scleral icterus.) Neck: full range of motion, supple, normal inspection Cardiovascular: normal peripheral pulses, regular rate, rhythm Respiratory: lungs clear, no respiratory distress, no accessory muscle use, decreased breath sounds Peripheral Pulses: 1+ Radial Pulses (R), 1+ Radial Pulses (L) Gastrointestinal: normal bowel sounds, non tender, soft, no organomegaly Extremities: slow capillary refill (.), other (right great toe is berta taped with ecchymoses and tenderness to palpation) Neurologic/Psychiatric: shellfish checker II-XII nml as tested, no motor/sensory deficits, alert, normal mood/affect Skin: normal color, warm/dry, ecchymosis (right great toe) Asif Coma Score Best Eye Response: (4) Open Spontaneously Best Verbal Response: (5) Oriented Best Motor Response: (6) Obeys Commands Asif Total: 15 Progress/Results/Core Measures Results/Orders Lab Results Laboratory Tests Test 06/16/19 03:43 06/16/19 05:30 Range/Units White Blood Count 9.1 4.3-11.0 10^3/uL Red Blood Count 2.99 L 4.35-5.85 10^6/uL Hemoglobin 8.0 L 13.3-17.7 G/DL Hematocrit 26 L 40-54 % Mean Corpuscular Volume 87 80-99 FL Mean Corpuscular Hemoglobin 27 25-34 PG Mean Corpuscular Hemoglobin Concent 31 L 32-36 G/DL Red Cell Distribution Width 25.1 H 10.0-14.5 % Platelet Count 123 L 130-400 10^3/uL Mean Platelet Volume 11.4 H 7.4-10.4 FL Neutrophils (%) (Auto) 73 42-75 % Lymphocytes (%) (Auto) 16 12-44 % Monocytes (%) (Auto) 10 0-12 % Eosinophils (%) (Auto) 0 0-10 % Basophils (%) (Auto) 0 0-10 % Neutrophils # (Auto) 6.6 1.8-7.8 X 10^3 Lymphocytes # (Auto) 1.4 1.0-4.0 X 10^3 Monocytes # (Auto) 0.9 0.0-1.0 X 10^3 Eosinophils # (Auto) 0.0 0.0-0.3 10^3/uL Basophils # (Auto) 0.0 0.0-0.1 10^3/uL Prothrombin Time 21.8 H 12.2-14.7 SEC INR Comment 1.8 H 0.8-1.4 Activated Partial Thromboplast Time 39 H 24-35 SEC Sodium Level 135 135-145 MMOL/L Potassium Level 3.0 L 3.6-5.0 MMOL/L Chloride Level 96 L 98-107 MMOL/L Carbon Dioxide Level 28 21-32 MMOL/L Anion Gap 11 5-14 MMOL/L Blood Urea Nitrogen 19 H 7-18 MG/DL Creatinine 4.84 H 0.60-1.30 MG/DL Estimat Glomerular Filtration Rate 12 BUN/Creatinine Ratio 4 Glucose Level 102 70-105 MG/DL Lactic Acid Level 3.26 *H 0.50-2.00 MMOL/L Calcium Level 9.0 8.5-10.1 MG/DL Corrected Calcium 10.0 8.5-10.1 MG/DL Total Bilirubin 2.5 H 0.1-1.0 MG/DL Aspartate Amino Transf (AST/SGOT) 84 H 5-34 U/L Alanine Aminotransferase (ALT/SGPT) 37 0-55 U/L Alkaline Phosphatase 57 40-136 U/L Troponin I 0.117 H <0.028 NG/ML Total Protein 6.8 6.4-8.2 GM/DL Albumin 2.8 L 3.2-4.5 GM/DL Urine Color BROWN H Urine Clarity CLOUDY Urine pH 5.0 5-9 Urine Specific [place] 1.025 H 1.016-1.022 Urine Protein 3+ H NEGATIVE Urine Glucose (UA) TRACE H NEGATIVE Urine Ketones 1+ H NEGATIVE Urine Nitrite POSITIVE H NEGATIVE Urine Bilirubin 3+ H NEGATIVE Urine Urobilinogen 1.0 < = 1.0 MG/DL Urine Leukocyte Esterase NEGATIVE NEGATIVE Urine RBC (Auto) NEGATIVE NEGATIVE Urine RBC NONE /HPF Urine WBC RARE /HPF Urine Squamous Epithelial Cells 0-2 /HPF Urine Crystals PRESENT H /LPF Urine Amorphous Sediment LARGE RONDA URATES H /LPF Urine Bacteria FEW H /HPF Urine Casts NONE /LPF Urine Mucus SMALL H /LPF Urine Culture Indicated CULTURE PENDING Micro Results Microbiology 06/16/19 Influenza Types A,B Antigen (EMILY) - Final, Complete My Orders Orders - CHEO FLANNERY Cbc With Automated Diff (06/16/19 03:46) Comprehensive Metabolic Panel (06/16/19 03:46) Blood Culture (06/16/19 03:46) Sputum Culture (06/16/19 03:46) Urinalysis (06/16/19 03:46) Urine Culture (06/16/19 03:46) Protime With Inr (06/16/19 03:46) Partial Thromboplastin Time (06/16/19 03:46) Chest 1 View, Ap/Pa Only (06/16/19 03:46) Ed Iv/Invasive Line Start (06/16/19 03:46) Ed Iv/Invasive Line Start (06/16/19 03:46) Ekg Tracing (06/16/19 03:46) Troponin I (06/16/19 03:46) Vital Signs Adult Sepsis Patie Q15M (06/16/19 03:46) O2 (06/16/19 03:46) Remove Rings In Anticipation O (06/16/19 03:46) Lactic Acid Analyzer (06/16/19 03:46) Influenza A And B Antigens (06/16/19 03:46) Ns Iv 1000 Ml (Sodium Chloride 0.9%) (06/16/19 03:46) Ed Iv/Invasive Line Start (06/16/19 03:46) Ns Iv 500 Ml (Sodium Chloride 0.9%) (06/16/19 03:46) Shoulder, Left, 3 Views (06/16/19 03:53) Shoulder, Right, 3 Views (06/16/19 03:53) Ct Head/Cervical Spine Wo (06/16/19 04:10) Toe(S) (06/16/19 04:10) Ct Abdomen/Pelvis Wo (06/16/19 04:35) Straight Cath (Urinary) (06/16/19 05:30) Medications Given in ED Current Medications Medications Dose Ordered Sig/Rebecca Route Start Time Stop Time Status Last Admin Dose Admin Sodium Chloride 500 ml @ 0 mls/hr Q0M ONCE IV 06/16/19 03:46 06/16/19 03:54 DC 06/16/19 03:57 0 MLS/HR Vital Signs/I&O 06/16/19 06/16/19 06/16/19 03:40 03:43 04:05 Temp 37.0 37.0 Pulse 89 89 Resp 20 20 B/P (MAP) 77/38 77/38 (51) Pulse Ox 98 98 98 O2 Delivery Nasal Cannula Nasal Cannula Nasal Cannula O2 Flow Rate 4.00 4.00 Progress Progress Note #1: Time: 04:08 Progress Note Patient has chronic hypotension related to extensive cardiac and renal disease. His blood pressure presently is 81/37 map of 58 which according to his daughter who takes care of him is pretty acceptable for him lately. We'll trial a 20 mL/kg fluid bolus based on an ideal body weight adjusted at 184 pounds. 1500 cc. 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 Because on Eliquis plan to get a CT of the head and neck and we will re-x-ray his toe. X-ray of the shoulders which are tender but have full range of motion and no deformity. The EKG has a lot of artifact. If no evidence of significant injury, infection and his blood pressure maintains and would probably let him go home and go to dialysis today. Progress Note #2: Time: 04:33 Progress Note Hemoglobin is 8.0, borderline needing a transfusion. We can have him check an H&H outpatient next week. He complains of some bleeding hemorrhoids and this can be addressed by primary care or general surgery outpatient. His INR significantly elevated at 1.8 and he has elevated bilirubin which is consistent with his scleral icterus. Typically his bilirubins ran around 1.4 but today it's shot up to 2.5. An ultrasound would be preferable but we won't have that today or tomorrow. We'll get a CT noncontrast looking for ductal dilatation, obstruction etc. He is not having any nausea or abdominal pain. He does have a history of breast cancer with metastases. No history of cholecystectomy. The elevated troponin and lactic acid are incidental to his dialysis and unrema rkable. Progress Note #3: Time: 05:[address] doesn't show any ductal dilatation or choledocholithiasis. He does have gallbladder stonea but he is asymptomatic so this can be further worked up outpatient in the next 1-2 weeks. He should probably go home and keep his appointment at dialysis today. His blood pressure was stable at his baseline of 89/53. Imaging failed to reveal any new fractures or significant changes. We'll attempt to obtain urinalysis by straight catheter however if he cannot produce any urine this could be checked later. He will require a H&H in the outpatient side which we have communicated to his daughter, Paula. Would not change in his medications at this time. No acute evidence of infection so far. Straight catheter was able to produce about 30 cc of concentrated urine. Progress Note #4: Time: 05:58 Progress Note Nitrite positive urinalysis without any white blood cells. He is having some minor symptoms of dysuria so we have offered to start antibiotics and follow the urine culture. We will give him his first Dose this morning and then after dialysis he can take it again this evening. Initial ECG Impression Date: Jun 16, 2019 Initial ECG Impression Time: 04:13 Initial ECG Rate: 91 Initial ECG Intervals: QT (562) Initial ECG Impression: Nonspecific Changes Initial ECG Comparisson: Unchanged Comment Unchanged from previous EKGs. Atrial fibrillation with a ventricular rate of 91 and prolonged QTC. Left bundle branch block. Negative for Sgarbossa's criteria 1, 2 or 3[address] Negative for ST elevation AK. Diagnostic Imaging Diagonstic Imaging: Xray Plain Films/CT/US/NM/MRI: chest (1v) Comments No acute cardiopulmonary processes noted. Several sclerotic metastatic lesions noted. Reviewed: Reviewed by Me Diagonstic Imaging: Xray Plain Films/CT/US/NM/MRI: other (bilateral shoulders) Comments Several metastatic lesions noted but no acute fracture or dislocation. Reviewed: Reviewed by Me Diagonstic Imaging: Xray Plain Films/CT/US/NM/MRI: other (right great toe) Comments No new fracture. Reviewed: Reviewed by Me Diagonstic Imaging: CT (without IV contrast) Plain Films/CT/US/NM/MRI: c-spine, head Comments No acute findings in the head or brain. No fracture within cervical spine. Numerous scattered sclerotic metastatic lesions. Moderate left pleural effusion. Groundglass opacity in the airspace of the right upper lobe. Reviewed: Reviewed [place] Study, Reviewed by Me Diagonstic Imaging: CT Plain Films/CT/US/NM/MRI: abdomen, pelvis Comments Cholelithiasis without cholecystitis and no evidence of ductal dilatation. Cirrhotic appearing liver. Splenomegaly and some ascites. Moderate left and trace right pleural effusions. 3 and blood nodularity within the right middle lobe infectious versus inflammatory. Innumerable sclerotic metastatic lesions. Descending and sigmoid diverticulosis without diverticulitis. Reviewed: Reviewed [place] Study, Reviewed by Me Focused Exam Lactate Level 2/8/20 03:43: Lactic Acid Level 3.26*H Lactic Acid Level Laboratory Tests Test 06/16/19 03:43 Lactic Acid Level 3.26 MMOL/L (0.50-2.00) *H Departure Impression Primary Impression: Near syncope Additional Impressions: Fall Qualified Codes: W19.XXXA - Unspecified fall, initial encounter Toe pain, right Hyperbilirubinemia Chronic anemia Hypotension, chronic UTI (urinary tract infection) Qualified Codes: N30.00 - Acute cystitis without hematuria Disposition: HOME, SELF-CARE Condition: Stable Departure-Patient Inst. Decision time for Depature: 06:01 Referrals: KIMANI NOBLE MD (PCP/Family) Primary Care Physician Patient Instructions: Near Fainting (DC) Add. Discharge Instructions: Continue berta taping the 2 toes together. You need to follow up outpatient with your primary doctor for a repeat hemoglobin next week or if your symptoms get worse sooner. Your bilirubin has elevated likely related to scarring of your liver and will need further evaluation through your primary care office or referral to a house repairer. If you're still having significant bleeding per rectum then you can have your primary care doctor, house repairer or the general surgeon evaluate with a scope to determine if some intervention would be helpful to reduce bleeding. Keep your appointment at dialysis today. Scripts Cephalexin (Keflex) 500 Mg Capsule 500 MG PO BID for 7 Days, #14 CAP 0 Refills Prov: CHEO FLANNERY 06/16/19 CHEO FLANNERY Jun 16, 2019 04:03
[2019-06-16 04:13] LABS: INR 1.8 (0.8-1.4); PROTHROMBIN TIME PATIENT 21.8 SEC (12.2-14.7)
[2019-06-16 04:19] LABS: ALBUMIN 2.8 GM/DL (3.2-4.5); BILIRUBIN,TOTAL 2.5 MG/DL (0.1-1.0); CREATININE SERUM 4.84 MG/DL (0.60-1.30); TOTAL PROTEIN 6.8 GM/DL (6.4-8.2)
[2019-06-16 05:46] LABS: CLARITY,URINE CLOUDY; COLOR,URINE BROWN; GLUCOSE, URINE (UA) TRACE (NEGATIVE); KETONES,URINE 1+ (NEGATIVE); LEUKOCYTE ESTERASE ,URINE NEGATIVE (NEGATIVE); NITRITE,URINE POSITIVE (NEGATIVE); PROTEIN,URINE 3+ (NEGATIVE)
[2019-06-16 05:54] LABS: AMORPHOUS SEDIMENT,UR LARGE AMOR URATES /LPF; BACTERIA,URINE FEW /HPF; BILIRUBIN,URINE 3+ (NEGATIVE); SQUAMOUS EPITHELIAL CELL,UR 0-2 /HPF; WBC,URINE RARE /HPF
[2019-06-16] MEDS ORDERED: CEPH-507 PO (06:03)
[2019-06-16] MEDS ORDERED: CEPHALEXIN 250 MG (KEFLEX) CAP PO ONE (06:15)
[2019-06-16 07:00] VITALS: BP 83/55
--- NOTE | 2019-06-16 07:06 | Diagnostic Imaging Report ---
PROCEDURE: CT abdomen and pelvis without contrast. TECHNIQUE: Multiple contiguous axial images were obtained through the abdomen and pelvis without the use of intravenous contrast. Auto Exposure Controls were utilized during the CT exam to meet ALARA standards for radiation dose reduction. INDICATION: Syncope with abdominal pain. COMPARISON: 12/23/2016. DISCUSSION: Moderate left pleural effusion is increased from the prior. Trace right pleural effusion is new. Patchy infiltrates within the right middle and right lower lobe could be seen with early pneumonia. [id number]-ib-xbmdifxu ascites is new. Mild anasarca is new. Normal heart size. No pericardial fluid. Tiny cholelithiasis is noted within the gallbladder which is mostly contracted otherwise. Changes of chronic liver disease are noted. The pancreas, stomach, spleen, and adrenal glands are unremarkable. No renal stone or hydronephrosis. Bladder is decompressed. Prostate is normal in size. No pathologically enlarged lymph nodes identified. The aorta is normal in caliber and contains moderate atherosclerotic plaque. Widespread sclerotic osseous metastatic disease is significantly increased from the prior exam. Diverticulosis, but no secondary evidence for diverticulitis. IMPRESSION: 1. Widespread osseous metastatic disease, significantly increased from the prior exam. 2. Changes of cirrhosis with new ascites and mild anasarca. Additional pleural effusions are present. 3. Patchy infiltrates within the right middle and right lower lobe could be seen with early pneumonia. 4. Agree with preliminary report. Dictated by: Dictated on workstation # [id number]
--- NOTE | 2019-06-16 07:07 | Diagnostic Imaging Report ---
PROCEDURE: CT head and CT cervical spine without contrast. TECHNIQUE: Multiple contiguous axial images were obtained through the brain and cervical spine without the use of intravenous contrast. Sagittal and coronal reformations through the cervical spine were then performed. Auto Exposure Controls were utilized during the CT exam to meet ALARA standards for radiation dose reduction. INDICATION: Syncope, head and neck pain. COMPARISON: 01/01/2019. DISCUSSION: Head: Diffuse brain volume loss is stable, likely age related. White matter hypoattenuation is nonspecific, greater than expected for age related chronic small vessel ischemic disease, stable. The orbits, sinuses, mastoid air cells, and calvarium are unremarkable. No acute intracranial hemorrhage, mass, midline shift, or hydrocephalus. Cervical spine: Widespread diffuse osseous metastatic disease is again noted. No acute fracture or subluxation. Moderate degenerative disease is stable. Alignment is anatomic. Moderate left pleural effusion is incompletely viewed. Groundglass opacities within the right lung apex is concerning for pneumonia. IMPRESSION: 1. No acute intracranial abnormality identified. 2. Stable changes of osseous metastatic disease with no acute fracture. 3. Suspect right lung pneumonia. 4. Moderate left pleural effusion, incompletely viewed. 5. Agree with preliminary report. Dictated by: Dictated on workstation # [id number]
--- NOTE | 2019-06-16 07:31 | Diagnostic Imaging Report ---
INDICATION: Pain, syncopal episode EXAMINATION: Right shoulder 06/16/2019 FINDINGS: Three views of the shoulder demonstrate diffuse hyperdensities throughout all visualized osseous structures suggesting a metastatic process, correlate with history. There is no acute fracture. No dislocations. Degenerative findings at the acromioclavicular joint noted. Pacemaker overlies the right chest. There are nodularities in the visualized right lung. Please correlate with chest x-ray. Sternotomy wires also noted with a right jugular line tip in the junction of the SVC and right atrium IMPRESSION: 1. No acute osseous abnormality. 2. Suspected diffuse metastatic disease, see above description, correlate with history. Dictated by: Dictated on workstation # [id number]
--- NOTE | 2019-06-16 07:52 | Diagnostic Imaging Report ---
INDICATION: Pain, syncope. EXAMINATION: Right foot 06/16/2019. FINDINGS: 3 views of the forefoot are provided. There is a fracture through the distal aspect of the 1st proximal phalanx. Definite involvement of the adjacent joint spaces not appreciated at this time. No dislocations. Remaining osseous structures appear to be intact. IMPRESSION: 1. Fracture of the proximal 1st phalanx as described. Dictated by: Dictated on workstation # [id number]
--- NOTE | 2019-06-16 07:57 | Diagnostic Imaging Report ---
INDICATION: Dyspnea. COMPARISON: 05/15/2019. DISCUSSION: 2 portable frontal upright views of the chest were obtained. New right IJ tunneled dialysis catheter with tip in the high right atrium in good position. No pneumothorax. Median sternotomy and right-sided AICD are stable. Stable normal heart size. Alveolar infiltrates are decreased, pulmonary edema versus pneumonia. No pleural fluid. No osseous abnormality. IMPRESSION: 1. New right-sided dialysis catheter in good position. No pneumothorax. 2. Decreasing alveolar infiltrates. Dictated by: Dictated on workstation # [id number]
--- NOTE | 2019-06-16 08:04 | Diagnostic Imaging Report ---
INDICATION: Left shoulder pain. COMPARISON: 12/29/2008. DISCUSSION: Three views of left shoulder were obtained. Osseous metastatic disease is noted. No fracture or dislocation. Suture anchors are present within the humeral head. No significant degenerative disease. Soft tissues are unremarkable. IMPRESSION: 1. Diffuse osseous metastatic disease. No fracture. Dictated by: Dictated on workstation # [id number]
== END 2019-06-16 07:00 | disposition home or self-care (01) ==
LOC: EDUNIT# 03:35 → ER 03:36
DX: M79.674 Pain in right toe(s) (principal); R55 Syncope and collapse; E80.7 Disorder of bilirubin metabolism, unspecified; D64.9 Anemia, unspecified; I95.89 Other hypotension; N39.0 Urinary tract infection, site not specified; E11.22 Type 2 diabetes mellitus with diabetic chronic kidney disease; I13.2 Hypertensive heart and chronic kidney disease with heart failure and with stage 5 chronic kidney disease, or end stage renal disease; N18.6 End stage renal disease; I25.10 Atherosclerotic heart disease of native coronary artery without angina pectoris; I48.91 Unspecified atrial fibrillation; J43.9 Emphysema, unspecified; E78.00 Pure hypercholesterolemia, unspecified; K21.9 Gastro-esophageal reflux disease without esophagitis; F41.9 Anxiety disorder, unspecified; E66.9 Obesity, unspecified; R40.2142 Coma scale, eyes open, spontaneous, at arrival to emergency department; R40.2252 Coma scale, best verbal response, oriented, at arrival to emergency department; R40.2362 Coma scale, best motor response, obeys commands, at arrival to emergency department; F17.210 Nicotine dependence, cigarettes, uncomplicated; Z86.73 Personal history of transient ischemic attack (TIA), and cerebral infarction without residual deficits; Z86.718 Personal history of other venous thrombosis and embolism; Z85.3 Personal history of malignant neoplasm of breast; Z85.830 Personal history of malignant neoplasm of bone; Z95.810 Presence of automatic (implantable) cardiac defibrillator; Z79.01 Long term (current) use of anticoagulants; Z99.2 Dependence on renal dialysis; Z91.041 Radiographic dye allergy status; Z79.02 Long term (current) use of antithrombotics/antiplatelets; Z68.39 Body mass index [BMI] 39.0-39.9, adult
CPT/HCPCS: 36415; 51702; 70450; 71045; 72125; 73030; 73660; 74176; 80053; 81000; 83605; 84484; 85025; 85610; 85730; 87040; 87088; 87804; 93005; 96360